=== PATIENT | female | born 1930 | race Caucasian/White ===

== ENCOUNTER 2017-04-26 07:52 | Emergency (ER) | payer MEDICARE ==
[2017-04-26] MEDS ORDERED: NS 0.9% 1000 ML* 1,000 ML IV ONE (08:06)
[2017-04-26] MEDS ORDERED: Ondansetron INJ* 2 MG/ML VIAL IV ONE (08:06)
[2017-04-26 08:27] LABS: Hematocrit 24 % (35-47); Hemoglobin 8.5 g/dl (12.0-16.0); Mean Corpuscular HGB Conc 35 g/dl (31-36); Mean Corpuscular Hemoglobin 29 pg (27-31); Mean Corpuscular Volume 83 fL (80-97); Mean Platelet Volume 8 um3 (7.4-10.4); Platelet Count 230 10^3/ul (150-450); Red Blood Count 2.93 10^6/ul (4.0-5.4); Red Cell Distribution Width 15 % (10.5-15)
[2017-04-26 08:41] LABS: EGFR Non-African American 20.8 (>60)
[2017-04-26 08:57] LABS: ABS Basophils 0 10^3/ul (0-0.2); ABS Eosinophils 0 10^3/ul (0-0.6); ABS Lymphocytes 0.1 10^3/ul (1.0-4.8); ABS Monocytes 1.7 10^3/ul (0-0.8); ABS Neutrophils 6.2 10^3/ul (1.5-7.7); ABS Nucleated RBC 0 10^3/ul; Eosinophil % 0 % (0-6); Lymphocyte % 1.2 % (25-47); Nucleated Red Blood Cells % 0
--- NOTE | 2017-04-26 09:05 | RAD ---
INDICATION: Preoperative COMPARISON: None TECHNIQUE: AP seated and lateral views were obtained. FINDINGS: Bones/Soft Tissues: There are no acute bony findings. Cardiomediastinal: The cardiomediastinal silhouette is normal. Lungs: There are no infiltrates. There is presumed mild underlying chronic change. There is hyperinflation. Pleura: There are no pleural effusions. Other: None IMPRESSION: MILD HYPERINFLATION. NO ACTIVE DISEASE.
[2017-04-26] MEDS ORDERED: Potassium Chlor TAB* 20 MEQ TAB.ER PO ONE (09:13)
[2017-04-26 10:17] VITALS: BP 114/60
[2017-04-27] MEDS ORDERED: ceFAZolin 2 GM PREMIX (*) 2 GM/50 ML BAG IVPB ONE (08:00)
--- NOTE | 2017-04-27 17:41 | ED ---
Magno Chin Angela, scribed for Abhishek Puri MD on 04/26/17 at 0806 . GI/ HPI - HPI Summary HPI Summary: This pt is a 86 y/o female, accompanied by her daughter, presenting to [facility] c/ o vomiting and diarrhea since last night. Daughter reports the pt had an infusion yesterday at Dr. Flores's office. Pt has B cell Lymphoma CA and is scheduled to have a port placed tomorrow to start chemotherapy. Oncology nurse told the daughter pt can take stool softeners and laxatives. Pt was given two stool softeners. Pt began with vomiting and then had diarrhea. Daughter states pt had 2 episodes of diarrhea at 03:00 and then at 05:00 today. Daughter reports the pt had weakness and diffuse abd pain. - History of Current Complaint Time Seen by Provider: 04/26/17 07:56 Stated Complaint: VOMITIN, DIARRHEA Hx Obtained From: Patient, Family/Frit Coater - Daughter Onset/Duration: Started Hours Ago, Still Present Timing: Lasting Hours Current Severity: Moderate Pain Intensity: 0 Location of Pain: Diffuse Associated Signs and Symptoms: Positive: Weakness - generalized, Vomiting, Diarrhea, Abdominal Pain Alleviating Factor(s): Nothing - Allergy/Home Medications Allergies/Adverse Reactions: Allergies Allergy/AdvReac Type Severity Reaction Status Date / Time No Known Allergies Allergy Verified 04/27/17 06:55 PMH/Surg Hx/FS Hx/Imm Hx Cardiovascular History: Reports: Hx Hypertension History: Reports: Other Problems/Disorders - UTI Neurological History: Reports: Hx CVA - 2013 - Cancer History Cancer Type, Location and Year: B Cell Lymphoma CA Infectious Disease History: No Infectious Disease History: Denies: Traveled Outside the [place] in Last 30 Days - Family History Family History: Mother: Colon CA. Brother: pancreatic CA - Social History Alcohol Use: None Substance Use Type: Reports: None Smoking Status (MU): Never Smoked Tobacco Review of Systems Constitutional: Other - dehydrated Negative: Fever Positive: Abdominal Pain - diffuse, Vomiting, Diarrhea, Nausea Positive: Weakness - generalized All Other Systems Reviewed And Are Negative: Yes Physical Exam - Summary Physical Exam Summary: VITAL SIGNS: Reviewed. GENERAL: Patient is an elderly and fragile female who is lying comfortable in the stretcher. Patient seems dehydrated. HEAD AND FACE: No signs of trauma. No ecchymosis, hematomas or skull depressions. No sinus tenderness. EYES: PERRLA, EOMI x 2, No injected conjunctiva, no nystagmus. EARS: Hearing grossly intact. Ear canals and tympanic membranes are within normal limits. MOUTH: Oropharynx within normal limits. NECK: Supple, trachea is midline, no adenopathy, no JVD, no carotid bruit, no c- spine tenderness, neck with full ROM. CHEST: Symmetric, no tenderness at palpation LUNGS: Clear to auscultation bilaterally. No wheezing or crackles. CVS: Regular rate and rhythm, S1 and S2 present, no murmurs or gallops appreciated. ABDOMEN: Soft, non-tender. No signs of distention. No rebound no guarding, and no masses palpated. Bowel sounds are normal. EXTREMITIES: FROM in all major joints, no edema, no cyanosis or clubbing. NEURO: Alert and oriented x 3. No acute neurological deficits. Speech is normal and follows commands. SKIN: Dry and warm Triage Information Reviewed: Yes Vital Signs On Initial Exam: Initial Vitals Temp Pulse Resp BP Pulse Ox 99.3 F 101 20 128/61 96 04/26/17 07:54 04/26/17 07:54 04/26/17 07:54 04/26/17 07:54 04/26/17 07:54 Vital Signs Reviewed: Yes Diagnostics - Vital Signs Vital Signs Temp Pulse Resp BP Pulse Ox 04/26/17 07:54 99.3 F 101 20 128/61 96 - Laboratory Lab Results: Lab Results 04/26/17 04/26/17 Range/Units 08:15 08:15 WBC 8.0 (3.5-10.8) 10^3/ul RBC 2.93 L (4.0-5.4) 10^6/ul Hgb 8.5 L (12.0-16.0) g/dl Hct 24 L (35-47) % MCV 83 (80-97) fL MCH 29 (27-31) pg MCHC 35 (31-36) g/dl RDW 15 (10.5-15) % Plt Count 230 (150-450) 10^3/ul MPV 8 (7.4-10.4) um3 Neut % (Auto) 77.9 (38-83) % Lymph % (Auto) 1.2 L (25-47) % Sierra % (Auto) 20.8 H (1-9) % Eos % (Auto) 0 (0-6) % Baso % (Auto) 0.1 (0-2) % Absolute Neuts (auto) 6.2 (1.5-7.7) 10^3/ul Absolute Lymphs (auto) 0.1 L (1.0-4.8) 10^3/ul Absolute Monos (auto) 1.7 H (0-0.8) 10^3/ul Absolute Eos (auto) 0 (0-0.6) 10^3/ul Absolute Basos (auto) 0 (0-0.2) 10^3/ul Absolute Nucleated RBC 0 10^3/ul Nucleated RBC % 0 Sodium 129 L (133-145) mmol/L Potassium 3.3 L (3.5-5.0) mmol/L Chloride 94 L (101-111) mmol/L Carbon Dioxide 27 (22-32) mmol/L Anion Gap 8 (2-11) mmol/L BUN 33 H (6-24) mg/dL Creatinine 2.23 H (0.51-0.95) mg/dL Est GFR ( Amer) 26.8 (>60) Est GFR (Non-Af Amer) 20.8 (>60) BUN/Creatinine Ratio 14.8 (8-20) Glucose 139 H (70-100) mg/dL Calcium 11.5 H (8.6-10.3) mg/dL Total Bilirubin 0.50 (0.2-1.0) mg/dL AST 99 H (13-39) U/L ALT 160 H (7-52) U/L Alkaline Phosphatase 154 H (34-104) U/L C-Reactive Protein 158.15 H (< 5.00) mg/L Total Protein 6.5 (6.4-8.9) g/dL Albumin 3.2 (3.2-5.2) g/dL Globulin 3.3 (2-4) g/dL Albumin/Globulin Ratio 1.0 (1-3) Lipase 71 (11.0-82.0) U/L Result Diagrams: 04/26/17 08:15 04/26/17 08:15 Lab Statement: Any lab studies that have been ordered have been reviewed, and results considered in the medical decision making process. - Radiology Chest XR Xray Interpretation: Positive (See Comments) - IMPRESSION: Mild hyperinflation. No active disease. Dr. Puri has reviewed this radiology report. Radiology Interpretation Completed By: Radiologist - EKG 08:09 Cardiac Rate: NL EKG Rhythm: Sinus Rhythm - at 86 bpm EKG Interpretation: No ST elevation. Normal axis. GIGU Course/Dx - Course Course Of Treatment: This pt is a 86 y/o female, accompanied by her daughter, presenting to [facility] c/o vomiting and diarrhea since last night. Daughter reports the pt had an infusion yesterday at Dr. Flores's office. Pt has B cell Lymphoma CA and is scheduled to have a port placed tomorrow to start chemotherapy. Oncology nurse told the daughter pt can take stool softeners and laxatives. Pt was given two stool softeners. Pt began with vomiting and then had diarrhea. Daughter states pt had 2 episodes of diarrhea at 03:00 and then at 05:00 today. Daughter reports the pt had weakness and diffuse abd pain. Test results show slight chronic anemia, hyponatremia, potassium of 3.3, CRP of 158. Pt was given IV fluids in the ED. After these fluids, the pt felt better. I did a chest XR which was negative for an acute pathology. The pt became febrile, for which she was given Tylenol. I offered more work up however she reports she is feeling better. She additionally reports she has had a fever this week for which she has been taking Tylenol as recommended by Dr. Flores. Therefore, the pt will be discharged home with follow up from PCP and Dr. Flores. She was not able to give a stool sample in the ED. Pt was recommended to return to the ED for any fever, increased pain, cough or urinary symptoms. Pt is hemodynamically stable, alert and oriented x3. - Diagnoses Differential Diagnoses - Female: Gastroenteritis (Viral), Gastroenteritis ( Bacterial), Gerd Provider Diagnoses: Nausea, vomiting and diarrhea Discharge - Discharge Plan Condition: Stable Disposition: HOME Patient Education Materials: Acute Nausea and Vomiting (ED), Acute Diarrhea (ED ) Referrals: Jed Flores MD [Primary Care Provider] - 3 Days Additional Instructions: Please follow up with Dr. Flores. RETURN TO THE ED FOR ANY WORSENING SYMPTOMS. The documentation as recorded by the Magno booker Angela accurately reflects the service I personally performed and the decisions made by me, Abhishek Puri MD.
== END 2017-04-26 10:15 | disposition home or self-care (01) ==
LOC: ED 07:52
DX: R11.2 Nausea with vomiting, unspecified (principal); R19.7 Diarrhea, unspecified
CPT/HCPCS: 36415; 71046; 80053; 83690; 85025; 86140; 93005; 96361; 96374; 99282; A9270-GY; J2405

== ENCOUNTER → 2017-04-27 06:33 | Day surgery (SDC) | payer MEDICARE ==
[~2017-04-27 06:33] MED LIST: Acetaminophen TAB* 325 MG PO PRN; Buffered Lidocaine 0.9% SYRIN* 5 ML/SYR SYRINGE INTRADERM ONE; Buffered Lidocaine 0.9% SYRIN* 5 ML/SYR SYRINGE ONE; Bupivacaine 0.25% SDV* 30 ML ONE; Bupivacaine 0.5% SDV PF* 10-30ML VIAL ONE; Dexamethasone IV* 4 MG/ML 1 ML (4 MG) ONE; Famotidine IV* 10 MG/ML 2 ML (20 mg) IV ONE; Famotidine IV* 10 MG/ML 2 ML (20 mg) ONE; Flumazenil* 0.1 MG/ML 5 ML MDV ONE; KETAMINE HCL* 50 MG/ML 10 ML VIAL ONE; Lidocaine 1% MPF wEPI 200,000* 30 ML SDV ONE; Lidocaine 2% PF * 5 ML VIAL ONE; Midazolam* 1 MG/ML 2 ML VIAL (2 MG) ONE; Naloxone* 0.4 MG/ML 1 ML VIAL IV PRN; Ondansetron INJ* 2 MG/ML VIAL IV PRN; Ondansetron INJ* 2 MG/ML VIAL ONE; Propofol* 10 MG/ML 20 ML BTL IV PUSH ONE; ceFAZolin 1 GM in Dextrose (*) 2 GM/100 ML BAG IVPB ONE; fentaNYL* 50 MCG/ML 2 ML VIAL (100 MCG VIAL) ONE
--- NOTE | 2017-04-27 08:56 | BRIEFOPN ---
Brief Operative Note - Surgery Procedures: Pre-OP Diagnoses: lymphoma Post-op Diagnosis: same Procedure: Insertion of powerport, needle in Surgeon: Maria Teresa Asst: none Anethesia: local, MAC EBL: minimal IVF: minimal Specimen: none Drains: none 8Fr single lumen power port via R IJV
--- NOTE | 2017-04-27 09:39 | RAD ---
INDICATION: chest port placement COMPARISONS: None relevant TECHNIQUE: Fluoroscopy was provided for a vascular access procedure. Total fluoroscopy time is: 47 seconds FINDINGS: Spot images demonstrate a right-sided chest port from an internal jugular vein approach with the tip overlying the right atrium. IMPRESSION: FLUOROSCOPY WAS PROVIDED FOR A VASCULAR ACCESS PROCEDURE CPT II Codes: 6045F
--- NOTE | 2017-04-27 09:39 | RAD ---
INDICATION: Central line. Evaluate for pneumothorax COMPARISON: Chest x-ray April 26, 2017 TECHNIQUE: An AP portable view obtained at 0915 hours is submitted. FINDINGS: Bones/Soft Tissues: There are no acute bony findings. There is a right IJ catheter terminating in the superior vena cava Cardiomediastinal: The cardiomediastinal silhouette is normal. Lungs: There are no infiltrates. There is no pneumothorax. Pleura: There are no pleural effusions. Other: None IMPRESSION: INTERVAL PLACEMENT RIGHT IJ CATHETER. NO PNEUMOTHORAX. LUNGS CLEAR.
[2017-04-27 10:43] VITALS: BP 108/50
--- NOTE | 2017-04-28 00:28 | OP ---
CC: Dr. Jed Flores * DATE OF OPERATION: 04/27/17 - SDS DATE OF : 30 SURGEON: Olvin Morel MD STATEMENT CLERK: None. ANESTHESIOLOGIST: Dr. Drake. ANESTHESIA: Local MAC anesthesia. PRE-OP DIAGNOSIS: Lymphoma. POST-OP DIAGNOSIS: Lymphoma. OPERATIVE PROCEDURE: Insertion of PowerPort. ESTIMATED BLOOD LOSS: Minimal blood loss. FLUIDS: Minimal crystalloid fluid given. DRAINS: An 8-Malay PowerPort inserted via the left internal jugular vein. DESCRIPTION OF PROCEDURE: The patient was identified in the preoperative area, case discussed with her, consent signed. She was marked and taken to the operating room, placed on the operating room table in supine position. Gentle sedation was given. The patient's right upper chest and neck were prepped and draped in a standard surgical fashion and a time-out was performed. Injection of the lidocaine along the proposed subclavian stick site was performed. I was unable to access the subclavian vein on the right after placing needle in what I felt was the appropriate place. We had 3 passes in all and then shifted our attention to the neck. The neck had been prepped. We accessed the internal jugular vein. I was able to place the wire, but it turned back on itself and was not able to be advanced. At this point, a micro access kit was opened. The IJ was again accessed. This wire was advanced to the superior vena cava under fluoroscopy. We were then able to place the dilator in and over the dilator put the PowerPort wire again. Under fluoroscopy , we ensured it was in the superior vena cava. Next, we made a pocket in the right upper chest for the PowerPort. We then tunneled the tubing to the stick site from the pocket site and placed the split - away catheter over the wire and then placed tubing through this. The tubing was cut to size checking its distance on the fluoroscopy and then attached to the PowerPort in appropriate position with a hub. This was then sutured into pocket with 0 Prolene sutures at the lateral and medial aspects. The wound was then irrigated and reapproximated with 3-0 Polysorb followed by 4-0 Monocryl and subcuticular sutures. Port was then accessed. Good return of blood was noted and then flushed with saline. We sutured the stick site with 4-0 Monocryl as well and then put a needle in place for chemotherapy later today and flushed this with heparinized saline after aspiration of blood. The patient tolerated the procedure well. [id number]/CPS #: [id number] J[facility] PET[facility] VA MEDICAL CENTERJennifer
== END | disposition home or self-care (01) ==
LOC: OR 06:33
PROVIDERS: ATTEND Surgery
DX: C83.38 Diffuse large B-cell lymphoma, lymph nodes of multiple sites (principal); I10 Essential (primary) hypertension; Z86.73 Personal history of transient ischemic attack (TIA), and cerebral infarction without residual deficits; Z79.01 Long term (current) use of anticoagulants
CPT/HCPCS: 71045; 76000; C1788; J0690; J1100; J1642; J2001; J2250; J2405; J2704; J3010

== ENCOUNTER 2018-04-11 10:53 | Inpatient (IN) | payer MEDICARE ==
--- NOTE | 2018-04-11 12:47 | ED ---
Palpitations / Dysrhythmia - HPI Summary HPI Summary: Patient presents with tachycardia -sent from PCP's office today (Dr. Underwood). She was there for routine physical when she was found to have an increased heart rate, hypoxia (92%) and symptoms of fatigue over the past month. Uses 02 at home routinely (2L) d/t lung scarring - denies h/o radiation. Pt and daughter report intermittent SOB. Her labs from yesterday are also remarkable for worsening anemia and abnormal LFT's. Patient's daughter reports she's been having difficulty swallowing (takes small bites and with water) although she is still eating and drinking and living independently at home. She also reports URI symptoms starting at the beginning of February (ie. sneezing, coughing, sputum, nasal d/c) and lasting all month however she and daughter state these are improving but still has sputum. Denies fever, chills, EMANUEL, chest pain, ab pain, N/V/D, skin changes/bruising/bleeding. H/o lymphomoa - follows w/ Dr. Flores. Last chemo in August 2017 - last imaging 2017. Has been doing well since until February w/ resp sx. - History of Current Complaint Chief Complaint: EDGeneral Time Seen by Provider: 04/11/18 12:05 Hx Obtained From: Patient, Family/[employer]ation [employer] Agent - daughter - Allergy/Home Medications Allergies/Adverse Reactions: Allergies Allergy/AdvReac Type Severity Reaction Status Date / Time No Known Allergies Allergy Verified 04/11/18 11:06 Home Medications: Home Medications Atorvastatin* [Lipitor*] 10 mg PO DAILY 04/11/18 [History Confirmed 04/11/18] Cholecalciferol (Vitamin D3) [Vitamin D3] 1,000 unit PO DAILY 04/11/18 [History Confirmed 04/11/18] Clopidogrel TAB* [Plavix TAB*] 75 mg PO DAILY 04/11/18 [History Confirmed ] PMH/Surg Hx/FS Hx/Imm Hx Previously Healthy: Yes Endocrine/Hematology History: Reports: Hx Anemia - slight Denies: Hx Anticoagulant Therapy, Hx Blood Transfusions, Hx Diabetes Cardiovascular History: Reports: Hx Hypertension, Other Cardiovascular Problems/ Disorders - cholesterol Denies: Hx Atrial Fibrillation, Hx Myocardial Infarction Respiratory History: Denies: Hx Asthma, Hx Chronic Obstructive Pulmonary Disease (COPD), Hx Pneumonia, Hx Pulmonary Embolism GI History: Reports: Other GI Disorders - on protonix r/t new dx of lymphoma History: Denies: Hx Acute Renal Failure, Hx Chronic Renal Failure, Hx Renal Disease Musculoskeletal History: Reports: Hx Arthritis Sensory History: Denies: Hx Contacts or Glasses, Hx Hearing Aid Opthamlomology History: Denies: Hx Contacts or Glasses - Cancer History Cancer Type, 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 tonsillectomy and adenoidectomy 193. gall bladder removed 1988 Hx Anesthesia Reactions: No Infectious Disease History: No Infectious Disease History: Denies: Traveled Outside the [place] in Last 30 Days - Social History Occupation: Retired Lives: Alone Alcohol Use: None Hx Substance Use: No Substance Use Type: Reports: None Hx Tobacco Use: No Smoking Status (MU): Never Smoked Tobacco Review of Systems Positive: Fatigue. Negative: Fever, Chills Eyes: Negative ENT: Other - resolving URI sx Cardiovascular: Other - tachycardia Negative: Palpitations, Chest Pain Positive: Shortness Of Breath Gastrointestinal: Negative Genitourinary: Negative Musculoskeletal: Negative Skin: Negative Neurological: Negative Psychological: Normal All Other Systems Reviewed And Are Negative: Yes Physical Exam Triage Information Reviewed: Yes Vital Signs On Initial Exam: Initial Vitals Temp Pulse Resp BP Pulse Ox 99.3 F 116 20 126/80 96 04/11/18 10:57 04/11/18 10:57 04/11/18 10:57 04/11/18 10:57 04/11/18 10:57 Vital Signs Reviewed: Yes Appearance: Positive: Well-Appearing - alert and oriented on O2 via NC, No Pain Distress, Thin Skin: Positive: Warm, Skin Color Reflects Adequate Perfusion, Dry - no ecchymosis Head/Face: Positive: Normal Head/Face Inspection Eyes: Positive: Normal, EOMI, VONNIE, Conjunctiva Clear. Negative: Conjunctiva Inflammed, Discharge ENT: Positive: Normal ENT inspection, Hearing grossly normal, Pharynx normal - mucosa moist, TMs normal, Uvula midline. Negative: Nasal congestion, Nasal drainage, Tonsillar swelling, Tonsillar exudate Neck: Positive: Supple, Nontender, No Lymphadenopathy Respiratory/Lung Sounds: Positive: Clear to Auscultation, Breath Sounds Present. Negative: Rales, Rhonchi, Wheezes Cardiovascular: Positive: Tachycardia, S1, S2. Negative: Murmur, Rub, Leg Edema Left, Leg Edema Right Abdomen Description: Positive: Nontender, No Organomegaly, Soft Bowel Sounds: Positive: Present Musculoskeletal: Positive: Normal, Strength/ROM Intact Neurological: Positive: Normal, Sensory/Motor Intact, Alert, Oriented to Person Place, Time, CN Intact II-III Psychiatric: Positive: Normal - Kriss Coma Scale Best Eye Response: 4 - Spontaneous Best Motor Response: 6 - Obeys Commands Best Verbal Response: 5 - Oriented Coma Scale Total: 15 Diagnostics - Vital Signs Vital Signs Temp Pulse Resp BP Pulse Ox 04/11/18 12:11 98.9 F 99 04/11/18 12:07 113 37 122/79 99 04/11/18 12:06 110 13 98 04/11/18 10:57 99.3 F 116 20 126/80 96 - Laboratory Result Diagrams: 04/11/18 16:14 Lab Statement: Any lab studies that have been ordered have been reviewed, and results considered in the medical decision making process. Course/Dx - Course Course Of Treatment: Pt here w/ tachycardia at PCP's office today. She was found to have junctional tachycardia with initial ECG - no p waves which is new from previous ECG. Dedicated rhythm strip shows sinus tachycardia with p waves then dropped beat followed by NSR. A repeat ECG reveals tachycardia but with p waves this time - SC is slightly prolonged at 233. Pt's sx have not changed throughout the course of her stay. Labs: H&H have dropped since yesterday - bleed vs. anemia of chronic dz. Pt has a new Rt lower lobe lesion/infiltrate - radiology notes suspicious for neoplasm. Given her h/o Lymphoma , drop in H&H and resp sx w/ changes in heart rate/rhythm, will admit. Discussed w/ Dr.'s Sanchez and Humberto - Dr. Paul to admit. Pt in stable condition at time of transition of care. NOTE: her heart rate improved w/ drinking water and she is hungry - may be component of dehydration. IV fluids were not initially ordered d/t concern for hemdilution if bleeding. - Diagnoses Provider Diagnoses: Right pulmonary lesion, Tachycardia, History of lymphoma, Anemia Discharge - Sign-Out/Discharge Documenting (check all that apply): Patient Departure - Discharge Plan Condition: Stable Disposition: ADMITTED TO [facility] - Billing Disposition and Condition Condition: STABLE Disposition: Admitted to [facility]
[2018-04-11 13:52] LABS: Magnesium 1.9 mg/dL (1.9-2.7)
[2018-04-11] MEDS ORDERED: Iodixanol* (CONTRAST) 320 MG/ML 100 ML SDV IV ONE (13:58)
[2018-04-11 14:27] LABS: TSH (Thyroid Stimulating Horm) 1.18 mcIU/mL (0.34-5.60)
[2018-04-11 16:47] LABS: Hematocrit 26 % (35-47); Hemoglobin 8.8 g/dl (12.0-16.0); Mean Corpuscular HGB Conc 34 g/dl (31-36); Mean Corpuscular Hemoglobin 29 pg (27-31); Mean Corpuscular Volume 85 fL (80-97); Mean Platelet Volume 7.7 fL (7.4-10.4); Platelet Count 334 10^3/ul (150-450); Red Blood Count 3.04 10^6/ul (4.00-5.40); Red Cell Distribution Width 16 % (10.5-15); White Blood Count 10.3 10^3/ul (3.5-10.8)
[2018-04-11 17:01] LABS: ABS Basophils 0 10^3/ul (0-0.2); ABS Eosinophils 0.1 10^3/ul (0-0.6); ABS Lymphocytes 0.7 10^3/ul (1.0-4.8); ABS Neutrophils 7.4 10^3/ul (1.5-7.7); ABS Nucleated RBC 0 10^3/ul; Eosinophil % 0.7 %; Lymphocyte % 6.7 %; Nucleated Red Blood Cells % 0
[2018-04-11 18:29] LABS: C Reactive Protein < 1.00 mg/L (<8.01)
[2018-04-11] MEDS ORDERED: Acetaminophen TAB* 325 MG PO PRN (20:29)
[2018-04-11] MEDS ORDERED: Piperacillin/Tazobac ADVAN(*) 3.375 GM in NS 0.9% 100 ML* 100 ML IVPB ONE (20:33)
[2018-04-11] MEDS ORDERED: Zosyn per Pharmacy* NOTE FOLLOW UP SCH (21:00)
[2018-04-11 21:57] LABS: LDH 192 U/L (140-271); Total Iron Binding Capacity 185 mcg/dL (250-450); Transferrin 132 mg/dL (203-362)
[2018-04-11 22:29] LABS: Iron < 15 ug/dL (50-212)
[2018-04-11] MEDS: NS 0.9% 1000 ML* 1,000 ML IV SCH (22:39)
--- NOTE | 2018-04-11 23:23 | HP ---
CC: Dr. Flores; Dr. Underwood * HISTORY AND PHYSICAL: DATE OF ADMISSION: 04/11/18. REASON FOR ADMISSION: Tachycardia and shortness of breath. HISTORY OF PRESENT ILLNESS: An 87-year-old female with a recent diagnosis of diffuse large B-cell lymphoma, activated B-cell subtype. She was treated with mini- R-CHOP x4 cycles, ending in July 2017. Course complicated by pneumonia and prolonged hospitalization from April to May. She became a [facility] resident during her chemotherapy and has stayed there since. Generally recovered from chemotherapy and this fall had been doing fairly well. Primary sources of information are her son and her daughter. She started to feel poorly 2 to 3 weeks ago. The patient reports increasing fatigue. Both the son and her daughter states she is doing less and less, sleeping more during the day. They would take her out and then she would fall asleep in the car and this is new for her. She also had had oxygen since her May admissions, but was not using it consistently. Over the past week, she has needed it more. Daughter and son has also noted that she has become short of breath in conversation, which was a new finding. She has a chronic cough that is nonproductive. She denies fevers, chills, or night sweats. She has poor appetite and nothing taste good, but weight has generally been stable. She has not noticed any skin changes, any lymphadenopathy. She had blood drawn per Dr. Flores yesterday and then was seen today by Dr. Underwood for her routine physical. On exam, she was noted to be tachycardic at 120, and she was sent to the emergency room. Blood work from yesterday shows a hemoglobin of 8.8, which is down from 11.2 on 01/11 and her hemoglobin has varied from 8.5 to 12 since her first blood work at [facility] in March 2017. She has a creatinine of 0.93, which is her baseline, mildly elevated AST and ALT in the 50s. LFTs were elevated at diagnosis, but normalized during therapy, normal total bilirubin and normal calcium and a slightly elevated glucose of 162. She had a CTA to look for pulmonary embolus. There was no thrombosis, but she is noted to have a new consolidation at superior segment of the right lower lobe. There is broadly increased airspace disease in the right lower lobe on top of her chronic interstitial pattern. While not reported in there is thickening of the mediastinum as well as new subcarinal lymphadenopathy. She has a pericardial effusion that has been present since diagnosis, maybe slightly increased. Her spleen size is normal, although the spleen does look like it may be increased from December 2017, her last CT scan. PAST MEDICAL HISTORY: 1. Diffuse large B-cell lymphoma. She was diagnosed in March 2017 when she presented with hypercalcemia at an outside institution. She was first seen by Dr. Flores on 04/08/17. She was stage III at diagnosis with lymphadenopathy involving the lobe of the diaphragm and negative bone marrow biopsy, she had these symptoms at presentation. She had 2 cycles of mini-R-CHOP, but then course was complicated by prolonged hospitalization with severe pneumonia. She also received 2 additional cycles of chemotherapy and then stopped. She had a CT scan done in July after chemotherapy that did not show any residual lymphadenopathy. 2. Stroke in 2013, which is subsequently recovered. 3. Hypertension. 4. Gallstones. 5. Pulmonary disease. Had episode of longstanding pneumonia in May and has had interstitial changes in her lung since then. Review of a February 2017 CT scan shows some evidence of chronic pulmonary disease, but did not show the scarring we saw on her subsequent scans. PAST SURGICAL HISTORY: 1. Cholecystectomy. 2. Cataract. 3. Tonsillectomy. MEDICATIONS: At [facility]: 1. Atorvastatin 10 mg a day. 2. Vitamin D 1000 units daily. 3. Plavix 75 mg daily. ALLERGIES: None. FAMILY HISTORY: Mother had colon cancer, at 79. Brother had pancreatic cancer at 85. No family history of malignancies. SOCIAL HISTORY: She is . Resident of [facility]. Two of her children are very involved, 5 children total. She is a retired teacher. She never smoked, but she did get exposed to secondhand smoke from her . Never is a heavy drinker. She moved from [place] to [facility] to be with family when she became ill. REVIEW OF SYSTEMS: In general, more fatigued. Denies fevers, chills, or night sweats. HEENT: Poor taste. Poor hearing. Pulmonary: More short of breath recently as per HPI. Cardiac: Tachycardia with Dr. Underwood's office. Denies palpitations or chest pain. GI: She has had some diarrhea several weeks ago and low appetite. : Polyuria. Musculoskeletal: She gets up and gets around at [facility], has been fairly independent. Neurologic: Stroke that she recovered from. She is a poor historian, but is oriented. PHYSICAL EXAMINATION VITAL SIGNS: Temperature 99.3 in the emergency room, BP 112/65, heart rate 110 to 120, respiratory rate 20, O2 saturation 96% on 2 L. HEENT: Mucosa moist. No lesions. Conjunctivae slightly pale. No cervical or supraclavicular lymphadenopathy. Pupils equal, round, and reactive to light. LUNGS: She has crackles bilaterally right more than left, not clearly consolidated. She has coarse breath sounds, but has reasonable air movement. No wheezing. HEART: Regular rhythm. S1, S2. Tachycardic. ABDOMEN: Nontender, nondistended. No hepatosplenomegaly. EXTREMITIES: There is no edema. Good pulses x4. NEUROLOGIC: She is alert and oriented in the ER. Moving all 4 extremities. Full exam was deferred. No gross defects. SKIN: No lesions noted. No peripheral lymphadenopathy. DIAGNOSTIC STUDIES/LAB DATA: As noted in HPI. Her platelets are 334, white count 10.3 with a slightly left shift in differential. CT scan as above. ASSESSMENT AND PLAN: An 87-year-old female with a history of diffuse large B- cell lymphoma, treated with minimal chemotherapy, completed last July. Now comes in with a new anemia, tachycardia, and an infiltrative pulmonary process as well as mediastinal lymphadenopathy. Differential diagnosis includes atypical pneumonia, community-acquired pneumonia, recurrent lymphoma. 1. Pulmonary infiltrate and mediastinal lymphadenopathy. We will start her on empiric antibiotics with Zosyn and azithromycin. Consult Pulmonary in the morning to consider bronchoscopy and/or transbronchial biopsy. We will check ESR as well as LDH and beta-2 microglobulin. 2. Anemia. Send iron, B12 and erythropoietin level. Differential diagnoses includes new iron deficiency, chronic disease, renal insufficiency. 3. I will hold her home medications. She should be off the Plavix in case she needs the biopsy, atorvastatin and vitamin D are necessary at this point. 4. DVT prophylaxis per protocol. We will use 30 mg of Lovenox as estimated creatinine clearance is diminished given her weight, age and creatinine of 0.93. 5. Physical therapy starting tomorrow as I expect this would be a several day hospitalization with discharge plan back to [facility]. 6. Tachycardia. We will follow on telemetry for time being, suspected it is secondary to systemic illness. 7. Gentle hydration, NS at 75 cc/hr [id number]/CPS #: [id number] MTDD
[2018-04-11] MEDS: Azithromycin IV(*) 500 MG in NS 0.9% 250 ML* 250 ML IVPB SCH (23:43)
[2018-04-11] MEDS: Enoxaparin(*) 30 MG/0.3 ML SYR SUBCUT SCH (23:44)
[2018-04-12] MEDS: ZOSYN 3.375 GM Q8H per EXTENDED INFUSION IVPB SCH ×6 (04:29→19:16)
[2018-04-12] MEDS ORDERED: Iodixanol* (CONTRAST) 320 MG/ML 100 ML SDV IV ONE (09:50)
--- NOTE | 2018-04-12 11:23 | PN ---
Progress Note - Progress Note Date of Service: 04/12/18 SOAP: Subjective: []Presented to the ER yesterday following OV with primary where her HR was elevated. "I guess something just wasn't working right." Son-in-law at bedside, both pt. and family involved in conversations. Tired this AM, but no huge difference from yesterday. Developed diarrhea this AM following CT with oral contrast. Denies pain. Has been coughing and bringing up clear sputum, not frothy. Feels most comfortable wrapped in blankets laying flat. Medications: Acetaminophen (Tylenol Tab*) 650 mg PO Q4H PRN PRN Reason: FEVER/PAIN Last Admin: 04/11/18 22:54 Dose: 650 mg Enoxaparin Sodium (Lovenox(*)) 30 mg SUBCUT Q24H PENDING SALE TO [facility] Last Admin: 04/11/18 23:44 Dose: 30 mg Sodium Chloride (Ns 0.9% 1000 Ml*) 1,000 mls @ 75 mls/hr IV PER RATE PENDING SALE TO [facility] Last Admin: 04/11/18 22:39 Dose: 75 mls/hr Azithromycin 500 mg/ Sodium (Chloride) 250 mls @ 250 mls/hr IVPB Q24H PENDING SALE TO [facility] Last Admin: 04/11/18 23:43 Dose: 250 mls/hr Piperacillin Sod/Tazobactam (Sod 3.375 gm/ Sodium Chloride) 100 mls @ 25 mls/ hr IVPB Q8H PENDING [facility] TO [facility] Last Admin: 04/12/18 04:29 Dose: 25 mls/hr Pharmacy Consult (Zosyn Per Pharmacy*) 1 note FOLLOW UP .ZOSYN PER PHARMACY [facility]END[facility] TO [facility] Objective: [] Vital Signs Temp Pulse Resp BP Pulse Ox 98.5 F 58 18 103/44 100 04/12/18 07:43 04/12/18 07:43 04/12/18 07:43 04/12/18 07:43 04/12/18 07:43 A&Ox3, EOMI, neuro grossly non-focal RUFFIN and moving independently in bed HRR, S1S2 LS with fine crackles at bases, R>L, resp. even and non-labored, dry cough noted +BS, abd. soft and non-tender, no masses or megaly with palpation Laboratory Results - last 24 hr 04/11/18 04/11/18 04/11/18 12:53 12:56 12:56 WBC RBC Hgb Hct MCV MCH MCHC RDW Plt Count MPV Neut % (Auto) Lymph % (Auto) Otero % (Auto) Eos % (Auto) Baso % (Auto) Absolute Neuts (auto) Absolute Lymphs (auto) Absolute Monos (auto) Absolute Eos (auto) Absolute Basos (auto) Absolute Nucleated RBC Nucleated RBC % ESR Magnesium 1.9 Iron TIBC % Saturation Unsat Iron Binding Transferrin Ferritin Lactate Dehydrogenase Troponin I 0.01 C-Reactive Protein < 1.00 Vitamin B12 TSH 1.18 Monoscreen Negative Influenza A (Rapid) Negative Influenza B (Rapid) Negative 04/11/18 04/11/18 04/11/18 16:14 21:10 21:10 WBC 10.3 RBC 3.04 L Hgb 8.8 L Hct 26 L MCV 85 MCH 29 MCHC 34 RDW 16 H Plt Count 334 MPV 7.7 Neut % (Auto) 72.5 Lymph % (Auto) 6.7 Otero % (Auto) 19.8 Eos % (Auto) 0.7 Baso % (Auto) 0.3 Absolute Neuts (auto) 7.4 Absolute Lymphs (auto) 0.7 L Absolute Monos (auto) 2.0 H Absolute Eos (auto) 0.1 Absolute Basos (auto) 0 Absolute Nucleated RBC 0 Nucleated RBC % 0 ESR 109 H Magnesium Iron < 15 L TIBC 185 L % Saturation 8 L Unsat Iron Binding < 170 Transferrin 132 L Ferritin 242.0 Lactate Dehydrogenase 192 Troponin I C-Reactive Protein Vitamin B12 > 1450 H TSH Monoscreen Influenza A (Rapid) Influenza B (Rapid) Assessment: []87 yo female with DLBCL s/p R-miniCHOP completed in spring of this year ( albeit with multiple complications) presenting to the ER last night with tachycarda and CTA chest concerning for pneumonia vs. recurrent disease (neg. for PE). Plan: []1. Tachycardia: seeming to improve with hydration and IV abx., suspect likely r/t PNA - cont. tele for now - suggest 3 days IV abx. prior to d/c 2. Anemia: normal B12 with functional iron deficiency (normal ferritin) - may be related to lymphoma, follow and consider bone marrow biopsy if persistent 3. Lymphoma: adenopathy on CT chest, none on CT abd/pelvis (personally reviewed) - will cont. f/u and may require PET as outpatient Dispo: cont. PT and likely d/c back to [facility] in next 2-3 days
[2018-04-12] MEDS: Enoxaparin(*) 30 MG/0.3 ML SYR SUBCUT SCH (21:18)
[2018-04-12] MEDS: Azithromycin IV(*) 500 MG in NS 0.9% 250 ML* 250 ML IVPB SCH (23:13)
[2018-04-12] MEDS: guaiFENesin LIQ* 100 MG/5 ML UDC PO PRN (23:58)
[2018-04-13] MEDS: NS 0.9% 1000 ML* 1,000 ML IV SCH ×4 (03:40→17:21)
[2018-04-13] MEDS: ZOSYN 3.375 GM Q8H per EXTENDED INFUSION IVPB SCH ×6 (05:22→19:40)
--- NOTE | 2018-04-13 15:08 | PN ---
Subjective Date of Service: 04/13/18 Interval History: Pt states that she feels pretty well. She admits to an occasional cough, which is productive. She denies hemoptysis, aches, chest pain. She is SOB, but there is no change from her baseline, she states. She reports having had diarrhea last night, but had a formed stool later. She denies any other bouts of diarrhea and denies abdominal pain. She is tired and has a runny nose. Objective Active Medications: Acetaminophen (Tylenol Tab*) 650 mg PO Q4H PRN Enoxaparin Sodium (Lovenox(*)) 30 mg SUBCUT Q24H ASYA Guaifenesin (Robitussin*) 10 ml PO Q4H PRN Sodium Chloride (Ns 0.9% 1000 Ml*) 1,000 mls @ 75 mls/hr IV PER RATE ASYA Azithromycin 500 mg/ Sodium (Chloride) 250 mls @ 250 mls/hr IVPB Q24H ASYA Piperacillin Sod/Tazobactam (Sod 3.375 gm/ Sodium Chloride) 100 mls @ 25 mls/ hr IVPB Q8H [facility] Pharmacy Consult (Zosyn Per Pharmacy*) 1 note FOLLOW UP .ZOSYN PER PHARMACY [facility] Vital Signs: Temp Pulse Resp BP Pulse Ox 98.1 F 94 20 119/99 99 04/13/18 11:07 04/13/18 11:07 04/13/18 11:07 04/13/18 11:07 04/13/18 11:07 Oxygen Devices in Use Now: Nasal Cannula Appearance: Pt is resting comfortably in bed; in no acute distress; pleasant and cooperative Eyes: No Scleral Icterus, PERRLA, - - EOMI Ears/Nose/Mouth/Throat: NL Teeth, Lips, Gums, Clear Oropharnyx, Mucous Membranes Moist Neck: NL Appearance and Movements; NL JVP, Trachea Midline, No Thyroid Enlargement, Masses Respiratory: Symmetrical Chest Expansion and Respiratory Effort, - - Bibasilar crackles, more prominent on R base Cardiovascular: NL Sounds; No Murmurs; No JVD, RRR, No Edema Abdominal: NL Sounds; No Tenderness; No Distention, No Hepatosplenomegaly Extremities: No Edema, No Clubbing, Cyanosis, - - Radial and dorsalis pedal pulses 2+ b/l Neurological: Alert and Oriented x 3, NL Sensation Result Diagrams: 04/11/18 16:14 Microbiology and Other Data: Microbiology 04/11/18 22:07 Nasal Screen MRSA (PCR) - Final Nasal Mrsa Not Detected 04/11/18 12:33 Influenza Types A,B Antigen - Final Nasal Specimen received for Influenza A/B Molecular testing Assess/Plan/Problems-Billing Assessment: Pt is an 87 yof with h/o diffuse large B cell lymphoma, finished R-miniCHOP in July of 2017 with a pna complications in between. She presented to ther ER with tachycardia, had CTA that revealed pna vs DLBCL. - Patient Problems (1) Pneumonia Comment: -Pt has occasional cough, no fevers -Continue azithro, zosyn -Recheck CBC, BMP tomorrow a.m. (2) Tachycardia Comment: -Pt still intermittently tachy with low-normal BP -Continue NS @ 75cc/h (3) Anemia Comment: -Functional iron deficiency with normal ferritin -May be related to lymphoma; follow and consider bone marrow bx if persistent (4) Mediastinal lymphadenopathy Comment: -LAD on CT chest CT, no LAD on CT abd/pel -F/u with heme/onc outpatient, as she may require PET (5) DVT prophylaxis Comment: -Lovenox ordered (6) DNR (do not resuscitate) Status and Disposition: Inpatient. Discharge when stable and follow up with heme/onc.
[2018-04-13] MEDS: Enoxaparin(*) 30 MG/0.3 ML SYR SUBCUT SCH (21:15)
[2018-04-13] MEDS: guaiFENesin LIQ* 100 MG/5 ML UDC PO PRN (22:48)
[2018-04-14] MEDS: Azithromycin IV(*) 500 MG in NS 0.9% 250 ML* 250 ML IVPB SCH (00:01)
[2018-04-14] MEDS: ZOSYN 3.375 GM Q8H per EXTENDED INFUSION IVPB SCH ×6 (02:59→19:49)
[2018-04-14 05:04] LABS: Hematocrit 24 % (35-47); Hemoglobin 8.1 g/dl (12.0-16.0); Mean Corpuscular HGB Conc 34 g/dl (31-36); Mean Corpuscular Hemoglobin 29 pg (27-31); Mean Corpuscular Volume 86 fL (80-97); Mean Platelet Volume 7.2 fL (7.4-10.4); Platelet Count 341 10^3/ul (150-450); Red Cell Distribution Width 16 % (10.5-15); White Blood Count 8.1 10^3/ul (3.5-10.8)
[2018-04-14 05:23] LABS: Calcium 8.5 mg/dL (8.6-10.3); EGFR Non-African American 66.9 (>60); Potassium 3.9 mmol/L (3.5-5.0)
[2018-04-14 05:25] LABS: ABS Basophils 0.1 10^3/ul (0-0.2); ABS Eosinophils 0.2 10^3/ul (0-0.6); ABS Lymphocytes 0.6 10^3/ul (1.0-4.8); ABS Monocytes 1.5 10^3/ul (0-0.8); ABS Neutrophils 5.6 10^3/ul (1.5-7.7); ABS Nucleated RBC 0 10^3/ul; Eosinophil % 2.9 %; Lymphocyte % 7.6 %; Nucleated Red Blood Cells % 0
[2018-04-14] MEDS: NS 0.9% 1000 ML* 1,000 ML IV SCH (09:23)
[2018-04-14] MEDS ORDERED: Furosemide IV* 10 MG/ML 2 ML VIAL (20 MG) IV ONE (14:39)
--- NOTE | 2018-04-14 15:06 | PN ---
Subjective Date of Service: 04/14/18 Interval History: Pt continues to have an occasional cough, and states that it is productive with clear-white sputum. She is short of breath and finds her oxygen to be a nuisance, stating that the tubing is difficult to walk with. She states she is at her baseline in terms of her SOB, and is on 2-3L O2 at home. She denies CP, increased SOB, abd pain, n/v. She states she has not had diarrhea in the last 24 hours. She denies hematemesis, hemoptysis, hematochezia, melena. Denies fever, body aches, chills. Objective Active Medications: Acetaminophen (Tylenol Tab*) 650 mg PO Q4H PRN Enoxaparin Sodium (Lovenox(*)) 30 mg SUBCUT Q24H ASYA Ferrous Sulfate (Ferrous Sulfate Tab*) 325 mg PO DAILY ASYA Guaifenesin (Robitussin*) 10 ml PO Q4H PRN Azithromycin 500 mg/ Sodium (Chloride) 250 mls @ 250 mls/hr IVPB Q24H ASYA Piperacillin Sod/Tazobactam (Sod 3.375 gm/ Sodium Chloride) 100 mls @ 25 mls/ hr IVPB Q8H ASYA Lactobacillus Rhamnosus (Lactobacillus Acidophilus*) 1 tab PO DAILY ASYA Pharmacy Consult (Zosyn Per Pharmacy*) 1 note FOLLOW UP .ZOSYN PER PHARMACY [facility] Vital Signs: Temp Pulse Resp BP Pulse Ox 97.9 F 71 32 129/67 100 04/14/18 11:37 04/14/18 11:37 04/14/18 11:37 04/14/18 11:37 04/14/18 11:37 Oxygen Devices in Use Now: Nasal Cannula - 2L Appearance: Pt is sitting in bed resting. She is a/o and is cooperative and pleasant. Her daughter is at her bedside. Eyes: No Scleral Icterus, PERRLA Ears/Nose/Mouth/Throat: NL Teeth, Lips, Gums, Mucous Membranes Moist Neck: NL Appearance and Movements; NL JVP, Trachea Midline Respiratory: Symmetrical Chest Expansion and Respiratory Effort, - - Crackles at b/l bases Cardiovascular: NL Sounds; No Murmurs; No JVD, RRR, No Edema Abdominal: NL Sounds; No Tenderness; No Distention, No Hepatosplenomegaly Extremities: No Edema, No Clubbing, Cyanosis, - - Radial, DP pulses 2+. Neurological: Alert and Oriented x 3 Result Diagrams: 04/14/18 04:50 04/14/18 04:50 Microbiology and Other Data: Microbiology 04/11/18 22:07 Nasal Screen MRSA (PCR) - Final Nasal Mrsa Not Detected 04/11/18 12:33 Influenza Types A,B Antigen - Final Nasal Specimen received for Influenza A/B Molecular testing Assess/Plan/Problems-Billing Assessment: Pt is an 87 yof with h/o diffuse large B cell lymphoma, finished R-miniCHOP in July of 2017 with a pna complications in between. She presented to ther ER with tachycardia, had CTA that revealed pna vs DLBCL. - Patient Problems (1) Pneumonia Comment: -Pt has occasional cough, no fevers -Continue azithro, zosyn -Probiotic ordered -Recheck CBC tomorrow a.m. (2) Anemia Comment: -Iron deficiency anemia; low hgb may be partially dilutional? -Fe sulfate 325 qd ordered -Stool for occult blood ordered -Recheck CBC tomorrow a.m. -Per heme/onc, may be related to lymphoma; follow and consider bone marrow bx if persistent (3) Interstitial edema Comment: -Seen on 04/11 CXR -Lasix 20 now -Repeat CXR in a.m. (4) Tachycardia Comment: -HR stabilized -Discontinue NS @ 75cc/h -Continue to monitor (5) Mediastinal lymphadenopathy Comment: -LAD on CT chest CT, no LAD on CT abd/pel -F/u with heme/onc outpatient, as she may require PET (6) DVT prophylaxis Comment: -Lovenox ordered (7) DNR (do not resuscitate) Status and Disposition: Inpatient. Discharge when stable and follow up with heme/onc.
[2018-04-14] MEDS: Lactobacillus Acidophilus* 1 TAB PO SCH (15:57)
[2018-04-14] MEDS: Ferrous Sulfate TAB* 325 MG PO SCH (15:57)
[2018-04-14] MEDS: Enoxaparin(*) 30 MG/0.3 ML SYR SUBCUT SCH (20:29)
[2018-04-15] MEDS: Azithromycin IV(*) 500 MG in NS 0.9% 250 ML* 250 ML IVPB SCH (00:34)
[2018-04-15] MEDS: ZOSYN 3.375 GM Q8H per EXTENDED INFUSION IVPB SCH ×2 (01:57)
[2018-04-15 05:17] LABS: Hematocrit 24 % (35-47); Hemoglobin 8.3 g/dl (12.0-16.0); Mean Corpuscular HGB Conc 34 g/dl (31-36); Mean Corpuscular Hemoglobin 29 pg (27-31); Mean Corpuscular Volume 85 fL (80-97); Mean Platelet Volume 7.3 fL (7.4-10.4); Platelet Count 377 10^3/ul (150-450); Red Blood Count 2.87 10^6/ul (4.00-5.40); Red Cell Distribution Width 16 % (10.5-15)
[2018-04-15 05:37] LABS: Immature Granulocytes 9 % (0-9); Lymphocytes % 10 %; Metamyelocytes % 3 % (0-2); Monocytes % 7 %; Myelocytes % 4 % (0-1); Neutrophil % 71 %
[2018-04-15 05:38] LABS: ABS Neutrophils 5.6 10^3/ul (1.5-7.7)
[2018-04-15 05:39] LABS: ABS Basophils 0.14 10^3/ul (0-0.2); ABS Eosinophils 0.07 10^3/ul (0-0.6)
[2018-04-15 07:57] VITALS: BP 111/59
[2018-04-15] MEDS: Ferrous Sulfate TAB* 325 MG PO SCH (09:39)
[2018-04-15] MEDS: Lactobacillus Acidophilus* 1 TAB PO SCH (09:39)
--- NOTE | 2018-04-15 10:50 | PN ---
Subjective Date of Service: 04/15/18 Interval History: Ms. Rodriguez reports that she feels well and is very adamant about discharge to home. She denies chest pain, SOB, nausea, or abdominal pain. She feels that her mobility is at baseline. She has been evaluated by PT and noted to be independent with ambulation. Objective Active Medications: Acetaminophen (Tylenol Tab*) 650 mg PO Q4H PRN Enoxaparin Sodium (Lovenox(*)) 30 mg SUBCUT Q24H ASYA Ferrous Sulfate (Ferrous Sulfate Tab*) 325 mg PO DAILY ASYA Guaifenesin (Robitussin*) 10 ml PO Q4H PRN Heparin Sodium (Porcine) (Heparin Flush Port (Ivad)) 5 ml FLUSH DAILY ASYA; Protocol Azithromycin 500 mg/ Sodium (Chloride) 250 mls @ 250 mls/hr IVPB Q24H ASYA Piperacillin Sod/Tazobactam (Sod 3.375 gm/ Sodium Chloride) 100 mls @ 25 mls/ hr IVPB Q8H ASYA Lactobacillus Rhamnosus (Lactobacillus Acidophilus*) 1 tab PO DAILY [facility] Pharmacy Consult (Zosyn Per Pharmacy*) 1 note FOLLOW UP .ZOSYN PER PHARMACY [facility] Vital Signs: Temp Pulse Resp BP Pulse Ox 97.6 F 97 18 111/59 98 04/15/18 07:25 04/15/18 07:25 04/15/18 08:00 04/15/18 07:25 04/15/18 07:25 Oxygen Devices in Use Now: Nasal Cannula Appearance: Female sitting up in chair in NAD Eyes: No Scleral Icterus Ears/Nose/Mouth/Throat: Mucous Membranes Moist Respiratory: Symmetrical Chest Expansion and Respiratory Effort, Clear to Auscultation Cardiovascular: NL Sounds; No Murmurs; No JVD, No Edema Abdominal: NL Sounds; No Tenderness; No Distention Extremities: No Edema Skin: No Rash or Ulcers Neurological: Alert and Oriented x 3, NL Muscle Strength and Tone Nutrition: Taking PO's Result Diagrams: 04/15/18 05:05 04/14/18 04:50 Microbiology and Other Data: . Assess/Plan/Problems-Billing Assessment: Ms. Rodriguez is an 87 yo female with h/o diffuse large B cell lymphoma, finished R-miniCHOP in July of 2017 complicated by episode of pneumonia. She presented to ther ER with tachycardia, with suspected pneumonia. - Patient Problems (1) Pneumonia Comment: - Resolving, now on home O2 - Complete course of azithromycin and cefpodoxime. (2) Anemia Comment: - Stable. - Iron deficiency anemia; low hgb may be partially dilutional? Stool for occult negative. Per heme/onc, may be related to lymphoma; consider bone marrow bx if persistent. - Fe sulfate 325 qd (3) Mediastinal lymphadenopathy Comment: -LAD on CT chest CT, no LAD on CT abd/pel -F/u with heme/onc outpatient, as she may require PET (4) DVT prophylaxis Comment: -Lovenox (5) DNR (do not resuscitate) Status and Disposition: Inpatient. Discharge to home, close follow up with oncology.
--- NOTE | 2018-04-15 13:24 | DS ---
CC: Dr. Underwood; Dr. Flores * HOSPITAL MEDICINE DISCHARGE SUMMARY: DATE OF ADMISSION: 04/11/18 DATE OF DISCHARGE: 04/15/18 PRIMARY CARE PHYSICIAN: Dr. Underwood. ONCOLOGIST: Dr. Flores. ATTENDING PHYSICIAN: Dr. Simpson * (dictation provided by Sheba Cerna NP) PRIMARY DIAGNOSES: 1. Pneumonia. 2. Anemia, improving. SECONDARY DIAGNOSES: 1. History of diffuse large B-cell lymphoma. 2. Stroke in 2013. 3. Hypertension. 4. Gallstones. 5. History of pulmonary disease with interstitial changes. PAST SURGICAL HISTORY: 1. Cholecystectomy. 2. Cataract. 3. Tonsillectomy. MEDICATIONS: At the time of discharge are: 1. Clopidogrel 75 mg p.o. daily. 2. Cholecalciferol 1000 units p.o. daily. 3. Atorvastatin 10 mg p.o. daily. 4. Lactobacillus 1 tab p.o. daily. 5. Ferrous sulfate 325 mg p.o. daily. 6. Cefpodoxime 200 mg p.o. q.12 hours x3 days. 7. Azithromycin 250 mg p.o. daily x2 days. HOSPITAL COURSE: Ms. Rodriguez is an 87-year-old female with a history of diffuse large B-cell lymphoma, stroke, and interstitial lung disease who presented to the hospital on 04/11/18 with concern for tachycardia and shortness of breath. Please see the dictated H and P from Dr. Paul for complete details. In brief, the patient had a history of diffuse large B-cell lymphoma, activated B-cell subtype. She was treated with mini-R-CHOP x4 cycles , ending in July 2017. That course of treatment had been complicated by a prolonged hospitalization for pneumonia. Thereafter, she had been living at [facility]. The patient's family reported that she had become more short of breath and lethargic and sleeping during the day, which was unusual for her. The patient was seen by Dr. Flores on 04/10/[address] Underwood on for a routine physical and it was noted that she had a heart rate of 120. She had also a recurrent anemia with a hemoglobin of 8.8, which was down from 11.2 on 01/11/19. In the emergency room, the patient initially had a chest x-ray, which showed "constellation of findings that is most concerning for alveolar and interstitial edema, superimposed on chronic as an interstitial lung disease with fibrosis." She then had a chest thorax CTA, which showed the following, "no pulmonary arterial filling defect to suggest pulmonary embolism, stable chronic interstitial lung disease, there has been interval development of more focal consolidation of the superior segment of the right lower lobe, recommend followup until resolution to exclude underlying pulmonary parenchymal neoplasm, small pericardial effusion, which is stable and bilateral bronchiectasis." The patient's labs showed no leukocytosis. Again, the hemoglobin was 8.8. The ESR was 109. Her electrolytes and creatinine were normal. Her CRP was less than 1. Flu swab was negative. Ms. Rodriguez was admitted to the hospital in treatment of pneumonia. She has been on azithromycin and Zosyn during the hospitalization. She has had good resolution of symptoms and is up ambulating in her room independently, on home oxygen. Her blood count was rechecked and on 04/14/18, it was 8.1 and then on 04/15/18, it was 8.3. The patient had a stool guaiac, which was negative. She had iron studies revealing a percent saturation of 8 with a total iron of less than 15. Her vitamin B12 was normal. I suspect that perhaps she has a component of iron deficiency anemia. She is on Plavix, but there is no evidence of occult GI bleeding. Hematology/oncology suspected this could be related to her lymphoma and will be considering bone marrow biopsy in the outpatient setting. Ms. Rodriguez is very eager and adamant about discharge to home today. She is again independent and states she is feeling better. Family agreed that she looks much better than on arrival and she will be following up closely with her primary care physician, Dr. Underwood and her oncologist, Dr. Flores. For pneumonia , she will be completing a course of cefpodoxime and azithromycin. Again, she is afebrile and she has no leukocytosis or tachycardia. Ms. Rodriguez is medically stable for discharge to home. DISPOSITION: Home. DIET: Regular. ACTIVITY: As tolerated. FOLLOWUP PLANS: 1. Please follow up with Dr. Underwood within the next 4 to 7 days. 2. Please follow up with Dr. Flores within the next 1 to 2 weeks. TIME SPENT: Approximately 60 minutes was spent in the discharge of this patient , more than half the time was spent with the patient at the bedside reviewing the events leading up to and during this hospitalization, performing the physical examination, and reviewing my plan of care. SHEBA CERNA NP [id number]/[facility] #: [id number] ALON
== END 2018-04-15 13:45 | disposition home or self-care (01) | DRG 194 ==
LOC: ED 10:53 → MEDTELE 20:29
PROVIDERS: ADMIT Internal Medicine Hematology & Oncology; ATTEND Internal Medicine Hematology & Oncology
DX: J18.9 Pneumonia, unspecified organism (principal); C83.30 Diffuse large B-cell lymphoma, unspecified site; I31.3 Pericardial effusion (noninflammatory); R09.02 Hypoxemia; R19.7 Diarrhea, unspecified; D50.9 Iron deficiency anemia, unspecified; Z66 Do not resuscitate; J84.10 Pulmonary fibrosis, unspecified; J47.9 Bronchiectasis, uncomplicated; I10 Essential (primary) hypertension; E78.00 Pure hypercholesterolemia, unspecified; M19.90 Unspecified osteoarthritis, unspecified site; R40.2362 Coma scale, best motor response, obeys commands, at arrival to emergency department; R40.2142 Coma scale, eyes open, spontaneous, at arrival to emergency department; R40.2252 Coma scale, best verbal response, oriented, at arrival to emergency department; R00.0 Tachycardia, unspecified; R74.8 Abnormal levels of other serum enzymes; Z77.22 Contact with and (suspected) exposure to environmental tobacco smoke (acute) (chronic); Z96.1 Presence of intraocular lens; R74.0 Nonspecific elevation of levels of transaminase and lactic acid dehydrogenase [LDH]; Z86.73 Personal history of transient ischemic attack (TIA), and cerebral infarction without residual deficits; Z80.0 Family history of malignant neoplasm of digestive organs; Z99.81 Dependence on supplemental oxygen; Z92.21 Personal history of antineoplastic chemotherapy; Z87.01 Personal history of pneumonia (recurrent); Z90.49 Acquired absence of other specified parts of digestive tract; Z98.42 Cataract extraction status, left eye; Z98.41 Cataract extraction status, right eye; Z79.02 Long term (current) use of antithrombotics/antiplatelets
CPT/HCPCS: 36415; 71045; 71046; 71275; 74177; 80048; 82232; 82272; 82607; 82728; 83540; 83550; 83615; 83735; 84443; 84484; 85025; 85652; 86140; 86308; 87641; 93005; 99223; 99232; 99284; A9270-GY; G8978-GP-CI; G8979-GP-CI; G8980-GP-CI; J0456; J1642; J1650; J1940; J2543; Q9967

== ENCOUNTER 2018-07-25 16:52 | Inpatient (IN) | payer MEDICARE ==
[2018-07-25] MEDS ORDERED: NS 0.9% 1000 ML** 1,000 ML IV ONE (19:02)
[2018-07-25] MEDS ORDERED: NS 0.9% 500 ML* 500 ML IV ONE (19:03)
[2018-07-25 19:15] LABS: ABS Basophils 0 10^3/ul (0-0.2); ABS Eosinophils 0.1 10^3/ul (0-0.6); ABS Lymphocytes 0.3 10^3/ul (1.0-4.8); ABS Monocytes 0.7 10^3/ul (0-0.8); ABS Neutrophils 2.8 10^3/ul (1.5-7.7); ABS Nucleated RBC 0 10^3/ul; Eosinophil % 2.6 %; Hematocrit 38 % (33-41); Hemoglobin 12.3 g/dL (12.0-16.0); Lymphocyte % 7.9 %; Mean Corpuscular HGB Conc 33 g/dL (31-36); Mean Corpuscular Hemoglobin 28 pg (27-31); Mean Corpuscular Volume 84 fL (80-97); Mean Platelet Volume 8.5 fL (7.4-10.4); Nucleated Red Blood Cells % 0.1; Platelet Count 203 10^3/uL (150-450); Red Blood Count 4.45 10^6 /uL (3.70-4.87); Red Cell Distribution Width 16 % (10.5-15); White Blood Count 3.9 10^3/uL (3.5-10.8)
[2018-07-25 19:21] LABS: INR 1.15 (0.82-1.09)
[2018-07-25 19:32] LABS: Albumin 4.4 g/dL (3.2-5.2); Albumin/Globulin Ratio 1.6 (1-3); BUN/Creatinine Ratio 19.4 (8-20); C Reactive Protein 9.38 mg/L (<8.01); Calcium 9.7 mg/dL (8.6-10.3); EGFR African American 68.8 (>60); EGFR Non-African American 56.9 (>60); Globulin 2.8 g/dL (2-4); Magnesium 2.1 mg/dL (1.9-2.7); Total Bilirubin 0.6 mg/dL (0.2-1.0); Total Protein 7.2 g/dL (6.4-8.9)
[2018-07-25 19:33] LABS: Troponin I 0.01 ng/mL (<0.04)
[2018-07-25 19:53] LABS: TSH (Thyroid Stimulating Horm) 1.76 mcIU/mL (0.34-5.60)
[2018-07-25 19:54] LABS: Urine Appearance Clear; Urine Bilirubin Negative (Negative); Urine Blood Negative (Negative); Urine Color Yellow; Urine Glucose Negative (Negative); Urine Ketones Negative (Negative); Urine Nitrite Negative (Negative); Urine Protein Negative (Negative); Urine Specific Gravity 1.016 (1.010-1.030); Urine Urobilinogen Negative (Negative)
--- NOTE | 2018-07-25 23:06 | ED ---
Altered Mental Status - HPI Summary HPI Summary: Patient complains of episodes of confusion, extreme weakness. Sent by PCP to ED for further evaluation. Family states patient not at baseline. Patient denies any symptoms other than chronic leg pain, headache which has resolved, some mild abdominal pain which is currently resolved. Family states patient is on 2 L O2 when she sleeps, and 3 L when she is active, denies patient being on O2 when she is at rest or watching television. Patient received Advil 220 mg at 12:30 PM. Family states decreased by mouth fluid and solid food intake. Family deny indications of facial droop, slurred speech, unilateral weakness, neck stiffness, fever, cough. Patient denies CP, SOB, N/V/D, active abdominal pain, change in urine, change in BM. Medical history is HTN, history of lymphoma in remission with last chemotherapy treatment in 2018, history of CVA in 2013. DNR. Currently on Plavix. History of pulmonary fibrosis due to chemotherapy treatment. Patient lives alone. - History Of Current Complaint Chief Complaint: EDWeakness Stated Complaint: POSS RENAL FAILURE PER PT DAUGHTER Time Seen by Provider: 07/25/18 18:38 Hx Obtained From: Patient, Family/Speech Coach Onset/Duration: Still Present Timing: Intermittent Severity Initially: Moderate Severity Currently: Mild Character: Confusion Aggravating Factor(s): Unknown Alleviating Factor(s): Nothing Associated Signs And Symptoms: Positive: Headache, Weakness - Allergies/Home Medications Allergies/Adverse Reactions: Allergies Allergy/AdvReac Type Severity Reaction Status Date / Time No Known Allergies Allergy Verified 07/25/18 16:59 Home Medications: Home Medications Albuterol HFA INHALER* [Ventolin HFA Inhaler*] 2 puff INH QID PRN 07/25/18 [ History Confirmed 07/25/18] PMH/Surg Hx/FS Hx/Imm Hx Endocrine/Hematology History: Reports: Hx Anemia - slight Denies: Hx Anticoagulant Therapy, Hx Blood Transfusions, Hx Diabetes Cardiovascular History: Reports: Hx Hypertension, Other Cardiovascular Problems/ Disorders - cholesterol Denies: Hx Atrial Fibrillation, Hx Myocardial Infarction Respiratory History: Denies: Hx Asthma, Hx Chronic Obstructive Pulmonary Disease (COPD), Hx Pneumonia, Hx Pulmonary Embolism GI History: Reports: Other GI Disorders - on protonix r/t new dx of lymphoma History: Denies: Hx Acute Renal Failure, Hx Chronic Renal Failure, Hx Renal Disease Musculoskeletal History: Reports: Hx Arthritis Sensory History: Reports: Hx Hearing Problem Denies: Hx Contacts or Glasses, Hx Hearing Aid Opthamlomology History: Denies: Hx Contacts or Glasses - Cancer History Cancer Type, 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 tonsillectomy and adenoidectomy 1936. gall bladder removed 1988 Hx Anesthesia Reactions: No Infectious Disease History: No Infectious Disease History: Denies: Traveled Outside the [place] in Last 30 Days - Social History Alcohol Use: None Hx Substance Use: No Substance Use Type: Reports: None Hx Tobacco Use: No Smoking Status (MU): Never Smoked Tobacco Review of Systems Constitutional: Negative Eyes: Negative ENT: Negative Cardiovascular: Negative Respiratory: Negative Gastrointestinal: Negative Genitourinary: Negative Musculoskeletal: Negative Skin: Negative Positive: Headache Psychological: Normal All Other Systems Reviewed And Are Negative: Yes Physical Exam - Summary Physical Exam Summary: Abdomen soft nontender. No ecchymosis, erythema, deformity, swelling noted to bilateral hips, bilateral lower extremities. No peripheral edema noted. Lung sounds clear to auscultation bilaterally. RRR. Patient moves head freely without indication of stiffness or pain. ENT exam unremarkable. Neuro exam normal. Triage Information Reviewed: Yes Vital Signs On Initial Exam: Initial Vitals Temp Pulse Resp BP Pulse Ox 99.2 F 101 18 134/86 97 07/25/18 16:54 07/25/18 16:54 07/25/18 16:54 07/25/18 16:54 07/25/18 16:54 Vital Signs Reviewed: Yes Appearance: Positive: Well-Appearing Skin: Positive: Warm Head/Face: Positive: Normal Head/Face Inspection Eyes: Positive: Normal ENT: Positive: Normal ENT inspection Neck: Positive: Supple Respiratory/Lung Sounds: Positive: Clear to Auscultation Cardiovascular: Positive: Normal Abdomen Description: Positive: Nontender Musculoskeletal: Positive: Normal Neurological: Positive: Normal Psychiatric: Positive: Normal AVPU Assessment: Alert - Wilson Coma Scale Best Eye Response: 4 - Spontaneous Best Motor Response: 6 - Obeys Commands Best Verbal Response: 5 - Oriented Coma Scale Total: 15 Diagnostics - Vital Signs Vital Signs Temp Pulse Resp BP Pulse Ox 07/25/18 22:01 107 38 94 07/25/18 21:15 95 47 145/87 95 07/25/18 21:00 98 36 95 07/25/18 20:15 102 39 136/83 100 07/25/18 20:00 103 40 97 07/25/18 19:45 104 45 137/88 96 07/25/18 19:15 105 48 130/82 94 07/25/18 19:00 103 43 95 07/25/18 18:45 35 144/92 07/25/18 18:16 102 18 95 07/25/18 18:14 101 52 143/92 95 07/25/18 16:54 99.2 F 101 18 134/86 97 - Laboratory Lab Results: Lab Results 07/25/18 07/25/18 07/25/18 Range/Units 19:06 19:06 19:06 WBC 3.9 (3.5-10.8) 10^3/uL RBC 4.45 (3.70-4.87) 10^6 /uL Hgb 12.3 (12.0-16.0) g/dL Hct 38 (33-41) % MCV 84 (80-97) fL MCH 28 (27-31) pg MCHC 33 (31-36) g/dL RDW 16 H (10.5-15) % Plt Count 203 (150-450) 10^3/uL MPV 8.5 (7.4-10.4) fL Neut % (Auto) 72.1 % Lymph % (Auto) 7.9 % [place] % (Auto) 16.9 % Eos % (Auto) 2.6 % Baso % (Auto) 0.5 % Absolute Neuts (auto) 2.8 (1.5-7.7) 10^3/ul Absolute Lymphs (auto) 0.3 L (1.0-4.8) 10^3/ul Absolute Monos (auto) 0.7 (0-0.8) 10^3/ul Absolute Eos (auto) 0.1 (0-0.6) 10^3/ul Absolute Basos (auto) 0 (0-0.2) 10^3/ul Absolute Nucleated RBC 0 10^3/ul Nucleated RBC % 0.1 INR (Anticoag Therapy) 1.15 H (0.82-1.09) Sodium 137 (135-145) mmol/L Potassium 4.0 (3.5-5.0) mmol/L Chloride 100 L (101-111) mmol/L Carbon Dioxide 27 (22-32) mmol/L Anion Gap 10 (2-11) mmol/L BUN 18 (6-24) mg/dL Creatinine 0.93 (0.51-0.95) mg/dL Est GFR ( Amer) 68.8 (>60) Est GFR (Non-Af Amer) 56.9 (>60) BUN/Creatinine Ratio 19.4 (8-20) Glucose 95 (70-100) mg/dL Lactic Acid (0.5-2.0) mmol/L Calcium 9.7 (8.6-10.3) mg/dL Magnesium 2.1 (1.9-2.7) mg/dL Total Bilirubin 0.60 (0.2-1.0) mg/dL AST 17 (13-39) U/L ALT 11 (7-52) U/L Alkaline Phosphatase 62 (34-104) U/L Troponin I 0.01 (<0.04) ng/mL C-Reactive Protein 9.38 H (<8.01) mg/L B-Natriuretic Peptide (<=100) pg/mL Total Protein 7.2 (6.4-8.9) g/dL Albumin 4.4 (3.2-5.2) g/dL Globulin 2.8 (2-4) g/dL Albumin/Globulin Ratio 1.6 (1-3) TSH 1.76 (0.34-5.60) mcIU/mL Urine Color Urine Appearance Urine pH (5-9) Ur Specific [place] (1.010-1.030) Urine Protein (Negative) Urine Ketones (Negative) Urine Blood (Negative) Urine Nitrate (Negative) Urine Bilirubin (Negative) Urine Urobilinogen (Negative) Ur Leukocyte Esterase (Negative) Urine Glucose (Negative) Urine Ascorbic Acid (Negative) 07/25/18 07/25/18 07/25/18 Range/Units 19:06 19:06 19:32 WBC (3.5-10.8) 10^3/uL RBC (3.70-4.87) 10^6 /uL Hgb (12.0-16.0) g/dL Hct (33-41) % MCV (80-97) fL MCH (27-31) pg MCHC (31-36) g/dL RDW (10.5-15) % Plt Count (150-450) 10^3/uL MPV (7.4-10.4) fL Neut % (Auto) % Lymph % (Auto) % [place] % (Auto) % Eos % (Auto) % Baso % (Auto) % Absolute Neuts (auto) (1.5-7.7) 10^3/ul Absolute Lymphs (auto) (1.0-4.8) 10^3/ul Absolute Monos (auto) (0-0.8) 10^3/ul Absolute Eos (auto) (0-0.6) 10^3/ul Absolute Basos (auto) (0-0.2) 10^3/ul Absolute Nucleated RBC 10^3/ul Nucleated RBC % INR (Anticoag Therapy) (0.82-1.09) Sodium (135-145) mmol/L Potassium (3.5-5.0) mmol/L Chloride (101-111) mmol/L Carbon Dioxide (22-32) mmol/L Anion Gap (2-11) mmol/L BUN (6-24) mg/dL Creatinine (0.51-0.95) mg/dL Est GFR ( Amer) (>60) Est GFR (Non-Af Amer) (>60) BUN/Creatinine Ratio (8-20) Glucose (70-100) mg/dL Lactic Acid 0.8 (0.5-2.0) mmol/L Calcium (8.6-10.3) mg/dL Magnesium (1.9-2.7) mg/dL Total Bilirubin (0.2-1.0) mg/dL AST (13-39) U/L ALT (7-52) U/L Alkaline Phosphatase (34-104) U/L Troponin I (<0.04) ng/mL C-Reactive Protein (<8.01) mg/L B-Natriuretic Peptide 135 H (<=100) pg/mL Total Protein (6.4-8.9) g/dL Albumin (3.2-5.2) g/dL Globulin (2-4) g/dL Albumin/Globulin Ratio (1-3) TSH (0.34-5.60) mcIU/mL Urine Color Yellow Urine Appearance Clear Urine pH 6.0 (5-9) Ur Specific [place] 1.016 (1.010-1.030) Urine Protein Negative (Negative) Urine Ketones Negative (Negative) Urine Blood Negative (Negative) Urine Nitrate Negative (Negative) Urine Bilirubin Negative (Negative) Urine Urobilinogen Negative (Negative) Ur Leukocyte Esterase Negative (Negative) Urine Glucose Negative (Negative) Urine Ascorbic Acid * A (Negative) 07/25/18 Range/Units 22:08 WBC (3.5-10.8) 10^3/uL RBC (3.70-4.87) 10^6 /uL Hgb (12.0-16.0) g/dL Hct (33-41) % MCV (80-97) fL MCH (27-31) pg MCHC (31-36) g/dL RDW (10.5-15) % Plt Count (150-450) 10^3/uL MPV (7.4-10.4) fL Neut % (Auto) % Lymph % (Auto) % Haskell % (Auto) % Eos % (Auto) % Baso % (Auto) % Absolute Neuts (auto) (1.5-7.7) 10^3/ul Absolute Lymphs (auto) (1.0-4.8) 10^3/ul Absolute Monos (auto) (0-0.8) 10^3/ul Absolute Eos (auto) (0-0.6) 10^3/ul Absolute Basos (auto) (0-0.2) 10^3/ul Absolute Nucleated RBC 10^3/ul Nucleated RBC % INR (Anticoag Therapy) (0.82-1.09) Sodium (135-145) mmol/L Potassium (3.5-5.0) mmol/L Chloride (101-111) mmol/L Carbon Dioxide (22-32) mmol/L Anion Gap (2-11) mmol/L BUN (6-24) mg/dL Creatinine (0.51-0.95) mg/dL Est GFR ( Amer) (>60) Est GFR (Non-Af Amer) (>60) BUN/Creatinine Ratio (8-20) Glucose (70-100) mg/dL Lactic Acid (0.5-2.0) mmol/L Calcium (8.6-10.3) mg/dL Magnesium (1.9-2.7) mg/dL Total Bilirubin (0.2-1.0) mg/dL AST (13-39) U/L ALT (7-52) U/L Alkaline Phosphatase (34-104) U/L Troponin I 0.01 (<0.04) ng/mL C-Reactive Protein (<8.01) mg/L B-Natriuretic Peptide (<=100) pg/mL Total Protein (6.4-8.9) g/dL Albumin (3.2-5.2) g/dL Globulin (2-4) g/dL Albumin/Globulin Ratio (1-3) TSH (0.34-5.60) mcIU/mL Urine Color Urine Appearance Urine pH (5-9) Ur Specific [place] (1.010-1.030) Urine Protein (Negative) Urine Ketones (Negative) Urine Blood (Negative) Urine Nitrate (Negative) Urine Bilirubin (Negative) Urine Urobilinogen (Negative) Ur Leukocyte Esterase (Negative) Urine Glucose (Negative) Urine Ascorbic Acid (Negative) Result Diagrams: 07/25/18 19:06 07/25/18 19:06 Lab Statement: Any lab studies that have been ordered have been reviewed, and results considered in the medical decision making process. Altered Mental Statu Course/Dx - Course Course Of Treatment: Patient complains of episodes of confusion, extreme weakness. Sent by PCP to ED for further evaluation. Family states patient not at baseline. Patient denies any symptoms other than chronic leg pain, headache which has resolved, some mild abdominal pain which is currently resolved. Family states patient is on 2 L O2 when she sleeps, and 3 L when she is active, denies patient being on O2 when she is at rest or watching television. Patient received Advil 220 mg at 12:30 PM. Family states decreased by mouth fluid and solid food intake. Family deny indications of facial droop, slurred speech, unilateral weakness, neck stiffness, fever, cough. Patient denies CP, SOB, N/V/ D, active abdominal pain, change in urine, change in BM. Medical history is HTN , history of lymphoma in remission with last chemotherapy treatment in 2018, history of CVA in 2013. DNR. Currently on Plavix. History of pulmonary fibrosis due to chemotherapy treatment. Physical exam:Abdomen soft nontender. No ecchymosis, erythema, deformity, swelling noted to bilateral hips, bilateral lower extremities. No peripheral edema noted. Lung sounds clear to auscultation bilaterally. RRR. Patient moves head freely without indication of stiffness or pain. ENT exam unremarkable. Neuro exam normal. Patient tachycardic and respiratory rate elevated on room air. O2 sats within normal limits on room air. Labs unremarkable. CT brain unremarkable. Chest x-ray negative for acute process. EKG sinus tachycardia. UA negative. Patient ambulated with no decrease in O2 sats. Discussed patient with hospitalist who agrees to consult. Hospitalist agrees to admit for further evaluation. - Diagnoses Provider Diagnoses: Confusion, Weakness Discharge - Sign-Out/Discharge Documenting (check all that apply): Patient Departure Patient Received Moderate/Deep Sedation with Procedure: No - Discharge Plan Condition: Stable Disposition: ADMITTED TO [facility] Referrals: Shakira Underwood MD [Primary Care Provider] - - Billing Disposition and Condition Condition: STABLE Disposition: Admitted to [facility]
[2018-07-26] MEDS ORDERED: Ondansetron INJ* 2 MG/ML VIAL IV PRN (02:38)
[2018-07-26] MEDS ORDERED: NS 0.9% 1000 ML** 1,000 ML IV SCH ×2 (02:45→14:45)
[2018-07-26 03:37] LABS: Erythrocyte Sed Rate 24 mm/Hr (0-29)
[2018-07-26 03:37] LABS: Influenza A Molecular NEGATIVE (Negative); Influenza B Molecular NEGATIVE (Negative)
[2018-07-26] MEDS ORDERED: Enoxaparin(*) 30 MG/0.3 ML SYR SUBCUT SCH (04:00)
[2018-07-26] MEDS: Enoxaparin(*) 30 MG/0.3 ML SYR SUBCUT SCH ×2 (04:41→21:04)
[2018-07-26 05:37] LABS: Hematocrit 31 % (33-41); Hemoglobin 10.5 g/dL (12.0-16.0); Mean Corpuscular HGB Conc 33 g/dL (31-36); Mean Corpuscular Hemoglobin 28 pg (27-31); Mean Corpuscular Volume 84 fL (80-97); Mean Platelet Volume 9.1 fL (7.4-10.4); Platelet Count 163 10^3/uL (150-450); Red Blood Count 3.72 10^6 /uL (3.70-4.87); Red Cell Distribution Width 16 % (10.5-15); White Blood Count 3.5 10^3/uL (3.5-10.8)
[2018-07-26 05:52] LABS: BUN/Creatinine Ratio 15.4 (8-20); Calcium 8.2 mg/dL (8.6-10.3); EGFR African American 84.3 (>60); EGFR Non-African American 69.7 (>60); Potassium 3.4 mmol/L (3.5-5.0)
--- NOTE | 2018-07-26 07:31 | HP ---
HISTORY AND PHYSICAL: DATE OF ADMISSION: 07/26/18 CODE STATUS: DNR/DNI. CHIEF COMPLAINT: Altered mental status. PRIMARY CARE PROVIDER: Dr. Underwood. BEAMSTER: Kymberly Rodriguez, the patient's daughter. SOURCE OF INFORMATION: HPI is obtained from daughter and review of charts. The patient is a poor historian. 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 History of stroke in 2011 without residual deficits, and hyperlipidemia. Current resident at [facility] and independent in ADLs, who presents to the ER [facility] with 1-day of altered mental status and weakness. The patient's daughter reports that she came to see her at [facility] after staff said that she was not feeling well early this morning. She complained of bilateral thigh pain at that time, and when she stood up from bed, she said that she had an altered gait, seemed weak and sat back down and was confused. No slurred speech, no facial drooping.. No focal weakness, but then the patient complained of headache and eye pain. Daughter reports that she is usually alert and oriented at bedside, but that she has been saying odd things over the course of the day and actually tried to put her oxygen tubing into her mouth. They took her to the primary care provider's office who said that she should be evaluated in the emergency room. The patient cannot participate in HPI. She is somnolent with waxing and waning mental status during my exam and thus daughter provided most of her review of systems and HPI. Daughter reports that on subacute review of systems, she has largely been in her usual state of health, up ambulatory, active, alert and oriented x4, but that she has had some difficulty swallowing over the last 4 months and usually reports chronic right hip pain. She is on chronic oxygen, but has not increased her needs. She was here in March 2018 for pneumonia and daughter said that since then she did make a full recovery. She also does report that she had 1 other episode of pneumonia in May and was on doxycycline for a week but seemed to improve considerably. Daughter denies that she has increasing cough, sputum production , fevers or chills, nausea, vomiting, diarrhea, constipation, dysuria, hematuria , or any rashes or lesions. In the emergency room, vital signs are stable. The patient is afebrile at 99.2 , pulse rate is 102, blood pressure is 134/86, oxygen saturations are 97% on 3 L , which is her home requirement, respiratory rate of 18. A chest x-ray, head CT were done, which were normal without any acute disease. Labs were done, which were wholly unremarkable including TSH and a UA was normal. Because she had a waxing and waning mental status throughout her stay and this was considerably off of her baseline, the hospitalist team was asked to evaluate this patient for admission. PAST MEDICAL HISTORY: 1. Status post cholecystectomy. 2. Cataracts. 3. Status post tonsillectomy. MEDICATIONS: Include: 1. Clopidogrel 75 mg p.o. daily. 2. Atorvastatin 10 mg p.o. daily. ALLERGIES: No known drug allergies. FAMILY HISTORY: Positive for mother with colon cancer and father was healthy. SOCIAL HISTORY: The patient lives at [facility]. She is a retired schoolteacher. She is independent of ADLs and ambulates with a walker for long distances and unassisted for short distances. Does not drive or manage money. Daughter involved in care. She is a lifetime nontobacco user. Very infrequent once a year alcohol use and never illicits. REVIEW OF SYSTEMS: Constitutional: Positive for malaise for 1 day. Negative for fevers or chills. HEENT: Positive for headaches and complaint of eye pain. No complaint of sore throat, though difficulty swallowing of a subacute nature over the last 3 months. Cardiovascular: Negative for chest pain, palpitations, orthopnea. Respiratory: Negative for shortness of breath, cough , pleuritic chest pain. GI: Negative for nausea, vomiting, diarrhea, abdominal pain. : Negative for dysuria, hematuria. Musculoskeletal: Positive for right hip pain, chronic, otherwise no arthralgias. Positive for weakness. Skin: Negative for rashes or lesions. Neurologic: Negative for focal weakness, slurred speech, numbness. Psychiatric: Negative for depression or anxiety. Endocrine: Negative for polyuria, polydipsia. Heme: Negative for bruising, bleeding, or lymphadenopathy. PHYSICAL EXAMINATION GENERAL: This is an elderly woman who is curled up in ED stretcher, who follows commands, but interacts very little. She is hard of hearing and she is oriented to herself, although not to place, roughly date, the year 2019, but nothing else and not situation. She is fatigued and waxes and wanes throughout my exam with her. VITAL SIGNS: At the time of physical exam, blood pressure is 145/87, heart rate is 92, respiratory rate is 22, oxygen saturation is 95% at 3 L. HEENT: She is normocephalic/atraumatic. Her pupils are equal and reactive. Her extraocular muscles are intact. Her sclerae are anicteric. She has no tenderness to palpation. She has dry mucous membranes, but no other aphthous or oral lesions. NECK: Supple. She has no meningeal signs. She has no supraclavicular or cervical lymphadenopathy. She has a mildly enlarged thyroid, although no other acute findings. RESPIRATORY: She has dry Velcro-like crackles at bases, but otherwise no acute areas of consolidation, they are distant throughout. No wheeze. No rhonchi. CARDIAC: She has regular rate and rhythm. No murmurs, rubs, or gallops. GI: Belly is soft, nontender, nondistended. Normoactive bowel sounds. No organomegaly. BACK AND SPINE: Spine was palpated, she has no tenderness to palpation. She has mild tenderness to palpation on right hip, although she has full range of motion passively without pain. EXTREMITIES: She has no pedal edema and 2+ pulses. NEURO/PSYCH: Her cranial nerves II through XII are intact. She does follow commands. She has poor effort in her strength exam. Reports sensory is roughly equal bilateral. She is A and O x2. She has a port in right subclavian that appears clean, dry, and intact and has been accessed twice. SKIN: A thorough skin check was done. She has no areas of redness, ulceration , lesions, or rashes of any kind. DIAGNOSTIC STUDIES/LAB DATA: White blood cell count of 3.9, hemoglobin 12.3, hematocrit 38, platelets 203. Differential is unremarkable on the CBC. Chemistry: Sodium of 137, potassium 4, chloride 100, BUN 18, creatinine 0.93, glucose 95. Lactic acid 0.8. AST 17, ALT 11, alk phos 62. CRP is 9. BNP is 135. TSH is 1.76. Albumin is 4.4. Troponin 0.01. UA was done, which is wholly normal. Electrocardiogram was done. It shows sinus tachycardia with no acute ischemic changes. Chest x-ray was done, which shows enlarged lung volumes, clear costophrenic angle, port in place, mildly widened mediastinum, but no cardiomegaly, no clear disease in the parenchyma, retrocardiac space is clear. Brain CT shows no acute intracranial abnormality with chronic microvascular ischemia. Imaging: An EKG reviewed by myself. ASSESSMENT AND PLAN: 88-year-old female with a past medical history of diffuse B-cell lymphoma, status post chemotherapy, in remission, in September 2017, interstitial lung disease , on chronic oxygen; distant history of stroke with no residual deficits; resident at [facility] who is typically alert and oriented x4 and independent in her activities of daily living, who presents to the ER [facility] with acute onset of altered mental status. The differential includes a toxic or metabolic or infectious encephalopathy; early infection, not currently seen by labs, including blood stream infection given port; early pneumonia given history of frequent, recurrent pneumonia, or aspiration from difficulty swallowing. Currently, she has no localizing signs or symptoms or labs that show any acute specific etiology for her presentation. Because her presentation is quite dramatic and she is so far off of her baseline per her kids, who are excellent historians, we will admit the patient for observation while continued culture data and monitoring occur. 1. Encephalopathy. She has no clear metabolic causes, obviously concerned for infection in her appearance, but currently no leukocytosis, no fevers. We will continue to monitor closely. She has no evidence of pneumonia or urinary tract infection. I will check a B12, TSH, and folate. We will await blood culture and results and add on a flu swab and watch for fevers. If the patient remains significantly altered, consider neurology. One could consider aseptic meningitis if no forthcoming source, although she does not have particularly convincing meningeal signs this evening. 2. Interstitial lung disease, which is a result of chemo, on chronic oxygen therapy, which will continue to be offered 3 L as her baseline. 3. History of stroke. Remain on aspirin and Plavix. 4. DVT prophylaxis: The patient will be placed on Lovenox with a history of cancer. 5. N.p.o. for dedicated swallow evaluation given the patient's subacute review of systems positive for difficulty swallowing. 6. Code status is DNR/DNI. MOLST is completed. 7. Disposition: This patient is stable for admission on observation status to medical floor. TIME SPENT: 40 minutes were spent on planning this admission with over half of that spent directly at the bedside providing direct patient care. Plan of care was discussed with family who is in agreeance for observation status, admission, and continued workup of the patient's new altered mental status. [id number]/[facility] #: [id number] ALON
[2018-07-26] MEDS ORDERED: Clopidogrel TAB* 75 MG PO SCH (09:00)
[2018-07-26] MEDS: Atorvastatin* 10 MG TAB PO SCH (09:06)
[2018-07-26] MEDS ORDERED: Lorazepam PYXIS KEY ONE (09:23)
[2018-07-26] MEDS ORDERED: LORazepam INJ* 2 MG/ML 1 ML VIAL ONE (09:24)
[2018-07-26] MEDS ORDERED: Lorazepam PYXIS KEY PRN ×2 (09:31→14:00)
[2018-07-26] MEDS ORDERED: LORazepam INJ* 2 MG/ML 1 ML VIAL IV PUSH ONE ×2 (09:32→14:00)
--- NOTE | 2018-07-26 09:42 | PN ---
Hospitalist Progress Note Date of Service: 07/26/18 Ms. Rodriguez was found to be shaking in her recliner after a walk with her nurse. I went in to see her and she had two minutes of generalized shaking, was not able to make eye contact or communicate, and then a generalized tonic clonic seizure with left-sided gaze that resolved on its own after about 2 minutes. Ativan 1mg was given. Glucose 129. Vitals stable. Dr. West consulted, plan to load with anti-epileptic but defer to him. Dr. Driscoll updated.
[2018-07-26] MEDS ORDERED: levETIRAcetam 1000MG IVPREMIX* 1,000 MG/100 ML BAG IVPB ONE (10:11)
--- NOTE | 2018-07-26 12:32 | CONS ---
NEUROLOGY CONSULTATION NOTE: DATE OF CONSULT: 07/26/18 CONSULTING PROVIDER: Dr. Elke Okeefe. REASON FOR CONSULT: Seizure. CHIEF COMPLAINT: The patient recently received Ativan and is sleeping at this time. The history was mostly obtained by the patient's son and daughter Michelle who are at bedside. HISTORY OF PRESENT ILLNESS: Ms. Marlys Rodriguez is an 88-year-old right- handed female who has a history of small ischemic infarction in 2011 with subtle residual deficits of inability to write using the right hand and mild slurred speech, diffuse large B-cell lymphoma, status post mini R-CHOP which she received 4 treatments, last treatment was in August 2017. She is reported to be in full remission. The patient is on oxygen therapy for chemotherapy- related interstitial lung disease. The patient resides in [place]. She is independent in all activities of daily living. She cares for herself. The patient was last seen normal on Tuesday evening. Apparently on Tuesday, the patient was talking to her son on the phone who she was unable to recognize. Her son contacted his sister Michelle to go assess the patient as he noticed something was wrong. Michelle went to see the patient and noticed that she was complaining of lower extremity pain, pain in the left sacral region, and she was confused. Michelle noticed that she cannot talk well; this was noticed at 11:30 a.m. on 07/25/18. The patient was unable to hold a conversation. She was walking around without assistance. She did not have her oxygen when Michelle went to check up on her. They called the primary care doctor and scheduled an appointment. At the PCP office, the patient was moving the right hand irregularly, minor the right fingers, and maneuvering the thumbs bizarrely. She was not making sense when talking. Her PCP recommended she should go to the ER for further evaluation. According to Michelle, the patient was complaining of headaches yesterday. The patient typically does not have any headache. The patient has not had any recent illnesses. The patient has no history of meningitis, encephalitis, or head trauma/injury. There is no family history of epilepsy. In the ED, there were no witnessed seizures, but the patient was noticed to be disoriented. She was transferred to the floor overnight and she was doing fairly well this morning until approximately 9:15 a.m.. The patient had increasing lethargy and was having garbling speech. She was then noted to have shaking of the left arm and then suddenly deviation of the head, extension of the left arm, flexion of the right arm, and witnessed to have generalized convulsion. This lasted approximately 2 minutes. Her heart rate dropped to the 40s and oxygen saturation to the low 80s. The patient was immediately assessed by the bedside staff. Her [id number] glucose was 129. She was given 1 mg of Ativan. I quickly assessed the patient and caught the last minute of her seizure. The patient was hyperventilating, foaming at the mouth, had her eyes deviated towards the left side and neck tilting towards the left. After the Ativan, the patient is sleeping and resting in bed. She has occasional moaning. PAST MEDICAL HISTORY: Tonsillectomy, cataract, cholecystectomy, large B-cell lymphoma, status post mini R-CHOP therapy x4, pneumonia, interstitial lung disease. MEDICATIONS: 1. Clopidogrel 75 mg daily. 2. Vitamin D supplements. 3. Atorvastatin 10 mg p.o. daily. 4. Lactobacillus 1 cap p.o. daily. 5. Albuterol. ALLERGIES: No known drug allergies. FAMILY HISTORY: No family history of stroke or seizures. SOCIAL HISTORY: The patient lives at [place]. She is a retired schoolteacher. She lives independently. She is a nonsmoker and frequently consumes alcohol. REVIEW OF SYSTEMS: A 14-point review of systems was unable to be obtained as the patient is sleeping and encephalopathic at this time. PHYSICAL EXAM: Vitals: Temperature of 99.1, pulse of 96, respiration of 36, oxygen saturation 100 on O2 flow rate of 2 L, blood pressure 136/67. General: Ill- appearing, frail female in no acute distress. She looks younger than stated age. Head: Normocephalic, atraumatic without obvious abnormality. Eyes : Conjunctivae/cornea are clear. Neck is supple and symmetrical, no carotid bruit. Lungs are clear to auscultation bilaterally. Cardiovascular: Regular rate and rhythm with no murmurs x2. Extremities: Normal range of motion with no cyanosis or hammertoes. Skin: No skin lesions or laceration. Psych: Not applicable. She has no meningeal signs. Neurological Examination: Mental status: The patient is sleeping. She is unable to arouse despite mild noxious stimuli and sternal rub and the patient had recently just received a dose of Ativan. Cranial Nerves: Pupil equal, round, reactive to light and pupils are measuring 4 mm bilaterally, constricting to 3 mm bilaterally. She did not follow command. There is no clear facial droop. Motor Examination: She did withdrawal on 4 extremities by flexing the elbows and knees bilaterally to distal noxious stimuli. Reflexes: Right/left brachioradialis, biceps, triceps , patella and ankle are 1+ throughout. Plantar extensor on the right and mute on the left. Sensation: She is able to withdraw and lateralize to pain. Coordination and gait were not assessed. LABS, IMAGING, AND OTHER DIAGNOSTIC TESTING: WBC 3.5, hemoglobin of 10, hematocrit of 31, platelet count of 163. INR is 1.15. Sodium of 136, potassium of 3.4, chloride of 103, carbon dioxide of 26, anion gap of 7, creatinine of 0.78. A point- of-care glucose of 129, calcium of 8.2, C- reactive protein of 9, vitamin B12 of 1019, TSH of 1.76. CT head without contrast completed on 07/25/18 showed evidence of diffuse white matter changes consistent with most likely moderate small vessel ischemic changes. There were no intracranial hemorrhages. ASSESSMENT AND RECOMMENDATION: Ms. Marlys Rodriguez is an 88-year-old female with history of stroke with minimal residual deficits and was treated for large B-cell lymphoma with R-CHOP mini chemotherapy, a total of 4 treatments, last treatment was August 2017, who presented with new onset of confusion and seizure. 1. Acute encephalopathy of unclear etiology. There is concern that the patient may have had multiple seizures contributing to her encephalopathy manifesting as postictal state. She had 1 generalized convulsion witnessed at bedside today that was treated with Ativan. The cause of seizure is unknown. However, given her history of cancer, metastatic disease to the brain such as leptomeningeal disease or parenchymal metastasis needs to be excluded. She has no evidence of meningismal signs, fever, or leukocytosis to suspect meningitis. She has no lateralizing neurological deficits on examination to suspect acute stroke. We agreed to start the patient on levetiracetam 1000 mg IV load x1 and continue 500 mg IV every 12 hours. Please obtain a stat EEG. Please order an MRI of the brain with or without contrast to evaluate for any leptomeningeal disease or parenchymal metastasis. She will eventually need a lumbar puncture to assess for cytology and flow cytometry; however, this cannot be done at this time as the patient is on Plavix. Defer further recommendations to the anesthesiologist who will be doing the LP (if needed). Please practice seizure precautions. Further recommendations will be shared following the EEG study. 2. History of stroke. We would have to hold the Plavix at this time to prepare for a lumbar puncture within the next few days. 3. Hypocalcemia, deferred to the primary team. 4. The patient has no evidence of urinary tract infection, on urinalysis. TIME SPENT: Total of 45 minutes of critical care time was spent evaluating the patient, obtaining history, and discussing the care with the patient's son and daughter Michelle at bedside, education and counseling, and discussing the treatment plan as mentioned above. If the patient continues to have seizures, please transfer her to the ICU for close monitoring. At that time, we will probably connect the patient on continuous EEG monitoring. [id number]/[facility] #: [id number] ALON
--- NOTE | 2018-07-26 13:56 | PN ---
Subjective Date of Service: 07/26/18 Interval History: HOSPITALIST PROGRESS NOTE Patient seen and examined at bedside. Care reviewed and d/w Venita Montez RN. She's lethargic after receiving Lorazepam after a seizure. Having EEG done. Family History: Unchanged from Admission Social History: Unchanged from Admission Past Medical History: Unchanged from Admission Objective Active Medications: Acetaminophen (Tylenol Tab*) 650 mg PO Q4H PRN PRN Reason: FEVER/PAIN Atorvastatin Calcium (Lipitor*) 10 mg PO DAILY ASYA Last Admin: 07/26/18 09:06 Dose: Not Given Enoxaparin Sodium (Lovenox(*)) 30 mg SUBCUT BEDTIME ASYA Last Admin: 07/26/18 04:41 Dose: 30 mg Levetiracetam (Keppra Iv Premix*) 500 mg in 100 mls @ 400 mls/hr IV Q12H ASYA Ondansetron HCl (Zofran Inj*) 4 mg IV Q6H PRN PRN Reason: NAUSEA Vital Signs - 8 hr 07/26/18 07/26/18 07/26/18 07:52 08:25 09:33 Temperature 98.1 F 99.1 F Pulse Rate 99 96 Respiratory 14 36 36 Rate Blood Pressure 125/68 136/67 (mmHg) O2 Sat by Pulse 100 100 Oximetry 07/26/18 07/26/18 10:49 11:54 Temperature 97.7 F Pulse Rate 101 Respiratory 12 28 Rate Blood Pressure 141/86 (mmHg) O2 Sat by Pulse 95 Oximetry Oxygen Devices in Use Now: Nasal Cannula Appearance: Elderly lady lying in bed in NAD Eyes: No Scleral Icterus Ears/Nose/Mouth/Throat: Mucous Membranes Moist Neck: Trachea Midline Respiratory: Symmetrical Chest Expansion and Respiratory Effort, Clear to Auscultation Cardiovascular: RRR - Normal S1 and S2 Neurological: - - Lethargic Result Diagrams: 07/27/18 06:30 07/27/18 06:30 Assess/Plan/Problems-Billing Assessment: Mrs Rodriguez is an 88yo F with PMH of large B cell lymphoma s/p chemotherapy, interstitial lung disease, CVA, brought in to ED with confusion of unclear etiology. Had a tonic clonic seizure earlier today. - Patient Problems (1) Encephalopathy acute Comment: - MRI brain was negative. - Neuro input appreciated - multiple seizures may be contributing to her presentation. Etiology unclear at this time, but concerned with leptomeningeal or parenchymal metastasis. - As she spiked fever overnight, also concerned for encephalitis/meningitis. - D/w Anesthesiology (Dr Morocho) - patient needs to be off of Clopidogrel for 7 days to have LP done - soonest would be 07/31. Will treat empirically with Vancomycin, Ceftriaxone, Ampicillin, and Acyclovir. - If her condition declines will d/w Neurology if LP should be done before than 07/31. - Neurology recommended switching from Keppra to Valproic acid. - Seizure precautions. (2) Hypokalemia Comment: - Replete. (3) DVT prophylaxis Comment: - Lovenox. (4) DNR (do not resuscitate) Status and Disposition: Change to inpatient.
--- NOTE | 2018-07-26 15:12 | EEG ---
ELECTROENCEPHALOGRAPHY REPORT: DATE OF STUDY: 07/26/18 ORDERED BY: Dr. Elke Okeefe. CLINICAL PROBLEM: Ms. Rodriguez is an 88-year-old female, who had witnessed seizure- like activity. This EEG was requested to evaluate for epileptiform abnormalities or electrographic seizures. MEDICATIONS: 1. Lovenox. 2. Lipitor. 3. Tylenol. 4. Zofran. 5. Ativan. RECORDING: From 10:31 a.m. to 11:12 a.m. CLINICAL STATE: Drowsy and asleep. REPORT: The background lacked organization of clearly defined anterior and posterior voltage and frequency gradients. There was no discernible posterior dominant rhythm. Instead, the background consisted of diffuse, medium-amplitude , polymorphic 3-7 Hz theta and delta slowing. At times, the delta slowing became sharply contoured in the bifrontal region, but was not consistent with epileptiform discharges or electrographic seizures. There was some emergence of faster frequency with verbal and tactile stimulation. There were some irregular unorganized sleep spindles seen in the central region with occasional sharply contoured vertex waves. Hyperventilation and photic stimulation were not performed. Single-electrode EKG showed sinus tachycardia with rate of 130 beats per minute. Throughout the recording, there were no electrographic seizures. CLINICAL IMPRESSION: This is an abnormal waking and asleep EEG due to the presence of diffuse but reactive slowing. These findings are suggestive of a nonspecific moderate diffuse encephalopathy, which can be seen in toxic metabolic disturbance, hypoxic encephalopathy, postictal state, or as a result of medication effect. There were no electrographic seizures. [id number]/[facility] #: [id number] [facility]
[2018-07-26] MEDS: KCL 10 MEQ/50 ML IVPREMIX* 10 MEQ/50 ML BAG IV SCH ×5 (15:34→20:59)
[2018-07-26] MEDS ORDERED: Gadoteridol* (CONTRAST) 279.3 MG/ML 10 ML IV ONE (16:54)
[2018-07-26] MEDS ORDERED: Morphine INJ* 2 MG/ML 1 ML SYRINGE (TWO MG - NEW SYRINGE VERSION) IV ONE (20:29)
[2018-07-26] MEDS ORDERED: LORazepam INJ* 2 MG/ML 1 ML VIAL IV PUSH PRN (20:30)
[2018-07-26] MEDS ORDERED: Morphine 4 MG/ML VIAL (1 ml) 4 MG/ML VIAL IV ONE (20:33)
--- NOTE | 2018-07-26 20:37 | PN ---
Progress Note - Progress Note Date of Service: 07/26/18 Note: Event Note: Called to patient's bedside, due to new non-verbal state, agitation, tachypnea at 30, Temp 99.8. Selected Entries 07/26/18 19:46 Temperature 37.7 C Pulse Rate 122 Respiratory 34 Rate Blood Pressure 181/100 (mmHg) O2 Sat by Pulse 97 Oximetry Vitals otherwise reassuring. She is 88 yo woman, DNR, w/ ecephalopathy and new seizure(s.) Seen by Dr. Arellano, Dr Machado, and Dr. West earlier today. There was discussion of LP after MRI, for possible viral or bacterial meningo/ encephalitis. Patient pulling at lines, tele wires, not responding to voice. Her eyes are half -open. She looks distressed, tachypneic. Lungs: few rales at bases bilat Heart; tachy, regular Abdo; soft, NT, +BS EKG: sinus tachy, no significant change from yesterday. A/P; Discussed differential of encephalopathy with son and son-in-law. Will discuss LP, vs empiric treatment for viral and bacterial infections w/ Dr. West. Will relieve distress w/ one dose morphine, and prn ativan.
[2018-07-26] MEDS ORDERED: ACYCLOVIR IVPB SCH (22:00)
[2018-07-26] MEDS ORDERED: NS 0.9% IVPB SCH (22:00)
[2018-07-26] MEDS ORDERED: Vancomycin per Pharmacy* NOTE FOLLOW UP SCH (22:00)
[2018-07-26] MEDS: cefTRIAXone(*) 2 GM in NS 0.9% 100 ML* 100 ML IVPB SCH (22:41)
[2018-07-26] MEDS ORDERED: Vancomycin(*) 1,000 MG in NS 0.9% 250 ML* 250 ML IVPB ONE (23:00)
[2018-07-26] MEDS ORDERED: levETIRAcetam 500 MG IVPREMIX* 500 MG/100 ML BAG IV SCH (23:00)
[2018-07-26] MEDS: Acetaminophen SUPP* 650 MG SUPP PR PRN (23:44)
[2018-07-26] MEDS: ACYCLOVIR IVPB SCH (23:47)
[2018-07-26] MEDS: NS 0.9% IVPB SCH (23:47)
[2018-07-27 07:23] LABS: BUN/Creatinine Ratio 14.3 (8-20); Calcium 7.9 mg/dL (8.6-10.3); EGFR African American 51.8 (>60); EGFR Non-African American 42.8 (>60); Potassium 3.6 mmol/L (3.5-5.0)
[2018-07-27 08:03] LABS: ABS Basophils 0 10^3/ul (0-0.2); ABS Eosinophils 0 10^3/ul (0-0.6); ABS Lymphocytes 0.4 10^3/ul (1.0-4.8); ABS Monocytes 0.9 10^3/ul (0-0.8); ABS Nucleated RBC 0 10^3/ul; Eosinophil % 1.1 %; Hematocrit 33 % (35-47); Hemoglobin 11.2 g/dL (12.0-16.0); Lymphocyte % 11.8 %; Mean Corpuscular HGB Conc 33 g/dL (31-36); Mean Corpuscular Hemoglobin 28 pg (27-31); Mean Corpuscular Volume 85 fL (80-97); Mean Platelet Volume 8.8 fL (7.4-10.4); Nucleated Red Blood Cells % 0; Platelet Count 165 10^3/uL (150-450); Red Blood Count 3.94 10^6 /uL (3.70-4.87); Red Cell Distribution Width 16 % (10.5-15); White Blood Count 3.3 10^3/uL (3.5-10.8)
[2018-07-27] MEDS ORDERED: D5NS 0.9% 1000 ML BAG* 1,000 ML IV SCH ×2 (09:00→23:00)
[2018-07-27] MEDS: Atorvastatin* 10 MG TAB PO SCH (09:37)
[2018-07-27] MEDS: cefTRIAXone(*) 2 GM in NS 0.9% 100 ML* 100 ML IVPB SCH (09:44)
--- NOTE | 2018-07-27 10:10 | PN ---
Subjective Date of Service: 07/27/18 Length of Stay: 1 Days Neurology is following for confusion and seizures. Interval History: She developed increase agitation yesterday and new fevers. The fever was as high as 101.7. She was started on antibiotics to cover ASSOCIATE infections. Blood cultures are negative. According to her son, she has been sleeping all morning. She is not verbalizing. She opened her eyes to the examiner and was trying to get out of bed. She was stating, "I have to go to the hospital." She denied any headaches although she is confused and does not answer to questions consistently. She was given morphine and lorazepam for the MRI study and agitation overnight. sleep lab technician at bedside to do the EEG. Review of Systems: The patient cannot participate with a review of systems. Family History: Unchanged from Admission Social History: Unchanged from Admission Past Medical History: Unchanged from Admission Objective Active Medications: Acetaminophen (Tylenol Tab*) 650 mg PO Q4H PRN PRN Reason: FEVER/PAIN Acetaminophen (Tylenol Supp*) 650 mg SD Q4H PRN PRN Reason: FEVER/HEADACHE Last Admin: 07/26/18 23:44 Dose: 650 mg Atorvastatin Calcium (Lipitor*) 10 mg PO DAILY [facility] Last Admin: 07/27/18 09:37 Dose: Not Given Ceftriaxone Sodium 2 gm/ (Sodium Chloride) 100 mls @ 200 mls/hr IVPB Q12H [facility] Last Admin: 07/27/18 09:44 Dose: 200 mls/hr Vancomycin HCl 750 mg/ Sodium (Chloride) 250 mls @ 166.667 mls/hr IVPB Q24H [facility] Acyclovir Sodium 450 mg/ (Sodium Chloride) 109 mls @ 110 mls/hr IVPB Q12H [facility] Last Admin: 07/26/18 23:47 Dose: 110 mls/hr Dextrose/Sodium Chloride (D5ns 0.9% 1000 Ml Bag*) 1,000 mls @ 100 mls/hr IV PER RATE [facility] Last Admin: 07/27/18 09:38 Dose: 100 mls/hr Valproic Acid 250 mg/ Sodium (Chloride) 102.5 mls @ 210 mls/hr IVPB Q12H [facility] Lorazepam (Ativan Inj*) 1 mg IV PUSH Q4H PRN PRN Reason: ANXIETY Miscellaneous (Ativan Pyxis Luis) 1 ea N/A .ATIVAN IV LUIS PRN PRN Reason: PYXIS LUIS Ondansetron HCl (Zofran Inj*) 4 mg IV Q6H PRN PRN Reason: NAUSEA Pharmacy Consult (Vancomycin Per Pharmacy*) 1 note FOLLOW UP .VANC PER PHARMACY [facility] Pharmacy Profile Note (Vancomycin Trough Check) 1 note FOLLOW UP 2129 ONE Stop: 07/29/18 21:31 Vital Signs 07/26/18 07/26/18 07/26/18 10:49 11:54 15:59 Temperature 97.7 F 98.7 F Pulse Rate 101 100 Respiratory 12 28 32 Rate Blood Pressure 141/86 155/71 (mmHg) O2 Sat by Pulse 95 99 Oximetry 07/26/18 07/26/18 07/26/18 16:02 18:03 19:46 Temperature 99.8 F Pulse Rate 122 Respiratory 23 23 34 Rate Blood Pressure 181/100 (mmHg) O2 Sat by Pulse 97 Oximetry 07/26/18 07/26/18 07/26/18 20:00 20:09 20:52 Temperature 99.8 F Pulse Rate 119 Respiratory 30 30 30 Rate Blood Pressure 164/108 (mmHg) O2 Sat by Pulse 99 Oximetry 07/26/18 07/26/18 07/26/18 21:55 23:15 23:32 Temperature 101.7 F 101.7 F Pulse Rate 108 108 Respiratory 24 24 24 Rate Blood Pressure 129/70 129/70 (mmHg) O2 Sat by Pulse 100 100 Oximetry 07/27/18 07/27/18 07/27/18 00:37 00:45 03:15 Temperature 100.1 F 98.1 F Pulse Rate 110 111 Respiratory 24 16 Rate Blood Pressure 100/55 (mmHg) O2 Sat by Pulse 96 95 98 Oximetry 07/27/18 07/27/18 07/27/18 03:53 07:49 07:52 Temperature 98.1 F 97.3 F Pulse Rate 111 102 Respiratory 16 16 16 Rate Blood Pressure 100/55 120/74 (mmHg) O2 Sat by Pulse 100 Oximetry Intake and Output Last 24 Hours 07/25/18 07/26/18 07/27/18 07/28/18 06:59 06:59 06:59 06:59 Intake Total 1300 1900 Balance 1300 1900 Weight 99 lb 6.4 oz 99 lb 6.4 oz Intake: IV Fluids 1300 1290 NS (0.9%) 300 IVPB 610 ABX - CEFTRIAXONE 100 ABX - VANCOMYCIN 250 Acyclovir 110 Potassium Chloride with 50 10mEq keppra 100 Oral 0 0 Other: Estimated Void Small # Bowel Movements 0 # Voids 1 Oxygen Devices in Use Now: Nasal Cannula Neurology Exam: General: Ill appearing elderly female in no acute distress. HEENT: Normocephelic/atraumatic, sclera anicteric, mucous membranes moist Neck: Supple Chest: Clear to auscultation bilaterally Cardiovascular: Regular rate and rhythm without murmurs, rubs, gallops Extremities: No clubbing, cyanosis, or edema Neurological Findings: The patient has severe psychmotor slowing due to her encephalopathy Speech: n/a Cranial Nerve: Mild anisocoria with the right pupil measuring 3 mm and left 4 mm constricting to 2 mm bilaterally. No facial asymmetry. Motor: she withdrew to noxious stimuli in all 4 extremities. She was able to squeeze using the right hand but not the left. She flexed the knees to distal noxious stimuli. Sensation: hyperesthesia, the patient withdrawals and frowns when touched in extremities (especially the lower extremities). Finger n/a Gait: n/a Result Diagrams: 07/27/18 06:30 07/27/18 06:30 Additional Lab and Data: 07/27/2018: Ammonia: 33 Lactic acid: 1.0 Creatinine: 1.19 07/26/2018: EEG: mild-moderate encephalopathy MRI Brain with and without contrast: no acute intracranial abnormalities. 07/25/2018: Vitamin B12: 1019 TSH: 1.76 Urinalysis: negative Microbiology and Other Data: Microbiology 07/25/18 21:45 Aerobic Blood Culture - Preliminary Blood Venous No Growth Day 1 Anaerobic Blood Culture - Preliminary No Growth Day 1 07/25/18 19:06 Aerobic Blood Culture - Preliminary Blood Venous No Growth Day 1 Anaerobic Blood Culture - Preliminary No Growth Day 1 Assessment/Plan Mrs. 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 1. Acute encephalopathy manifesting as hyper and hypoactive delirium I suspect this is multifactorial and is due to the combination of prolonged post -ictal state and medication effect. Levetiracetam, morphine, and lorazepam can be contributing to her persistent encephalopathy. Other differential diagnosis include non-convulsive status epilepticus but this is less likely since she was more awake but with significant cognitive deficits on examination. Recommendation: - Discontinued levetiracetam as this may increase the patient's delirium - Start low dose valproic acid 250 mg IV twice daily to help prevent seizures and improve her delirium - Obtain an EEG to rule out non-convulsive status epilepticus - Practice delirium measures (e.g., frequent reorientation) - Neuro checks every 4 hours - Seizure precautions 2. New onset seizures in a patient with lymphoma- need to rule out leptomeningeal disease. 3. Fevers- was started on meningitis coverage since she cannot have an LP for the next 5-7 days due to Plavix therapy. Prognosis: guarded. Time spent: 35 minutes of which >50% was spent on obtaining further history, reviewing the medical records, examining the patient, and discussing the treatment plan with Dr. Driscoll and family at bedside.
[2018-07-27] MEDS: ACYCLOVIR IVPB SCH (11:03)
[2018-07-27] MEDS: NS 0.9% IVPB SCH (11:03)
[2018-07-27] MEDS ORDERED: Bisacodyl SUPP* 10 MG SUPP PR PRN (12:57)
--- NOTE | 2018-07-27 16:38 | PN ---
Subjective Date of Service: 07/27/18 Interval History: HOSPITALIST PROGRESS NOTE Patient seen and examined at bedside. Care reviewed and d/w Mary Grace Tatum RN. Last night events noted and Dr Shea note appreciated. She is still lethargic this AM, but as per son-in-law (who was here last night) , she looks a little better. As day went by, she became more awake and is now alert and oriented to self only. Family History: Unchanged from Admission Social History: Unchanged from Admission Past Medical History: Unchanged from Admission Objective Active Medications: Acetaminophen (Tylenol Tab*) 650 mg PO Q4H PRN PRN Reason: FEVER/PAIN Acetaminophen (Tylenol Supp*) 650 mg MI Q4H PRN PRN Reason: FEVER/HEADACHE Last Admin: 07/26/18 23:44 Dose: 650 mg Atorvastatin Calcium (Lipitor*) 10 mg PO DAILY [facility] Last Admin: 07/27/18 09:37 Dose: Not Given Bisacodyl (Dulcolax Supp*) 10 mg MI DAILY PRN PRN Reason: CONSTIPATION Ceftriaxone Sodium 2 gm/ (Sodium Chloride) 100 mls @ 200 mls/hr IVPB Q12H [facility] Last Admin: 07/27/18 09:44 Dose: 200 mls/hr Vancomycin HCl 750 mg/ Sodium (Chloride) 250 mls @ 166.667 mls/hr IVPB Q24H [facility] Acyclovir Sodium 450 mg/ (Sodium Chloride) 109 mls @ 110 mls/hr IVPB Q12H [facility] Last Admin: 07/27/18 11:03 Dose: 110 mls/hr Dextrose/Sodium Chloride (D5ns 0.9% 1000 Ml Bag*) 1,000 mls @ 100 mls/hr IV PER RATE [facility] Last Admin: 07/27/18 09:38 Dose: 100 mls/hr Valproic Acid 250 mg/ Sodium (Chloride) 102.5 mls @ 210 mls/hr IVPB Q12H [facility] Lorazepam (Ativan Inj*) 1 mg IV PUSH Q4H PRN PRN Reason: ANXIETY Miscellaneous (Ativan Pyxis Weber) 1 ea N/A .ATIVAN IV WEBER PRN PRN Reason: PYXIS WEBER Ondansetron HCl (Zofran Inj*) 4 mg IV Q6H PRN PRN Reason: NAUSEA Pharmacy Consult (Vancomycin Per Pharmacy*) 1 note FOLLOW UP .VANC PER PHARMACY [facility] Pharmacy Profile Note (Vancomycin Trough Check) 1 note FOLLOW UP 2129 ONE Stop: 07/29/18 21:31 Vital Signs - 8 hr 07/27/18 07/27/18 11:17 15:26 Temperature 97.9 F 98.8 F Pulse Rate 98 112 Respiratory 18 20 Rate Blood Pressure 103/65 103/77 (mmHg) O2 Sat by Pulse 95 96 Oximetry Oxygen Devices in Use Now: Nasal Cannula Appearance: Elderly lady lying in bed in NAD. Eyes: No Scleral Icterus, - - Gaze deviation to the right earlier, but now improved Ears/Nose/Mouth/Throat: Mucous Membranes Moist Neck: Trachea Midline Respiratory: Symmetrical Chest Expansion and Respiratory Effort, Clear to Auscultation Cardiovascular: - - Normal S1 and S2, irregularly irregular Abdominal: NL Sounds; No Tenderness; No Distention Neurological: - - Lethargic, arousable to voice - Nutrition: Malnutrition Diagnosis/Plan Malnutrition Assessment by Registered Dietitian: Malnutrition Assessment Clinical Characteristics Chronic,Moderate Malnutrition Assessment: - 16# (14%) to 21# (18%) wt loss x past 7-8 Criteria months - < 75% estimated energy expenditure > 1 month Malnutrition Assessment: Per pt's family, she does drink Ensure at home. Interventions Currently, they are afraid that Ensure will thicken secretions/mucus and make swallowing difficult. They are amenable for her to try Ensure Clear. Will send w/ meals. Ensure Clear: 240 kcals, 8 grams protein per serving. Malnutrition Assessment: Goals 1. Intake will improve to support lean body mass , hydration, and wt repletion - Goal: > 50% of meals as confusion improves Result Diagrams: 07/27/18 06:30 07/27/18 06:30 Additional Lab and Data: 07/27/2018: Ammonia: 33 Lactic acid: 1.0 Creatinine: 1.19 07/26/2018: EEG: mild-moderate encephalopathy MRI Brain with and without contrast: no acute intracranial abnormalities. 07/25/2018: Vitamin B12: 1019 TSH: 1.76 Urinalysis: negative Microbiology and Other Data: Microbiology 07/25/18 21:45 Aerobic Blood Culture - Preliminary Blood Venous No Growth Day 1 Anaerobic Blood Culture - Preliminary No Growth Day 1 07/25/18 19:06 Aerobic Blood Culture - Preliminary Blood Venous No Growth Day 1 Anaerobic Blood Culture - Preliminary No Growth Day 1 Assess/Plan/Problems-Billing Assessment: Mrs Rodriguez is an 88yo F with PMH of large B cell lymphoma s/p chemotherapy, interstitial lung disease, CVA, brought in to ED with confusion, followed by seizure and fever. - Patient Problems (1) Encephalopathy acute Comment: - MRI brain was negative. - Neuro input appreciated - multiple seizures may be contributing to her presentation. Etiology unclear at this time, but concerned with leptomeningeal or parenchymal metastasis. - As she spiked fever overnight, also concerned for encephalitis/meningitis. - D/w Anesthesiology (Dr Morocho) - patient needs to be off of Clopidogrel for 7 days to have LP done - soonest would be 07/31. Will treat empirically with Vancomycin, Ceftriaxone, Ampicillin, and Acyclovir. - If her condition declines will d/w Neurology if LP should be done before than 07/31. - Neurology recommended switching from Keppra to Valproic acid. - Seizure precautions. (2) Moderate protein-calorie malnutrition Comment: - Chronic, moderate malnutrition as evidenced by 16 (14%) to 21 pounds (18%) weight loss over the past 7-8 months and < 75% estimated energy expenditure > 1 month. - Dietitian input appreciated. - Not really eating at this time. - Glucose borderline low - will change fluid to D10 and monitor FS. (3) DVT prophylaxis Comment: - Lovenox on hold for now as if she worsens, may pursue LP tomorrow. - SCDs. (4) DNR (do not resuscitate) Status and Disposition: Inpatient. Son and son in law updated at bedside.
[2018-07-27] MEDS ORDERED: Ampicillin ADVAN(*) 2 GM in NS 0.9% 100 ML* 100 ML IVPB SCH (17:00)
[2018-07-27] MEDS ORDERED: D10W 1000 ML BAG* 1,000 ML IV SCH (18:00)
[2018-07-27] MEDS: Ampicillin ADVAN(*) 2 GM in NS 0.9% 100 ML* 100 ML IVPB SCH (18:50)
[2018-07-27] MEDS ORDERED: NS 0.9% 1000 ML** 1,000 ML IV SCH (19:45)
[2018-07-27] MEDS: Vancomycin(*) 750 MG in NS 0.9% 250 ML* 250 ML IVPB SCH (20:13)
[2018-07-27] MEDS: Acetaminophen SUPP* 650 MG SUPP PR PRN (20:14)
[2018-07-27] MEDS ORDERED: Valproic Acid IV(*) 250 MG in NS 0.9% 100 ML* 100 ML IVPB SCH (21:00)
--- NOTE | 2018-07-27 22:00 | EEG ---
ELECTROENCEPHALOGRAPHY REPORT: DATE OF STUDY: 07/27/18 - ROOM #449 DATE OF READ: 07/27/18 ORDERED BY: Dr. Elke Okeefe. CLINICAL PROBLEM: Ms. Rodriguez is an 88-year-old female with history of seizures. This EEG was requested to evaluate for epileptiform discharges or electrographic seizures. DURATION: 10:16 to 10:42. MEDICATIONS: 1. Rocephin. 2. Keppra. 3. Zovirax. 4. Vancomycin. 5. Lipitor. 6. Tylenol. 7. Ativan. CLINICAL STATE: Predominantly in sleep state. REPORT: This EEG was obtained predominantly in sleep state. There is attenuation of the occipital rhythm which initially accompanied drowsiness and the sleep background was disorganized with persistent theta frequency in brief and frequent runs of sleep spindles and vertex waves. This sleep transients showed appropriate morphology and are seen synchronously and symmetrically. Otherwise, there was a brief period of waking state. The waking background consisted of a mixed frequency slowing in the delta and theta range with inappropriate organization or discernable anterior and posterior voltage gradients. There was a brief waking background posterior dominant rhythm of approximately 7.5 Hz seen bilaterally. There were no electrographic seizures or epileptiform discharges. Hyperventilation and photic stimulation were not performed. CLINICAL IMPRESSION: This is an abnormal brief waking and predominantly sleep EEG due to the presence of excessive drowsiness and diffuse slowing. These findings are suggestive of mild-moderate nonspecific encephalopathy. The fact that sleep spindles are present during this recording suggests a favorable prognosis. There were no epileptiform discharge or electrographic seizures. There was no evidence of nonconvulsive status epilepticus. [id number]/[facility] #: [id number] [facility]
--- NOTE | 2018-07-27 23:12 | PN ---
Progress Note - Progress Note Date of Service: 07/27/18 Note: Event Note; Called to see patient after unwitnessed fall. Well known to me from last 48 hours. She was observed lying in position on floor, RT side. When I saw her she was propped up on pillow, on back. No head laceration or tenderness. Neck no deformity, no crepitus. Patient answering questions w/ one-word answer. Says "No" to pain. Hips: FROM, no crepitus, no external rotation. Hawley has been pulled out by patient. Patient lifted back into bed w/ RN. Will have bed alarm and hawley replaced.
[2018-07-28] MEDS: Ampicillin ADVAN(*) 2 GM in NS 0.9% 100 ML* 100 ML IVPB SCH ×4 (00:52→17:51)
[2018-07-28] MEDS: cefTRIAXone(*) 2 GM in NS 0.9% 100 ML* 100 ML IVPB SCH ×3 (01:20→14:32)
[2018-07-28] MEDS: NS 0.9% IVPB SCH ×3 (01:22→15:17)
[2018-07-28] MEDS: ACYCLOVIR IVPB SCH ×3 (01:22→15:17)
[2018-07-28] MEDS ORDERED: Ampicillin ADVAN(*) 2 GM in NS 0.9% 100 ML* 100 ML IVPB SCH (03:30)
[2018-07-28 06:53] LABS: ABS Eosinophils 0.1 10^3/ul (0-0.6); ABS Lymphocytes 0.4 10^3/ul (1.0-4.8); ABS Neutrophils 1.9 10^3/ul (1.5-7.7); Eosinophil % 1.7 %; Hematocrit 35 % (35-47); Hemoglobin 11.7 g/dL (12.0-16.0); Lymphocyte % 11.7 %; Mean Corpuscular HGB Conc 34 g/dL (31-36); Mean Corpuscular Hemoglobin 28 pg (27-31); Mean Corpuscular Volume 83 fL (80-97); Mean Platelet Volume 8.6 fL (7.4-10.4); Platelet Count 159 10^3/uL (150-450); Red Blood Count 4.17 10^6 /uL (3.70-4.87); Red Cell Distribution Width 16 % (10.5-15); White Blood Count 3.4 10^3/uL (3.5-10.8)
[2018-07-28 07:09] LABS: BUN/Creatinine Ratio 14.3 (8-20); EGFR African American 64.8 (>60); EGFR Non-African American 53.6 (>60); Potassium 3.3 mmol/L (3.5-5.0)
[2018-07-28] MEDS: Atorvastatin* 10 MG TAB PO SCH (08:46)
[2018-07-28] MEDS: Acetaminophen TAB* 325 MG PO PRN (08:46)
[2018-07-28] MEDS ORDERED: Lidocaine 1%* 5 ML VIAL INJ ONE (11:14)
--- NOTE | 2018-07-28 11:34 | PN ---
Subjective Date of Service: 07/28/18 Length of Stay: 2 Days Neurology is following for encephalopathy. Interval History: She fell early this morning. She continues to not communicate with the examiner. She did give examiner a smile today witnessed by Elliot (son-in-law). She nodded yes to wanting to get up and ambulate. She was unable to get up alone. This is a remarkable difference to how she was before the hospitalization. She cannot provide a ROS. She is febrile this morning. Review of Systems: Unable to participate with a review of systems. Family History: Unchanged from Admission Social History: Unchanged from Admission Past Medical History: Unchanged from Admission Objective Active Medications: Acetaminophen (Tylenol Tab*) 650 mg PO Q4H PRN PRN Reason: FEVER/PAIN Last Admin: 07/28/18 08:46 Dose: 650 mg Acetaminophen (Tylenol Supp*) 650 mg RI Q4H PRN PRN Reason: FEVER/HEADACHE Last Admin: 07/27/18 20:14 Dose: 650 mg Atorvastatin Calcium (Lipitor*) 10 mg PO DAILY [facility] Last Admin: 07/28/18 08:46 Dose: 10 mg Bisacodyl (Dulcolax Supp*) 10 mg RI DAILY PRN PRN Reason: CONSTIPATION Vancomycin HCl 750 mg/ Sodium (Chloride) 250 mls @ 166.667 mls/hr IVPB Q24H [facility] Last Admin: 07/27/18 20:13 Dose: 166.667 mls/hr Dextrose/Sodium Chloride (D5ns 0.9% 1000 Ml Bag*) 1,000 mls @ 100 mls/hr IV PER RATE [facility] Last Admin: 07/28/18 03:15 Dose: 100 mls/hr Valproic Acid 250 mg/ Sodium (Chloride) 102.5 mls @ 210 mls/hr IVPB Q12HR@0000, 1200 [facility] Ceftriaxone Sodium 2 gm/ (Sodium Chloride) 100 mls @ 200 mls/hr IVPB Q12HR@0100 ,1300 [facility] Last Admin: 07/28/18 01:27 Dose: 200 mls/hr Acyclovir Sodium 450 mg/ (Sodium Chloride) 109 mls @ 110 mls/hr IVPB Q12HR@0200 ,1400 [facility] Last Admin: 07/28/18 02:05 Dose: 110 mls/hr Ampicillin Sodium 2 gm/ Sodium (Chloride) 100 mls @ 200 mls/hr IVPB Q6H [facility] Last Admin: 07/28/18 06:29 Dose: 200 mls/hr Lorazepam (Ativan Inj*) 1 mg IV PUSH Q4H PRN PRN Reason: ANXIETY Last Admin: 07/28/18 01:09 Dose: 1 mg Miscellaneous (Ativan Pyxis Weber) 1 ea N/A .ATIVAN IV WEBER PRN PRN Reason: PYXIS WEBER Ondansetron HCl (Zofran Inj*) 4 mg IV Q6H PRN PRN Reason: NAUSEA Pharmacy Consult (Vancomycin Per Pharmacy*) 1 note FOLLOW UP .VANC PER PHARMACY [facility] Pharmacy Profile Note (Vancomycin Trough Check) 1 note FOLLOW UP 2129 ONE Stop: 07/29/18 21:31 Vital Signs 07/27/18 07/27/18 07/27/18 15:26 19:33 20:00 Temperature 98.8 F 100.6 F Pulse Rate 112 124 Respiratory 20 28 22 Rate Blood Pressure 103/77 150/84 (mmHg) O2 Sat by Pulse 96 96 Oximetry 07/28/18 07/28/18 07/28/18 00:02 01:09 01:30 Temperature 98.9 F 98.8 F Pulse Rate 111 112 Respiratory 18 22 18 Rate Blood Pressure 142/80 143/79 (mmHg) O2 Sat by Pulse 94 100 Oximetry 07/28/18 07/28/18 07/28/18 02:38 02:47 04:26 Temperature 98.5 F 98.7 F Pulse Rate 114 115 Respiratory 18 20 20 Rate Blood Pressure 140/85 138/79 (mmHg) O2 Sat by Pulse 100 91 Oximetry 07/28/18 07/28/18 07/28/18 06:50 06:52 08:00 Temperature 99.5 F Pulse Rate 117 117 Respiratory 26 24 20 Rate Blood Pressure 151/83 151/83 (mmHg) O2 Sat by Pulse 100 100 Oximetry 07/28/18 07/28/18 08:09 09:59 Temperature 101.6 F 98.9 F Pulse Rate Respiratory Rate Blood Pressure (mmHg) O2 Sat by Pulse Oximetry Intake and Output Last 24 Hours 07/26/18 07/27/18 07/28/18 07/29/18 06:59 06:59 06:59 06:59 Intake Total 1300 1900 1563 0 Output Total 1600 1450 Balance 1300 1900 -37 -1450 Weight 99 lb 6.4 oz 99 lb 6.4 oz Intake: IV Fluids 1300 1290 1000 NS (0.9%) 300 1000 IVPB 610 563 ABX - CEFTRIAXONE 100 100 ABX - VANCOMYCIN 250 250 Acyclovir 110 110 Potassium Chloride with 50 10mEq Valproic acid 103 keppra 100 Oral 0 0 0 0 Output: Urine 0 [place] 1450 Straight Cath 600 Residual 1000 16 Fr 1000 Other: Estimated Void Small # Bowel Movements 0 Estimated Stool Amount Small # Voids 1 0 Oxygen Devices in Use Now: None Neurology Exam: General: Ill appearing elderly female in no acute distress. HEENT: Normocephelic/atraumatic, sclera anicteric, mucous membranes moist Neck: Supple Chest: Clear to auscultation bilaterally Cardiovascular: Regular rate and rhythm without murmurs, rubs, gallops Extremities: No clubbing, cyanosis, or edema Neurological Findings: The patient has severe psychomotor slowing due to her encephalopathy. She does not respond to the examiner. She is able to track but not able to verbalize. Speech: n/a Cranial Nerve: Mild anisocoria with the right pupil measuring 3 mm and left 4 mm constricting to 2 mm bilaterally. No facial asymmetry. Motor: she withdrew to noxious stimuli in all 4 extremities. She was able to squeeze using the right hand but not the left. She flexed the knees to distal noxious stimuli. Sensation: hyperesthesia, the patient withdrawals and frowns when touched ( especially the lower extremities). Finger n/a Gait: n/a Result Diagrams: 07/28/18 06:07 07/28/18 06:07 Additional Lab and Data: 07/27/2018: Ammonia: 33 Lactic acid: 1.0 Creatinine: 1.19 07/26/2018: EEG: mild-moderate encephalopathy MRI Brain with and without contrast: no acute intracranial abnormalities. 07/25/2018: Vitamin B12: 1019 TSH: 1.76 Urinalysis: negative Microbiology and Other Data: Microbiology 07/25/18 21:45 Aerobic Blood Culture - Preliminary Blood Venous No Growth Day 1 Anaerobic Blood Culture - Preliminary No Growth Day 1 07/25/18 19:06 Aerobic Blood Culture - Preliminary Blood Venous No Growth Day 1 Anaerobic Blood Culture - Preliminary No Growth Day 1 Assessment/Plan Mrs. 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 She was febrile on 07/26-07/27 and was started on empiric treatment for meningitis. 1. Acute encephalopathy manifesting as hyper and hypoactive delirium I suspect this is multifactorial and is due to the combination of prolonged post -ictal state and medication effect. Other differential diagnosis include leptomeningeal disease, paraneoplastic syndrome, or opportunistic infection given her immunosuppressed state. Recommendation: - Continue valproic acid 250 mg IV twice daily to help prevent further seizures and improve her delirium - Practice delirium measures (e.g., frequent reorientation) - Neuro checks every 4 hours - Seizure precautions - The patient cannot provide any medical decision due to encephalopathy. I spoke with Michelle (daughter) and Elliot (son-in-law) today at 11:10 a.m. They both agree to proceed with with lumbar puncture knowing the risk of epidural hematoma and paraplegia. The patient is not showing any signs of clinical improvement and this will be done as emergent. The patient is on antibiotic and antiviral therapies that may cause increase side effects, and can be discontinued if the CSF results are normal. Furthermore, evaluating for cytometry and cytology for malignant cells, and if positive, will drastically alter the current treatment regiment. Last dose of Plavix was 4 days ago (2018). Therefore, we have agreed to proceed with an LP to check for cell count and diff, cultures, gram stain, protein, glucose, cryptococcus, MARY virus, VDRL, Lyme, and will send out a paraneoplastic panel. 2. New onset seizures in a patient with lymphoma (remission)- need to rule out leptomeningeal or paraneoplastic disease. 3. Fevers- She is still having fevers in spite of the antibiotic and anti-viral coverage. UA is unremarkable. Blood culture is negative. Prognosis: guarded. Time spent: 35 minutes of which >50% was spent on obtaining further history, reviewing the medical records, examining the patient, and discussing the treatment plan with Dr. Driscoll and family at bedside.
[2018-07-28] MEDS: Valproic Acid IV(*) 250 MG in NS 0.9% 100 ML* 100 ML IVPB SCH (12:44)
[2018-07-28] MEDS ORDERED: Lorazepam PYXIS KEY ONE (13:00)
[2018-07-28] MEDS ORDERED: LORazepam INJ* 2 MG/ML 1 ML VIAL IV PUSH ONE (13:00)
[2018-07-28 14:12] LABS: Body Fluid Source Cerebral Spinal
[2018-07-28 14:31] LABS: CSF Glucose 65 mg/dL (40-70)
[2018-07-28 15:10] LABS: Body Fluid Mono 13 %
--- NOTE | 2018-07-28 15:20 | OP ---
Operative Report - Blank - Operative Report Date of Operation: 07/28/18 Note: Lumbar Puncture Procedure Note Pre-operative Diagnosis: Acute encephalopathy, suspect viral encephalitis. Post-operative Diagnosis: same Indications: Diagnostic Procedure Details Consent: Informed consent was obtained. Time out was performed with JONY Rebolledo at 10:55. A female senior licensing manager was present. Risks of the procedure were discussed including: infection, bleeding, pain and headache were discussed with the patient, and verbally with the patient's daughter Michelle and son-in-law Elliot. The family agreed to proceed with the procedure despite the risk of epidural hematoma with the recent Plavix use (4 days ago). Under sterile conditions the patient was positioned in the LEFT lateral decubitus position in a semi- position. Betadine solution and sterile drapes were utilize . A 22-gauge 3.5-inch spinal needle was inserted at the L3- L4 interspace. Findings 6 cc of clear spinal fluid was obtained Opening Pressure: 7 cm H2O pressure Complications: {None Condition: Stable Plan Obtain CSF laboratory data: cell count and differential, gram stain and culture , glucose, protein, Lyme disease PCR, VDRL, cryptococcus, HSV PCR, MARY Virus, cytology, and flow cytometry. Estuardo West MD 07/28/2018 15:20
--- NOTE | 2018-07-28 16:27 | PN ---
Subjective Date of Service: 07/28/18 Interval History: HOSPITALIST PROGRESS NOTE Patient seen and examined at bedside. Care reviewed and d/w Enrique Nj RN. She's more awake today, was able to spend sometime sitting up on a chair. Very fidgety, but not as agitated as before. Family History: Unchanged from Admission Social History: Unchanged from Admission Past Medical History: Unchanged from Admission Objective Active Medications: Acetaminophen (Tylenol Tab*) 650 mg PO Q4H PRN PRN Reason: FEVER/PAIN Last Admin: 07/28/18 08:46 Dose: 650 mg Acetaminophen (Tylenol Supp*) 650 mg NJ Q4H PRN PRN Reason: FEVER/HEADACHE Last Admin: 07/27/18 20:14 Dose: 650 mg Atorvastatin Calcium (Lipitor*) 10 mg PO DAILY [facility] Last Admin: 07/28/18 08:46 Dose: 10 mg Bisacodyl (Dulcolax Supp*) 10 mg NJ DAILY PRN PRN Reason: CONSTIPATION Vancomycin HCl 750 mg/ Sodium (Chloride) 250 mls @ 166.667 mls/hr IVPB Q24H [facility] Last Admin: 07/27/18 20:13 Dose: 166.667 mls/hr Dextrose/Sodium Chloride (D5ns 0.9% 1000 Ml Bag*) 1,000 mls @ 100 mls/hr IV PER RATE [facility] Last Admin: 07/28/18 03:15 Dose: 100 mls/hr Valproic Acid 250 mg/ Sodium (Chloride) 102.5 mls @ 210 mls/hr IVPB Q12HR@0000, 1200 [facility] Last Admin: 07/28/18 12:44 Dose: 210 mls/hr Ceftriaxone Sodium 2 gm/ (Sodium Chloride) 100 mls @ 200 mls/hr IVPB Q12HR@0100 ,1300 [facility] Last Admin: 07/28/18 14:32 Dose: 200 mls/hr Acyclovir Sodium 450 mg/ (Sodium Chloride) 109 mls @ 110 mls/hr IVPB Q12HR@0200 ,1400 [facility] Last Admin: 07/28/18 15:17 Dose: 110 mls/hr Ampicillin Sodium 2 gm/ Sodium (Chloride) 100 mls @ 200 mls/hr IVPB Q6H [facility] Last Admin: 07/28/18 13:19 Dose: 200 mls/hr Lorazepam (Ativan Inj*) 1 mg IV PUSH Q4H PRN PRN Reason: ANXIETY Last Admin: 07/28/18 01:09 Dose: 1 mg Miscellaneous (Ativan Pyxis Luis) 1 ea N/A .ATIVAN IV LUIS PRN PRN Reason: PYXIS LUIS Ondansetron HCl (Zofran Inj*) 4 mg IV Q6H PRN PRN Reason: NAUSEA Pharmacy Consult (Vancomycin Per Pharmacy*) 1 note FOLLOW UP .VANC PER PHARMACY [facility] Pharmacy Profile Note (Vancomycin Trough Check) 1 note FOLLOW UP 2129 ONE Stop: 07/29/18 21:31 Vital Signs - 8 hr 07/28/18 07/28/18 09:59 10:54 Temperature 98.9 F 98.5 F Pulse Rate 115 Respiratory 40 Rate Blood Pressure 115/95 (mmHg) O2 Sat by Pulse 98 Oximetry Oxygen Devices in Use Now: None Appearance: Elderly lady sitting up in a recliner in NAD. Eyes: No Scleral Icterus Ears/Nose/Mouth/Throat: Mucous Membranes Moist Neck: Trachea Midline Respiratory: Symmetrical Chest Expansion and Respiratory Effort, Clear to Auscultation Cardiovascular: RRR - Normal S1 and S2 Abdominal: NL Sounds; No Tenderness; No Distention Neurological: - - Arousable to voice, follows simple commands - Nutrition: Malnutrition Diagnosis/Plan Malnutrition Assessment by Registered Dietitian: Malnutrition Assessment Clinical Characteristics Chronic,Moderate Malnutrition Assessment: - 16# (14%) to 21# (18%) wt loss x past 7-8 Criteria months - < 75% estimated energy expenditure > 1 month Malnutrition Assessment: Per pt's family, she does drink Ensure at home. Interventions Currently, they are afraid that Ensure will thicken secretions/mucus and make swallowing difficult. They are amenable for her to try Ensure Clear. Will send w/ meals. Ensure Clear: 240 kcals, 8 grams protein per serving. Malnutrition Assessment: Goals 1. Intake will improve to support lean body mass , hydration, and wt repletion - Goal: > 50% of meals as confusion improves Result Diagrams: 07/28/18 06:07 07/28/18 06:07 Additional Lab and Data: 07/27/2018: Ammonia: 33 Lactic acid: 1.0 Creatinine: 1.19 07/26/2018: EEG: mild-moderate encephalopathy MRI Brain with and without contrast: no acute intracranial abnormalities. 07/25/2018: Vitamin B12: 1019 TSH: 1.76 Urinalysis: negative Laboratory Tests 07/28/18 07/28/18 13:15 13:15 Fluid Source Cerebral spinal Fluid Volume 3.0 Fluid Color Colorless Fluid Appearance Clear Fluid WBC 29 H* Fluid RBC 1 Fluid Tot Cell Count 100 Fluid Lymphocytes 87 Fluid Monocytes 13 CSF Glucose 65 CSF Total Protein 183 H Microbiology and Other Data: Microbiology 07/25/18 21:45 Aerobic Blood Culture - Preliminary Blood Venous No Growth Day 1 Anaerobic Blood Culture - Preliminary No Growth Day 1 07/25/18 19:06 Aerobic Blood Culture - Preliminary Blood Venous No Growth Day 1 Anaerobic Blood Culture - Preliminary No Growth Day 1 Assess/Plan/Problems-Billing Assessment: Mrs Rodriguez is an 88yo F with PMH of large B cell lymphoma s/p chemotherapy, interstitial lung disease, CVA, brought in to ED with confusion, followed by seizure and fever. - Patient Problems (1) Encephalopathy acute Comment: - MRI brain was negative. - LP shows high protein and lymphocytic predominance - viral encephalitis vs lymphoma. - Continue empiric treatment with Vancomycin, Ceftriaxone, Ampicillin, and Acyclovir, but if Gram is negative, would probably d/c antibiotics and continue Acyclovir only. - Follow CSF flow cytometry. - Oncology consult requested - recommended CT C/A/P. - Family thinks she had a tick bite and rash prior to presentation - still early for Lyme season, but will check Lyme serology. - Continue Valproic acid. - Seizure precautions. (2) Moderate protein-calorie malnutrition Comment: - Chronic, moderate malnutrition as evidenced by 16 (14%) to 21 pounds (18%) weight loss over the past 7-8 months and < 75% estimated energy expenditure > 1 month. - Dietitian input appreciated. - Not really eating at this time - if PO intake doesn't improve, will have to discuss NGT feeding. - Glucose borderline low - continue IVF and monitor FS. (3) DVT prophylaxis Comment: - Resume Lovenox. - SCDs. (4) DNR (do not resuscitate) Status and Disposition: Inpatient. Son in law updated at bedside.
[2018-07-28] MEDS ORDERED: Iodixanol* (CONTRAST) 320 MG/ML 100 ML SDV IV ONE (17:43)
[2018-07-28] MEDS: KCL 10 MEQ/50 ML IVPREMIX* 10 MEQ/50 ML BAG IV SCH ×3 (18:54→23:50)
--- NOTE | 2018-07-28 19:10 | PN ---
Hospitalist Progress Note Date of Service: 07/28/18 CT CHEST/ABD/PEL W IMPRESSION: 1. Moderate emphysema. Pleural-parenchymal scarring and chronic fibrotic changes without current consolidation, effusion or pulmonary edema. 2. Enlarged heart. Moderate pericardial effusion similar to previous. IMPRESSION: 1. Possible ileus. No abscess or obstruction. 2. No other acute disease seen. As above. Oncology consult requested.
[2018-07-28] MEDS: Acetaminophen SUPP* 650 MG SUPP PR PRN (20:21)
[2018-07-28] MEDS: Vancomycin(*) 750 MG in NS 0.9% 250 ML* 250 ML IVPB SCH (20:24)
[2018-07-28] MEDS: Morphine 4 MG/ML VIAL (1 ml) 4 MG/ML VIAL IV PRN (20:47)
[2018-07-28] MEDS ORDERED: KCL 10 MEQ/50 ML IVPREMIX* 10 MEQ/50 ML BAG ONE (23:43)
[2018-07-29] MEDS: Valproic Acid IV(*) 250 MG in NS 0.9% 100 ML* 100 ML IVPB SCH ×2 (00:42→13:26)
[2018-07-29] MEDS: Acetaminophen SUPP* 650 MG SUPP PR PRN (01:02)
[2018-07-29] MEDS: Ampicillin ADVAN(*) 2 GM in NS 0.9% 100 ML* 100 ML IVPB SCH ×4 (01:27→17:55)
[2018-07-29] MEDS: cefTRIAXone(*) 2 GM in NS 0.9% 100 ML* 100 ML IVPB SCH ×2 (02:22→12:25)
[2018-07-29] MEDS: ACYCLOVIR IVPB SCH ×2 (03:11→14:04)
[2018-07-29] MEDS: NS 0.9% IVPB SCH ×2 (03:11→14:04)
[2018-07-29 05:28] LABS: ABS Eosinophils 0.1 10^3/ul (0-0.6); ABS Lymphocytes 0.6 10^3/ul (1.0-4.8); ABS Monocytes 1.1 10^3/ul (0-0.8); ABS Neutrophils 2.1 10^3/ul (1.5-7.7); Eosinophil % 1.7 %; Hematocrit 29 % (35-47); Hemoglobin 9.7 g/dL (12.0-16.0); Lymphocyte % 14.2 %; Mean Corpuscular HGB Conc 34 g/dL (31-36); Mean Corpuscular Hemoglobin 28 pg (27-31); Mean Corpuscular Volume 84 fL (80-97); Mean Platelet Volume 7.9 fL (7.4-10.4); Nucleated Red Blood Cells % 0.1; Platelet Count 153 10^3/uL (150-450); Red Blood Count 3.46 10^6 /uL (3.70-4.87); Red Cell Distribution Width 16 % (10.5-15); White Blood Count 3.9 10^3/uL (3.5-10.8)
[2018-07-29 05:47] LABS: BUN/Creatinine Ratio 12.3 (8-20); Calcium 7.2 mg/dL (8.6-10.3); EGFR African American 59.2 (>60); EGFR Non-African American 48.9 (>60); Potassium 3.8 mmol/L (3.5-5.0)
[2018-07-29] MEDS: Atorvastatin* 10 MG TAB PO SCH (08:30)
--- NOTE | 2018-07-29 09:28 | PN ---
Subjective Date of Service: 07/29/18 Interval History: HD #5 on 07/29 88 yo F with PMH hx B Cell lymphoma s/p RCHOP in 2018, presented with acute encephalopathy, concerning for new [employer] lymphoma vs asceptic mengitis. Hospital stay c/b seizures Overnight VSS, T max 100.3-Ativan x 1 overnight for agitation Labs: anemia, hypoCa, albumin OK This morning pt resting sitting up in chair, arousable to voice, non verbal follows some commands, unable to provide ROS, family not currently at bedside, will touch base with them when they return Family History: Unchanged from Admission Social History: Unchanged from Admission Past Medical History: Unchanged from Admission Objective Active Medications: Acetaminophen (Tylenol Tab*) 650 mg PO Q4H PRN PRN Reason: FEVER/PAIN Last Admin: 07/28/18 08:46 Dose: 650 mg Acetaminophen (Tylenol Supp*) 650 mg [place] Q4H PRN PRN Reason: FEVER/HEADACHE Last Admin: 07/29/18 01:02 Dose: 650 mg Atorvastatin Calcium (Lipitor*) 10 mg PO DAILY [facility] Last Admin: 07/29/18 08:30 Dose: 10 mg Bisacodyl (Dulcolax Supp*) 10 mg DE DAILY PRN PRN Reason: CONSTIPATION Vancomycin HCl 750 mg/ Sodium (Chloride) 250 mls @ 166.667 mls/hr IVPB Q24H [facility] Last Admin: 07/28/18 20:24 Dose: 166.667 mls/hr Dextrose/Sodium Chloride (D5ns 0.9% 1000 Ml Bag*) 1,000 mls @ 100 mls/hr IV PER RATE [facility] Last Admin: 07/28/18 03:15 Dose: 100 mls/hr Valproic Acid 250 mg/ Sodium (Chloride) 102.5 mls @ 210 mls/hr IVPB Q12HR@0000, 1200 [facility] Last Admin: 07/29/18 00:42 Dose: 210 mls/hr Ceftriaxone Sodium 2 gm/ (Sodium Chloride) 100 mls @ 200 mls/hr IVPB Q12HR@0100 ,1300 [facility] Last Admin: 07/29/18 02:22 Dose: 200 mls/hr Acyclovir Sodium 450 mg/ (Sodium Chloride) 109 mls @ 110 mls/hr IVPB Q12HR@0200 ,1400 [facility] Last Admin: 07/29/18 03:11 Dose: 110 mls/hr Ampicillin Sodium 2 gm/ Sodium (Chloride) 100 mls @ 200 mls/hr IVPB Q6H [facility] Last Admin: 07/29/18 06:51 Dose: 200 mls/hr Lorazepam (Ativan Inj*) 1 mg IV PUSH Q4H PRN PRN Reason: ANXIETY Last Admin: 07/28/18 01:09 Dose: 1 mg Miscellaneous (Ativan Pyxis Luis) 1 ea N/A .ATIVAN IV LUIS PRN PRN Reason: PYXIS LUIS Morphine Sulfate (Morphine 4 Mg/Ml Vial (1 Ml)) 3 mg IV Q4H PRN PRN Reason: DISCOMFORT Last Admin: 07/28/18 20:47 Dose: 3 mg Ondansetron HCl (Zofran Inj*) 4 mg IV Q6H PRN PRN Reason: NAUSEA Pharmacy Consult (Vancomycin Per Pharmacy*) 1 note FOLLOW UP .VANC PER PHARMACY [facility] Pharmacy Profile Note (Vancomycin Trough Check) 1 note FOLLOW UP 2129 ONE Stop: 07/29/18 21:31 Vital Signs - 8 hr 07/29/18 07/29/18 07/29/18 03:22 07:24 08:17 Temperature 97.6 F 97.5 F Pulse Rate 94 59 Respiratory 28 20 18 Rate Blood Pressure 109/61 108/60 (mmHg) O2 Sat by Pulse 99 100 Oximetry Oxygen Devices in Use Now: Nasal Cannula Appearance: Frail woman sitting up in chair resting, arousable to voice, non verbal Ears/Nose/Mouth/Throat: NL Teeth, Lips, Gums, - - Thrush Neck: NL Appearance and Movements; NL JVP Respiratory: Symmetrical Chest Expansion and Respiratory Effort, Clear to Auscultation Cardiovascular: NL Sounds; No Murmurs; No JVD, RRR Abdominal: NL Sounds; No Tenderness; No Distention, No Hepatosplenomegaly Lymphatic: No Cervical Adenopathy Skin: No Rash or Ulcers Neurological: - - Arousable to voice, non verbal with me - Nutrition: Malnutrition Diagnosis/Plan Malnutrition Assessment by Registered Dietitian: Malnutrition Assessment Clinical Characteristics Chronic,Moderate Malnutrition Assessment: - 16# (14%) to 21# (18%) wt loss x past 7-8 Criteria months - < 75% estimated energy expenditure > 1 month Malnutrition Assessment: Per pt's family, she does drink Ensure at home. Interventions Currently, they are afraid that Ensure will thicken secretions/mucus and make swallowing difficult. They are amenable for her to try Ensure Clear. Will send w/ meals. Ensure Clear: 240 kcals, 8 grams protein per serving. Malnutrition Assessment: Goals 1. Intake will improve to support lean body mass , hydration, and wt repletion - Goal: > 50% of meals as confusion improves Result Diagrams: 07/29/18 05:13 07/29/18 05:13 Additional Lab and Data: 07/27/2018: Ammonia: 33 Lactic acid: 1.0 Creatinine: 1.19 07/26/2018: EEG: mild-moderate encephalopathy MRI Brain with and without contrast: no acute intracranial abnormalities. 07/25/2018: Vitamin B12: 1019 TSH: 1.76 Urinalysis: negative Laboratory Tests 07/28/18 07/28/18 13:15 13:15 Fluid Source Cerebral spinal Fluid Volume 3.0 Fluid Color Colorless Fluid Appearance Clear Fluid WBC 29 H* Fluid RBC 1 Fluid Tot Cell Count 100 Fluid Lymphocytes 87 Fluid Monocytes 13 CSF Glucose 65 CSF Total Protein 183 H Microbiology and Other Data: Microbiology 07/25/18 21:45 Aerobic Blood Culture - Preliminary Blood Venous No Growth Day 1 Anaerobic Blood Culture - Preliminary No Growth Day 1 07/25/18 19:06 Aerobic Blood Culture - Preliminary Blood Venous No Growth Day 1 Anaerobic Blood Culture - Preliminary No Growth Day 1 Assess/Plan/Problems-Billing Assessment: 88yo F with PMH of large B cell lymphoma s/p chemotherapy, interstitial lung disease, CVA, brought in to ED with confusion, followed by seizure and fever, concerning for aseptic meningitis vs new [employer] lymphoma. - Patient Problems (1) Encephalopathy acute Current Visit: Yes Status: Acute Code(s): G93.40 - ENCEPHALOPATHY, UNSPECIFIED SNOMED Code(s): 82759297 Comment: - MRI brain was negative. - LP shows high protein and lymphocytic predominance - viral encephalitis vs lymphoma. - Continue empiric treatment with Vancomycin, Ceftriaxone, Ampicillin, and Acyclovir, but if Gram is negative, would probably d/c antibiotics and continue Acyclovir only. - Follow CSF flow cytometry. - Oncology consult requested - recommended CT C/A/P. - Family thinks she had a tick bite and rash prior to presentation - still early for Lyme season, but will check Lyme serology. - Continue Valproic acid. - Seizure precautions. (2) Anemia Current Visit: No Status: Acute Code(s): D64.9 - ANEMIA, UNSPECIFIED SNOMED Code(s): 726319599 Comment: - Stable. - Iron deficiency anemia; low hgb may be partially dilutional? Stool for occult negative. Per heme/onc, may be related to lymphoma; consider bone marrow bx if persistent. - Fe sulfate 325 qd (3) DVT prophylaxis Current Visit: Yes Status: Acute Code(s): IID6358 - SNOMED Code(s): 868565706 Comment: - Resume Lovenox. - SCDs. (4) DNR (do not resuscitate) Current Visit: Yes Status: Acute Comment: -Will attempt GOC discussion with family, did discuss case with Dr. Underwood this morning, pt is "a minimalist" prior to this admission Status and Disposition: Inpatient
[2018-07-29] MEDS ORDERED: D5NS 0.9% 1000 ML BAG* 1,000 ML IV SCH (12:06)
[2018-07-29] MEDS: Nystatin SUSPENSION* 100000 UNITS/ML 5 ML UDC PO SCH ×3 (12:19→20:28)
[2018-07-29 15:09] LABS: CSF VDRL Negative (Negative)
--- NOTE | 2018-07-29 15:48 | CONS ---
CC: Dr. Underwood; Dr. Flores HEMATOLOGY/ONCOLOGY CONSULTATION: DATE OF CONSULT: 07/29/18 ATTENDING PHYSICIAN: Dr. Pooja Prince. CONSULTING NEUROLOGIST: Dr. West. PRIMARY CARE PROVIDER: Dr. Underwood. PRIMARY ONCOLOGIST: Dr. Flores. CONSULTING PROVIDER: TROY Mead CHIEF COMPLAINT: Encephalopathy. HISTORY OF PRESENT ILLNESS: This is an 88-year-old female well known to the oncology service as she has been treated for diffuse large B-cell lymphoma by Dr. Flores from April through October 2017. The patient was last seen by Dr. Flores in May of this year following a hospitalization for pneumonia and demonstrated no evidence of recurrent malignancy at that time. The patient lives independently at [facility] and was in her usual state of health up until 1 day prior to her hospitalization. The patient's daughter noted her to be quite confused, which is far from her baseline and more irritable than usual, who then brought her to her primary care provider's office for further evaluation, who subsequently directed her to the emergency department. In the emergency department, the patient's initial labs are really unrevealing. She has a normal CBC, a normal comprehensive metabolic panel, just a slightly elevated CRP to 9.38, normal TSH, normal urinalysis, and negative flu swab. She was afebrile at that time and just mildly tachycardic with heart rates in the low 100s and stable on her usual 3 L of supplemental O2. The patient was subsequently admitted to the hospital for further evaluation. The patient subsequently developed a generalized seizure the morning following her admission. She was initially loaded with Keppra and an MRI of the brain was completed as the CT from the day prior had been unremarkable. MRI again did not show any acute abnormalities and specifically, no evidence of metastatic disease or CVA. The patient subsequently developed a fever the evening of 07/26/18 and the patient was empirically treated for meningitis with broad-spectrum antibiotics and antiviral medications. The patient's mental status has been waxing and waning during her hospitalization, but has not returned anywhere close to her baseline. She underwent lumbar puncture with Dr. West yesterday, which demonstrated elevated white blood cells which are primarily lymphocytes in addition to elevated total protein and a normal glucose. Case was reviewed with Dr. Vivek Paul by phone, who recommended a CT chest, abdomen and pelvis, which was done late yesterday and shows no evidence of metastatic disease. The patient is sleeping at the time of evaluation, but per nursing staff and her daughter, she was up to the chair for most of the morning and much more alert and conversant than she has been over the prior few days. She did eat a few bites of lunch and seems to have tolerated that quite well. PAST MEDICAL HISTORY: 1. Diffuse large B-cell lymphoma - incomplete staging at initiation of treatment due to her age and acuity of symptoms. She had a prolonged hospitalization after cycle 2 of R-mini-CHOP, developed interstitial lung disease and eventually completed her third and fourth cycles without Adriamycin and tolerated well. 2. Interstitial lung disease as a complication of chemotherapy. 3. History of CVA without significant residual deficits. PAST SURGICAL HISTORY: 1. Cholecystectomy. 2. Cataracts. 3. Tonsillectomy. CURRENT MEDICATIONS: 1. Acetaminophen 650 mg p.o. q.4 hours as needed for pain or fever. 2. Acyclovir 450 mg q.12 hours IV. 3. Ampicillin 2 g every 6 hours IV. 4. Atorvastatin 10 mg p.o. daily. 5. Dulcolax 10 mg per rectum as needed for constipation. 6. Ceftriaxone 2 g q.12 hours. 7. D5 normal saline at 50 mL per hour. 8. Ativan 1 mg IV push every 4 hours as needed for seizure. 9. Morphine 3 mg IV q.4 hours as needed for pain. 10. Nystatin 200,000 units p.o. 4 times daily. 11. Zofran 4 mg IV q.6 hours p.r.n. 12. Vancomycin per pharmacy. 13. Valproic acid 250 mg every 12 hours IV. FAMILY HISTORY: The patient's mother had a history of colon cancer. SOCIAL HISTORY: The patient is an independent resident at [facility] and a retired [employer]. No history of tobacco use and rare alcohol consumption. REVIEW OF SYSTEMS: Unable to obtain full review of systems as the patient was sleeping at the time of evaluation, partial review obtained from interview with her daughter as listed above in HPI. PHYSICAL EXAM: Most recent vitals: Temperature 97.9 degrees Fahrenheit, pulse 90 beats per minute, respiratory rate 18, oxygen saturation 100% on 2 L, blood pressure 116/77 mmHg. General: This is an 88-year-old female, who is sleeping comfortably and in no acute distress, accompanied by multiple family members who provide history. Respiratory: Breaths are even and unlabored. DIAGNOSTIC STUDIES/LAB DATA: CBC, 07/29/18, shows a white blood cell count of 3900, hemoglobin of 9.7 g/dL and a platelet count of 153,000. Basic metabolic panel, 07/29/18, shows sodium of 139, potassium of 3.8, BUN 13, creatinine 1.06. Urinalysis from admission is unremarkable. CSF shows colorless fluid with 29 white blood cells, 1 red blood cell, no neutrophils, 87 lymphocytes and 13 monocytes, glucose of 65 and total protein of 183. LDH is normal at 231. Imagin. Chest x-ray, 07/25/18, shows cardiomegaly which is unchanged and stigmata of chronic interstitial lung disease, but nothing acute. 2. CT brain, 07/25/18, shows no acute disease. 3. MRI of the brain shows no meningeal enhancement or intracranial lesions. There are 2 stable lytic enhancing lesions of the skull, which are unchanged from prior CT from February 2017, which favors benign etiology. 4. CT abdomen and pelvis, 07/28/18, was initially read as possible ileus, but upon further review from Radiology appears to be benign, but with distended bladder with Webster in place. ASSESSMENT AND PLAN: This is an 88-year-old female with a history of diffuse large B-cell lymphoma, who presented with acute encephalopathy and subsequent seizures and fever, who seems to be recovering neurologically. Lumbar puncture completed yesterday shows elevated white blood cells with lymphocytic predominance and Oncology was asked to consult regarding the possibility of this being recurrent lymphoma, specifically carcinomatosis causing her acute presentation and subsequent seizures. 1. Encephalopathy - based on current information including negative MRI of the brain, negative CT of the chest, abdomen and pelvis, and lumbar puncture demonstrating elevated white blood cells in the setting of acute encephalopathy and associated fevers, this favors a viral encephalitis as opposed to carcinomatosis. Agree with plan to pursue cytology and specifically flow cytometry on CSF fluids and these studies are currently pending. Current management including broad- spectrum antibiotics and antiviral medications in conjunction with antiepileptics per Neurology seems most appropriate until these studies return. Based on imaging, there is no additional tissue sampling that would be appropriate. 2. Interstitial lung disease - without acute exacerbation. 3. History of cerebrovascular accident. 4. History of diffuse large B-cell lymphoma. 5. Anemia - noted fall of Hgb this hospitalization from ~12 g/dl at admission to 9.7 with normal MCV. This is most likely dilutional. No evidence of bleeding. If hemoglobin continues to fall then recommend checking stool for occult blood and iron studies. Bone marrow biopsy would be indicated if CSF is positive for lymphoma. DISPOSITION: Per hospitalist group, Oncology will continue to follow along and meet with the patient following return of pathology studies on CSF fluid. TROY MEAD [id number]/CPS #: [id number] [facility]
[2018-07-29] MEDS: Vancomycin(*) 750 MG in NS 0.9% 250 ML* 250 ML IVPB SCH (20:29)
[2018-07-29] MEDS: Morphine 4 MG/ML VIAL (1 ml) 4 MG/ML VIAL IV PRN (20:29)
[2018-07-29] MEDS ORDERED: Vancomycin Trough Check NOTE FOLLOW UP ONE (21:30)
[2018-07-29] MEDS: Acetaminophen TAB* 325 MG PO PRN (21:41)
[2018-07-30] MEDS: Valproic Acid IV(*) 250 MG in NS 0.9% 100 ML* 100 ML IVPB SCH ×3 (00:56→23:24)
[2018-07-30] MEDS: Ampicillin ADVAN(*) 2 GM in NS 0.9% 100 ML* 100 ML IVPB SCH ×4 (01:31→17:23)
[2018-07-30] MEDS: cefTRIAXone(*) 2 GM in NS 0.9% 100 ML* 100 ML IVPB SCH ×2 (02:08→13:54)
[2018-07-30] MEDS: NS 0.9% IVPB SCH ×2 (02:56→14:54)
[2018-07-30] MEDS: ACYCLOVIR IVPB SCH ×2 (02:56→14:54)
[2018-07-30 05:36] LABS: ABS Eosinophils 0.2 10^3/ul (0-0.6); ABS Lymphocytes 0.4 10^3/ul (1.0-4.8); ABS Monocytes 0.7 10^3/ul (0-0.8); ABS Neutrophils 2.3 10^3/ul (1.5-7.7); Eosinophil % 4.5 %; Hematocrit 27 % (35-47); Hemoglobin 9.1 g/dL (12.0-16.0); Mean Corpuscular HGB Conc 34 g/dL (31-36); Mean Corpuscular Hemoglobin 29 pg (27-31); Mean Corpuscular Volume 84 fL (80-97); Mean Platelet Volume 7.7 fL (7.4-10.4); Platelet Count 123 10^3/uL (150-450); Red Cell Distribution Width 16 % (10.5-15); White Blood Count 3.5 10^3/uL (3.5-10.8)
[2018-07-30 05:54] LABS: Albumin/Globulin Ratio 1.7 (1-3); BUN/Creatinine Ratio 14.6 (8-20); Calcium 6.9 mg/dL (8.6-10.3); EGFR African American 79.6 (>60); EGFR Non-African American 65.8 (>60); Globulin 1.8 g/dL (2-4); Indirect Bilirubin 0.1 mg/dL (0.3-1.0); Potassium 3.1 mmol/L (3.5-5.0); Total Bilirubin 0.2 mg/dL (0.2-1.0); Total Protein 4.8 g/dL (6.4-8.9)
--- NOTE | 2018-07-30 09:12 | PN ---
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 Hospital stay c/b seizures Overnight VSS Labs: anemia, hypoCa, albumin low today This morning, seen with daughter at bedside, she has not been able to pass swallow this morning. We have had thoughtful conversation about interventions such as an NGT, they have been on the fence hopeful that her PO intake would improve spontaneously, she waxes and wanes and was able to eat yesterday. though this morning some choking. With discussion with family they would be Ok with NGT as a temporizing measure, and not as a bridge to G tube, if this was oncologic process they would want it removed. We decided to give her the afternoon and if no improvement in her swallowing, NGT for nutrition to be placed around 16:30-if pt doesn't tolerate, they would not want her to be sedated, they would be Ok with Mitts and soft restraints. Marlys herself reports she does not want one, but she is oriented to herself and while she is verbal today and can follow commands she does not have capacity to make medical decisions as she can not explain to me the pros and cons of alternative. Otherwise patient is somewhat more wakeful though periods of somonolence, no complaints, tracks the examiner and answers verbally to simple questions, denies pain. Endorses hunger and thirst. Family History: Unchanged from Admission Social History: Unchanged from Admission Past Medical History: Unchanged from Admission Objective Active Medications: Acetaminophen (Tylenol Tab*) 650 mg PO Q4H PRN PRN Reason: FEVER/PAIN Last Admin: 07/29/18 21:41 Dose: 650 mg Acetaminophen (Tylenol Supp*) 650 mg OR Q4H PRN PRN Reason: FEVER/HEADACHE Last Admin: 07/29/18 01:02 Dose: 650 mg Atorvastatin Calcium (Lipitor*) 10 mg PO DAILY [facility] Last Admin: 07/29/18 08:30 Dose: 10 mg Bisacodyl (Dulcolax Supp*) 10 mg OR DAILY PRN PRN Reason: CONSTIPATION Vancomycin HCl 750 mg/ Sodium (Chloride) 250 mls @ 166.667 mls/hr IVPB Q24H [facility] Last Admin: 07/29/18 20:29 Dose: 166.667 mls/hr Valproic Acid 250 mg/ Sodium (Chloride) 102.5 mls @ 210 mls/hr IVPB Q12HR@0000, 1200 [facility] Last Admin: 07/30/18 00:56 Dose: 210 mls/hr Ceftriaxone Sodium 2 gm/ (Sodium Chloride) 100 mls @ 200 mls/hr IVPB Q12HR@0100 ,1300 [facility] Last Admin: 07/30/18 02:08 Dose: 200 mls/hr Acyclovir Sodium 450 mg/ (Sodium Chloride) 109 mls @ 110 mls/hr IVPB Q12HR@0200 ,1400 [facility] Last Admin: 07/30/18 02:56 Dose: 110 mls/hr Ampicillin Sodium 2 gm/ Sodium (Chloride) 100 mls @ 200 mls/hr IVPB Q6H [facility] Last Admin: 07/30/18 05:54 Dose: 200 mls/hr Dextrose/Sodium Chloride (D5ns 0.9% 1000 Ml Bag*) 1,000 mls @ 50 mls/hr IV PER RATE [facility] Last Admin: 07/29/18 18:01 Dose: 50 mls/hr Lorazepam (Ativan Inj*) 1 mg IV PUSH Q4H PRN PRN Reason: ANXIETY Last Admin: 07/28/18 01:09 Dose: 1 mg Miscellaneous (Ativan Pyxis Luis) 1 ea N/A .ATIVAN IV LUIS PRN PRN Reason: PYXIS LUIS Morphine Sulfate (Morphine 4 Mg/Ml Vial (1 Ml)) 3 mg IV Q4H PRN PRN Reason: DISCOMFORT Last Admin: 07/29/18 20:29 Dose: 3 mg Nystatin (Nystatin Suspension*) 200,000 units PO QID [facility] Last Admin: 07/29/18 20:28 Dose: 200,000 units Ondansetron HCl (Zofran Inj*) 4 mg IV Q6H PRN PRN Reason: NAUSEA Pharmacy Consult (Vancomycin Per Pharmacy*) 1 note FOLLOW UP .VANC PER PHARMACY [facility] Pharmacy Profile Note (Vancomycin Trough Check) 1 note FOLLOW UP 1929 ONE Stop: 07/31/18 19:31 Vital Signs - 8 hr 07/30/18 07/30/18 04:00 08:08 Temperature 97.5 F 97.7 F Pulse Rate 58 65 Respiratory 24 24 Rate Blood Pressure 102/58 134/70 (mmHg) O2 Sat by Pulse 99 100 Oximetry Oxygen Devices in Use Now: Nasal Cannula Appearance: Frail woman in bed AOX1, waxing waning Eyes: No Scleral Icterus, PERRLA Ears/Nose/Mouth/Throat: NL Teeth, Lips, Gums, Mucous Membranes Moist, - - Thrush Neck: NL Appearance and Movements; NL JVP, Trachea Midline Respiratory: Symmetrical Chest Expansion and Respiratory Effort, Clear to Auscultation Cardiovascular: NL Sounds; No Murmurs; No JVD, RRR Abdominal: NL Sounds; No Tenderness; No Distention, No Hepatosplenomegaly Lymphatic: No Cervical Adenopathy Extremities: No Edema Skin: No Rash or Ulcers Neurological: - - Follows commands good scorer single strength, PEERLA, AOx1 - Nutrition: Malnutrition Diagnosis/Plan Malnutrition Assessment by Registered Dietitian: Malnutrition Assessment Clinical Characteristics Chronic,Moderate Malnutrition Assessment: - 16# (14%) to 21# (18%) wt loss x past 7-8 Criteria months - < 75% estimated energy expenditure > 1 month Malnutrition Assessment: Per pt's family, she does drink Ensure at home. Interventions Currently, they are afraid that Ensure will thicken secretions/mucus and make swallowing difficult. They are amenable for her to try Ensure Clear. Will send w/ meals. Ensure Clear: 240 kcals, 8 grams protein per serving. Malnutrition Assessment: Goals 1. Intake will improve to support lean body mass , hydration, and wt repletion - Goal: > 50% of meals as confusion improves Result Diagrams: 07/30/18 05:19 07/30/18 05:19 Additional Lab and Data: 07/27/2018: Ammonia: 33 Lactic acid: 1.0 Creatinine: 1.19 07/26/2018: EEG: mild-moderate encephalopathy MRI Brain with and without contrast: no acute intracranial abnormalities. 07/25/2018: Vitamin B12: 1019 TSH: 1.76 Urinalysis: negative Laboratory Tests 07/28/18 07/28/18 13:15 13:15 Fluid Source Cerebral spinal Fluid Volume 3.0 Fluid Color Colorless Fluid Appearance Clear Fluid WBC 29 H* Fluid RBC 1 Fluid Tot Cell Count 100 Fluid Lymphocytes 87 Fluid Monocytes 13 CSF Glucose 65 CSF Total Protein 183 H Microbiology and Other Data: Microbiology 07/25/18 21:45 Aerobic Blood Culture - Preliminary Blood Venous No Growth Day 1 Anaerobic Blood Culture - Preliminary No Growth Day 1 07/25/18 19:06 Aerobic Blood Culture - Preliminary Blood Venous No Growth Day 1 Anaerobic Blood Culture - Preliminary No Growth Day 1 Assess/Plan/Problems-Billing Assessment: 88yo F with PMH of large B cell lymphoma s/p chemotherapy, interstitial lung disease, CVA, brought in to ED with confusion, followed by seizure and fever, concerning for aseptic meningitis vs new PROCESS CAMER[employer] OPERATOR lymphoma. - Patient Problems (1) Encephalopathy acute Current Visit: Yes Status: Acute Code(s): G93.40 - ENCEPHALOPATHY, UNSPECIFIED SNOMED Code(s): 45600038 Comment: - MRI brain was negative. - LP shows high protein and lymphocytic predominance - viral encephalitis vs lymphoma. - Continue empiric treatment with Vancomycin, Ceftriaxone, Ampicillin, and Acyclovir, but if Gram is negative, would probably d/c antibiotics and continue Acyclovir only. - Follow CSF flow cytometry - Oncology consult requested - recommended CT C/A/P. - Family thinks she had a tick bite and rash prior to presentation - still early for Lyme season, but will check Lyme serology. - Continue Valproic acid. - Seizure precautions. (2) Anemia Current Visit: No Status: Acute Code(s): D64.9 - ANEMIA, UNSPECIFIED SNOMED Code(s): 407195744 Comment: - Stable. - Iron deficiency anemia; low hgb may be partially dilutional? Stool for occult negative. Per heme/onc, may be related to lymphoma; consider bone marrow bx if persistent. - Fe sulfate 325 qd (3) Moderate protein-calorie malnutrition Current Visit: Yes Status: Acute Code(s): E44.0 - MODERATE PROTEIN-CALORIE MALNUTRITION SNOMED Code(s): 086562135 Comment: - Not really eating at this time - if PO intake doesn't improve, we will try temporizing NGT if patient tolerates - Glucose borderline low - continue IVF and monitor FS. (4) DVT prophylaxis Current Visit: Yes Status: Acute Code(s): JGU4978 - SNOMED Code(s): 222616334 Comment: - Resume Lovenox. - SCDs. (5) DNR (do not resuscitate) Current Visit: Yes Status: Acute Comment: -Will attempt GOC discussion with family, did discuss case with Dr. Underwood this morning, pt is "a minimalist" prior to this admission Status and Disposition: Inpatient
[2018-07-30] MEDS: Nystatin SUSPENSION* 100000 UNITS/ML 5 ML UDC PO SCH ×4 (10:12→19:27)
[2018-07-30] MEDS: Atorvastatin* 10 MG TAB PO SCH (10:12)
[2018-07-30] MEDS: Vancomycin(*) 750 MG in NS 0.9% 250 ML* 250 ML IVPB SCH (19:32)
[2018-07-31] MEDS: Ampicillin ADVAN(*) 2 GM in NS 0.9% 100 ML* 100 ML IVPB SCH ×4 (00:25→18:43)
[2018-07-31] MEDS: Morphine 4 MG/ML VIAL (1 ml) 4 MG/ML VIAL IV PRN (00:30)
[2018-07-31] MEDS: cefTRIAXone(*) 2 GM in NS 0.9% 100 ML* 100 ML IVPB SCH ×2 (01:15→14:00)
[2018-07-31] MEDS: NS 0.9% IVPB SCH ×2 (02:09→14:50)
[2018-07-31] MEDS: ACYCLOVIR IVPB SCH ×2 (02:09→14:50)
--- NOTE | 2018-07-31 03:23 | PN ---
Hospitalist Progress Note Date of Service: 07/31/18 HOSPITALIST ADDENDUM Called by RN because patient showed bradycardia on Telemetry. EKG shows sinus luis at 59bpm, with new T inversion in III, T flattening in aVL , V3-V6. Patient asymptomatic. Will check serial troponins and electrolytes. Continue to monitor on Telemetry.
[2018-07-31 04:10] LABS: Troponin I 0.01 ng/mL (<0.04)
[2018-07-31 05:06] LABS: BUN/Creatinine Ratio 18.5 (8-20); EGFR African American 104.1 (>60)
[2018-07-31 06:52] LABS: BUN/Creatinine Ratio 19.4 (8-20); EGFR African American 100.5 (>60); EGFR Non-African American 83.1 (>60); Magnesium 1.6 mg/dL (1.9-2.7); Potassium 3.1 mmol/L (3.5-5.0)
[2018-07-31 06:55] LABS: Troponin I 0.01 ng/mL (<0.04)
[2018-07-31] MEDS ORDERED: Magnesium Sulfate 2 GM IV* 2 GM/50 ML BAG IVPB ONE (07:02)
[2018-07-31] MEDS: Nystatin SUSPENSION* 100000 UNITS/ML 5 ML UDC PO SCH ×4 (09:23→22:34)
[2018-07-31] MEDS: Atorvastatin* 10 MG TAB PO SCH (09:26)
[2018-07-31] MEDS: Potassium Chloride* LIQUID 20 MEQ/15 ML UDC PO SCH ×2 (09:26→22:37)
--- NOTE | 2018-07-31 09:40 | PN ---
Subjective Date of Service: 07/31/18 Interval History: HD #7 on 07/31 88 yo F with PMH hx B Cell lymphoma s/p RCHOP in 2018, presented with acute encephalopathy, concerning for new SLOT MANAGER lymphoma vs asceptic mengitis. Hospital stay c/b seizures Overnight VSS, some bradycardia, EKG done with new Twave inversions, trops neg, does not endorse CP Labs: HypOca (corrects to closer to normal with low albumin), hypoK, Trop flat, stable anemia This morning, seen at bedside with daughter. Started continuous tube feeds, tolerating OK but having some gagging spells with the coretrack. She is more responsive this morning, following commands, and answering one word answers yes or no, occasionally delayed appropriate response. Denies pain, endorses nausea. Otherwise continuous updates on plan, no further questions. Family History: Unchanged from Admission Social History: Unchanged from Admission Past Medical History: Unchanged from Admission Objective Active Medications: Acetaminophen (Tylenol Tab*) 650 mg PO Q4H PRN PRN Reason: FEVER/PAIN Last Admin: 07/29/18 21:41 Dose: 650 mg Acetaminophen (Tylenol Supp*) 650 mg [place] Q4H PRN PRN Reason: FEVER/HEADACHE Last Admin: 07/29/18 01:02 Dose: 650 mg Atorvastatin Calcium (Lipitor*) 10 mg PO DAILY [facility] Last Admin: 07/31/18 09:26 Dose: 10 mg Bisacodyl (Dulcolax Supp*) 10 mg [place] DAILY PRN PRN Reason: CONSTIPATION Vancomycin HCl 750 mg/ Sodium (Chloride) 250 mls @ 166.667 mls/hr IVPB Q24H [facility] Last Admin: 07/30/18 19:32 Dose: 166.667 mls/hr Valproic Acid 250 mg/ Sodium (Chloride) 102.5 mls @ 210 mls/hr IVPB Q12HR@0000, 1200 [facility] Last Admin: 07/30/18 23:24 Dose: 210 mls/hr Ceftriaxone Sodium 2 gm/ (Sodium Chloride) 100 mls @ 200 mls/hr IVPB Q12HR@0100 ,1300 [facility] Last Admin: 07/31/18 01:15 Dose: 200 mls/hr Acyclovir Sodium 450 mg/ (Sodium Chloride) 109 mls @ 110 mls/hr IVPB Q12HR@0200 ,1400 [facility] Last Admin: 07/31/18 02:09 Dose: 110 mls/hr Ampicillin Sodium 2 gm/ Sodium (Chloride) 100 mls @ 200 mls/hr IVPB Q6H [facility] Last Admin: 07/31/18 06:16 Dose: 200 mls/hr Potassium Chloride (Potassium Chloride 10 Meq/50 Ml Ivpremix*) 10 meq in 50 mls @ 50 mls/hr IV Q1H [facility] Stop: 07/31/18 10:59 Sodium Chloride (Ns 0.9% 1000 Ml) 1,000 mls @ 0 mls/hr IV KVO [facility] Lorazepam (Ativan Inj*) 1 mg IV PUSH Q4H PRN PRN Reason: ANXIETY Last Admin: 07/28/18 01:09 Dose: 1 mg Miscellaneous (Ativan Pyxis Luis) 1 ea N/A .ATIVAN IV LUIS PRN PRN Reason: PYXIS LUIS Morphine Sulfate (Morphine 4 Mg/Ml Vial (1 Ml)) 3 mg IV Q4H PRN PRN Reason: DISCOMFORT Last Admin: 07/31/18 00:30 Dose: 3 mg Nystatin (Nystatin Suspension*) 200,000 units PO QID [facility] Last Admin: 07/31/18 09:23 Dose: Not Given Ondansetron HCl (Zofran Inj*) 4 mg IV Q6H PRN PRN Reason: NAUSEA Pharmacy Consult (Vancomycin Per Pharmacy*) 1 note FOLLOW UP .VANC PER PHARMACY [facility] Pharmacy Profile Note (Vancomycin Trough Check) 1 note FOLLOW UP 1930 ONE Stop: 07/31/18 19:31 Potassium Chloride (Potassium Chloride Liquid) 20 meq PO BID [facility] Last Admin: 07/31/18 09:26 Dose: 20 meq Vital Signs - 8 hr 07/31/18 07/31/18 07/31/18 02:09 03:31 08:00 Temperature Pulse Rate 62 Respiratory 18 22 18 Rate Blood Pressure 135/63 (mmHg) O2 Sat by Pulse 100 Oximetry 07/31/18 08:07 Temperature 96.8 F Pulse Rate 62 Respiratory 18 Rate Blood Pressure 135/77 (mmHg) O2 Sat by Pulse 100 Oximetry Oxygen Devices in Use Now: Nasal Cannula Appearance: Frail ill appearing woman with NGT in place, frequent choking Ears/Nose/Mouth/Throat: NL Teeth, Lips, Gums, - - dry Neck: NL Appearance and Movements; NL JVP Respiratory: Symmetrical Chest Expansion and Respiratory Effort, Clear to Auscultation Cardiovascular: NL Sounds; No Murmurs; No JVD, RRR Abdominal: NL Sounds; No Tenderness; No Distention, No Hepatosplenomegaly Lymphatic: No Cervical Adenopathy Extremities: No Edema Skin: No Rash or Ulcers Neurological: - - Waxing waining, follows commands, verbal with one word answers to me Lines/Tubes/Other Access: Clean, Dry and Intact [place], Clean, Dry and Intact Naso-enteral Tube - NGT, Clean, Dry and Intact Central Line - PORT - Nutrition: Malnutrition Diagnosis/Plan Malnutrition Assessment by Registered Dietitian: Malnutrition Assessment Clinical Characteristics Chronic,Moderate Malnutrition Assessment: - 16# (14%) to 21# (18%) wt loss x past 7-8 Criteria months - < 75% estimated energy expenditure > 1 month Malnutrition Assessment: Per pt's family, she does drink Ensure at home. Interventions Currently, they are afraid that Ensure will thicken secretions/mucus and make swallowing difficult. They are amenable for her to try Ensure Clear. Will send w/ meals. Ensure Clear: 240 kcals, 8 grams protein per serving. Malnutrition Assessment: Goals 1. Intake will improve to support lean body mass , hydration, and wt repletion - Goal: > 50% of meals as confusion improves Result Diagrams: 07/30/18 05:19 07/31/18 06:06 Additional Lab and Data: 07/27/2018: Ammonia: 33 Lactic acid: 1.0 Creatinine: 1.19 07/26/2018: EEG: mild-moderate encephalopathy MRI Brain with and without contrast: no acute intracranial abnormalities. 07/25/2018: Vitamin B12: 1019 TSH: 1.76 Urinalysis: negative Laboratory Tests 07/28/18 07/28/18 13:15 13:15 Fluid Source Cerebral spinal Fluid Volume 3.0 Fluid Color Colorless Fluid Appearance Clear Fluid WBC 29 H* Fluid RBC 1 Fluid Tot Cell Count 100 Fluid Lymphocytes 87 Fluid Monocytes 13 CSF Glucose 65 CSF Total Protein 183 H Microbiology and Other Data: Microbiology 07/25/18 21:45 Aerobic Blood Culture - Preliminary Blood Venous No Growth Day 1 Anaerobic Blood Culture - Preliminary No Growth Day 1 07/25/18 19:06 Aerobic Blood Culture - Preliminary Blood Venous No Growth Day 1 Anaerobic Blood Culture - Preliminary No Growth Day 1 Assess/Plan/Problems-Billing Assessment: 88yo F with PMH of large B cell lymphoma s/p chemotherapy, interstitial lung disease, CVA, brought in to ED with confusion, followed by seizure and fever, concerning for aseptic meningitis vs new SLOT MANAGER lymphoma. - Patient Problems (1) Encephalopathy acute Current Visit: Yes Status: Acute Code(s): G93.40 - ENCEPHALOPATHY, UNSPECIFIED SNOMED Code(s): 44449379 Comment: - MRI brain was negative. - LP shows high protein and lymphocytic predominance - viral encephalitis vs lymphoma. - Continue empiric treatment with Vancomycin, Ceftriaxone, Ampicillin, and Acyclovir, but if Gram is negative, would probably d/c antibiotics and continue Acyclovir only. - Follow CSF flow cytometry, will discuss with path today - Oncology consult requested - CT C/A/P neg for any solid lesions - Family thinks she had a tick bite and rash prior to presentation - still early for Lyme season, but will check Lyme serology. - Continue Valproic acid. - Seizure precautions. (2) Anemia Current Visit: No Status: Acute Code(s): D64.9 - ANEMIA, UNSPECIFIED SNOMED Code(s): 071212506 Comment: - Stable. - Iron deficiency anemia; low hgb may be partially dilutional? Stool for occult negative. Per heme/onc, may be related to lymphoma; consider bone marrow bx if persistent. - Fe sulfate 325 qd (3) Moderate protein-calorie malnutrition Current Visit: Yes Status: Acute Code(s): E44.0 - MODERATE PROTEIN-CALORIE MALNUTRITION SNOMED Code(s): 535816109 Comment: - Started Jevity 10ml/hr with water flush 20cc q 4 hours, conseled family aspiration risk remains the same with enteral feeding - POC glu (4) DVT prophylaxis Current Visit: Yes Status: Acute Code(s): NWC8229 - SNOMED Code(s): 519978212 Comment: - Resume Lovenox. - SCDs. (5) DNR (do not resuscitate) Current Visit: Yes Status: Acute Comment: -Continue GOC daily, pt is "a minimalist" prior to this admission Status and Disposition: Inpatient
[2018-07-31] MEDS ORDERED: NS 0.9% 1000 ML** 1,000 ML IV SCH (09:45)
[2018-07-31] MEDS: KCL 10 MEQ/50 ML IVPREMIX* 10 MEQ/50 ML BAG IV SCH ×3 (11:01→13:55)
[2018-07-31 12:16] LABS: JC Virus PCR Result Negative (Negative)
[2018-07-31] MEDS: Valproic Acid IV(*) 250 MG in NS 0.9% 100 ML* 100 ML IVPB SCH (12:17)
[2018-07-31] MEDS ORDERED: KCL 10 MEQ/50 ML IVPREMIX* 10 MEQ/50 ML BAG ONE (12:25)
--- NOTE | 2018-07-31 15:25 | PN ---
Hospitalist Progress Note Date of Service: 07/31/18 Went to pathology to review slides and flow Flow cyto shows all reactive T cells, no B cell markers, more c/w a viral meningitis MARY Virus, VDRL, cryptococcus all negative Culture, gram stain, negative Pending HSV, Lyme pending Will d/c with ID but likely safe to d/c abx
[2018-07-31 19:25] LABS: HSV 1 PCR, CSF Negative (Negative); HSV 2 PCR, CSF Negative (Negative)
[2018-07-31] MEDS ORDERED: Vancomycin Trough Check NOTE FOLLOW UP ONE (19:30)
[2018-07-31] MEDS: Vancomycin(*) 750 MG in NS 0.9% 250 ML* 250 ML IVPB SCH (20:55)
[2018-08-01] MEDS: Valproic Acid IV(*) 250 MG in NS 0.9% 100 ML* 100 ML IVPB SCH ×3 (00:16→23:57)
[2018-08-01] MEDS: cefTRIAXone(*) 2 GM in NS 0.9% 100 ML* 100 ML IVPB SCH ×2 (01:34→13:18)
[2018-08-01] MEDS: NS 0.9% IVPB SCH ×2 (02:34→14:40)
[2018-08-01] MEDS: ACYCLOVIR IVPB SCH ×2 (02:34→14:40)
[2018-08-01 06:35] LABS: BUN/Creatinine Ratio 28.3 (8-20); Calcium 7.2 mg/dL (8.6-10.3); EGFR African American 114.2 (>60); EGFR Non-African American 94.3 (>60); Potassium 3.8 mmol/L (3.5-5.0)
[2018-08-01] MEDS: Potassium Chloride* LIQUID 20 MEQ/15 ML UDC PO SCH (07:48)
[2018-08-01] MEDS: Atorvastatin* 10 MG TAB PO SCH (07:48)
[2018-08-01] MEDS: Nystatin SUSPENSION* 100000 UNITS/ML 5 ML UDC PO SCH ×2 (08:08→14:29)
--- NOTE | 2018-08-01 16:28 | PN ---
Subjective Date of Service: 08/01/18 Interval History: HD #8 on 08/01 88 yo F with PMH hx B Cell lymphoma s/p RCHOP in 2018, presented with acute encephalopathy, seziure, found ot have aseptic meninigitis Overnight VSS Labs: HypOca (corrects to closer to normal with low albumin), stable anemia This afternoon, seen at bedside, remarkably more alert, pleasant, still confused but answers all questions, tracks examiners, speaking in full sentences , still confused, and some slowed responses. Started continuous tube feeds, tolerating OK, she denies any pain EMANUEL CP SOB or complaints. Family History: Unchanged from Admission Social History: Unchanged from Admission Past Medical History: Unchanged from Admission Objective Active Medications: Acetaminophen (Tylenol Tab*) 650 mg PO Q4H PRN PRN Reason: FEVER/PAIN Last Admin: 07/29/18 21:41 Dose: 650 mg Acetaminophen (Tylenol Supp*) 650 mg [place] Q4H PRN PRN Reason: FEVER/HEADACHE Last Admin: 07/29/18 01:02 Dose: 650 mg Atorvastatin Calcium (Lipitor*) 10 mg PO DAILY [facility] Last Admin: 08/01/18 07:48 Dose: 10 mg Bisacodyl (Dulcolax Supp*) 10 mg [place] DAILY PRN PRN Reason: CONSTIPATION Valproic Acid 250 mg/ Sodium (Chloride) 102.5 mls @ 210 mls/hr IVPB Q12HR@0000, 1200 [facility] Last Admin: 08/01/18 12:08 Dose: 210 mls/hr Ceftriaxone Sodium 2 gm/ (Sodium Chloride) 100 mls @ 200 mls/hr IVPB Q12HR@0100 ,1300 [facility] Last Admin: 08/01/18 13:18 Dose: 200 mls/hr Acyclovir Sodium 450 mg/ (Sodium Chloride) 109 mls @ 110 mls/hr IVPB Q12HR@0200 ,1400 [facility] Last Admin: 08/01/18 14:40 Dose: 110 mls/hr Sodium Chloride (Ns 0.9% 1000 Ml) 1,000 mls @ 0 mls/hr IV KVO [facility] Last Admin: 07/31/18 16:51 Dose: 10 mls/hr Lorazepam (Ativan Inj*) 1 mg IV PUSH Q4H PRN PRN Reason: ANXIETY Last Admin: 07/28/18 01:09 Dose: 1 mg Miscellaneous (Ativan Pyxis Luis) 1 ea N/A .ATIVAN IV LUIS PRN PRN Reason: PYXIS LUIS Morphine Sulfate (Morphine 4 Mg/Ml Vial (1 Ml)) 3 mg IV Q4H PRN PRN Reason: DISCOMFORT Last Admin: 07/31/18 00:30 Dose: 3 mg Ondansetron HCl (Zofran Inj*) 4 mg IV Q6H PRN PRN Reason: NAUSEA Potassium Chloride (Potassium Chloride Liquid) 20 meq PO BID [facility] Last Admin: 08/01/18 07:48 Dose: 20 meq Vital Signs - 8 hr 08/01/18 15:24 Temperature 97.4 F Pulse Rate 65 Respiratory 28 Rate Blood Pressure 156/68 (mmHg) O2 Sat by Pulse 99 Oximetry Oxygen Devices in Use Now: Nasal Cannula Appearance: Pleasant woman in NAD NGT Eyes: No Scleral Icterus, PERRLA Ears/Nose/Mouth/Throat: NL Teeth, Lips, Gums, - - Dry Neck: NL Appearance and Movements; NL JVP, Trachea Midline Respiratory: Symmetrical Chest Expansion and Respiratory Effort, Clear to Auscultation, - - Anterior Cardiovascular: NL Sounds; No Murmurs; No JVD, RRR Abdominal: NL Sounds; No Tenderness; No Distention, No Hepatosplenomegaly Lymphatic: No Cervical Adenopathy Extremities: No Edema Skin: No Rash or Ulcers Neurological: - - Oriented to self and place Lines/Tubes/Other Access: Clean, Dry and Intact [place] - Nutrition: Malnutrition Diagnosis/Plan Malnutrition Assessment by Registered Dietitian: Malnutrition Assessment Clinical Characteristics Chronic,Moderate Malnutrition Assessment: - 16# (14%) to 21# (18%) wt loss x past 7-8 Criteria months - < 75% estimated energy expenditure > 1 month Malnutrition Assessment: Per pt's family, she does drink Ensure at home. Interventions Currently, they are afraid that Ensure will thicken secretions/mucus and make swallowing difficult. They are amenable for her to try Ensure Clear. Will send w/ meals. Ensure Clear: 240 kcals, 8 grams protein per serving. Malnutrition Assessment: Goals 1. Intake will improve to support lean body mass , hydration, and wt repletion - Goal: > 50% of meals as confusion improves Result Diagrams: 07/30/18 05:19 08/01/18 06:05 Additional Lab and Data: 07/27/2018: Ammonia: 33 Lactic acid: 1.0 Creatinine: 1.19 07/26/2018: EEG: mild-moderate encephalopathy MRI Brain with and without contrast: no acute intracranial abnormalities. 07/25/2018: Vitamin B12: 1019 TSH: 1.76 Urinalysis: negative Laboratory Tests 07/28/18 07/28/18 13:15 13:15 Fluid Source Cerebral spinal Fluid Volume 3.0 Fluid Color Colorless Fluid Appearance Clear Fluid WBC 29 H* Fluid RBC 1 Fluid Tot Cell Count 100 Fluid Lymphocytes 87 Fluid Monocytes 13 CSF Glucose 65 CSF Total Protein 183 H Microbiology and Other Data: Microbiology CSF NGTD Blood Cx NGTD UCx NGTD HSV Neg, Lyme still pending Flow Neg for oncologic process Assess/Plan/Problems-Billing Assessment: 88yo F with PMH of large B cell lymphoma s/p chemotherapy, interstitial lung disease, CVA, brought in to ED with confusion, followed by seizure and fever, most c/w aseptic meningitis - Patient Problems (1) Encephalopathy acute Current Visit: Yes Status: Acute Code(s): G93.40 - ENCEPHALOPATHY, UNSPECIFIED SNOMED Code(s): 24407400 Comment: - MRI brain was negative. - LP shows high protein and lymphocytic predominance - viral encephalitis, flow cytommertry is neg. - d/c antibiotics other than CTX for possibillity of lyme and continue Acyclovir only. ID consulted - Continue Valproic acid. - Seizure precautions. (2) Anemia Current Visit: No Status: Acute Code(s): D64.9 - ANEMIA, UNSPECIFIED SNOMED Code(s): 373366844 Comment: - Stable. - Iron deficiency anemia; low hgb may be partially dilutional? Stool for occult negative. Per heme/onc, may be related to lymphoma; consider bone marrow bx if persistent. - Fe sulfate 325 qd (3) Moderate protein-calorie malnutrition Current Visit: Yes Status: Acute Code(s): E44.0 - MODERATE PROTEIN-CALORIE MALNUTRITION SNOMED Code(s): 502345507 Comment: - Started Jevity 10ml/hr with water flush 20cc q 4 hours, now at 40cc conseled family aspiration risk remains the same with enteral feeding - POC glu - Formal swallow tomorrow, PT OT in (4) DVT prophylaxis Current Visit: Yes Status: Acute Code(s): UDX6440 - SNOMED Code(s): 250988550 Comment: - Resume Lovenox. - SCDs. (5) DNR (do not resuscitate) Current Visit: Yes Status: Acute Comment: -Continue GOC daily, pt is "a minimalist" prior to this admission Status and Disposition: Inpatient
[2018-08-01] MEDS ORDERED: NS 0.9% 1000 ML** 1,000 ML IV SCH (18:00)
[2018-08-02] MEDS: cefTRIAXone(*) 2 GM in NS 0.9% 100 ML* 100 ML IVPB SCH ×2 (00:53→13:09)
[2018-08-02] MEDS: ACYCLOVIR IVPB SCH ×2 (01:42→15:24)
[2018-08-02] MEDS: NS 0.9% IVPB SCH ×2 (01:42→15:24)
[2018-08-02 06:42] LABS: ABS Eosinophils 0.1 10^3/ul (0-0.6); ABS Lymphocytes 0.7 10^3/ul (1.0-4.8); ABS Monocytes 0.5 10^3/ul (0-0.8); Eosinophil % 3.1 %; Hematocrit 30 % (35-47); Hemoglobin 10.1 g/dL (12.0-16.0); Lymphocyte % 16.6 %; Mean Corpuscular HGB Conc 34 g/dL (31-36); Mean Corpuscular Hemoglobin 28 pg (27-31); Mean Corpuscular Volume 83 fL (80-97); Mean Platelet Volume 8.5 fL (7.4-10.4); Platelet Count 118 10^3/uL (150-450); Red Blood Count 3.59 10^6 /uL (3.70-4.87); Red Cell Distribution Width 16 % (10.5-15); White Blood Count 4.4 10^3/uL (3.5-10.8)
[2018-08-02 07:02] LABS: Albumin 3.3 g/dL (3.2-5.2); Albumin/Globulin Ratio 1.8 (1-3); BUN/Creatinine Ratio 23.6 (8-20); Calcium 7.6 mg/dL (8.6-10.3); EGFR African American 126.2 (>60); EGFR Non-African American 104.3 (>60); Globulin 1.8 g/dL (2-4); Indirect Bilirubin 0.2 mg/dL (0.3-1.0); Magnesium 1.8 mg/dL (1.9-2.7); Phosphorus 1.7 mg/dL (2.5-5.0); Potassium 3.2 mmol/L (3.5-5.0); Total Bilirubin 0.3 mg/dL (0.2-1.0); Total Protein 5.1 g/dL (6.4-8.9)
[2018-08-02] MEDS ORDERED: Potassium Chlor TAB* 20 MEQ TAB.ER PO ONE (08:29)
[2018-08-02] MEDS: Atorvastatin* 10 MG TAB PO SCH (10:51)
[2018-08-02] MEDS: Potassium & Sodium Phos 250MG* = 1 PACKET PO SCH ×3 (10:51→22:34)
[2018-08-02] MEDS: Magnesium Oxide TAB* 400 MG PO SCH ×2 (10:52→22:34)
[2018-08-02] MEDS: Valproic Acid IV(*) 250 MG in NS 0.9% 100 ML* 100 ML IVPB SCH ×2 (12:04→23:51)
--- NOTE | 2018-08-02 18:32 | PN ---
Subjective Date of Service: 08/02/18 Interval History: Patient seen in her chair, awake, arousable, no acute distress. pleasantly confused. Seen by speech pathology and cleared her for puree diet thin liquid. Past Medical History: Unchanged from Admission Objective Active Medications: Acetaminophen (Tylenol Supp*) 650 mg RI Q4H PRN PRN Reason: FEVER/HEADACHE Last Admin: 07/29/18 01:02 Dose: 650 mg Atorvastatin Calcium (Lipitor*) 10 mg PO DAILY [facility] Last Admin: 08/02/18 10:51 Dose: 10 mg Bisacodyl (Dulcolax Supp*) 10 mg RI DAILY PRN PRN Reason: CONSTIPATION Valproic Acid 250 mg/ Sodium (Chloride) 102.5 mls @ 210 mls/hr IVPB Q12HR@0000, 1200 [facility] Last Admin: 08/02/18 12:04 Dose: 210 mls/hr Lorazepam (Ativan Inj*) 1 mg IV PUSH Q4H PRN PRN Reason: ANXIETY Last Admin: 07/28/18 01:09 Dose: 1 mg Magnesium Oxide (Magox 400 Tab*) 400 mg PO BID [facility] Last Admin: 08/02/18 10:52 Dose: 400 mg Morphine Sulfate (Morphine 4 Mg/Ml Vial (1 Ml)) 3 mg IV Q4H PRN PRN Reason: DISCOMFORT Last Admin: 07/31/18 00:30 Dose: 3 mg Ondansetron HCl (Zofran Inj*) 4 mg IV Q6H PRN PRN Reason: NAUSEA Potassium Phos/Sodium Phos (Neutra Phos 250 Mg Popeye*) 250 mg PO TID [facility] Last Admin: 08/02/18 15:24 Dose: 250 mg Vital Signs - 8 hr 08/02/18 11:55 Temperature 97.8 F Pulse Rate 70 Respiratory 18 Rate Blood Pressure 158/81 (mmHg) O2 Sat by Pulse 100 Oximetry Oxygen Devices in Use Now: Nasal Cannula Appearance: awake, pleasant. confused oriented to self only Eyes: No Scleral Icterus Ears/Nose/Mouth/Throat: Mucous Membranes Moist Neck: NL Appearance and Movements; NL JVP, Trachea Midline Respiratory: Symmetrical Chest Expansion and Respiratory Effort, Clear to Auscultation Cardiovascular: NL Sounds; No Murmurs; No JVD, RRR Abdominal: NL Sounds; No Tenderness; No Distention Extremities: No Edema Neurological: - - oriented to self only - Nutrition: Malnutrition Diagnosis/Plan Malnutrition Assessment by Registered Dietitian: Malnutrition Assessment Clinical Characteristics Chronic,Moderate Malnutrition Assessment: - 16# (14%) to 21# (18%) wt loss x past 7-8 Criteria months - < 75% estimated energy expenditure > 1 month Malnutrition Assessment: Per pt's family, she does drink Ensure at home. Interventions Currently, they are afraid that Ensure will thicken secretions/mucus and make swallowing difficult. They are amenable for her to try Ensure Clear. Will send w/ meals. Ensure Clear: 240 kcals, 8 grams protein per serving. Malnutrition Assessment: Goals 1. Intake will improve to support lean body mass , hydration, and wt repletion - Goal: > 50% of meals as confusion improves Result Diagrams: 08/02/18 06:15 08/02/18 06:15 Additional Lab and Data: 07/27/2018: Ammonia: 33 Lactic acid: 1.0 Creatinine: 1.19 07/26/2018: EEG: mild-moderate encephalopathy MRI Brain with and without contrast: no acute intracranial abnormalities. 07/25/2018: Vitamin B12: 1019 TSH: 1.76 Urinalysis: negative Laboratory Tests 07/28/18 07/28/18 13:15 13:15 Fluid Source Cerebral spinal Fluid Volume 3.0 Fluid Color Colorless Fluid Appearance Clear Fluid WBC 29 H* Fluid RBC 1 Fluid Tot Cell Count 100 Fluid Lymphocytes 87 Fluid Monocytes 13 CSF Glucose 65 CSF Total Protein 183 H Microbiology and Other Data: Microbiology CSF NGTD Blood Cx NGTD UCx NGTD HSV Neg, Lyme still pending Flow Neg for oncologic process Assess/Plan/Problems-Billing Assessment: 88yo F with PMH of large B cell lymphoma s/p chemotherapy, interstitial lung disease, CVA, brought in to ED with confusion, followed by seizure and fever, most c/w aseptic meningitis - Patient Problems (1) CVA (cerebral vascular accident) Current Visit: Yes Status: Acute Code(s): I63.9 - CEREBRAL INFARCTION, UNSPECIFIED SNOMED Code(s): 854996289 Comment: - 2011 without residual deficit - Continue lipitor 10 mg HS and will resume plavix 75 mg daily (2) Seizure Current Visit: Yes Status: Acute Code(s): R56.9 - UNSPECIFIED CONVULSIONS SNOMED Code(s): 38537023 Comment: - On Depakote 250 mg IV Q 12. If continu to tolerate po well will change to PO in am (3) Aseptic meningitis Current Visit: Yes Status: Acute Code(s): G03.0 - NONPYOGENIC MENINGITIS SNOMED Code(s): 344148264 (4) Encephalopathy acute Current Visit: Yes Status: Acute Code(s): G93.40 - ENCEPHALOPATHY, UNSPECIFIED SNOMED Code(s): 16237204 Comment: - MRI brain was negative. - LP shows high protein and lymphocytic predominance - viral encephalitis was entertanied. flow cytommertry is neg. - d/c antibiotics includine Ceftriaxone as per ID recommendationsTX for possibillity of lyme and continue Acyclovir only. ID consulted - Continue Valproic acid. - Seizure precautions. (5) DVT prophylaxis Current Visit: Yes Status: Acute Code(s): KQB3348 - SNOMED Code(s): 053382815 Comment: - Resume Lovenox. 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
--- NOTE | 2018-08-02 20:17 | CONS ---
CONSULTATION REPORT: DATE OF CONSULT: 08/01/18 PRIMARY CARE PROVIDER: Dr. Shakira Underwood. PROVIDER REQUESTING CONSULTATION: Dr. Pooja Prince. CONSULTING SERVICE: Infectious Disease. PROVIDER: Loyda Moss NP (My attending physician Dr. Nader Toure*). REASON FOR CONSULTATION: Encephalopathy. IMPRESSION: 1. Encephalopathy. Differential includes metabolic encephalopathy, meningitis , meningoencephalitis. Lumbar puncture revealed 29 wbc's, 1 rbc, glucose of 65 , total protein of 183. CSF has been negative for VDRL, cryptococcus, HSV-1, herpes 2, and MARY virus. Additionally, she was negative for influenza A and B. Her Lyme antibody is negative. Her Lyme CSF studies are pending at this time. Her CRP on admission was 9.38. 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 The patient denies any risk factors for Lyme disease exposure such as being outdoors or hiking. 2. Moderate protein-calorie malnutrition. 3. Iron deficiency anemia. 4. Seizures. PLAN/RECOMMENDATIONS: Recommend discontinuing acyclovir and ceftriaxone. Again , her symptoms are likely self-limited and will resolve. HISTORY OF PRESENT ILLNESS: Ms. Rodriguez is an 88-year-old female with past medical history significant for diffuse B-cell lymphoma, status post R-CHOP, in full remission, on chronic oxygen, CVA, and hyperlipidemia. Please note that Ms. Rodriguez has confusion and is unable to provide an accurate history and the majority of the information was obtained from the medical record. According to the patient's HPI from admission, she is a resident at [facility] and is independent with ADLs. She presented to the emergency room with 1- day complaint of altered mental status and weakness. The patient was also complaining of bilateral thigh pain, was noted to have an altered gait and was confused. She was seen by her primary care provider, who recommended that she be evaluated in the emergency room. While in the emergency room, she was afebrile, mild tachycardia, requiring her home supplemental oxygen requirements. She had a chest x-ray and CT showing no acute findings. She had unremarkable labs, unremarkable urinalysis, and due to the waxing and waning of her symptoms while in the emergency room, she was admitted for workup of her encephalopathy. During her stay at [facility], she has been worked up for toxic, metabolic and infectious encephalopathy. During her stay, she was seen in consultation with Dr. West with Neurology. She was noted to be having seizures , was started on valproic acid. Due to concern for possible meningitis, she was placed on acyclovir, ceftriaxone and cefepime and vancomycin. Vancomycin and cefepime have been discontinued. She had a lumbar puncture showing 29 wbc's , 1 rbc, glucose of 65, total protein of 183. CSF has been negative for VDRL, cryptococcus, HSV-1, herpes 2, and MARY virus. Additionally, she was negative for influenza A and B. Her Lyme antibody is negative. Her Lyme CSF studies are pending at this time. Her CRP on admission was 9.38. The patient continued to be confused, but answers questions. She has had difficulty with eating, and tube feedings started. Formal speech consult pending. Denies fevers, chills, chest pain, shortness of breath, nausea, vomiting, or diarrhea. Denies any recent travel. PAST MEDICAL HISTORY: 1. Diffuse B-cell lymphoma, status post R-CHOP. 2. Cerebrovascular accident. 3. Hyperlipidemia. 4. Interstitial lung disease, status post treatment for B-cell lymphoma, on supplemental oxygen at 3 L via nasal cannula. PAST SURGICAL HISTORY: 1. Status post tonsillectomy. 2. Status post cataract extraction. 3. Status post cholecystectomy. HOME MEDICATIONS: 1. Lactobacillus 1 capsule by mouth daily. 2. Albuterol HFA inhaler 2 puffs inhalation 4 times daily as needed for shortness of breath or wheeze. 3. Plavix 75 mg by mouth daily. 4. Vitamin D3 1000 units by mouth daily. 5. Atorvastatin 10 mg by mouth daily. HOSPITAL MEDICATIONS: 1. Acetaminophen 650 mg per rectum every 4 hours as needed for fever or pain. 2. Atorvastatin 10 mg by mouth daily. 3. Dulcolax suppository 10 mg per rectum daily as needed for constipation. 4. Lorazepam 1 mg IV every 4 hours as needed for anxiety. 5. Acyclovir 450 mg IV every 12 hours. 6. Magnesium oxide 400 mg by mouth twice daily. 7. Morphine sulfate 3 mg IV every 4 hours as needed for pain. 8. Zofran 4 mg IV every 6 hours as needed for nausea. 9. Potassium and sodium phos 250 mg 3 times daily. 10. Potassium chloride 40 mEq by mouth once. 11. Valproic acid 250 mg IV every 12 hours. 12. Ceftriaxone 2 g IV every 12 hours. ALLERGIES: No known drug allergies. FAMILY HISTORY: The patient denies any family history of coronary artery disease, diabetes. Reports mother with a history of colon cancer. She states her brother has a history of cancer, but she is unable to further elaborate on this. SOCIAL HISTORY: Denies tobacco, alcohol, or recreational drug use. REVIEW OF SYSTEMS: I performed a 10-point review of systems. All the pertinent positives and negatives are mentioned in the history of present illness. The remaining review of systems is negative. PHYSICAL EXAM: Vital Signs: Temperature 98.0, heart rate 62, respiratory rate 18, O2 sat 98% on 2 L via nasal cannula, blood pressure 153/62. General Appearance: The patient is drowsy, appears to be in no acute distress. Head: Normocephalic, atraumatic. ENT: Pupils are equal and reactive to light. Extraocular movements are intact. Mucous membranes are moist. No thrush. Neck : Supple. No lymphadenopathy noted. No nuchal rigidity. Neurological: She is again drowsy, oriented to person and year. Cranial nerves II through XII are grossly intact. Cardiovascular: Regular rate and rhythm, S2 and S2 present. No murmurs, rubs, or gallops heard. Respiratory: No accessory muscle use. The lungs are clear to auscultation, bilateral. Abdomen: Bowel sounds present. Abdomen: Soft, nontender, and nondistended. Extremities: No lower extremity edema. Musculoskeletal: No clubbing or cyanosis noted, exhibits good strength in all extremities. There is no tenderness with palpation of the spine. Psychological: Calm and cooperative. Skin: No rashes or abnormalities seen on the exposed skin. DIAGNOSTIC STUDIES/LAB DATA: Sodium is 142, potassium 3.2, chloride 103, CO2 is 34, BUN 13, creatinine 0.55, glucose 94. White blood cell count 4.4, hemoglobin 10.1, hematocrit 30, platelet count 118. Urinalysis on admission negative. CSF from 07/28/18 shows colorless, clear, white blood cell count 29, rbc's 1, total cell count 100, neutrophils not reported, lymphocytes 87, monocytes 13, glucose 65, total protein 183. Please see impressions and recommendations as outlined above. Thank you for asking us to see Ms. Rodriguez in consultation. TIME SPENT: Time for this consultation was approximately 40 minutes; greater than half of that was spent with the patient discussing medications, past medical history, the events leading to her arrival and performing a physical examination. The case has been reviewed with the attending, Dr. Toure, who agrees with the plan of care. Reviewed by SUMANTH ARAGON 08/06/18 1804 [id number]/[facility] #: [id number] ALON
[2018-08-02] MEDS: Enoxaparin(*) 40 MG/0.4 ML SYR SUBCUT SCH (22:34)
[2018-08-03 06:49] LABS: Hematocrit 32 % (35-47); Hemoglobin 10.6 g/dL (12.0-16.0); Mean Corpuscular HGB Conc 33 g/dL (31-36); Mean Corpuscular Hemoglobin 28 pg (27-31); Mean Corpuscular Volume 84 fL (80-97); Mean Platelet Volume 8.2 fL (7.4-10.4); Platelet Count 133 10^3/uL (150-450); Red Blood Count 3.83 10^6 /uL (3.70-4.87); Red Cell Distribution Width 16 % (10.5-15); White Blood Count 4.4 10^3/uL (3.5-10.8)
[2018-08-03 07:19] LABS: Calcium 7.7 mg/dL (8.6-10.3); EGFR African American 107.9 (>60); EGFR Non-African American 89.2 (>60); Magnesium 2.1 mg/dL (1.9-2.7); Phosphorus 2.6 mg/dL (2.5-5.0); Potassium 3.4 mmol/L (3.5-5.0)
[2018-08-03] MEDS: Magnesium Oxide TAB* 400 MG PO SCH ×2 (08:47→21:28)
[2018-08-03] MEDS: Atorvastatin* 10 MG TAB PO SCH (08:47)
[2018-08-03] MEDS: Potassium & Sodium Phos 250MG* = 1 PACKET PO SCH ×3 (08:48→21:28)
[2018-08-03] MEDS: Clopidogrel TAB* 75 MG PO SCH (08:48)
[2018-08-03 09:31] LABS: ABS Eosinophils 0.2 10^3/ul (0-0.6); ABS Monocytes 0.6 10^3/ul (0-0.8); ABS Neutrophils 2.7 10^3/ul (1.5-7.7); Eosinophil % 3.8 %; Lymphocyte % 22.6 %
[2018-08-03] MEDS: Potassium Chlor TAB* 20 MEQ TAB.ER PO SCH (11:14)
[2018-08-03] MEDS: Valproic Acid CAP(*) 250 MG PO SCH ×2 (11:14→21:29)
--- NOTE | 2018-08-03 16:47 | PN ---
Subjective Date of Service: 08/03/18 Interval History: Spoke with the daughter at bedside. She was updated on her mother conditions. the patient continue to have intermittent weakness and confusion. Poor appetite. No fever or chills. Off antibiotics as per ID. She does benefit from rehab and we are awaiting for approval for bed Social History: Unchanged from Admission Past Medical History: Unchanged from Admission Objective Active Medications: Acetaminophen (Tylenol Supp*) 650 mg WI Q4H PRN PRN Reason: FEVER/HEADACHE Last Admin: 07/29/18 01:02 Dose: 650 mg Atorvastatin Calcium (Lipitor*) 10 mg PO DAILY [facility] Last Admin: 08/03/18 08:47 Dose: 10 mg Bisacodyl (Dulcolax Supp*) 10 mg WI DAILY PRN PRN Reason: CONSTIPATION Clopidogrel Bisulfate (Plavix Tab*) 75 mg PO DAILY [facility] Last Admin: 08/03/18 08:48 Dose: 75 mg Enoxaparin Sodium (Lovenox(*)) 40 mg SUBCUT Q24H [facility] Last Admin: 08/02/18 22:34 Dose: 40 mg Magnesium Oxide (Magox 400 Tab*) 400 mg PO BID [facility] Last Admin: 08/03/18 08:47 Dose: 400 mg Morphine Sulfate (Morphine 4 Mg/Ml Vial (1 Ml)) 3 mg IV Q4H PRN PRN Reason: DISCOMFORT Last Admin: 07/31/18 00:30 Dose: 3 mg Ondansetron HCl (Zofran Inj*) 4 mg IV Q6H PRN PRN Reason: NAUSEA Potassium Chloride (Klor Con Er Tab*) 20 meq PO DAILY [facility] Last Admin: 08/03/18 11:14 Dose: 20 meq Potassium Phos/Sodium Phos (Neutra Phos 250 Mg Popeye*) 250 mg PO TID [facility] Last Admin: 08/03/18 14:22 Dose: 250 mg Valproic Acid (Depakene Cap(*)) 250 mg PO BID [facility] Last Admin: 08/03/18 11:14 Dose: 250 mg Vital Signs - 8 hr 08/03/18 08/03/18 12:14 15:16 Temperature 97.4 F 99.3 F Pulse Rate 70 69 Respiratory 18 20 Rate Blood Pressure 141/70 139/67 (mmHg) O2 Sat by Pulse 100 100 Oximetry Oxygen Devices in Use Now: Nasal Cannula Appearance: Awake, alert. no distress Eyes: No Scleral Icterus, - - EOMI, verbal. follows simple command Ears/Nose/Mouth/Throat: NL Teeth, Lips, Gums, Mucous Membranes Moist Neck: NL Appearance and Movements; NL JVP, Trachea Midline Respiratory: Symmetrical Chest Expansion and Respiratory Effort, Clear to Auscultation Cardiovascular: NL Sounds; No Murmurs; No JVD, RRR Abdominal: NL Sounds; No Tenderness; No Distention Extremities: No Edema Neurological: - - confused oriented to self. follows simple command but remains sluggish with responding - Nutrition: Malnutrition Diagnosis/Plan Malnutrition Assessment by Registered Dietitian: Malnutrition Assessment Clinical Characteristics Chronic,Moderate Malnutrition Assessment: - 16# (14%) to 21# (18%) wt loss x past 7-8 Criteria months - < 75% estimated energy expenditure > 1 month Malnutrition Assessment: Per pt's family, she does drink Ensure at home. Interventions Currently, they are afraid that Ensure will thicken secretions/mucus and make swallowing difficult. They are amenable for her to try Ensure Clear. Will send w/ meals. Ensure Clear: 240 kcals, 8 grams protein per serving. Malnutrition Assessment: Goals 1. Intake will improve to support lean body mass , hydration, and wt repletion - Goal: > 50% of meals as confusion improves Result Diagrams: 08/03/18 06:31 08/03/18 06:31 Additional Lab and Data: 07/27/2018: Ammonia: 33 Lactic acid: 1.0 Creatinine: 1.19 07/26/2018: EEG: mild-moderate encephalopathy MRI Brain with and without contrast: no acute intracranial abnormalities. 07/25/2018: Vitamin B12: 1019 TSH: 1.76 Urinalysis: negative Laboratory Tests 07/28/18 07/28/18 13:15 13:15 Fluid Source Cerebral spinal Fluid Volume 3.0 Fluid Color Colorless Fluid Appearance Clear Fluid WBC 29 H* Fluid RBC 1 Fluid Tot Cell Count 100 Fluid Lymphocytes 87 Fluid Monocytes 13 CSF Glucose 65 CSF Total Protein 183 H Microbiology and Other Data: Microbiology CSF NGTD Blood Cx NGTD UCx NGTD HSV Neg, Lyme still pending Flow Neg for oncologic process Assess/Plan/Problems-Billing Assessment: 88yo F with PMH of large B cell lymphoma s/p chemotherapy, interstitial lung disease, CVA, brought in to ED with confusion, followed by seizure and fever, most c/w aseptic meningitis - Patient Problems (1) CVA (cerebral vascular accident) Current Visit: Yes Status: Acute Code(s): I63.9 - CEREBRAL INFARCTION, UNSPECIFIED SNOMED Code(s): 983756068 Comment: - 2011 without residual deficit - Continue lipitor 10 mg HS and will resume plavix 75 mg daily - Will resume aspirin 81 mg daily (2) Seizure Current Visit: Yes Status: Acute Code(s): R56.9 - UNSPECIFIED CONVULSIONS SNOMED Code(s): 65053769 Comment: - On Depakote 250 mg IV Q 12. - I will switch to po bid. Will check the level in am as she is quite sluggish. (3) Aseptic meningitis Current Visit: Yes Status: Acute Code(s): G03.0 - NONPYOGENIC MENINGITIS SNOMED Code(s): 965752764 Comment: - Off all antibiotics as per ID (4) Encephalopathy acute Current Visit: Yes Status: Acute Code(s): G93.40 - ENCEPHALOPATHY, UNSPECIFIED SNOMED Code(s): 46667908 Comment: - MRI brain was negative. - LP shows high protein and lymphocytic predominance - viral encephalitis was entertanied. flow cytommertry is neg. - d/c antibiotics includine Ceftriaxone as per ID recommendations. Off Acyclovir - Continue Valproic acid (although a low dose i will check level due to decrease congitive function) - Seizure precautions. 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 Status and Disposition: Inpatient
[2018-08-03] MEDS: Enoxaparin(*) 40 MG/0.4 ML SYR SUBCUT SCH (20:16)
[2018-08-04 07:00] LABS: Calcium 8.3 mg/dL (8.6-10.3); Potassium 3.7 mmol/L (3.5-5.0)
[2018-08-04 07:06] LABS: BUN/Creatinine Ratio 21.1 (8-20); EGFR Non-African American 77.7 (>60)
[2018-08-04] MEDS: Valproic Acid CAP(*) 250 MG PO SCH ×2 (09:47→21:47)
[2018-08-04] MEDS: Aspirin EC TAB* 81 MG TAB.EC PO SCH (09:48)
[2018-08-04] MEDS: Clopidogrel TAB* 75 MG PO SCH (09:49)
[2018-08-04] MEDS: Atorvastatin* 10 MG TAB PO SCH (09:49)
[2018-08-04] MEDS: Potassium Chlor TAB* 20 MEQ TAB.ER PO SCH (09:50)
[2018-08-04] MEDS: Magnesium Oxide TAB* 400 MG PO SCH ×2 (09:50→21:47)
[2018-08-04] MEDS: Potassium & Sodium Phos 250MG* = 1 PACKET PO SCH ×3 (09:52→21:50)
[2018-08-04 13:44] LABS: Urine Appearance Clear; Urine Bilirubin Negative (Negative); Urine Blood Negative (Negative); Urine Color Yellow; Urine Glucose Negative (Negative); Urine Ketones Negative (Negative); Urine Nitrite Negative (Negative); Urine Protein Negative (Negative); Urine Specific Gravity 1.009 (1.010-1.030); Urine Urobilinogen Negative (Negative)
--- NOTE | 2018-08-04 18:20 | PN ---
Subjective Date of Service: 08/04/18 Interval History: Patient seen periodically and several time throughout the day today. I spoke to both daughter throughout the day and kept them updated. The patient developed increase lethargy today, on and off. At times she does have poor response to family and by the time I get to the room she respond to my question but sluggish. She was able to follow my command (Open eyes. lift arm. shake hands). I attended to their concerns several times throughout the day. I ordered CT of brain and UA negative CXR negative. I called spoke to Dr. Murillo neurology and recommended to push for valproic acid level toward 80. Recommended to do 750 daily (250 am and 500 pm). Social History: Unchanged from Admission Past Medical History: Unchanged from Admission Objective Active Medications: Acetaminophen (Tylenol Supp*) 650 mg DC Q4H PRN PRN Reason: FEVER/HEADACHE Last Admin: 07/29/18 01:02 Dose: 650 mg Aspirin (Aspirin Ec Tab*) 81 mg PO DAILY [facility] Last Admin: 08/04/18 09:48 Dose: 81 mg Atorvastatin Calcium (Lipitor*) 10 mg PO DAILY [facility] Last Admin: 08/04/18 09:49 Dose: 10 mg Bisacodyl (Dulcolax Supp*) 10 mg DC DAILY PRN PRN Reason: CONSTIPATION Clopidogrel Bisulfate (Plavix Tab*) 75 mg PO DAILY [facility] Last Admin: 08/04/18 09:49 Dose: 75 mg Enoxaparin Sodium (Lovenox(*)) 40 mg SUBCUT Q24H [facility] Last Admin: 08/03/18 20:16 Dose: 40 mg Magnesium Oxide (Magox 400 Tab*) 400 mg PO BID [facility] Last Admin: 08/04/18 09:50 Dose: 400 mg Morphine Sulfate (Morphine 4 Mg/Ml Vial (1 Ml)) 3 mg IV Q4H PRN PRN Reason: DISCOMFORT Last Admin: 07/31/18 00:30 Dose: 3 mg Ondansetron HCl (Zofran Inj*) 4 mg IV Q6H PRN PRN Reason: NAUSEA Potassium Chloride (Klor Con Er Tab*) 20 meq PO DAILY [facility] Last Admin: 08/04/18 09:50 Dose: 20 meq Potassium Phos/Sodium Phos (Neutra Phos 250 Mg Popeye*) 250 mg PO TID [facility] Last Admin: 08/04/18 14:56 Dose: Not Given Valproic Acid (Depakene Cap(*)) 250 mg PO BID [facility] Last Admin: 08/04/18 09:47 Dose: 250 mg Vital Signs - 8 hr 08/04/18 08/04/18 11:24 16:11 Temperature 97.6 F 98.3 F Pulse Rate 68 73 Respiratory 18 16 Rate Blood Pressure 141/73 163/87 (mmHg) O2 Sat by Pulse 98 100 Oximetry Oxygen Devices in Use Now: Nasal Cannula Appearance: drowsy, confused. disoriented. Eyes: No Scleral Icterus Neck: NL Appearance and Movements; NL JVP Respiratory: Symmetrical Chest Expansion and Respiratory Effort Cardiovascular: NL Sounds; No Murmurs; No JVD - Nutrition: Malnutrition Diagnosis/Plan Malnutrition Assessment by Registered Dietitian: Malnutrition Assessment Clinical Characteristics Chronic,Moderate Malnutrition Assessment: - 16# (14%) to 21# (18%) wt loss x past 7-8 Criteria months - < 75% estimated energy expenditure > 1 month Malnutrition Assessment: Per pt's family, she does drink Ensure at home. Interventions Currently, they are afraid that Ensure will thicken secretions/mucus and make swallowing difficult. They are amenable for her to try Ensure Clear. Will send w/ meals. Ensure Clear: 240 kcals, 8 grams protein per serving. Malnutrition Assessment: Goals 1. Intake will improve to support lean body mass , hydration, and wt repletion - Goal: > 50% of meals as confusion improves Result Diagrams: 08/03/18 06:31 08/04/18 06:12 Additional Lab and Data: 07/27/2018: Ammonia: 33 Lactic acid: 1.0 Creatinine: 1.19 07/26/2018: EEG: mild-moderate encephalopathy MRI Brain with and without contrast: no acute intracranial abnormalities. 07/25/2018: Vitamin B12: 1019 TSH: 1.76 Urinalysis: negative Laboratory Tests 07/28/18 07/28/18 13:15 13:15 Fluid Source Cerebral spinal Fluid Volume 3.0 Fluid Color Colorless Fluid Appearance Clear Fluid WBC 29 H* Fluid RBC 1 Fluid Tot Cell Count 100 Fluid Lymphocytes 87 Fluid Monocytes 13 CSF Glucose 65 CSF Total Protein 183 H Microbiology and Other Data: Microbiology CSF NGTD Blood Cx NGTD UCx NGTD HSV Neg, Lyme still pending Flow Neg for oncologic process Assess/Plan/Problems-Billing Assessment: 88yo F with PMH of large B cell lymphoma s/p chemotherapy, interstitial lung disease, CVA, brought in to ED with confusion, followed by seizure and fever, most c/w aseptic meningitis - Patient Problems (1) CVA (cerebral vascular accident) Current Visit: Yes Status: Acute Code(s): I63.9 - CEREBRAL INFARCTION, UNSPECIFIED SNOMED Code(s): 616148735 Comment: - 2011 without residual deficit - Continue lipitor 10 mg HS and will resume plavix 75 mg daily - Will resume aspirin 81 mg daily (2) Seizure Current Visit: Yes Status: Acute Code(s): R56.9 - UNSPECIFIED CONVULSIONS SNOMED Code(s): 36057116 Comment: - On Depakote 250 mg IV Q 12. switched to PO. Level trough 64. - Spoke to [place] and recommended to increase to 500 mg pm and 250 mg in am (3) Aseptic meningitis Current Visit: Yes Status: Acute Code(s): G03.0 - NONPYOGENIC MENINGITIS SNOMED Code(s): 250004006 Comment: - Off all antibiotics as per ID (4) Encephalopathy acute Current Visit: Yes Status: Acute Code(s): G93.40 - ENCEPHALOPATHY, UNSPECIFIED SNOMED Code(s): 57759178 Comment: - MRI brain was negative. - LP shows high protein and lymphocytic predominance - viral encephalitis was entertanied. flow cytommertry is neg. - d/c antibiotics includine Ceftriaxone as per ID recommendations. Off Acyclovir - Continue Valproic acid (although a low dose i will check level due to decrease congitive function) - Seizure precautions. 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 Status and Disposition: Inpatient
[2018-08-04] MEDS ORDERED: Valproic Acid CAP(*) 250 MG PO ONE (18:22)
--- NOTE | 2018-08-04 21:27 | CONSULT ---
Palliative / Hospice Consult Ordering Provider: Morales Begum - PCP-Yasmine Referal Reason: Goals of care discussion - Subjective Code Status: DNR Advance Directives Location: In Chart [facility] Part A Completed: Yes - on chart [facility] Part E Completed:: Yes - on chart - History or Present Illness History or Present Illness: 88 yo female who presented to ER with lethargy and altered mental status. 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 She lives independently at [place] and is a retired nurse school with 3 chiildren, no tob, rare etoh & no drug use. Significant labs CXR neg, Ct Brain-chronic small vessel ischemic changes, CT chest-moderate emphysema & enlarged heart, MRI brain-no acute changes, [id number] nonspecific encephalopathy, H/H 10.6/32, BUN/Cr 15/ .71 egfr 77.7 alb 3.3, tprot 5.1, LP elevated WBC & protein viral cultures neg and UA neg. Pt had witnessed seizure and was put on levetiracetam & later changed to valproic acid. Pt was also placed on antibiotics initially and stopped once cultures were negative. Pt was diagnosed with aseptic meningitis. She also has had periods of altered mental status and various degrees of po intake. All history is from family and medical records pt is unable to contribute to her history. Lab Values: Abnormal Lab Results 07/28/18 08/04/18 08/04/18 13:15 00:42 04:55 Sodium Potassium Chloride Carbon Dioxide Anion Gap BUN Creatinine Est GFR ( Amer) Est GFR (Non-Af Amer) BUN/Creatinine Ratio Glucose POC Glucose (mg/dL) 104 H 100 Calcium Urine Color Urine Appearance Urine pH Ur Specific Crum[place] Urine Protein Urine Ketones Urine Blood Urine Nitrate Urine Bilirubin Urine Urobilinogen Ur Leukocyte Esterase Urine Glucose Valproic Acid Lyme [employer]TER IgG Ab TNP CSF Lyme [employer]TER IgG Ab TNP CSF Lyme [employer] IgG Interp TNP 08/04/18 08/04/18 08/04/18 06:12 13:30 14:41 Sodium 142 Potassium 3.7 Chloride 101 Carbon Dioxide 37 H Anion Gap 4 BUN 15 Creatinine 0.71 Est GFR ( Amer) 94.0 Est GFR (Non-Af Amer) 77.7 BUN/Creatinine Ratio 21.1 H Glucose 95 POC Glucose (mg/dL) 88 Calcium 8.3 L Urine Color Yellow Urine Appearance Clear Urine pH 7.0 Ur Specific [place] 1.009 L Urine Protein Negative Urine Ketones Negative Urine Blood Negative Urine Nitrate Negative Urine Bilirubin Negative Urine Urobilinogen Negative Ur Leukocyte Esterase Negative Urine Glucose Negative Valproic Acid 64.0 Lyme [employer]TER IgG Ab CSF Lyme [employer] SETTER IgG Ab CSF Lyme [employer]TER IgG Interp Laboratory Last Values WBC 4.4 10^3/uL (3.5-10.8) 08/03/18 06:31 RBC 3.83 10^6 /uL (3.70-4.87) 08/03/18 06:31 Hgb 10.6 g/dL (12.0-16.0) L 08/03/18 06:31 Hct 32 % (35-47) L 08/03/18 06:31 MCV 84 fL (80-97) 08/03/18 06:31 MCH 28 pg (27-31) 08/03/18 06:31 MCHC 33 g/dL (31-36) 08/03/18 06:31 RDW 16 % (10.5-15) H 08/03/18 06:31 Plt Count 133 10^3/uL (150-450) L 08/03/18 06:31 MPV 8.2 fL (7.4-10.4) 08/03/18 06:31 Neut % (Auto) 60.3 % 08/03/18 06:31 Lymph % (Auto) 22.6 % 08/03/18 06:31 [place] % (Auto) 12.7 % 08/03/18 06:31 Eos % (Auto) 3.8 % 08/03/18 06:31 Baso % (Auto) 0.6 % 08/03/18 06:31 Absolute Neuts (auto) 2.7 10^3/ul (1.5-7.7) 08/03/18 06:31 Absolute Lymphs (auto) 1.0 10^3/ul (1.0-4.8) 08/03/18 06:31 Absolute Monos (auto) 0.6 10^3/ul (0-0.8) 08/03/18 06:31 Absolute Eos (auto) 0.2 10^3/ul (0-0.6) 08/03/18 06:31 Absolute Basos (auto) 0.0 10^3/ul (0-0.2) 08/03/18 06:31 Absolute Nucleated RBC 0.0 10^3/ul 08/03/18 06:31 Nucleated RBC % 0.0 08/03/18 06:31 ESR 24 mm/Hr (0-29) 07/25/18 19:06 INR (Anticoag Therapy) 1.15 (0.82-1.09) H 07/25/18 19:06 Sodium 142 mmol/L (135-145) 08/04/18 06:12 Potassium 3.7 mmol/L (3.5-5.0) 08/04/18 06:12 Chloride 101 mmol/L (101-111) 08/04/18 06:12 Carbon Dioxide 37 mmol/L (22-32) H 08/04/18 06:12 Anion Gap 4 mmol/L (2-11) 08/04/18 06:12 BUN 15 mg/dL (6-24) 08/04/18 06:12 Creatinine 0.71 mg/dL (0.51-0.95) 08/04/18 06:12 Est GFR ( Amer) 94.0 (>60) 08/04/18 06:12 Est GFR (Non-Af Amer) 77.7 (>60) 08/04/18 06:12 BUN/Creatinine Ratio 21.1 (8-20) H 08/04/18 06:12 Glucose 95 mg/dL (70-100) 08/04/18 06:12 POC Glucose (mg/dL) 88 mg/dL (70-100) 08/04/18 14:41 Lactic Acid 1.0 mmol/L (0.5-2.0) 07/27/18 06:30 Calcium 8.3 mg/dL (8.6-10.3) L 08/04/18 06:12 Phosphorus 2.6 mg/dL (2.5-5.0) 08/03/18 06:31 Magnesium 2.1 mg/dL (1.9-2.7) 08/03/18 06:31 Total Bilirubin 0.30 mg/dL (0.2-1.0) 08/02/18 06:15 Direct Bilirubin 0.10 mg/dL (0.03-0.18) 08/02/18 06:15 Indirect Bilirubin 0.2 mg/dL (0.3-1.0) L 08/02/18 06:15 AST 19 U/L (13-39) 08/02/18 06:15 ALT 14 U/L (7-52) 08/02/18 06:15 Alkaline Phosphatase 38 U/L (34-104) 08/02/18 06:15 Ammonia 33 mcmol/L (16-53) 07/27/18 06:30 Lactate Dehydrogenase 231 U/L (140-271) 07/28/18 20:03 Total Creatine Kinase 19 U/L (10-223) 07/25/18 19:06 Troponin I 0.01 ng/mL (<0.04) 07/31/18 09:38 C-Reactive Protein 9.38 mg/L (<8.01) H 07/25/18 19:06 B-Natriuretic Peptide 135 pg/mL (<=100) H 07/25/18 19:06 Total Protein 5.1 g/dL (6.4-8.9) L 08/02/18 06:15 Albumin 3.3 g/dL (3.2-5.2) 08/02/18 06:15 Globulin 1.8 g/dL (2-4) L 08/02/18 06:15 Albumin/Globulin Ratio 1.8 (1-3) 08/02/18 06:15 Vitamin B12 1019 pg/mL (180-914) H 07/25/18 19:06 TSH 1.76 mcIU/mL (0.34-5.60) 07/25/18 19:06 Urine Color Yellow 08/04/18 13:30 Urine Appearance Clear 08/04/18 13:30 Urine pH 7.0 (5-9) 08/04/18 13:30 Ur Specific [place] 1.009 (1.010-1.030) L 08/04/18 13:30 Urine Protein Negative (Negative) 08/04/18 13:30 Urine Ketones Negative (Negative) 08/04/18 13:30 Urine Blood Negative (Negative) 08/04/18 13:30 Urine Nitrate Negative (Negative) 08/04/18 13:30 Urine Bilirubin Negative (Negative) 08/04/18 13:30 Urine Urobilinogen Negative (Negative) 08/04/18 13:30 Ur Leukocyte Esterase Negative (Negative) 08/04/18 13:30 Urine Glucose Negative (Negative) 08/04/18 13:30 Urine Ascorbic Acid * (Negative) A 07/25/18 19:32 Fluid Source Cerebral spinal 07/28/18 13:15 Fluid Volume 3.0 mL 07/28/18 13:15 Fluid Color Colorless 07/28/18 13:15 Fluid Appearance Clear 07/28/18 13:15 Fluid WBC 29 /mcL H* 07/28/18 13:15 Fluid RBC 1 /mcL 07/28/18 13:15 Fluid Tot Cell Count 100 07/28/18 13:15 Fluid Neutrophils Not Reportable 07/28/18 13:15 Fluid Lymphocytes 87 % 07/28/18 13:15 Fluid Monocytes 13 % 07/28/18 13:15 Fluid Cell Count Rvw By 07/28/18 13:15 Fluid Comment 07/28/18 13:15 CSF Cell Count Tube # 4 07/28/18 13:15 CSF Glucose 65 mg/dL (40-70) 07/28/18 13:15 CSF Total Protein 183 mg/dL (15-45) H 07/28/18 13:15 CSF VDRL Negative (Negative) 07/28/18 13:15 CSF Cryptococcus Ag Negative (Negative) 07/28/18 13:15 CSF HSV I (PCR) Negative (Negative) 07/28/18 13:15 CSF Herpes II DNA (PCR) Negative (Negative) 07/28/18 13:15 CSF MARY Virus DNA (PCR) Negative (Negative) 07/28/18 13:15 Vancomycin Trough 6.8 mcg/mL 07/31/18 19:30 Valproic Acid 64.0 mcg/mL (50-100) 08/04/18 06:12 Lyme [employer] IgG Ab TNP 07/28/18 13:15 CSF Lyme [employer]TER IgG Ab TNP 07/28/18 13:15 CSF Lyme [employer] IgG Interp TNP 07/28/18 13:15 Lyme Total Antibody Negative (Negative) 07/29/18 05:13 Influenza A (Rapid) Negative (Negative) 07/26/18 03:15 Influenza B (Rapid) Negative (Negative) 07/26/18 03:15 Flow Intrp 2-8 Markers 07/28/18 13:15 Flow Intrp 9-15 Marker Not Reportable 07/28/18 13:15 Flow Intrp 16+ Markers Not Reportable 07/28/18 13:15 - Objective Active Medications: Acetaminophen (Tylenol Supp*) 650 mg MO Q4H PRN PRN Reason: FEVER/HEADACHE Last Admin: 07/29/18 01:02 Dose: 650 mg Aspirin (Aspirin Ec Tab*) 81 mg PO DAILY [facility] Last Admin: 08/04/18 09:48 Dose: 81 mg Atorvastatin Calcium (Lipitor*) 10 mg PO DAILY [facility] Last Admin: 08/04/18 09:49 Dose: 10 mg Bisacodyl (Dulcolax Supp*) 10 mg MO DAILY PRN PRN Reason: CONSTIPATION Clopidogrel Bisulfate (Plavix Tab*) 75 mg PO DAILY [facility] Last Admin: 08/04/18 09:49 Dose: 75 mg Enoxaparin Sodium (Lovenox(*)) 40 mg SUBCUT Q24H [facility] Last Admin: 08/03/18 20:16 Dose: 40 mg Magnesium Oxide (Magox 400 Tab*) 400 mg PO BID [facility] Last Admin: 08/04/18 09:50 Dose: 400 mg Ondansetron HCl (Zofran Inj*) 4 mg IV Q6H PRN PRN Reason: NAUSEA Potassium Chloride (Klor Con Er Tab*) 20 meq PO DAILY [facility] Last Admin: 08/04/18 09:50 Dose: 20 meq Potassium Phos/Sodium Phos (Neutra Phos 250 Mg Popeye*) 250 mg PO TID [facility] Last Admin: 08/04/18 14:56 Dose: Not Given Valproic Acid (Depakene Cap(*)) 500 mg PO 2100 [facility] Vital Signs: Vital Signs: Temp Pulse Resp BP Pulse Ox 98.3 F 73 16 163/87 100 08/04/18 16:11 08/04/18 16:11 08/04/18 16:11 08/04/18 16:11 08/04/18 16:11 Patient Weight: Weight 44.906 kg Intake and Output: Intake & Output 08/02/18 08/03/18 08/04/18 08/05/18 06:59 06:59 06:59 06:59 Intake Total 2773 1140 720 175 Output Total 1999 3100 850 0 Balance 773 -1960 -130 175 Intake: IV Fluids 320 900 ABX - CEFTRIAXONE 105 Acyclovir 110 Magnesium 900 Valproic acid 105 IVPB 1588 ABX - CEFTRIAXONE 100 Acyclovir 110 NS (0.9%) 1275 Valproic acid 103 Oral 0 240 720 175 NG Tube Irrigate Amount 865 Output: Urine 0 0 0 0 [place] 2000 3100 850 ADLs: Meal Record Start: 07/26/18 03: 08 Freq: DAILY@0900,1400,1800 Status: Active Protocol: Created 07/26/18 03:08 System (Rec: 07/26/18 03:08 System TELE-C02) Document 07/26/18 09:00 [id number] (Rec: 07/26/18 11:54 [id number] TELE-C07) Document 07/26/18 14:00 OAO2549 (Rec: 07/26/18 14:07 HMO0135 TELE-C07) Document 07/26/18 17:42 TYP9106 (Rec: 07/26/18 17:52 [id number] TELE-C01) Document 07/27/18 09:00 IJN2468 (Rec: 07/27/18 12:32 RFY7549 TELE-C01) Document 07/27/18 14:00 OGC9407 (Rec: 07/27/18 14:32 FRL5469 TELE-C13) Document 07/27/18 18:00 VFL2461 (Rec: 07/27/18 18:22 PXI8010 TELE-C01) Document 07/28/18 09:00 DVM1164 (Rec: 07/28/18 09:12 JAJ0819 MED-M09) Document 07/28/18 13:59 ZVD3012 (Rec: 07/28/18 14:01 YPK9542 TELE-C01) Document 07/28/18 18:00 LJQ2953 (Rec: 07/29/18 00:25 IMX2253 TELE-C13) Document 07/29/18 10:29 ETX1588 (Rec: 07/29/18 10:30 OYY3906 TELE-C10) Document 07/29/18 14:09 GQY1710 (Rec: 07/29/18 14:09 NBV6040 TELE-C10) Document 07/29/18 17:22 MZB4879 (Rec: 07/29/18 17:22 XTH9105 TELE-C11) Document 07/30/18 09:00 NDA2319 (Rec: 07/30/18 14:08 FYH6879 TELE-C10) Document 07/30/18 14:00 JRO1024 (Rec: 07/30/18 14:09 PMO4617 TELE-C10) Document 07/30/18 17:51 DFA3515 (Rec: 07/30/18 17:51 MXS5660 TELE-C06) Document 07/31/18 09:00 EKT6296 (Rec: 07/31/18 15:00 GTV0790 TELE-C05) Document 07/31/18 14:00 TRR0582 (Rec: 07/31/18 15:03 ZGB7454 TELE-C05) Document 07/31/18 17:57 VOZ7007 (Rec: 07/31/18 17:57 NSF1136 TELE-C11) Document 08/01/18 09:00 RLU7134 (Rec: 08/01/18 10:34 QVN9435 TELE-C09) Document 08/01/18 14:00 DQH9618 (Rec: 08/01/18 14:46 TIR8768 TELE-C09) Document 08/01/18 17:52 KAW1674 (Rec: 08/01/18 17:52 HTH5667 TELE-C09) Document 08/02/18 09:00 VHX7283 (Rec: 08/02/18 13:52 TCX4624 TELE-C05) Document 08/02/18 14:00 KNP7049 (Rec: 08/02/18 15:06 KNF0184 TELE-C05) Document 08/02/18 17:55 SQA2644 (Rec: 08/02/18 17:56 BLU8498 TELE-C07) Document 08/03/18 09:00 PNJ6060 (Rec: 08/03/18 14:54 FKM1936 TELE-C01) Document 08/03/18 14:00 RKG6703 (Rec: 08/03/18 14:55 HHP9470 TELE-C01) Document 08/03/18 18:00 FYD4036 (Rec: 08/03/18 20:19 HIE2487 TELE-C01) Document 08/04/18 09:00 KBR6525 (Rec: 08/04/18 12:57 ULO1657 TELE-C07) Document 08/04/18 14:00 CFB9498 (Rec: 08/04/18 15:13 GPN5592 TELE-C07) Document 08/04/18 18:00 KOQ7250 (Rec: 08/04/18 18:29 JDX8426 TELE-C01) Intake and Output Start: 07/25/18 16: 58 Freq: Status: Active Protocol: Created 07/25/18 16:58 System (Rec: 07/25/18 16:58 System ED-C24) Document 07/31/18 11:17 CCJ4247 (Rec: 07/31/18 11:18 VKV8887 TELE-C10) Intake and Output Start: 07/26/18 03: 08 Freq: DAILY@0600,1400,2200 Status: Active Protocol: Created 07/26/18 03:08 System (Rec: 07/26/18 03:08 System TELE-C02) Document 07/26/18 06:00 LSQ0818 (Rec: 07/26/18 07:26 SGX5848 TELE-C07) Document 07/26/18 14:00 OYO4266 (Rec: 07/26/18 14:07 YBG6632 TELE-C07) Document 07/26/18 21:13 TGS0830 (Rec: 07/26/18 21:14 UBY1591 TELE-C11) Document 07/27/18 06:00 QFC1482 (Rec: 07/27/18 06:35 YYB4015 TELE-C32) Document 07/27/18 14:00 KBI9441 (Rec: 07/27/18 14:32 PCT5171 TELE-C13) Document 07/27/18 14:43 ADU4755 (Rec: 07/27/18 14:44 EAW5778 TELE-C09) Document 07/27/18 21:24 WDP4048 (Rec: 07/27/18 21:24 EVS4847 TELE-C05) Document 07/28/18 05:22 DIF9640 (Rec: 07/28/18 05:24 ISD3854 TELE-C01) Document 07/28/18 13:54 HPR4442 (Rec: 07/28/18 13:54 ZVU9333 TELE-C05) Document 07/28/18 22:00 JVI3291 (Rec: 07/28/18 22:07 DPV7841 TELE-C09) Document 07/29/18 06:00 LVU4934 (Rec: 07/29/18 06:35 SVL5888 TELE-C10) Document 07/29/18 13:17 MLC6111 (Rec: 07/29/18 13:17 VXW5656 TELE-C10) Document 07/29/18 13:44 SWU4853 (Rec: 07/29/18 13:44 KXS0838 TELE-C10) Document 07/29/18 13:49 LZH2078 (Rec: 07/29/18 13:49 JNA2612 TELE-C05) Document 07/29/18 21:46 OXE5615 (Rec: 07/29/18 21:49 MLX0250 TELE-C11) Document 07/30/18 05:58 NUS6414 (Rec: 07/30/18 06:00 FNP0519 TELE-C06) Document 07/30/18 14:00 JOJ1781 (Rec: 07/30/18 14:35 KQH8745 TELE-C10) Document 07/30/18 22:00 AVC6794 (Rec: 07/31/18 00:51 XKK5542 TELE-C01) Document 07/31/18 06:00 DCV0164 (Rec: 07/31/18 06:34 BST0508 TELE-C09) Document 07/31/18 14:00 KWC1604 (Rec: 07/31/18 15:03 LFG8155 TELE-C05) Document 07/31/18 22:00 DRM0118 (Rec: 07/31/18 23:07 XTT6411 TELE-C08) Document 08/01/18 06:00 USF1303 (Rec: 08/01/18 07:48 PIT1290 TELE-C09) Document 08/01/18 14:00 WMY2038 (Rec: 08/01/18 14:46 JBD9419 TELE-C09) Document 08/01/18 18:03 JGD9834 (Rec: 08/01/18 18:04 FMV5060 TELE-C08) Document 08/01/18 21:53 HOV3634 (Rec: 08/01/18 21:53 DJF6179 TELE-C09) Document 08/02/18 06:00 ZVL2372 (Rec: 08/02/18 07:14 TTS3083 TELE-C01) Document 08/02/18 14:00 MOC8276 (Rec: 08/02/18 15:06 WTT1318 TELE-C05) Document 08/02/18 21:06 KTA3060 (Rec: 08/02/18 21:07 HMD9499 TELE-C09) Document 08/03/18 06:00 DOT4022 (Rec: 08/03/18 07:22 YTH0827 TELE-C01) Document 08/03/18 14:00 YHP7290 (Rec: 08/03/18 14:55 XBN7258 TELE-C01) Document 08/03/18 21:38 NRV3829 (Rec: 08/03/18 21:39 GZY2827 TELE-C01) Document 08/04/18 06:00 QMH9597 (Rec: 08/04/18 06:12 NGQ0169 TELE-C35) Document 08/04/18 13:30 NXM5692 (Rec: 08/04/18 13:30 SYT8345 TELE-C05) Head: Normal Eyes: No Scleral Icterus Ears/Nose/Mouth/Throat: NL Teeth, Lips, Gums, Mucous Membranes Moist Neck: NL Appearance and Movements; NL JVP - Assessment Assessment: 88 yo female with new onset seizures and encephalopathy due to viral meningitis - Plan Consult Plan (MU): Palliative Plan: Spoke with pt's children(2 daughters and 1 son) who have been very concerned about their mother's change in mental status. I reassured them about test results and clinical testing. Also discussed options for rehab at SNF. Family is eager for pt to get back to her baseline and is very interested in pursuing rehab but not excited about rehab options. Also discussed hospice. At this time I don't think pt is hospice eligible but if she should stop eating/drinking then she would be eligible. Family did not seem ready for hospice but if pt's clinical status declines I will reintroduce that option. I confirmed the [facility] form with them. KPS 50%, PPS 50% - Time On Unit Date of Evaluation: 08/04/18 Hospice Consult Time in: 02:30 Hospice Consult Time Out: 04:00 Hospice Consult Time Total: 90 > 50% of Time Spend In Counseling or Coordinating Care: Yes
[2018-08-04] MEDS: Enoxaparin(*) 40 MG/0.4 ML SYR SUBCUT SCH (21:50)
[2018-08-05 08:38] LABS: Hematocrit 32 % (35-47); Hemoglobin 10.7 g/dL (12.0-16.0); Mean Corpuscular HGB Conc 34 g/dL (31-36); Mean Corpuscular Hemoglobin 29 pg (27-31); Mean Corpuscular Volume 85 fL (80-97); Mean Platelet Volume 8.9 fL (7.4-10.4); Platelet Count 144 10^3/uL (150-450); Red Blood Count 3.76 10^6 /uL (3.70-4.87); Red Cell Distribution Width 16 % (10.5-15)
[2018-08-05] MEDS: Aspirin EC TAB* 81 MG TAB.EC PO SCH (08:48)
[2018-08-05] MEDS: Magnesium Oxide TAB* 400 MG PO SCH ×2 (08:48→21:53)
[2018-08-05] MEDS: Potassium Chlor TAB* 20 MEQ TAB.ER PO SCH (08:48)
[2018-08-05] MEDS: Clopidogrel TAB* 75 MG PO SCH (08:48)
[2018-08-05] MEDS: Atorvastatin* 10 MG TAB PO SCH (08:49)
[2018-08-05] MEDS: Potassium & Sodium Phos 250MG* = 1 PACKET PO SCH ×3 (08:49→21:53)
[2018-08-05] MEDS ORDERED: Valproic Acid CAP(*) 250 MG PO SCH ×2 (09:00→21:00)
[2018-08-05 09:02] LABS: BUN/Creatinine Ratio 21.3 (8-20); Calcium 8.5 mg/dL (8.6-10.3); EGFR African American 88.2 (>60); EGFR Non-African American 72.9 (>60); Magnesium 2.2 mg/dL (1.9-2.7); Phosphorus 3.4 mg/dL (2.5-5.0); Potassium 3.6 mmol/L (3.5-5.0)
[2018-08-05 09:25] LABS: ABS Eosinophils 0.2 10^3/ul (0-0.6); ABS Monocytes 0.9 10^3/ul (0-0.8); Lymphocyte % 20.1 %
[2018-08-05] MEDS ORDERED: Fluconazole 150 MG TAB PO ONE (09:48)
[2018-08-05] MEDS: D5W NS 0.9% 20Meq KCL 1000 ML* 1,000 ML IV SCH ×2 (10:11→23:39)
--- NOTE | 2018-08-05 11:34 | PN ---
Subjective Date of Service: 08/05/18 Length of Stay: 10 Days Interval History: Hospital records and notes reviewed. The patient has done relatively well but yesterday developed acute onset of AMS, lethargy, workup for Delirium was negative, I was called and reviewed her labwork, VA 64. We increased the dose of Depakote from 250/250 to 250/500. This morning, she is remarkably better. She is awake, alert, following commands, smiling. Daughter is at the bedside. Overnight,she remained very somnolent and confused. No focal issues reported. She has remained afebrile. Labs ok. CT Head 08.04.18: No acute changes CXR: Cardiomegaly, stable UA: Negative for acute infection Family History: Unchanged from Admission Social History: Unchanged from Admission Past Medical History: Unchanged from Admission Objective Active Medications: Acetaminophen (Tylenol Supp*) 650 mg VT Q4H PRN PRN Reason: FEVER/HEADACHE Last Admin: 07/29/18 01:02 Dose: 650 mg Aspirin (Aspirin Ec Tab*) 81 mg PO DAILY [facility] Last Admin: 08/05/18 08:48 Dose: 81 mg Atorvastatin Calcium (Lipitor*) 10 mg PO DAILY [facility] Last Admin: 08/05/18 08:49 Dose: 10 mg Bisacodyl (Dulcolax Supp*) 10 mg VT DAILY PRN PRN Reason: CONSTIPATION Clopidogrel Bisulfate (Plavix Tab*) 75 mg PO DAILY [facility] Last Admin: 08/05/18 08:48 Dose: 75 mg Enoxaparin Sodium (Lovenox(*)) 40 mg SUBCUT Q24H [facility] Last Admin: 08/04/18 21:50 Dose: 40 mg Potassium Chloride/Dextrose (D5w Ns 0.9% 20meq Kcl 1000 Ml*) 1,000 mls @ 75 mls /hr IV PER RATE [facility] Last Admin: 08/05/18 10:11 Dose: 75 mls/hr Magnesium Oxide (Magox 400 Tab*) 400 mg PO BID [facility] Last Admin: 08/05/18 08:48 Dose: 400 mg Nystatin (Nystatin Top Powder*) 1 applic TOPICAL TID [facility] Ondansetron HCl (Zofran Inj*) 4 mg IV Q6H PRN PRN Reason: NAUSEA Potassium Chloride (Klor Con Er Tab*) 20 meq PO DAILY [facility] Last Admin: 08/05/18 08:48 Dose: 20 meq Potassium Phos/Sodium Phos (Neutra Phos 250 Mg Popeye*) 250 mg PO TID [facility] Last Admin: 08/05/18 08:49 Dose: 250 mg Valproic Acid (Depakene Cap(*)) 500 mg PO 2100 [facility] Last Admin: 08/04/18 21:47 Dose: 500 mg Vital Signs 08/04/18 08/04/18 08/04/18 16:11 19:48 20:00 Temperature 98.3 F 97.5 F Pulse Rate 73 72 Respiratory 16 16 18 Rate Blood Pressure 163/87 149/77 (mmHg) O2 Sat by Pulse 100 100 Oximetry 08/04/18 08/05/18 08/05/18 23:43 00:12 03:23 Temperature 98.0 F 97.1 F Pulse Rate 68 92 Respiratory 24 22 Rate Blood Pressure 138/71 125/72 (mmHg) O2 Sat by Pulse 100 98 100 Oximetry 08/05/18 08/05/18 07:25 07:41 Temperature 97.4 F Pulse Rate 81 Respiratory 18 16 Rate Blood Pressure 140/82 (mmHg) O2 Sat by Pulse 100 Oximetry Intake and Output Last 24 Hours 08/03/18 08/04/18 08/05/18 08/06/18 06:59 06:59 06:59 06:59 Intake Total 1140 720 175 Output Total 3100 850 825 Balance -1960 -130 -650 Intake: IV Fluids 900 Magnesium 900 Oral 240 720 175 Output: Urine 0 0 0 [place] 3100 850 825 Other: Estimated Void Small # Bowel Movements 0 Oxygen Devices in Use Now: Nasal Cannula Neurology Exam: General: Sleeping but awakens easily, smiling, speaking to me, responding appropriately. HEENT: Normocephalic/atraumatic, sclera anicteric, mucous membranes dry Neck: Supple Chest: Clear to auscultation bilaterally Cardiovascular: Regular rate and rhythm without murmurs, rubs, gallops Abdomen: Soft, non-tender/non-distended Extremities: No clubbing, cyanosis, or edema Neurological Findings: Awake, alert, and oriented to person, place, and time this am (much improved) Speech: fluent without dysarthria Cranial Nerve: PERRL, EOM intact, VFF to confrontation, no nystagmus, face symmetric bilaterally, hearing diminished bilaterally, palate elevates symmetrically, tongue midline Motor: Moving all extremities antigravity, no significant drift Sensation: grossly intact to LT throughout No resting tremors. Mild finger to nose bilaterally Result Diagrams: 08/05/18 07:30 08/05/18 07:30 Additional Lab and Data: 07/27/2018: Ammonia: 33 Lactic acid: 1.0 Creatinine: 1.19 07/26/2018: EEG: mild-moderate encephalopathy MRI Brain with and without contrast: no acute intracranial abnormalities. 07/25/2018: Vitamin B12: 1019 TSH: 1.76 Urinalysis: negative Laboratory Tests 07/28/18 07/28/18 13:15 13:15 Fluid Source Cerebral spinal Fluid Volume 3.0 Fluid Color Colorless Fluid Appearance Clear Fluid WBC 29 H* Fluid RBC 1 Fluid Tot Cell Count 100 Fluid Lymphocytes 87 Fluid Monocytes 13 CSF Glucose 65 CSF Total Protein 183 H Microbiology and Other Data: Microbiology CSF NGTD Blood Cx NGTD UCx NGTD HSV Neg, Lyme negative Flow Neg for oncologic process Assessment/Plan Assessment: 88yo F with a history of large B cell lymphoma s/p chemotherapy complicated by interstitial lung disease in remission since September 2017, CVA, brought in to ED with confusion, was evaluated by neurology, had a lp which was consistent with aseptic meningitis, cultures negative, no HSV, now off of Acyclovir, with subsequent seizure activity, on low dose Depakote with improvement but over the last 24 hours has had several episodes of unresponsiveness, confusion, lethargy. Workup yesterday for acute delirium was negative. Depakote was increased yesterday and this morning she is much improved, suspect she had some breakthrough seizure activity and was post-ictal. --AMS: Suspect continued seizure activity, now improved with a higher dose of Depakote. Level on 250/250 was low 60s. Plan to continue 500/250mg and recheck a level in several days. If she continues to wax and wane, we can consider repeat EEG --Meningitis: Aseptic. Off antibiotics. --Prior CVA: Repeat CT shows no evidence of new CVA, suspicion is low given the waxing and waning nature of her symptoms. Continue risk factor reduction. --H/O B-cell Lymphoma, s/p chemo with subsequent insterstitial lung disease. Stable in remission since September 2017 --Would advance PT/OT as tolerated over the next few days. OOB to chair
[2018-08-05] MEDS: Nystatin TOP POWDER* 15 GM BTL TOPICAL SCH ×2 (12:50→21:54)
--- NOTE | 2018-08-05 17:28 | PN ---
Subjective Date of Service: 08/05/18 Interval History: Patient seen by me today. Her mentation still waxing and waning! she was obtunded earlier this morning and when she was seen by neurology apparently she gained full alertness, oriented and than when I went to assess her she refused to answer question although she was responding to tactile. Bicarb is elevated I will check her ABG to rule out CO2 retention Social History: Unchanged from Admission Past Medical History: Unchanged from Admission Objective Active Medications: Acetaminophen (Tylenol Supp*) 650 mg AL Q4H PRN PRN Reason: FEVER/HEADACHE Last Admin: 07/29/18 01:02 Dose: 650 mg Aspirin (Aspirin Ec Tab*) 81 mg PO DAILY [facility] Last Admin: 08/05/18 08:48 Dose: 81 mg Atorvastatin Calcium (Lipitor*) 10 mg PO DAILY [facility] Last Admin: 08/05/18 08:49 Dose: 10 mg Bisacodyl (Dulcolax Supp*) 10 mg AL DAILY PRN PRN Reason: CONSTIPATION Clopidogrel Bisulfate (Plavix Tab*) 75 mg PO DAILY [facility] Last Admin: 08/05/18 08:48 Dose: 75 mg Enoxaparin Sodium (Lovenox(*)) 40 mg SUBCUT Q24H [facility] Last Admin: 08/04/18 21:50 Dose: 40 mg Potassium Chloride/Dextrose (D5w Ns 0.9% 20meq Kcl 1000 Ml*) 1,000 mls @ 75 mls /hr IV PER RATE [facility] Last Admin: 08/05/18 10:11 Dose: 75 mls/hr Magnesium Oxide (Magox 400 Tab*) 400 mg PO BID [facility] Last Admin: 08/05/18 08:48 Dose: 400 mg Nystatin (Nystatin Top Powder*) 1 applic TOPICAL TID [facility] Last Admin: 08/05/18 12:50 Dose: 1 admin Ondansetron HCl (Zofran Inj*) 4 mg IV Q6H PRN PRN Reason: NAUSEA Potassium Chloride (Klor Con Er Tab*) 20 meq PO DAILY [facility] Last Admin: 08/05/18 08:48 Dose: 20 meq Potassium Phos/Sodium Phos (Neutra Phos 250 Mg Popeye*) 250 mg PO TID [facility] Last Admin: 08/05/18 12:51 Dose: 250 mg Valproic Acid (Depakene Cap(*)) 500 mg PO 2100 [facility] Last Admin: 08/04/18 21:47 Dose: 500 mg Vital Signs - 8 hr 08/05/18 08/05/18 11:31 15:37 Temperature 97.5 F 97.6 F Pulse Rate 59 66 Respiratory 20 24 Rate Blood Pressure 122/55 147/69 (mmHg) O2 Sat by Pulse 100 100 Oximetry Oxygen Devices in Use Now: Nasal Cannula Appearance: Awake, alert to staff, than not responding to myself Eyes: No Scleral Icterus, - - EOMI Ears/Nose/Mouth/Throat: NL Teeth, Lips, Gums, Mucous Membranes Moist Neck: NL Appearance and Movements; NL JVP Respiratory: Symmetrical Chest Expansion and Respiratory Effort, Clear to Auscultation Cardiovascular: NL Sounds; No Murmurs; No JVD, RRR, No Edema Abdominal: NL Sounds; No Tenderness; No Distention Neurological: Alert and Oriented x 3 - Nutrition: Malnutrition Diagnosis/Plan Malnutrition Assessment by Registered Dietitian: Malnutrition Assessment Clinical Characteristics Chronic,Moderate Malnutrition Assessment: - 16# (14%) to 21# (18%) wt loss x past 7-8 Criteria months - < 75% estimated energy expenditure > 1 month Malnutrition Assessment: Per pt's family, she does drink Ensure at home. Interventions Currently, they are afraid that Ensure will thicken secretions/mucus and make swallowing difficult. They are amenable for her to try Ensure Clear. Will send w/ meals. Ensure Clear: 240 kcals, 8 grams protein per serving. Malnutrition Assessment: Goals 1. Intake will improve to support lean body mass , hydration, and wt repletion - Goal: > 50% of meals as confusion improves Result Diagrams: 08/05/18 07:30 08/05/18 07:30 Additional Lab and Data: 07/27/2018: Ammonia: 33 Lactic acid: 1.0 Creatinine: 1.19 07/26/2018: EEG: mild-moderate encephalopathy MRI Brain with and without contrast: no acute intracranial abnormalities. 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 Workup yesterday for acute delirium was negative. Depakote was increased yesterday and this morning she is much improved, suspect she had some breakthrough seizure activity and was post-ictal. --AMS: Suspect continued seizure activity, now improved with a higher dose of Depakote. Level on 250/250 was low 60s. Plan to continue 500/250mg and recheck a level in several days. If she continues to wax and wane, we can consider repeat EEG --Meningitis: Aseptic. Off antibiotics. --Prior CVA: Repeat CT shows no evidence of new CVA, suspicion is low given the waxing and waning nature of her symptoms. Continue risk factor reduction. --H/O B-cell Lymphoma, s/p chemo with subsequent insterstitial lung disease. Stable in remission since September 2017 --Would advance PT/OT as tolerated over the next few days. OOB to chair - Patient Problems (1) Aseptic meningitis Current Visit: Yes Status: Acute Code(s): G03.0 - NONPYOGENIC MENINGITIS SNOMED Code(s): 180739038 Comment: - Off all antibiotics as per ID - She continue to be waxing and wanning in regard to her mentations - Her Bicarb is elevated I will check ABG to rule out CO@ retentions (2) Encephalopathy acute Current Visit: Yes Status: Acute Code(s): G93.40 - ENCEPHALOPATHY, UNSPECIFIED SNOMED Code(s): 53900213 Comment: - MRI brain was negative. - LP shows high protein and lymphocytic predominance - viral encephalitis was entertanied. flow cytommertry is neg. - d/c antibiotics includine Ceftriaxone as per ID recommendations. Off Acyclovir - Seizure precautions. - She continue to be waxing and wanning in regard to her mentations - Her Bicarb is elevated I will check ABG to rule out CO2 retentions (3) CVA (cerebral vascular accident) Current Visit: Yes Status: Acute Code(s): I63.9 - CEREBRAL INFARCTION, UNSPECIFIED SNOMED Code(s): 998671147 Comment: - 2011 without residual deficit - Continue lipitor 10 mg HS and will resume plavix 75 mg daily - Will resume aspirin 81 mg daily (4) Seizure Current Visit: Yes Status: Acute Code(s): R56.9 - UNSPECIFIED CONVULSIONS SNOMED Code(s): 60584330 Comment: - On Depakote 250 mg IV Q 12. switched to PO. Level trough 64. 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 Status and Disposition: Inpatient
--- NOTE | 2018-08-05 20:16 | PN ---
Hospitalist Progress Note Date of Service: 08/05/18 Given her altered mental status, I did order ABG to rule out CO2 narcosis, her ABG showed metabolic alkalosis and compensatory respiratory acidosis. She is not retaining CO2 as her primary disorder. I am not sure why she has metabolic alkalosis. She is not volume contracted? I did stopped her O2 supplement as she does not require it. I recommend if her HCO3- on her chemistry remain elevated consider prn Diamox.
[2018-08-05] MEDS: Enoxaparin(*) 40 MG/0.4 ML SYR SUBCUT SCH (21:52)
[2018-08-05] MEDS: Valproic Acid CAP(*) 250 MG PO SCH (21:53)
[2018-08-06 05:40] LABS: Hematocrit 29 % (35-47); Hemoglobin 9.5 g/dL (12.0-16.0); Mean Corpuscular HGB Conc 33 g/dL (31-36); Mean Corpuscular Hemoglobin 28 pg (27-31); Mean Corpuscular Volume 84 fL (80-97); Mean Platelet Volume 8.5 fL (7.4-10.4); Platelet Count 140 10^3/uL (150-450); Red Blood Count 3.39 10^6 /uL (3.70-4.87); Red Cell Distribution Width 16 % (10.5-15); White Blood Count 3.9 10^3/uL (3.5-10.8)
[2018-08-06 05:52] LABS: EGFR African American 109.9 (>60); EGFR Non-African American 90.8 (>60); Magnesium 2.1 mg/dL (1.9-2.7); Phosphorus 2.8 mg/dL (2.5-5.0)
[2018-08-06 06:08] LABS: ABS Eosinophils 0.1 10^3/ul (0-0.6); ABS Lymphocytes 0.7 10^3/ul (1.0-4.8); ABS Monocytes 0.7 10^3/ul (0-0.8); ABS Neutrophils 2.3 10^3/ul (1.5-7.7); Eosinophil % 3.5 %; Nucleated Red Blood Cells % 0.1
[2018-08-06] MEDS: Potassium & Sodium Phos 250MG* = 1 PACKET PO SCH ×3 (09:22→20:08)
[2018-08-06] MEDS: Clopidogrel TAB* 75 MG PO SCH (09:23)
[2018-08-06] MEDS: Magnesium Oxide TAB* 400 MG PO SCH ×2 (09:23→19:54)
[2018-08-06] MEDS: Potassium Chlor TAB* 20 MEQ TAB.ER PO SCH (09:23)
[2018-08-06] MEDS: Atorvastatin* 10 MG TAB PO SCH (09:23)
[2018-08-06] MEDS: Aspirin EC TAB* 81 MG TAB.EC PO SCH (09:23)
[2018-08-06] MEDS: Nystatin TOP POWDER* 15 GM BTL TOPICAL SCH ×3 (09:23→19:55)
--- NOTE | 2018-08-06 13:09 | PN ---
Subjective Date of Service: 08/06/18 Interval History: Pt is seen with daughter and son by the bedside. Very lethargic, able to wake up for a couple of seconds and follow commands before drifting off to sleep again. C/o no pain Family History: Unchanged from Admission Social History: Unchanged from Admission Past Medical History: Unchanged from Admission Objective Active Medications: Acetaminophen (Tylenol Supp*) 650 mg [place] Q4H PRN PRN Reason: FEVER/HEADACHE Last Admin: 07/29/18 01:02 Dose: 650 mg Aspirin (Aspirin Ec Tab*) 81 mg PO DAILY [facility] Last Admin: 08/06/18 09:23 Dose: 81 mg Atorvastatin Calcium (Lipitor*) 10 mg PO DAILY [facility] Last Admin: 08/06/18 09:23 Dose: 10 mg Bisacodyl (Dulcolax Supp*) 10 mg NC DAILY PRN PRN Reason: CONSTIPATION Clopidogrel Bisulfate (Plavix Tab*) 75 mg PO DAILY [facility] Last Admin: 08/06/18 09:23 Dose: 75 mg Enoxaparin Sodium (Lovenox(*)) 40 mg SUBCUT Q24H [facility] Last Admin: 08/05/18 21:52 Dose: 40 mg Potassium Chloride/Dextrose (D5w Ns 0.9% 20meq Kcl 1000 Ml*) 1,000 mls @ 75 mls /hr IV PER RATE [facility] Last Admin: 08/05/18 23:39 Dose: 75 mls/hr Magnesium Oxide (Magox 400 Tab*) 400 mg PO BID [facility] Last Admin: 08/06/18 09:23 Dose: 400 mg Nystatin (Nystatin Top Powder*) 1 applic TOPICAL TID [facility] Last Admin: 08/06/18 09:23 Dose: 1 admin Ondansetron HCl (Zofran Inj*) 4 mg IV Q6H PRN PRN Reason: NAUSEA Potassium Chloride (Klor Con Er Tab*) 20 meq PO DAILY [facility] Last Admin: 08/06/18 09:23 Dose: 20 meq Potassium Phos/Sodium Phos (Neutra Phos 250 Mg Popeye*) 250 mg PO TID [facility] Last Admin: 08/06/18 09:22 Dose: 250 mg Valproic Acid (Depakene Cap(*)) 500 mg PO 2100 [facility] Last Admin: 08/05/18 21:53 Dose: 500 mg Valproic Acid (Depakene Cap(*)) 250 mg PO DAILY [facility] Vital Signs - 8 hr 08/06/18 08/06/18 07:30 08:00 Temperature 97.8 F Pulse Rate 59 Respiratory 19 16 Rate Blood Pressure 119/52 (mmHg) O2 Sat by Pulse 100 Oximetry Oxygen Devices in Use Now: None Appearance: 88 yo f in NAD, lethargic, oriented to self and place Eyes: No Scleral Icterus, PERRLA Ears/Nose/Mouth/Throat: NL Teeth, Lips, Gums, Mucous Membranes Moist Neck: NL Appearance and Movements; NL JVP, Trachea Midline Respiratory: Symmetrical Chest Expansion and Respiratory Effort, Clear to Auscultation Cardiovascular: NL Sounds; No Murmurs; No JVD, RRR Abdominal: NL Sounds; No Tenderness; No Distention Lymphatic: No Cervical Adenopathy Extremities: No Edema, No Clubbing, Cyanosis Skin: No Rash or Ulcers, No Nodules or Sclerosis Neurological: NL Muscle Strength and Tone, - - very lethargic - Nutrition: Malnutrition Diagnosis/Plan Malnutrition Assessment by Registered Dietitian: Malnutrition Assessment Clinical Characteristics Chronic,Moderate Malnutrition Assessment: - 16# (14%) to 21# (18%) wt loss x past 7-8 Criteria months - < 75% estimated energy expenditure > 1 month Malnutrition Assessment: Per pt's family, she does drink Ensure at home. Interventions Currently, they are afraid that Ensure will thicken secretions/mucus and make swallowing difficult. They are amenable for her to try Ensure Clear. Will send w/ meals. Ensure Clear: 240 kcals, 8 grams protein per serving. Malnutrition Assessment: Goals 1. Intake will improve to support lean body mass , hydration, and wt repletion - Goal: > 50% of meals as confusion improves Result Diagrams: 08/06/18 05:25 08/06/18 05:25 Additional Lab and Data: 07/27/2018: Ammonia: 33 Lactic acid: 1.0 Creatinine: 1.19 07/26/2018: EEG: mild-moderate encephalopathy MRI Brain with and without contrast: no acute intracranial abnormalities. 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 - LP shows high protein and lymphocytic predominance - viral encephalitis was entertanied. flow cytommertry is neg. - d/c antibiotics includine Ceftriaxone as per ID recommendations. Off Acyclovir - Seizure precautions. 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 Status and Disposition: Inpatient
[2018-08-06] MEDS ORDERED: Divalproex Sprinkle CAP* 125 MG PO ONE ×2 (13:38→14:00)
[2018-08-06] MEDS ORDERED: Divalproex Sprinkle CAP* 125 MG PO SCH ×3 (14:00→21:00)
[2018-08-06] MEDS: D5W NS 0.9% 20Meq KCL 1000 ML* 1,000 ML IV SCH (14:02)
--- NOTE | 2018-08-06 16:59 | CONS ---
CC: Dr. Flores * NEUROLOGY FOLLOWUP CONSULTATION: DATE OF FOLLOWUP: 08/06/18 LOCATION: She is in room 433. HOSPITALIST: Dr. Sanchez. CHIEF COMPLAINT: Encephalopathy. INTERVAL HISTORY: Since yesterday, Marlys continues to have fluctuating mental status. Apparently, this morning, she was unresponsive and when I came in, she is responsive to voice. Her 2 daughters, 1 son, and 1 son-in-law are present. I reviewed the chart. I discussed the case with Dr. Sanchez. CURRENT MEDICATIONS: Consist of: 1. Depakote 500 mg once per day. 2. Plavix 75 mg p.o. daily. 3. Lipitor 10 mg p.o. daily. 4. Aspirin 81 mg p.o. daily. 5. Lovenox 40 mg subcutaneous q.24 hours. 6. Magnesium oxide 400 mg b.i.d. 7. Nystatin topical. 8. Zofran 4 mg IV q.6 hours as needed for nausea. PHYSICAL EXAM: On examination, her eyes are closed, but she responds readily to voice. Temperature 97.8, heart rate is in the 60s, blood pressure 119/52. Oxygen saturation is 100% on room air. Neurologically, she opens eyes to voice. She tracks visually. She is able to count fingers in both visual hemifields. Facial musculature is symmetric. She forcefully closes her eyes well. She protrudes her tongue in the midline. Her palate rises symmetrically to phonation. She has bilateral grasp reflexes. She is able to hold both arms up in the air without asymmetry and both legs up briefly in the air. There is no myoclonus. She answers simple questions. She denies headache. She shakes her head yes or no appropriately to questions. Near the end of the visit, she eats part of a cup cake at the urging of her daughters. DIAGNOSTIC STUDIES/LAB DATA: Laboratory data is reviewed. CBC from today is notable for hemoglobin of 9.5, which is down from 10.7 yesterday. Platelet count is 140,000, down a little bit from yesterday at 144,000. The lowest point was 08/02/18 when it was 118,000. Spinal fluid results from 07/28/18 are reviewed. Protein was 183, glucose 65 which was about 50% of the simultaneous glucose of that day. White blood cell count was 29 with 87% lymphocytes and 13 % monocytes. PCR for herpes viruses, MARY virus, and cryptococcal antigen were all negative. Imaging of the brain including a CT scan of the brain from 08/04/18 and an MRI of the brain from 07/26/18 are reviewed. 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 Cytology on 4 cc of spinal fluid from 07/28/18 is interpreted as reactive lymphocytes. 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 She apparently has episodes where she is unresponsive and currently she is quite responsive and cognizant and following commands. I do not think a metabolic or infectious disorder would fluctuate to this extent. 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 Her cytology on spinal fluid was negative, but it was only 4 cc. I think the first order of business is to try to get her fluctuating encephalopathy under control. I recommend increasing Depakote to 500 mg twice per day and I have discussed with Dr. Sanchez, who has gone ahead and made the change. I will put in for an EEG in the morning. If she does stabilize, then ultimately the nature of the right occipital mass may need further clarification. This will depend on the desire to be aggressive or not and whether or not the patient and family will be willing to pursue further treatment if in fact it is neoplastic. Dr. West will be back on service tomorrow morning and I will sign Marlys's case over to him. I reviewed my impression with the family and answered questions. [id number]/[facility] #: [id number] ALON
[2018-08-06] MEDS: Enoxaparin(*) 40 MG/0.4 ML SYR SUBCUT SCH (19:53)
[2018-08-07] MEDS: D5W NS 0.9% 20Meq KCL 1000 ML* 1,000 ML IV SCH ×3 (03:47→20:27)
[2018-08-07 05:46] LABS: Hematocrit 32 % (35-47); Hemoglobin 10.7 g/dL (12.0-16.0); Mean Corpuscular HGB Conc 33 g/dL (31-36); Mean Corpuscular Hemoglobin 28 pg (27-31); Mean Corpuscular Volume 85 fL (80-97); Mean Platelet Volume 8.4 fL (7.4-10.4); Platelet Count 157 10^3/uL (150-450); Red Blood Count 3.79 10^6 /uL (3.70-4.87); Red Cell Distribution Width 16 % (10.5-15); White Blood Count 3.8 10^3/uL (3.5-10.8)
[2018-08-07 06:05] LABS: Albumin 3.6 g/dL (3.2-5.2); BUN/Creatinine Ratio 11.9 (8-20); C Reactive Protein 1.3 mg/L (<8.01); Calcium 8.5 mg/dL (8.6-10.3); EGFR African American 100.5 (>60); EGFR Non-African American 83.1 (>60); Globulin 1.8 g/dL (2-4); Magnesium 2.1 mg/dL (1.9-2.7); Phosphorus 2.2 mg/dL (2.5-5.0); Potassium 3.9 mmol/L (3.5-5.0); Total Bilirubin 0.4 mg/dL (0.2-1.0); Total Protein 5.4 g/dL (6.4-8.9)
[2018-08-07 06:16] LABS: ABS Eosinophils 0.1 10^3/ul (0-0.6); ABS Lymphocytes 0.6 10^3/ul (1.0-4.8); ABS Monocytes 0.9 10^3/ul (0-0.8); ABS Neutrophils 2.1 10^3/ul (1.5-7.7); Eosinophil % 3.4 %; Nucleated Red Blood Cells % 0.1
[2018-08-07] MEDS: Clopidogrel TAB* 75 MG PO SCH (08:57)
[2018-08-07] MEDS: Divalproex Sprinkle CAP* 125 MG PO SCH ×2 (08:57→19:56)
[2018-08-07] MEDS: Atorvastatin* 10 MG TAB PO SCH (08:57)
[2018-08-07] MEDS: Aspirin EC TAB* 81 MG TAB.EC PO SCH (08:58)
[2018-08-07] MEDS: Potassium & Sodium Phos 250MG* = 1 PACKET PO SCH ×3 (08:58→19:57)
[2018-08-07] MEDS: Potassium Chlor TAB* 20 MEQ TAB.ER PO SCH (08:58)
[2018-08-07] MEDS: Magnesium Oxide TAB* 400 MG PO SCH ×2 (08:58→19:56)
[2018-08-07] MEDS: Nystatin TOP POWDER* 15 GM BTL TOPICAL SCH ×3 (08:58→19:57)
--- NOTE | 2018-08-07 14:49 | PN ---
Subjective Date of Service: 08/07/18 Interval History: pt continues to refuse to eat. Webster was leaking and removed earlier on today. Pt is seen with daughter Michelle at bedside, denies pain Family History: Unchanged from Admission Social History: Unchanged from Admission Past Medical History: Unchanged from Admission Objective Active Medications: Acetaminophen (Tylenol Supp*) 650 mg UT Q4H PRN PRN Reason: FEVER/HEADACHE Last Admin: 07/29/18 01:02 Dose: 650 mg Aspirin (Aspirin Ec Tab*) 81 mg PO DAILY [facility] Last Admin: 08/07/18 08:58 Dose: 81 mg Atorvastatin Calcium (Lipitor*) 10 mg PO DAILY [facility] Last Admin: 08/07/18 08:57 Dose: 10 mg Bisacodyl (Dulcolax Supp*) 10 mg UT DAILY PRN PRN Reason: CONSTIPATION Clopidogrel Bisulfate (Plavix Tab*) 75 mg PO DAILY [facility] Last Admin: 08/07/18 08:57 Dose: 75 mg Divalproex Sodium (Depakote Sprinkle Cap*) 250 mg PO BID [facility] Last Admin: 08/07/18 08:57 Dose: 250 mg Enoxaparin Sodium (Lovenox(*)) 40 mg SUBCUT Q24H [facility] Last Admin: 08/06/18 19:53 Dose: 40 mg Potassium Chloride/Dextrose (D5w Ns 0.9% 20meq Kcl 1000 Ml*) 1,000 mls @ 75 mls /hr IV PER RATE [facility] Last Admin: 08/07/18 03:47 Dose: 75 mls/hr Magnesium Oxide (Magox 400 Tab*) 400 mg PO BID [facility] Last Admin: 08/07/18 08:58 Dose: 400 mg Nystatin (Nystatin Top Powder*) 1 applic TOPICAL TID [facility] Last Admin: 08/07/18 14:23 Dose: 1 admin Ondansetron HCl (Zofran Inj*) 4 mg IV Q6H PRN PRN Reason: NAUSEA Potassium Chloride (Klor Con Er Tab*) 20 meq PO DAILY [facility] Last Admin: 08/07/18 08:58 Dose: 20 meq Potassium Phos/Sodium Phos (Neutra Phos 250 Mg Popeye*) 250 mg PO TID [facility] Last Admin: 08/07/18 14:22 Dose: 250 mg Vital Signs - 8 hr 08/07/18 08/07/18 08/07/18 07:32 08:00 11:24 Temperature 97.8 F 97.8 F Pulse Rate 56 64 Respiratory 32 26 28 Rate Blood Pressure 149/55 147/97 (mmHg) O2 Sat by Pulse 96 99 Oximetry Oxygen Devices in Use Now: None Appearance: 88 yo F in nAD, AAOx2, eyes closed, opens them to command only briefly Eyes: No Scleral Icterus, PERRLA Ears/Nose/Mouth/Throat: NL Teeth, Lips, Gums, Mucous Membranes Moist Neck: NL Appearance and Movements; NL JVP, Trachea Midline Respiratory: Symmetrical Chest Expansion and Respiratory Effort Cardiovascular: NL Sounds; No Murmurs; No JVD, RRR Abdominal: NL Sounds; No Tenderness; No Distention Lymphatic: No Cervical Adenopathy Extremities: No Edema, No Clubbing, Cyanosis Skin: No Rash or Ulcers, No Nodules or Sclerosis Neurological: NL Muscle Strength and Tone, - - lethargic - Nutrition: Malnutrition Diagnosis/Plan Malnutrition Assessment by Registered Dietitian: Malnutrition Assessment Clinical Characteristics Chronic,Moderate Malnutrition Assessment: - 16# (14%) to 21# (18%) wt loss x past 7-8 Criteria months - < 75% estimated energy expenditure > 1 month Malnutrition Assessment: Per pt's family, she does drink Ensure at home. Interventions Currently, they are afraid that Ensure will thicken secretions/mucus and make swallowing difficult. They are amenable for her to try Ensure Clear. Will send w/ meals. Ensure Clear: 240 kcals, 8 grams protein per serving. Malnutrition Assessment: Goals 1. Intake will improve to support lean body mass , hydration, and wt repletion - Goal: > 50% of meals as confusion improves Result Diagrams: 08/07/18 05:29 08/07/18 05:29 Additional Lab and Data: 07/27/2018: Ammonia: 33 Lactic acid: 1.0 Creatinine: 1.19 07/26/2018: EEG: mild-moderate encephalopathy MRI Brain with and without contrast: no acute intracranial abnormalities. 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 - LP shows high protein and lymphocytic predominance - viral encephalitis was entertanied. flow cytommertry is neg. - d/c antibiotics: Ceftriaxone as per ID recommendations. Off Acyclovir - Seizure precautions. - She continue to be waxing and wanning in regard to her mentation -as per d/c Dr. West today pt's refusal to eat may be due to depression. Psychiatry consult ordered. 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 Status and Disposition: Inpatient
--- NOTE | 2018-08-07 16:17 | PN ---
Subjective Length of Stay: 12 Days Neurology is following for seizures and confusion state. Interval History: She is resting comfortable. She responded to the examiner to simple questions. She is afraid of dying. She feels sad that she out lived her partner who passed in February and both her previous husbands. She has no appetite. She does not want an NG tube or even to try to take anything by mouth. She denied any pain. She does not want to be a family burden. She feels some aches behind the left leg. Review of Systems: Denied headache or visual disturbance. Denied CP, SOB, or palpitations. Family History: Unchanged from Admission Social History: Unchanged from Admission Past Medical History: Unchanged from Admission Objective Active Medications: Acetaminophen (Tylenol Supp*) 650 mg GA Q4H PRN PRN Reason: FEVER/HEADACHE Last Admin: 07/29/18 01:02 Dose: 650 mg Aspirin (Aspirin Ec Tab*) 81 mg PO DAILY [facility] Last Admin: 08/07/18 08:58 Dose: 81 mg Atorvastatin Calcium (Lipitor*) 10 mg PO DAILY [facility] Last Admin: 08/07/18 08:57 Dose: 10 mg Bisacodyl (Dulcolax Supp*) 10 mg GA DAILY PRN PRN Reason: CONSTIPATION Clopidogrel Bisulfate (Plavix Tab*) 75 mg PO DAILY [facility] Last Admin: 08/07/18 08:57 Dose: 75 mg Divalproex Sodium (Depakote Sprinkle Cap*) 250 mg PO BID [facility] Last Admin: 08/07/18 08:57 Dose: 250 mg Enoxaparin Sodium (Lovenox(*)) 40 mg SUBCUT Q24H [facility] Last Admin: 08/06/18 19:53 Dose: 40 mg Potassium Chloride/Dextrose (D5w Ns 0.9% 20meq Kcl 1000 Ml*) 1,000 mls @ 50 mls /hr IV PER RATE [facility] Last Admin: 08/07/18 15:12 Dose: 50 mls/hr Magnesium Oxide (Magox 400 Tab*) 400 mg PO BID [facility] Last Admin: 08/07/18 08:58 Dose: 400 mg Nystatin (Nystatin Top Powder*) 1 applic TOPICAL TID [facility] Last Admin: 08/07/18 14:23 Dose: 1 admin Ondansetron HCl (Zofran Inj*) 4 mg IV Q6H PRN PRN Reason: NAUSEA Potassium Chloride (Klor Con Er Tab*) 20 meq PO DAILY [facility] Last Admin: 08/07/18 08:58 Dose: 20 meq Potassium Phos/Sodium Phos (Neutra Phos 250 Mg Popeye*) 250 mg PO TID [facility] Last Admin: 08/07/18 14:22 Dose: 250 mg Vital Signs 08/06/18 08/06/18 08/07/18 19:16 20:00 00:07 Temperature 97.8 F 97.8 F Pulse Rate 64 59 Respiratory 28 28 20 Rate Blood Pressure 140/83 140/70 (mmHg) O2 Sat by Pulse 98 Oximetry 08/07/18 08/07/18 08/07/18 04:50 07:32 08:00 Temperature 97.5 F 97.8 F Pulse Rate 57 56 Respiratory 16 32 26 Rate Blood Pressure 156/74 149/55 (mmHg) O2 Sat by Pulse 99 96 Oximetry 08/07/18 11:24 Temperature 97.8 F Pulse Rate 64 Respiratory 28 Rate Blood Pressure 147/97 (mmHg) O2 Sat by Pulse 99 Oximetry Intake and Output Last 24 Hours 08/05/18 08/06/18 08/07/18 08/08/18 06:59 06:59 06:59 06:59 Intake Total 175 1965 3509 0 Output Total 825 1100 1750 625 Balance -446 431 2251 -625 Intake: IV Fluids 1290 3279 D5W 20 meq KCL 1290 2289 Potassium Chloride with 990 10mEq Oral 175 675 230 0 Output: Urine 0 Webster 825 1100 1750 625 Other: Estimated Void Small Large # Bowel Movements 0 # Voids 1 0 Oxygen Devices in Use Now: None Neurology Exam: General: Ill appearing frail female in no acute distress. She would have episodes where she hyperventilates for 10-20 seconds. HEENT: Normocephelic/atraumatic, sclera anicteric, mucous membranes moist Neck: Supple Chest: Clear to auscultation bilaterally Cardiovascular: Regular rate and rhythm without murmurs, rubs, gallops Abdomen: Soft, non-tender/non-distended Extremities: No clubbing, cyanosis, or edema Neurological Findings: Awake, alert, and oriented to person, place, but not time. She has moderate psychmotor slowing. Affect is flat. Mood is down. She repeatedly stated " I don't know" to moderately complex questions or commands. Cranial Nerve: PERRL, EOM intact, VFF, no nystagmus Motor: s/s throughout, reduced tone throughout. Atrophy of the lower extremities bilaterally. moves extremities to command against gravity in the upper extremities but not against gravity in the lower. Sensation: intact to LT/PP bilaterally upper and lower extremities Deep Tendon Reflex: 2+ symmetric in the upper/lower extremities, Babinski - down going Cerebellar: does not participate with examiner Gait: n/a Result Diagrams: 08/07/18 05:29 08/07/18 05:29 Additional Lab and Data: 07/27/2018: Ammonia: 33 Lactic acid: 1.0 Creatinine: 1.19 07/26/2018: EEG: mild-moderate encephalopathy MRI Brain with and without contrast: no acute intracranial abnormalities. 07/25/2018: Vitamin B12: 1019 TSH: 1.76 Urinalysis: negative Laboratory Tests 07/28/18 07/28/18 13:15 13:15 Fluid Source Cerebral spinal Fluid Volume 3.0 Fluid Color Colorless Fluid Appearance Clear Fluid WBC 29 H* Fluid RBC 1 Fluid Tot Cell Count 100 Fluid Lymphocytes 87 Fluid Monocytes 13 CSF Glucose 65 CSF Total Protein 183 H Microbiology and Other Data: Microbiology CSF NGTD Blood Cx NGTD UCx NGTD HSV Neg, Lyme negative Flow Neg for oncologic process Assessment/Plan 1. Viral meningoencephalitis 2. Seizures 3. Malnourished - I had a long discussion with the Layo (son) and Michelle (daughter) today. Mrs. Rodriguez is electively refusing to eat. She is alert to self, place, and has some insight of her situation. She endorsed feeling down and scared about dying. She also mentioned sad due to the the recent loss of her partner in February, and both of her husbands passed prior to that. She definitely has a reason to have encephalopathy earlier on the admission that is related to a viral meningoencephalitis (based on the CSF analysis). She is not having headaches now and is more cognitively interactive (compared to when I saw her in the begining of the month). I shared with the family about my concern that she could be giving up and heading towards the path of dying. 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 The family would like to have palliative care involved to see if she qualifies for hospice. I did bring us the possiblity of starting her on an anti-depressant, preferable having our colleagues from psychiatry's input, about starting mirtazapine (anti-depressant and stimulant). - Leptomeningeal carcinomatosis cannot be entirely excluded as we would need more CSF sample to retest. The patient would not be a good candidate for interthecal chemotherapy. - I agree with increasing Depakote dose to 500 mg twice daily. She does not have any electrographic seizures on today's EEG. - The finding of 2 lytic enhancing lesions of the skull are stable and are not contributing to her cognitive decline. The family was reassured and we reviewed both the imaging and reports dictated by the radiologist. The family is aware that these could be metastatic lesions (less likely) or hemangiomas. The latter is favored since the lesions have not changes since 02/2017. - Continue neuro checks every 4 hours - Leptomeningeal carcinomatosis cannot be entirely excluded as we would need more CSF sample to retest. The patient would not be a good candidate for interthecal chemotherapy. - I will continue to follow Time spent: 60 minutes of which > 50 % was spent counseling the family as mentioned above.
--- NOTE | 2018-08-07 18:20 | CONS ---
PSYCHIATRIC CONSULTATION REPORT: DATE OF CONSULT: 08/07/18 ATTENDING PHYSICIAN: Dr. Caroline Sanchez. CONSULTING PHYSICIAN: Dr. Justin Berger. REASON FOR CONSULT: Possible delirium and possible depression. SUBJECTIVE HISTORY: The patient is an 88-year-old white female with a past medical history of diffuse B-cell lymphoma, in full remission; plus stroke and hyperlipidemia, who is a current resident at [facility], who was brought to the emergency room initially on 07/25/18 due to altered mental status. My understanding is that since admission, she had a witnessed seizure at least one time and is now being actively managed with the assistance of the neurology team and perhaps doing better on Depakote therapy. One area that has not improved unfortunately is her alertness as well as her willingness to take p.o. nutrition. At one point, the team placed a nasogastric tube, but this was pulled by the patient and she is documented as having a waxing and waning sensorium since admission. At this time, she is now going on close to 12 days without eating anything truly nourishing. The primary team is wondering if perhaps latent depression is one of the contributing factors to her presentation. When I entered the room, the patient is accompanied by her son, Hakan and her daughter, Michelle. They indicate that the patient has gone through multiple psychosocial stressors within the last year because of her lymphoma diagnosis and treatment. 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 Thereafter, she left her next door neighbor, which was also her romantic partner of several decades. He ended up dying in February 2018 and she had a significant loss from this. They indicate that she does not like hospital settings and tends to be very independent and stubborn at her baseline. I asked them about depression and they endorsed that it was highly likely that she was depressed given her ongoing irritability prior to this set of circumstances and from what they could understand of her situation. I did try to interview the patient; however , she is minimally responsive. The only question that seems to arouse her is when I ask about suicidal ideations to which she opens her eyes, looks straight at me and says "of course not." She is unable to answer questions related to neurovegetative symptoms of depression. PAST PSYCHIATRIC HISTORY: The patient is treated by Dr. Jander in the outpatient setting, who treated her in the past with mirtazapine. The patient did well on this during the transition from independent living to going to [place] and this medication was subsequently discontinued in the fall after it was deemed that the patient no longer needed it. She has never been on any other antidepressant treatments, has never received psychotherapy and has never been hospitalized as far as the family is aware. The patient has no history of suicidal or homicidal behavior, violence towards herself or others. SUBSTANCE ABUSE HISTORY: Negative for alcohol, tobacco, or illicit drugs. She is described as a "teetotaler." PAST MEDICAL HISTORY: Significant for beta-cell lymphoma, status post R-CHOP, finished in September of 2017 with full remission. There is a history of stroke in 2011 with some residual deficits and hyperlipidemia. PAST SURGICAL HISTORY: She has had cataract, status post tonsillectomy, status post cholecystectomy. OUTPATIENT MEDICATIONS: Include: 1. Plavix 75 mg. 2. Lipitor 10 mg. ALLERGIES: She has no known drug allergies. FAMILY HISTORY: Negative for mental health or suicidal concerns. SOCIAL HISTORY: The patient was born in [place], [place] and then grew up in [place]. Both her first and second husbands prematurely. 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 She has 5 total children. She is not worship or spiritual. She has no history of service. Currently, she is not in any significant relationships. Most recently, she has been residing in assisted living at [place]. Her daughter is her healthcare proxy. MENTAL STATUS EXAM: The patient is an aging, frail-appearing, undernourished white female with barbosa hair, who is lying in bed. She is minimally interactive. Speech is limited to single fallible responses with one exception when asked about suicidality, which she denies. Mood is difficult to assess, although her affect certainly seems somewhat constricted. Thought process is uncertain at this time as is thought content. Insight and judgment would appear to be markedly impaired given her refusal of food. Cognitively, she is somnolent, arousable, but not very alert. DIAGNOSES: As follows: Acra I: Delirium, likely secondary to seizure, rule out major depression. Acra II: Deferred. IMPRESSION: The patient is an 88-year-old white female with a history of lymphoma and remote stroke, who arrived in the hospital 2 weeks ago with altered mental status, who has not been eating and continues to show signs and symptoms of a waxing and waning sensorium. Psychiatry agrees with Dr. Guardado' s neurological assessment that the patient is encephalopathic and treatment is ongoing with the neurology team. I can say clearly at this point that the patient does not have capacity to make informed medical decisions and if the primary team deems it medically necessary, the patient cannot refuse NG tube placement. Her family is very much in favor of this. RECOMMENDATIONS TO PRIMARY TEAM: Given the patient's successful treatment with mirtazapine in the past, Psychiatry recommends resuming this at a 7.5 mg nightly dose. If nothing else, this will likely stimulate her appetite. Treatment for encephalopathy is deferred to the neurology team. The patient does not have capacity to refuse NG tube placement if this is deemed to be indicated by the primary team. Psychiatry is signing off, but can be reconsulted in the event of any significant changes in the patient's presentation. Thank you for the consult. [id number]/[facility]AYDA #: [id number] ALON
[2018-08-07] MEDS: Enoxaparin(*) 40 MG/0.4 ML SYR SUBCUT SCH (19:54)
[2018-08-07] MEDS: Mirtazapine TAB* 15 MG PO SCH (19:57)
--- NOTE | 2018-08-07 23:51 | EEG ---
ELECTROENCEPHALOGRAPHY: DATE OF STUDY: 08/07/18 - ROOM #433 DATE READ: 08/07/18 RECORDING TIME: 1141 to 1207. ORDERED BY: Dr. Brian Guardado. INDICATION: Mrs. Marlys Rodriguez is an 88-year-old female with a diagnosis of viral meningoencephalitis, who presented with confusions, seizures, and has persistent encephalopathy. This EEG was requested to evaluate for epileptiform abnormalities or electrographic seizures. During the first 60 seconds of the recording, there were diffuse, sharply contoured, semi-continuous pattern of 2-3 Hz delta slowing, sharp broad wave slowing seen in the bifrontal region. This type of pattern waxed and waned and was seen throughout the beginning part of the recording. Otherwise, the background lacked organization or clearly defined anterior-posterior voltage or frequency gradients. There was no discernible posterior dominant rhythm, instead the background consisted of diffuse, medium amplitude, polymorphic, 3-7 Hz delta and theta slowing. At times, the delta slowing became sharply contoured and took on a biphasic and triphasic morphology. There was emergence of some faster frequencies with verbal and tactile stimulation. Hyperventilation and photic stimulation were not performed. Single electrode EKG showed normal sinus rhythm with a rate of 70 beats per minute. IMPRESSION: This is an abnormal EEG due to the presence of diffuse but reactive slowing with intervals of semi-rhythmic broad-shaped delta slowing in the frontal regions. These findings are suggestive of a nonspecific moderate diffuse encephalopathy, which can be seen in the setting of toxic-metabolic disturbance, hypoxic-ischemic injury, post-ictal state, neurodegenerative disorder, or due to the result of medication. Clinical correlation is recommended. [id number]/[facility] #: [id number] [facility]
[2018-08-08] MEDS: Aspirin EC TAB* 81 MG TAB.EC PO SCH (09:52)
[2018-08-08] MEDS: Divalproex Sprinkle CAP* 125 MG PO SCH (09:52)
[2018-08-08] MEDS: Atorvastatin* 10 MG TAB PO SCH (09:53)
[2018-08-08] MEDS: Potassium Chlor TAB* 20 MEQ TAB.ER PO SCH (09:53)
[2018-08-08] MEDS: Potassium & Sodium Phos 250MG* = 1 PACKET PO SCH ×3 (09:53→20:41)
[2018-08-08] MEDS: Magnesium Oxide TAB* 400 MG PO SCH ×2 (09:53→20:40)
[2018-08-08] MEDS: Clopidogrel TAB* 75 MG PO SCH (09:53)
[2018-08-08] MEDS: Nystatin TOP POWDER* 15 GM BTL TOPICAL SCH ×3 (09:53→20:40)
[2018-08-08] MEDS: D5W NS 0.9% 20Meq KCL 1000 ML* 1,000 ML IV SCH (16:50)
--- NOTE | 2018-08-08 17:01 | PN ---
Subjective Date of Service: 08/08/18 Length of Stay: 13 Days Neurology is following for persistent encephalopathy. Interval History: She is still excessively drowsy. She has not received the dose of Depakote this morning as she is refusing any PO intake. An NG was attempted yesterday but she yelled out to the nurse to "never try to put that again." She is clearly refusing care apart of it has to do with her encephalopathy. Family want to have the NG in place, but are disturbed by their mother's reaction of pain and discomfort. The family refused to consider a PEG tube placement because clearly the patient had stated when she is coherent that she would never want it placed. There has been no reported seizures. Reviewed psychiatry consultation. Mirtazipine was started last night. Review of Systems: She nodded no to headaches or visual disturbance. Family History: Unchanged from Admission Social History: Unchanged from Admission Past Medical History: Unchanged from Admission Objective Active Medications: Acetaminophen (Tylenol Supp*) 650 mg [place] Q4H PRN PRN Reason: FEVER/HEADACHE Last Admin: 07/29/18 01:02 Dose: 650 mg Aspirin (Aspirin Ec Tab*) 81 mg PO DAILY [facility] Last Admin: 08/08/18 09:52 Dose: Not Given Atorvastatin Calcium (Lipitor*) 10 mg PO DAILY [facility] Last Admin: 08/08/18 09:53 Dose: Not Given Bisacodyl (Dulcolax Supp*) 10 mg [place] DAILY PRN PRN Reason: CONSTIPATION Clopidogrel Bisulfate (Plavix Tab*) 75 mg PO DAILY [facility] Last Admin: 08/08/18 09:53 Dose: Not Given Divalproex Sodium (Depakote Sprinkle Cap*) 250 mg PO BID [facility] Last Admin: 08/08/18 09:52 Dose: Not Given Enoxaparin Sodium (Lovenox(*)) 40 mg SUBCUT Q24H [facility] Last Admin: 08/07/18 19:54 Dose: 40 mg Potassium Chloride/Dextrose (D5w Ns 0.9% 20meq Kcl 1000 Ml*) 1,000 mls @ 50 mls /hr IV PER RATE [facility] Last Admin: 08/08/18 16:50 Dose: 50 mls/hr Magnesium Oxide (Magox 400 Tab*) 400 mg PO BID [facility] Last Admin: 08/08/18 09:53 Dose: Not Given Mirtazapine (Remeron Tab*) 7.5 mg PO BEDTIME [facility] Last Admin: 08/07/18 19:57 Dose: 7.5 mg Nystatin (Nystatin Top Powder*) 1 applic TOPICAL TID [facility] Last Admin: 08/08/18 14:50 Dose: 1 admin Ondansetron HCl (Zofran Inj*) 4 mg IV Q6H PRN PRN Reason: NAUSEA Potassium Chloride (Klor Con Er Tab*) 20 meq PO DAILY [facility] Last Admin: 08/08/18 09:53 Dose: Not Given Potassium Phos/Sodium Phos (Neutra Phos 250 Mg Popeye*) 250 mg PO TID [facility] Last Admin: 08/08/18 14:38 Dose: Not Given Vital Signs 08/07/18 08/07/18 08/07/18 19:41 20:00 23:25 Temperature 98.0 F 97.3 F Pulse Rate 101 66 Respiratory 24 20 24 Rate Blood Pressure 155/90 120/87 (mmHg) O2 Sat by Pulse 96 100 Oximetry 08/08/18 08/08/18 08/08/18 03:37 07:38 08:00 Temperature 97.6 F 98.7 F Pulse Rate 57 55 Respiratory 20 24 26 Rate Blood Pressure 142/71 157/63 (mmHg) O2 Sat by Pulse 98 97 Oximetry 08/08/18 08/08/18 11:11 15:06 Temperature 97.0 F 98.2 F Pulse Rate 59 68 Respiratory 28 20 Rate Blood Pressure 116/56 123/54 (mmHg) O2 Sat by Pulse 96 97 Oximetry Intake and Output Last 24 Hours 08/06/18 08/07/18 08/08/18 08/09/18 06:59 06:59 06:59 06:59 Intake Total 1965 3509 1406 364 Output Total 1100 1750 625 0 Balance 865 1759 781 364 Intake: IV Fluids 1290 3279 1306 349 D5W 20 meq KCL 1290 2289 1306 349 Potassium Chloride with 990 10mEq Oral 675 230 100 15 Output: Urine 0 Webster 1100 1750 625 Other: Estimated Void Large Large # Voids 1 1 Oxygen Devices in Use Now: None Neurology Exam: General: Ill appearing frail female in no acute distress. She would have episodes where she hyperventilates for 10-20 seconds. HEENT: Normocephelic/atraumatic, sclera anicteric, mucous membranes moist Neck: Supple Chest: Clear to auscultation bilaterally Cardiovascular: Regular rate and rhythm without murmurs, rubs, gallops Abdomen: Soft, non-tender/non-distended Extremities: No clubbing, cyanosis, or edema Neurological Findings: Awake, alert, and oriented to person, place, but not time. She has moderate psychmotor slowing. Affect is flat. Mood is down. She repeatedly stated " I don't know" to moderately complex questions or commands. She did count fingers today. She knew who her daughter was at bedside. Cranial Nerve: PERRL, EOM intact, VFF, no nystagmus Motor: s/s throughout, reduced tone throughout. Atrophy of the lower extremities bilaterally. moves extremities to command against gravity in the upper extremities but not against gravity in the lower. Sensation: intact to LT/PP bilaterally upper and lower extremities Deep Tendon Reflex: 2+ symmetric in the upper/lower extremities, Babinski - down going Cerebellar: does not participate with examiner Gait: n/a Result Diagrams: 08/07/18 05:29 08/07/18 05:29 Additional Lab and Data: 07/27/2018: Ammonia: 33 Lactic acid: 1.0 Creatinine: 1.19 07/26/2018: EEG: mild-moderate encephalopathy MRI Brain with and without contrast: no acute intracranial abnormalities. 07/25/2018: Vitamin B12: 1019 TSH: 1.76 Urinalysis: negative Laboratory Tests 07/28/18 07/28/18 13:15 13:15 Fluid Source Cerebral spinal Fluid Volume 3.0 Fluid Color Colorless Fluid Appearance Clear Fluid WBC 29 H* Fluid RBC 1 Fluid Tot Cell Count 100 Fluid Lymphocytes 87 Fluid Monocytes 13 CSF Glucose 65 CSF Total Protein 183 H Microbiology and Other Data: Microbiology CSF NGTD Blood Cx NGTD UCx NGTD HSV Neg, Lyme negative Flow Neg for oncologic process Assessment/Plan 1. Persistent encephalopathy manifesting as hypoactive delirium- due to the combination of viral meningoencephalitis, post-ictal state secondary to seizures , and malnourished state. She will have an overall poor prognosis if she persists in this state. She has no evidence of an ongoing infection or electrolyte disturbance. Continue neuro checks every 4 hours. Continue IV fluids. 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 3. Malnourished state, anorexia- started mirtazapine. She refused an NG. The family would like the nurse to re-attempt the NG. The patient's wishes are clear to no PEG placement. I will continue to follow. Consider palliative care consultation.
--- NOTE | 2018-08-08 17:45 | PN ---
Subjective Date of Service: 08/08/18 Interval History: Pt denies pain, states she feels "ok". Will respond quickly and appropriately to questions if directly asked, but otherwise does not open eyes or engage in conversation. Apparently has taken in sips of Ensure. Daughter Pooja at bedside requesting another NG tube. Given tremendous distress caused by prior 2 NG tubes, and likelihood that patient will again remove it, will currently not pursue placement again at this time, and sedation and/or restraints should be avoided in this patient who is already having fluctuations in her mental status. Started on mirtazepine last night but refused morning medications. Neuro switched to IV depakote. Palliative care following. Likely that patient would do better out of the hospital setting - unclear if hospice candidate vs home with [employer]. Pt either not participating in or too delirious to follow commands and leave her bed to sit in chair. Family History: Unchanged from Admission Social History: Unchanged from Admission Past Medical History: Unchanged from Admission Objective Active Medications: Acetaminophen (Tylenol Supp*) 650 mg [place] Q4H PRN PRN Reason: FEVER/HEADACHE Last Admin: 07/29/18 01:02 Dose: 650 mg Aspirin (Aspirin Ec Tab*) 81 mg PO DAILY [facility] Last Admin: 08/08/18 09:52 Dose: Not Given Bisacodyl (Dulcolax Supp*) 10 mg [place] DAILY PRN PRN Reason: CONSTIPATION Clopidogrel Bisulfate (Plavix Tab*) 75 mg PO DAILY [facility] Last Admin: 08/08/18 09:53 Dose: Not Given Enoxaparin Sodium (Lovenox(*)) 40 mg SUBCUT Q24H [facility] Last Admin: 08/08/18 20:40 Dose: 40 mg Potassium Chloride/Dextrose (D5w Ns 0.9% 20meq Kcl 1000 Ml*) 1,000 mls @ 50 mls /hr IV PER RATE [facility] Last Admin: 08/08/18 16:50 Dose: 50 mls/hr Valproic Acid 250 mg/ Sodium (Chloride) 102.5 mls @ 205 mls/hr IVPB Q12H [facility] Last Admin: 08/08/18 20:41 Dose: 205 mls/hr Mirtazapine (Remeron Tab*) 7.5 mg PO BEDTIME [facility] Last Admin: 08/08/18 20:41 Dose: 7.5 mg Nystatin (Nystatin Top Powder*) 1 applic TOPICAL TID [facility] Last Admin: 08/08/18 20:40 Dose: 1 admin Vital Signs - 8 hr 08/08/18 08/08/18 11:11 15:06 Temperature 97.0 F 98.2 F Pulse Rate 59 68 Respiratory 28 20 Rate Blood Pressure 116/56 123/54 (mmHg) O2 Sat by Pulse 96 97 Oximetry Oxygen Devices in Use Now: None Appearance: NAD, AOx2, eyes tightly closed but will open to command Ears/Nose/Mouth/Throat: Clear Oropharnyx, Mucous Membranes Moist Neck: NL Appearance and Movements; NL JVP Respiratory: Clear to Auscultation Cardiovascular: RRR Abdominal: No Hepatosplenomegaly, - - no grimace to palpation, no guarding/ rebound Lymphatic: No Cervical Adenopathy Extremities: No Edema Skin: No Rash or Ulcers Result Diagrams: 08/07/18 05:29 08/07/18 05:29 Microbiology and Other Data: Microbiology CSF NGTD Blood Cx NGTD UCx NGTD HSV Neg, Lyme negative Flow Neg for oncologic process Assess/Plan/Problems-Billing 1. Persistent encephalopathy manifesting as hypoactive delirium- due to the combination of viral meningoencephalitis, post-ictal state secondary to seizures , and malnourished state. She will have an overall poor prognosis if she persists in this state. She has no evidence of an ongoing infection or electrolyte disturbance. Continue neuro checks every 4 hours. Continue IV fluids. 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 3. Malnourished state, anorexia- started mirtazapine. She refused an NG. The family would like the nurse to re-attempt the NG. The patient's wishes are clear to no PEG placement. I will continue to follow. Consider palliative care consultation. - Patient Problems (1) Encephalopathy acute Current Visit: Yes Comment: MRI brain was negative. LP shows high protein and lymphocytic predominance - viral encephalitis vs aseptic meningitis. Flow cytommertry is neg. Now with waxing and waning course, with refusal to eat possibly from depression vs delirium (from infection, seizure, medication adverse effects). Off abx. - Seizure precautions; now on IV depakote - Neuro and Pall Care following; psych recommending mirtazepine (2) CVA (cerebral vascular accident) Comment: 2011 without residual deficit - Continue lipitor 10 mg HS , plavix,aspirin 81 mg daily; although my consider DC if not consistent with patients goals of care- will continue to readdress conversation; currently refusing most medications (3) Moderate protein-calorie malnutrition Comment: not eating enough, family stated that a trial of NG failed in the past- pt pulled it twice. Pt was clear prior to illness that she would never want PEG. 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 Status and Disposition: Inpatient
[2018-08-08] MEDS: Enoxaparin(*) 40 MG/0.4 ML SYR SUBCUT SCH (20:40)
[2018-08-08] MEDS: Mirtazapine TAB* 15 MG PO SCH (20:41)
[2018-08-08] MEDS: Valproic Acid IV(*) 250 MG in NS 0.9% 100 ML* 100 ML IVPB SCH (20:41)
[2018-08-08] MEDS ORDERED: Valproic Acid IV(*) 100 MG/ML 5 ML VIAL (500 MG) IVPB SCH (21:00)
[2018-08-09 07:15] LABS: BUN/Creatinine Ratio 13.9 (8-20); Calcium 8.3 mg/dL (8.6-10.3); EGFR African American 83.1 (>60); EGFR Non-African American 68.7 (>60); Potassium 3.9 mmol/L (3.5-5.0)
[2018-08-09] MEDS: Clopidogrel TAB* 75 MG PO SCH (08:00)
[2018-08-09] MEDS: Aspirin EC TAB* 81 MG TAB.EC PO SCH (08:00)
[2018-08-09] MEDS: Nystatin TOP POWDER* 15 GM BTL TOPICAL SCH ×3 (08:35→20:09)
[2018-08-09] MEDS: Valproic Acid IV(*) 250 MG in NS 0.9% 100 ML* 100 ML IVPB SCH (08:35)
--- NOTE | 2018-08-09 08:50 | PN ---
Subjective Date of Service: 08/09/18 Interval History: No overnight events. Pt took her PM medications last night and got up (assisted ) to use the commode. Much more interactive on interview, much brighter. States she would like to return to [place] with a FIN[employer]CIAL PLANNING ADVISER. Not seen by PT yet. Reports improved appetite and took in a few sips of milk shake on interview. Denies pain or discomfort. Family History: Unchanged from Admission Social History: Unchanged from Admission Past Medical History: Unchanged from Admission Objective Active Medications: Acetaminophen (Tylenol Supp*) 650 mg [place] Q4H PRN PRN Reason: FEVER/HEADACHE Last Admin: 07/29/18 01:02 Dose: 650 mg Aspirin (Aspirin Ec Tab*) 81 mg PO DAILY [facility] Last Admin: 08/09/18 08:00 Dose: 81 mg Bisacodyl (Dulcolax Supp*) 10 mg [place] DAILY PRN PRN Reason: CONSTIPATION Clopidogrel Bisulfate (Plavix Tab*) 75 mg PO DAILY [facility] Last Admin: 08/09/18 08:00 Dose: 75 mg Enoxaparin Sodium (Lovenox(*)) 40 mg SUBCUT Q24H [facility] Last Admin: 08/08/18 20:40 Dose: 40 mg Potassium Chloride/Dextrose (D5w Ns 0.9% 20meq Kcl 1000 Ml*) 1,000 mls @ 50 mls /hr IV PER RATE [facility] Last Admin: 08/08/18 16:50 Dose: 50 mls/hr Valproic Acid 250 mg/ Sodium (Chloride) 102.5 mls @ 205 mls/hr IVPB Q12H [facility] Last Admin: 08/09/18 08:35 Dose: 205 mls/hr Mirtazapine (Remeron Tab*) 7.5 mg PO BEDTIME [facility] Last Admin: 08/08/18 20:41 Dose: 7.5 mg Nystatin (Nystatin Top Powder*) 1 applic TOPICAL TID [facility] Last Admin: 08/09/18 08:35 Dose: 1 admin Vital Signs - 8 hr 08/09/18 08/09/18 03:18 07:36 Temperature 97.6 F 97.7 F Pulse Rate 59 59 Respiratory 18 28 Rate Blood Pressure 139/71 139/78 (mmHg) O2 Sat by Pulse 97 99 Oximetry Oxygen Devices in Use Now: None Appearance: alert, interactive, nontoxic Ears/Nose/Mouth/Throat: Clear Oropharnyx, Mucous Membranes Moist Neck: NL Appearance and Movements; NL JVP Respiratory: Clear to Auscultation Cardiovascular: RRR Abdominal: NL Sounds; No Tenderness; No Distention Lymphatic: No Cervical Adenopathy Extremities: No Edema Neurological: NL Sensation, NL Muscle Strength and Tone, - - only know location , not date - Nutrition: Malnutrition Diagnosis/Plan Malnutrition Assessment by Registered Dietitian: Malnutrition Assessment Clinical Characteristics Chronic,Moderate Malnutrition Assessment: - 16# (14%) to 21# (18%) wt loss x past 7-8 Criteria months - < 75% estimated energy expenditure > 1 month Malnutrition Assessment: Per pt's family, she does drink Ensure at home. Interventions Currently, they are afraid that Ensure will thicken secretions/mucus and make swallowing difficult. They are amenable for her to try Ensure Clear. Will send w/ meals. Ensure Clear: 240 kcals, 8 grams protein per serving. Malnutrition Assessment: Goals 1. Intake will improve to support lean body mass , hydration, and wt repletion - Goal: > 50% of meals as confusion improves Result Diagrams: 08/07/18 05:29 08/09/18 06:22 Additional Lab and Data: 07/27/2018: Ammonia: 33 Lactic acid: 1.0 Creatinine: 1.19 07/26/2018: EEG: mild-moderate encephalopathy MRI Brain with and without contrast: no acute intracranial abnormalities. 07/25/2018: Vitamin B12: 1019 TSH: 1.76 Urinalysis: negative Laboratory Tests 07/28/18 07/28/18 13:15 13:15 Fluid Source Cerebral spinal Fluid Volume 3.0 Fluid Color Colorless Fluid Appearance Clear Fluid WBC 29 H* Fluid RBC 1 Fluid Tot Cell Count 100 Fluid Lymphocytes 87 Fluid Monocytes 13 CSF Glucose 65 CSF Total Protein 183 H Microbiology and Other Data: Microbiology CSF NGTD Blood Cx NGTD UCx NGTD HSV Neg, Lyme negative Flow Neg for oncologic process Assess/Plan/Problems-Billing 1. Persistent encephalopathy manifesting as hypoactive delirium- due to the combination of viral meningoencephalitis, post-ictal state secondary to seizures , and malnourished state. She will have an overall poor prognosis if she persists in this state. She has no evidence of an ongoing infection or electrolyte disturbance. Continue neuro checks every 4 hours. Continue IV fluids. 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 3. Malnourished state, anorexia- started mirtazapine. She refused an NG. The family would like the nurse to re-attempt the NG. The patient's wishes are clear to no PEG placement. I will continue to follow. Consider palliative care consultation. - Patient Problems (1) Encephalopathy acute Current Visit: Yes Comment: MRI brain was negative. LP shows high protein and lymphocytic predominance. Flow cytommertry is neg. Now with waxing and waning course, with refusal to eat possibly from depression vs delirium (from infection , seizure, medication adverse effects). Off abx. - Seizure precautions; now on IV depakote - Neuro and Pall Care following; psych recommending mirtazepine (2) CVA (cerebral vascular accident) Comment: 2011 without residual deficit - Continue lipitor 10 mg HS , plavix,aspirin 81 mg daily; although my consider DC if not consistent with patients goals of care- will continue to readdress conversation; currently refusing most medications (3) Moderate protein-calorie malnutrition Comment: not eating enough, family stated that a trial of NG failed in the past- pt pulled it twice. Pt was clear prior to illness that she would never want PEG. (4) Seizure Comment: - On Depakote per neuro (5) B-cell lymphoma Comment: - s/p R-CHOP therapy in full remission completed in September 2017 (6) DVT prophylaxis Comment: Lovenox. Status and Disposition: Needs to be evaluated by PT. Possibly back to [place] with FINANCIAL PLANNING ADVISER/PT, or may need rehab.
--- NOTE | 2018-08-09 14:54 | PN ---
Subjective Date of Service: 08/09/18 Length of Stay: 14 Days Neurology is following for encephalopathy. Interval History: She is more awake and cooperative. She was able to eat at least 25% of her breakfast today. She was able to take a few steps and use the commode. She is tolerating the current regiment of Depakote and mirtazipine. She denied any headaches or visual disturbance. Review of Systems: Denied CP, SOB, or palpitations. Family History: Unchanged from Admission Social History: Unchanged from Admission Past Medical History: Unchanged from Admission Objective Active Medications: Acetaminophen (Tylenol Supp*) 650 mg [place] Q4H PRN PRN Reason: FEVER/HEADACHE Last Admin: 07/29/18 01:02 Dose: 650 mg Aspirin (Aspirin Ec Tab*) 81 mg PO DAILY [facility] Last Admin: 08/09/18 08:00 Dose: 81 mg Bisacodyl (Dulcolax Supp*) 10 mg [place] DAILY PRN PRN Reason: CONSTIPATION Clopidogrel Bisulfate (Plavix Tab*) 75 mg PO DAILY [facility] Last Admin: 08/09/18 08:00 Dose: 75 mg Enoxaparin Sodium (Lovenox(*)) 40 mg SUBCUT Q24H [facility] Last Admin: 08/08/18 20:40 Dose: 40 mg Potassium Chloride/Dextrose (D5w Ns 0.9% 20meq Kcl 1000 Ml*) 1,000 mls @ 50 mls /hr IV PER RATE [facility] Last Admin: 08/08/18 16:50 Dose: 50 mls/hr Valproic Acid 250 mg/ Sodium (Chloride) 102.5 mls @ 205 mls/hr IVPB Q12H [facility] Last Admin: 08/09/18 08:35 Dose: 205 mls/hr Mirtazapine (Remeron Tab*) 7.5 mg PO BEDTIME [facility] Last Admin: 08/08/18 20:41 Dose: 7.5 mg Nystatin (Nystatin Top Powder*) 1 applic TOPICAL TID [facility] Last Admin: 08/09/18 14:11 Dose: Not Given Vital Signs 08/08/18 08/08/18 08/08/18 15:06 20:00 23:23 Temperature 98.2 F 97.5 F Pulse Rate 68 65 Respiratory 20 20 24 Rate Blood Pressure 123/54 138/84 (mmHg) O2 Sat by Pulse 97 98 Oximetry 08/09/18 08/09/18 08/09/18 03:18 07:36 08:00 Temperature 97.6 F 97.7 F Pulse Rate 59 59 Respiratory 18 28 28 Rate Blood Pressure 139/71 139/78 (mmHg) O2 Sat by Pulse 97 99 Oximetry 08/09/18 11:49 Temperature 98.5 F Pulse Rate 60 Respiratory 22 Rate Blood Pressure 134/58 (mmHg) O2 Sat by Pulse 100 Oximetry Intake and Output Last 24 Hours 08/07/18 08/08/18 08/09/18 08/10/18 06:59 06:59 06:59 06:59 Intake Total 3509 1406 1245 Output Total 1750 625 400 350 Balance 1759 781 845 -350 Intake: IV Fluids 3279 1306 1110 D5W 20 meq KCL 2289 1306 1080 Potassium Chloride with 990 10mEq Valproic acid 30 IVPB 100 Valproic acid 100 Oral 230 100 35 Output: Urine 400 350 Webster 1750 625 Other: Estimated Void Large Large # Voids 1 1 Oxygen Devices in Use Now: None Neurology Exam: General: Ill appearing frail female in no acute distress. HEENT: Normocephelic/atraumatic, sclera anicteric, mucous membranes moist Neck: Supple Chest: Clear to auscultation bilaterally Cardiovascular: Regular rate and rhythm without murmurs, rubs, gallops Abdomen: Soft, non-tender/non-distended Extremities: No clubbing, cyanosis, or edema Neurological Findings: Awake, alert, and oriented to person, place, but not time. She has mild psychmotor slowing. Cranial Nerve: PERRL, EOM intact, VFF, no nystagmus. Her eyes are open and she is able to track. Motor: s/s throughout, reduced tone throughout. Atrophy of the lower extremities bilaterally. moves extremities to command against gravity in the upper extremities but not against gravity in the lower. Sensation: intact to LT/PP bilaterally upper and lower extremities Deep Tendon Reflex: 2+ symmetric in the upper/lower extremities, Babinski - down going Cerebellar: normal but slow finger to nose bilaterally. Gait: n/a Result Diagrams: 08/07/18 05:29 08/09/18 06:22 Additional Lab and Data: 07/27/2018: Ammonia: 33 Lactic acid: 1.0 Creatinine: 1.19 07/26/2018: EEG: mild-moderate encephalopathy MRI Brain with and without contrast: no acute intracranial abnormalities. 07/25/2018: Vitamin B12: 1019 TSH: 1.76 Urinalysis: negative Laboratory Tests 07/28/18 07/28/18 13:15 13:15 Fluid Source Cerebral spinal Fluid Volume 3.0 Fluid Color Colorless Fluid Appearance Clear Fluid WBC 29 H* Fluid RBC 1 Fluid Tot Cell Count 100 Fluid Lymphocytes 87 Fluid Monocytes 13 CSF Glucose 65 CSF Total Protein 183 H Microbiology and Other Data: Microbiology CSF NGTD Blood Cx NGTD UCx NGTD HSV Neg, Lyme negative Flow Neg for oncologic process Assessment/Plan 1. Persistent encephalopathy manifesting as hypoactive delirium- slowly improving but she continues to have cognitive and psychmotor slowing. This is most likely due to the combination of viral meningoencephalitis, post-ictal state secondary to seizures, and malnourished state. Continue IV fluids. Encouraged PO intake. Continue lower dose of Depakote. Switched Depakote to sprinkles 250 mg PO twice daily. I will continue to follow.
[2018-08-09] MEDS: D5W NS 0.9% 20Meq KCL 1000 ML* 1,000 ML IV SCH (14:58)
[2018-08-09] MEDS: Divalproex Sprinkle CAP* 125 MG PO SCH (20:08)
[2018-08-09] MEDS: Enoxaparin(*) 40 MG/0.4 ML SYR SUBCUT SCH (20:08)
[2018-08-09] MEDS: Mirtazapine TAB* 15 MG PO SCH (20:09)
[2018-08-09] MEDS ORDERED: Divalproex Sprinkle CAP* 125 MG PO SCH (21:00)
[2018-08-10] MEDS ORDERED: Polyethylene Glycol 3350* 17 GM PACKET PO PRN (08:38)
[2018-08-10] MEDS ORDERED: Glycerin ADULT SUPP PR ONE (08:38)
--- NOTE | 2018-08-10 08:40 | PN ---
Subjective Date of Service: 08/10/18 Interval History: Needs to see PT today. Alert and interactive overnight, still no BM. Will advance bowel regimen. Back on oral Depakote. Sleepier on exam today - less interactive but alert to voice and with brief answers to questions. Denies distress or pain. Family History: Unchanged from Admission Social History: Unchanged from Admission Past Medical History: Unchanged from Admission Objective Active Medications: Acetaminophen (Tylenol Supp*) 650 mg [place] Q4H PRN PRN Reason: FEVER/HEADACHE Last Admin: 07/29/18 01:02 Dose: 650 mg Aspirin (Aspirin Ec Tab*) 81 mg PO DAILY [facility] Last Admin: 08/09/18 08:00 Dose: 81 mg Bisacodyl (Dulcolax Supp*) 10 mg [place] DAILY PRN PRN Reason: CONSTIPATION Clopidogrel Bisulfate (Plavix Tab*) 75 mg PO DAILY [facility] Last Admin: 08/09/18 08:00 Dose: 75 mg Divalproex Sodium (Depakote Sprinkle Cap*) 250 mg PO BID [facility] Last Admin: 08/09/18 20:08 Dose: 250 mg Enoxaparin Sodium (Lovenox(*)) 40 mg SUBCUT Q24H [facility] Last Admin: 08/09/18 20:08 Dose: 40 mg Potassium Chloride/Dextrose (D5w Ns 0.9% 20meq Kcl 1000 Ml*) 1,000 mls @ 50 mls /hr IV PER RATE [facility] Last Admin: 08/09/18 14:58 Dose: 50 mls/hr Mirtazapine (Remeron Tab*) 7.5 mg PO BEDTIME [facility] Last Admin: 08/09/18 20:09 Dose: 7.5 mg Vital Signs - 8 hr 08/10/18 08/10/18 03:28 07:48 Temperature 97.7 F 97.4 F Pulse Rate 88 51 Respiratory 20 20 Rate Blood Pressure 140/88 154/55 (mmHg) O2 Sat by Pulse 98 98 Oximetry Oxygen Devices in Use Now: None - Nutrition: Malnutrition Diagnosis/Plan Malnutrition Assessment by Registered Dietitian: Malnutrition Assessment Clinical Characteristics Chronic,Moderate Malnutrition Assessment: - 16# (14%) to 21# (18%) wt loss x past 7-8 Criteria months - < 75% estimated energy expenditure > 1 month Malnutrition Assessment: Per pt's family, she does drink Ensure at home. Interventions Currently, they are afraid that Ensure will thicken secretions/mucus and make swallowing difficult. They are amenable for her to try Ensure Clear. Will send w/ meals. Ensure Clear: 240 kcals, 8 grams protein per serving. Malnutrition Assessment: Goals 1. Intake will improve to support lean body mass , hydration, and wt repletion - Goal: > 50% of meals as confusion improves Result Diagrams: 08/07/18 05:29 08/09/18 06:22 Additional Lab and Data: 07/27/2018: Ammonia: 33 Lactic acid: 1.0 Creatinine: 1.19 07/26/2018: EEG: mild-moderate encephalopathy MRI Brain with and without contrast: no acute intracranial abnormalities. 07/25/2018: Vitamin B12: 1019 TSH: 1.76 Urinalysis: negative Laboratory Tests 07/28/18 07/28/18 13:15 13:15 Fluid Source Cerebral spinal Fluid Volume 3.0 Fluid Color Colorless Fluid Appearance Clear Fluid WBC 29 H* Fluid RBC 1 Fluid Tot Cell Count 100 Fluid Lymphocytes 87 Fluid Monocytes 13 CSF Glucose 65 CSF Total Protein 183 H Microbiology and Other Data: Microbiology CSF NGTD Blood Cx NGTD UCx NGTD HSV Neg, Lyme negative Flow Neg for oncologic process Assess/Plan/Problems-Billing 1. Persistent encephalopathy manifesting as hypoactive delirium- due to the combination of viral meningoencephalitis, post-ictal state secondary to seizures , and malnourished state. She will have an overall poor prognosis if she persists in this state. She has no evidence of an ongoing infection or electrolyte disturbance. Continue neuro checks every 4 hours. Continue IV fluids. 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 3. Malnourished state, anorexia- started mirtazapine. She refused an NG. The family would like the nurse to re-attempt the NG. The patient's wishes are clear to no PEG placement. I will continue to follow. Consider palliative care consultation. - Patient Problems (1) Encephalopathy acute Current Visit: Yes Comment: MRI brain was negative. LP shows high protein and lymphocytic predominance. Flow cytommertry is neg. Waxing and waning course, with refusal to eat possibly from depression vs delirium (from infection, seizure, medication adverse effects). Off abx. - Seizure precautions; Depakote titration as per Neuro - Neuro and Pall Care following; psych recommending mirtazepine - needs to cont to work with PT for placement (2) Moderate protein-calorie malnutrition Comment: not eating enough; pt clearly refusing NG tube - causes significant pain and distress and pt pulled it out twice this admission. Pt was clear prior to illness that she would never want PEG. - cont mirtazepine nightly (3) CVA (cerebral vascular accident) Comment: 2011 without residual deficit - cont plavix, aspirin 81 mg daily (4) Seizure Comment: - On Depakote per neuro (5) DVT prophylaxis Comment: Lovenox. Status and Disposition: Needs to be evaluated by PT. Possibly back to [place] with [facility]/PT, or may need rehab.
[2018-08-10] MEDS: Clopidogrel TAB* 75 MG PO SCH (08:54)
[2018-08-10] MEDS: Aspirin EC TAB* 81 MG TAB.EC PO SCH (08:55)
[2018-08-10] MEDS: Divalproex Sprinkle CAP* 125 MG PO SCH (08:56)
[2018-08-10] MEDS: D5W NS 0.9% 20Meq KCL 1000 ML* 1,000 ML IV SCH (13:08)
--- NOTE | 2018-08-10 13:42 | PN ---
Subjective Date of Service: 08/10/18 Length of Stay: 15 Days Neurology is following for delirium and seizures. Interval History: She is up in a chair today. She is more drowsy than yesterday. Mrs. Rodriguez is upset that no one responded to her when she called for a nurse from 2:30 a.m. - 4 a.m. She was up that entire time waiting for someone to take her to the restroom. I apologized for the inconvenience this may have caused her. Otherwise, the patient is trying to eat slowly. She was able to stand with PT to go to the bathroom. She did walk about 10-15 steps with a walker today. She denied any headaches, visual disturbance, or impairment in speech. She wants to go home. She got upset when I encouraged her to participate with rehabilitation and yelled out "I am trying my best." Review of Systems: Denied CP, SOB, or palpitations. Family History: Unchanged from Admission Social History: Unchanged from Admission Past Medical History: Unchanged from Admission Objective Active Medications: Acetaminophen (Tylenol Supp*) 650 mg [place] Q4H PRN PRN Reason: FEVER/HEADACHE Last Admin: 07/29/18 01:02 Dose: 650 mg Aspirin (Aspirin Ec Tab*) 81 mg PO DAILY [facility] Last Admin: 08/10/18 08:55 Dose: 81 mg Bisacodyl (Dulcolax Supp*) 10 mg [place] DAILY PRN PRN Reason: CONSTIPATION Clopidogrel Bisulfate (Plavix Tab*) 75 mg PO DAILY [facility] Last Admin: 08/10/18 08:54 Dose: 75 mg Divalproex Sodium (Depakote Sprinkle Cap*) 250 mg PO BID [facility] Last Admin: 08/10/18 08:56 Dose: 250 mg Enoxaparin Sodium (Lovenox(*)) 40 mg SUBCUT Q24H [facility] Last Admin: 08/09/18 20:08 Dose: 40 mg Potassium Chloride/Dextrose (D5w Ns 0.9% 20meq Kcl 1000 Ml*) 1,000 mls @ 50 mls /hr IV PER RATE [facility] Last Admin: 08/10/18 13:08 Dose: 50 mls/hr Mirtazapine (Remeron Tab*) 7.5 mg PO BEDTIME [facility] Last Admin: 08/09/18 20:09 Dose: 7.5 mg Polyethylene Glycol/Electrolytes (Miralax*) 17 gm PO DAILY PRN PRN Reason: CONSTIPATION Last Admin: 08/10/18 08:57 Dose: 17 gm Vital Signs 08/09/18 08/10/18 08/10/18 23:27 03:28 07:48 Temperature 97.2 F 97.7 F 97.4 F Pulse Rate 62 88 51 Respiratory 16 20 20 Rate Blood Pressure 133/84 140/88 154/55 (mmHg) O2 Sat by Pulse 98 98 98 Oximetry 08/10/18 08:00 Temperature Pulse Rate Respiratory 20 Rate Blood Pressure (mmHg) O2 Sat by Pulse Oximetry Intake and Output Last 24 Hours 08/08/18 08/09/18 08/10/18 08/11/18 06:59 06:59 06:59 06:59 Intake Total 1406 1245 1185 268 Output Total 625 400 950 Balance 781 845 235 268 Intake: IV Fluids 1306 1110 1065 268 D5W 20 meq KCL 1306 1080 1025 D5W NS 20 meq KCL 268 Valproic acid 30 40 IVPB 100 105 Valproic acid 100 105 Oral 100 35 15 Output: Urine 400 950 [place] 625 Other: Estimated Void Large Date of Last Bowel [id number] Movement # Bowel Movements 1 Estimated Stool Amount Small # Voids 1 Oxygen Devices in Use Now: None Neurology Exam: Ill appearing frail female in no acute distress. HEENT: Normocephelic/atraumatic, sclera anicteric, mucous membranes moist Neck: Supple Chest: Clear to auscultation bilaterally Cardiovascular: Regular rate and rhythm without murmurs, rubs, gallops Abdomen: Soft, non-tender/non-distended Extremities: No clubbing, cyanosis, or edema Neurological Findings: Awake, alert, and oriented to person, place ([place] but not hospital), but not time. She has mild psychmotor slowing. Cranial Nerve: PERRL, EOM intact, VFF, no nystagmus. Her eyes are open and she is able to track. Motor: s/s throughout, reduced tone throughout. Atrophy of the lower extremities bilaterally. Moves extremities to command against gravity in the upper extremities. She has 4/5 strength throughout due to reduced effort. Sensation: intact to LT/PP bilaterally upper and lower extremities Deep Tendon Reflex: 2+ symmetric in the upper/lower extremities, Babinski - down going Cerebellar: normal but slow finger to nose bilaterally. Gait: cautious, walker dependent, required some assist ambulating. Result Diagrams: 08/07/18 05:29 08/09/18 06:22 Additional Lab and Data: 07/27/2018: Ammonia: 33 Lactic acid: 1.0 Creatinine: 1.19 07/26/2018: EEG: mild-moderate encephalopathy MRI Brain with and without contrast: no acute intracranial abnormalities. 07/25/2018: Vitamin B12: 1019 TSH: 1.76 Urinalysis: negative Laboratory Tests 07/28/18 07/28/18 13:15 13:15 Fluid Source Cerebral spinal Fluid Volume 3.0 Fluid Color Colorless Fluid Appearance Clear Fluid WBC 29 H* Fluid RBC 1 Fluid Tot Cell Count 100 Fluid Lymphocytes 87 Fluid Monocytes 13 CSF Glucose 65 CSF Total Protein 183 H Microbiology and Other Data: Microbiology CSF NGTD Blood Cx NGTD UCx NGTD HSV Neg, Lyme negative Flow Neg for oncologic process Assessment/Plan 1. Encephalopathy manifesting as hypoactive delirium- slowly improving. Still experiencing excessive drowsiness and hypersomnia. This has limited her ability to participate with therapy. - To improve the hypersomnia during the day, reduced Depakote to 125 mg in the AM and continue the 250 mg at night. Please monitor for seizure activity. - The patient is more awake and requesting to go home. She is also willing to participate with rehabilitation. - She may benefit from acute rehabilitation. - Defer further recommendation and management to the primary team. 2. Malnourished state- slowly improving her PO intake but it's unlikely to be enough. She is tolerating mirtazapine which will hopefully stimulate her appetite. 3. Oxygen dependence- keep in mind that the patient uses oxygen when ambulating longer distances. She had dyspnea after walking outside her room requiring us to walk back to the chair. Using oxygen may improve her oxygenation and wakeful state. We will intermittently follow. Please contact us for any questions or concerns.
[2018-08-10] MEDS: Mirtazapine TAB* 15 MG PO SCH (20:18)
[2018-08-10] MEDS: Enoxaparin(*) 40 MG/0.4 ML SYR SUBCUT SCH (20:18)
[2018-08-10] MEDS ORDERED: Divalproex Sprinkle CAP* 125 MG PO ONE (21:00)
[2018-08-11] MEDS ORDERED: Divalproex Sprinkle CAP* 125 MG PO ONE (09:00)
[2018-08-11] MEDS: D5W NS 0.9% 20Meq KCL 1000 ML* 1,000 ML IV SCH (09:30)
[2018-08-11] MEDS: Aspirin EC TAB* 81 MG TAB.EC PO SCH (09:33)
[2018-08-11] MEDS: Clopidogrel TAB* 75 MG PO SCH (09:34)
--- NOTE | 2018-08-11 11:56 | PN ---
Subjective Date of Service: 08/11/18 Length of Stay: 16 Days Neurology is following for delirium and seizures. Interval History: She is more awake and interactive this morning. She seems slightly mad and frustrated though when asked more than a few questions. She wants to go home. She fed herself today. She denied any headaches, visual disturbance, focal weakness or paresthesia. There has been no seizure like activity since last Tuesday. She took a lower dose valproic acid this morning and she does seem to wake easily or to stay awake when having a conversation with family. She has her hearing aides on. Sheba (daughter) stated that she usually has her on continuous oxygen when she is sleeping but has not received that here. The patient stated that she would feel comfortable and breath better with oxygen. I asked the nurse to place her on oxygen but Sheba had already initiated it. She will place Ms. Rodriguez on 2 L NC to see if she can stay awake for a longer period of time. The patient apparently used the bed remote early this morning at 2 a.m. and called the nurse. She verbalized the need to use the restroom and was assisted to the bedside commode. Review of Systems: Denied CP or palpitations. Family History: Unchanged from Admission Social History: Unchanged from Admission Past Medical History: Unchanged from Admission Objective Active Medications: Acetaminophen (Tylenol Supp*) 650 mg [place] Q4H PRN PRN Reason: FEVER/HEADACHE Last Admin: 07/29/18 01:02 Dose: 650 mg Aspirin (Aspirin Ec Tab*) 81 mg PO DAILY [facility] Last Admin: 08/11/18 09:33 Dose: 81 mg Bisacodyl (Dulcolax Supp*) 10 mg [place] DAILY PRN PRN Reason: CONSTIPATION Clopidogrel Bisulfate (Plavix Tab*) 75 mg PO DAILY [facility] Last Admin: 08/11/18 09:34 Dose: 75 mg Divalproex Sodium (Depakote Sprinkle Cap*) 250 mg PO BEDTIME [facility] Divalproex Sodium (Depakote Sprinkle Cap*) 125 mg PO ONCE [facility] Enoxaparin Sodium (Lovenox(*)) 40 mg SUBCUT Q24H [facility] Last Admin: 08/10/18 20:18 Dose: 40 mg Potassium Chloride/Dextrose (D5w Ns 0.9% 20meq Kcl 1000 Ml*) 1,000 mls @ 50 mls /hr IV PER RATE [facility] Last Admin: 08/11/18 09:30 Dose: 50 mls/hr Mirtazapine (Remeron Tab*) 7.5 mg PO BEDTIME [facility] Last Admin: 08/10/18 20:18 Dose: 7.5 mg Polyethylene Glycol/Electrolytes (Miralax*) 17 gm PO DAILY PRN PRN Reason: CONSTIPATION Last Admin: 08/10/18 08:57 Dose: 17 gm Vital Signs 08/10/18 08/10/18 08/10/18 15:14 19:20 19:24 Temperature 97.6 F 98.3 F Pulse Rate 90 66 Respiratory 24 24 16 Rate Blood Pressure 133/83 140/70 (mmHg) O2 Sat by Pulse 99 97 Oximetry 08/10/18 08/11/18 08/11/18 23:17 04:15 04:45 Temperature 97.6 F 97.5 F Pulse Rate 62 60 Respiratory 24 24 Rate Blood Pressure 139/63 171/90 138/78 (mmHg) O2 Sat by Pulse 98 100 Oximetry 08/11/18 08/11/18 08:00 08:17 Temperature 97.6 F Pulse Rate 86 Respiratory 22 28 Rate Blood Pressure 160/91 (mmHg) O2 Sat by Pulse 97 Oximetry Intake and Output Last 24 Hours 08/09/18 08/10/18 08/11/18 08/12/18 06:59 06:59 06:59 06:59 Intake Total 1245 1185 1692 Output Total 400 950 500 Balance 456 882 5563 Intake: IV Fluids 1110 1065 1112 D5W 20 meq KCL 1080 1025 D5W NS 20 meq KCL 1112 Valproic acid 30 40 IVPB 100 105 Valproic acid 100 105 Oral 35 15 580 Output: Urine 400 950 500 Other: Date of Last Bowel [id number] Movement # Bowel Movements 1 Estimated Stool Amount Small Oxygen Devices in Use Now: None Neurology Exam: Neurology Exam: Ill appearing frail female in no acute distress. HEENT: Normocephelic/atraumatic, sclera anicteric, mucous membranes moist Neck: Supple Chest: Clear to auscultation bilaterally Cardiovascular: Regular rate and rhythm without murmurs, rubs, gallops Abdomen: Soft, non-tender/non-distended Extremities: No clubbing, cyanosis, or edema Neurological Findings: Awake, alert, and oriented to person, place ([place] but not hospital), but did know it's July. She has mild-moderate psychmotor slowing. Cranial Nerve: PERRL, EOM intact, VFF, no nystagmus. Her eyes are open and she is able to track. Motor: s/s throughout, reduced tone throughout. Atrophy of the lower extremities bilaterally. Moves extremities to command against gravity in the upper extremities. She has 4/5 strength throughout due to reduced effort. Sensation: intact to LT/PP bilaterally upper and lower extremities Deep Tendon Reflex: 2+ symmetric in the upper/lower extremities, Babinski - down going Cerebellar: normal but slow finger to nose bilaterally. Gait:did not ambulate with me today but she walked to the commode earlier with the nurse. Result Diagrams: 08/07/18 05:29 08/09/18 06:22 Additional Lab and Data: 07/27/2018: Ammonia: 33 Lactic acid: 1.0 Creatinine: 1.19 07/26/2018: EEG: mild-moderate encephalopathy MRI Brain with and without contrast: no acute intracranial abnormalities. 07/25/2018: Vitamin B12: 1019 TSH: 1.76 Urinalysis: negative Laboratory Tests 07/28/18 07/28/18 13:15 13:15 Fluid Source Cerebral spinal Fluid Volume 3.0 Fluid Color Colorless Fluid Appearance Clear Fluid WBC 29 H* Fluid RBC 1 Fluid Tot Cell Count 100 Fluid Lymphocytes 87 Fluid Monocytes 13 CSF Glucose 65 CSF Total Protein 183 H Microbiology and Other Data: Microbiology CSF NGTD Blood Cx NGTD UCx NGTD HSV Neg, Lyme negative Flow Neg for oncologic process Assessment/Plan 1. Encephalopathy manifesting as hypoactive delirium- slowly improving. The drowsiness is better today. She is tolerating the new dose of Depakote. I will check a valproic acid level but it will most likely not be within a therapeutic range. The increase in dose seem to cause excessive drowsiness and lethargy. Her episodes of seizure like activity were most likely provoked from the presumably viral meningoencephalitis. - Continue Depakote 125 mg in the morning and 250 mg at night. - Continue PT - She may benefit from acute rehabilitation. - Defer further recommendation and management to the primary team. 2. Malnourished state- slowly improving her PO intake but it's unlikely to be enough. She is tolerating mirtazapine which will hopefully stimulate her appetite. 3. Oxygen dependence-placed her back on oxygen. We will intermittently follow. Please contact us for any questions or concerns. I will sign off to Dr. Roberta Dixon but not request her to see the patient unless she develops new neurological symptoms or complaints.
[2018-08-11] MEDS: Divalproex Sprinkle CAP* 125 MG PO SCH ×2 (12:56→20:44)
[2018-08-11] MEDS: Enoxaparin(*) 40 MG/0.4 ML SYR SUBCUT SCH (20:43)
[2018-08-11] MEDS: Mirtazapine TAB* 15 MG PO SCH (20:43)
--- NOTE | 2018-08-11 22:52 | PN ---
Subjective Date of Service: 08/11/18 Interval History: Pt feeding herself from breakfast tray this morning - caught on video by daughter. By my interview, patient less interactive, wanted to be left alone. Did deny complaints. Pending AR vs STEVE. Family History: Unchanged from Admission Social History: Unchanged from Admission Past Medical History: Unchanged from Admission Objective Active Medications: Acetaminophen (Tylenol Supp*) 650 mg [place] Q4H PRN PRN Reason: FEVER/HEADACHE Last Admin: 07/29/18 01:02 Dose: 650 mg Aspirin (Aspirin Ec Tab*) 81 mg PO DAILY [facility] Last Admin: 08/11/18 09:33 Dose: 81 mg Bisacodyl (Dulcolax Supp*) 10 mg [place] DAILY PRN PRN Reason: CONSTIPATION Clopidogrel Bisulfate (Plavix Tab*) 75 mg PO DAILY [facility] Last Admin: 08/11/18 09:34 Dose: 75 mg Divalproex Sodium (Depakote Sprinkle Cap*) 250 mg PO BEDTIME [facility] Last Admin: 08/11/18 20:44 Dose: 250 mg Divalproex Sodium (Depakote Sprinkle Cap*) 125 mg PO DAILY [facility] Last Admin: 08/11/18 12:56 Dose: Not Given Enoxaparin Sodium (Lovenox(*)) 40 mg SUBCUT Q24H [facility] Last Admin: 08/11/18 20:43 Dose: 40 mg Potassium Chloride/Dextrose (D5w Ns 0.9% 20meq Kcl 1000 Ml*) 1,000 mls @ 50 mls /hr IV PER RATE [facility] Last Admin: 08/11/18 09:30 Dose: 50 mls/hr Mirtazapine (Remeron Tab*) 7.5 mg PO BEDTIME [facility] Last Admin: 08/11/18 20:43 Dose: 7.5 mg Polyethylene Glycol/Electrolytes (Miralax*) 17 gm PO DAILY PRN PRN Reason: CONSTIPATION Last Admin: 08/10/18 08:57 Dose: 17 gm Vital Signs - 8 hr 08/11/18 08/11/18 08/11/18 15:10 19:15 19:40 Temperature 98.2 F 98.5 F Pulse Rate 84 61 Respiratory 22 22 22 Rate Blood Pressure 142/83 142/75 (mmHg) O2 Sat by Pulse 100 100 Oximetry Oxygen Devices in Use Now: Nasal Cannula Appearance: chronically ill appearing, NAD, frail Eyes: No Scleral Icterus Ears/Nose/Mouth/Throat: Clear Oropharnyx, Mucous Membranes Moist Respiratory: Clear to Auscultation Cardiovascular: RRR Abdominal: NL Sounds; No Tenderness; No Distention Extremities: No Edema Skin: No Rash or Ulcers Neurological: - - deferred - pt declined to participate today - Nutrition: Malnutrition Diagnosis/Plan Malnutrition Assessment by Registered Dietitian: Malnutrition Assessment Clinical Characteristics Chronic,Moderate Malnutrition Assessment: - 16# (14%) to 21# (18%) wt loss x past 7-8 Criteria months - < 75% estimated energy expenditure > 1 month Malnutrition Assessment: Per pt's family, she does drink Ensure at home. Interventions Currently, they are afraid that Ensure will thicken secretions/mucus and make swallowing difficult. They are amenable for her to try Ensure Clear. Will send w/ meals. Ensure Clear: 240 kcals, 8 grams protein per serving. Malnutrition Assessment: Goals 1. Intake will improve to support lean body mass , hydration, and wt repletion - Goal: > 50% of meals as confusion improves Result Diagrams: 08/07/18 05:29 08/09/18 06:22 Additional Lab and Data: 07/27/2018: Ammonia: 33 Lactic acid: 1.0 Creatinine: 1.19 07/26/2018: EEG: mild-moderate encephalopathy MRI Brain with and without contrast: no acute intracranial abnormalities. 07/25/2018: Vitamin B12: 1019 TSH: 1.76 Urinalysis: negative Laboratory Tests 07/28/18 07/28/18 13:15 13:15 Fluid Source Cerebral spinal Fluid Volume 3.0 Fluid Color Colorless Fluid Appearance Clear Fluid WBC 29 H* Fluid RBC 1 Fluid Tot Cell Count 100 Fluid Lymphocytes 87 Fluid Monocytes 13 CSF Glucose 65 CSF Total Protein 183 H Microbiology and Other Data: Microbiology CSF NGTD Blood Cx NGTD UCx NGTD HSV Neg, Lyme negative Flow Neg for oncologic process Assess/Plan/Problems-Billing 1. Encephalopathy manifesting as hypoactive delirium- slowly improving. The drowsiness is better today. She is tolerating the new dose of Depakote. I will check a valproic acid level but it will most likely not be within a therapeutic range. The increase in dose seem to cause excessive drowsiness and lethargy. Her episodes of seizure like activity were most likely provoked from the presumably viral meningoencephalitis. - Continue Depakote 125 mg in the morning and 250 mg at night. - Continue PT - She may benefit from acute rehabilitation. - Defer further recommendation and management to the primary team. 2. Malnourished state- slowly improving her PO intake but it's unlikely to be enough. She is tolerating mirtazapine which will hopefully stimulate her appetite. 3. Oxygen dependence-placed her back on oxygen. We will intermittently follow. Please contact us for any questions or concerns. I will sign off to Dr. Roberta Dixon but not request her to see the patient unless she develops new neurological symptoms or complaints. - Patient Problems (1) Encephalopathy acute Current Visit: Yes Comment: MRI brain was negative. LP shows high protein and lymphocytic predominance. Flow cytommertry is neg. Waxing and waning course, with refusal to eat possibly from depression vs delirium (from infection, seizure, medication adverse effects). Off abx. - Seizure precautions; Depakote titration as per Neuro - Neuro and Pall Care following; psych recommending mirtazepine - needs to cont to work with PT for placement (2) Moderate protein-calorie malnutrition Comment: not eating enough; pt clearly refusing NG tube - causes significant pain and distress and pt pulled it out twice this admission. Pt was clear prior to illness that she would never want PEG. - cont mirtazepine nightly - cont to encourage PO (3) CVA (cerebral vascular accident) Comment: 2011 without residual deficit - cont plavix, aspirin 81 mg daily (4) Seizure Comment: - On Depakote per neuro (5) DVT prophylaxis Comment: Lovenox. Status and Disposition: Inpatient. Pending placement.
[2018-08-12] MEDS: D5W NS 0.9% 20Meq KCL 1000 ML* 1,000 ML IV SCH (05:53)
--- NOTE | 2018-08-12 07:16 | PN ---
Subjective Date of Service: 08/12/18 Interval History: HD #19 on 08/12 88 yo F with PMH hx B Cell lymphoma s/p RCHOP in 2018, presented with acute encephalopathy, seziure, found to have aseptic meninigitis, hospital course c/b persistent encephalopathy and malnourished state Overnight no acute events VSS Labs:stable last on 08/09 This morning seen eating breakfast, daughter at bedside, pt is pleasant, oriented to self, year and month but not to recent events. Polite, hard of hearing, but has some slowing in responses, needs repeating. Denies CP, SOB, GI complaints. Possible d/c to [place] on tuesday Family History: Unchanged from Admission Social History: Unchanged from Admission Past Medical History: Unchanged from Admission Objective Active Medications: Acetaminophen (Tylenol Supp*) 650 mg [place] Q4H PRN PRN Reason: FEVER/HEADACHE Last Admin: 07/29/18 01:02 Dose: 650 mg Aspirin (Aspirin Ec Tab*) 81 mg PO DAILY [facility] Last Admin: 08/11/18 09:33 Dose: 81 mg Bisacodyl (Dulcolax Supp*) 10 mg [place] DAILY PRN PRN Reason: CONSTIPATION Clopidogrel Bisulfate (Plavix Tab*) 75 mg PO DAILY [facility] Last Admin: 08/11/18 09:34 Dose: 75 mg Divalproex Sodium (Depakote Sprinkle Cap*) 250 mg PO BEDTIME [facility] Last Admin: 08/11/18 20:44 Dose: 250 mg Divalproex Sodium (Depakote Sprinkle Cap*) 125 mg PO DAILY [facility] Last Admin: 08/11/18 12:56 Dose: Not Given Enoxaparin Sodium (Lovenox(*)) 40 mg SUBCUT Q24H [facility] Last Admin: 08/11/18 20:43 Dose: 40 mg Potassium Chloride/Dextrose (D5w Ns 0.9% 20meq Kcl 1000 Ml*) 1,000 mls @ 50 mls /hr IV PER RATE [facility] Last Admin: 08/12/18 05:53 Dose: 50 mls/hr Mirtazapine (Remeron Tab*) 7.5 mg PO BEDTIME [facility] Last Admin: 08/11/18 20:43 Dose: 7.5 mg Polyethylene Glycol/Electrolytes (Miralax*) 17 gm PO DAILY PRN PRN Reason: CONSTIPATION Last Admin: 08/10/18 08:57 Dose: 17 gm Vital Signs - 8 hr 08/11/18 08/12/18 23:57 03:19 Temperature 97.5 F 97.1 F Pulse Rate 85 51 Respiratory 18 18 Rate Blood Pressure 137/76 115/58 (mmHg) O2 Sat by Pulse 100 100 Oximetry Oxygen Devices in Use Now: Nasal Cannula Appearance: Frail woman in NAD Eyes: No Scleral Icterus, PERRLA Ears/Nose/Mouth/Throat: NL Teeth, Lips, Gums, - - Dry MM Neck: NL Appearance and Movements; NL JVP Respiratory: Symmetrical Chest Expansion and Respiratory Effort, Clear to Auscultation Cardiovascular: NL Sounds; No Murmurs; No JVD, RRR Abdominal: NL Sounds; No Tenderness; No Distention, No Hepatosplenomegaly Lymphatic: No Cervical Adenopathy Extremities: No Edema Skin: No Rash or Ulcers Neurological: - - Oriented to self and year - Nutrition: Malnutrition Diagnosis/Plan Malnutrition Assessment by Registered Dietitian: Malnutrition Assessment Clinical Characteristics Chronic,Moderate Malnutrition Assessment: - 16# (14%) to 21# (18%) wt loss x past 7-8 Criteria months - < 75% estimated energy expenditure > 1 month Malnutrition Assessment: Per pt's family, she does drink Ensure at home. Interventions Currently, they are afraid that Ensure will thicken secretions/mucus and make swallowing difficult. They are amenable for her to try Ensure Clear. Will send w/ meals. Ensure Clear: 240 kcals, 8 grams protein per serving. Malnutrition Assessment: Goals 1. Intake will improve to support lean body mass , hydration, and wt repletion - Goal: > 50% of meals as confusion improves Result Diagrams: 08/07/18 05:29 08/09/18 06:22 Additional Lab and Data: 07/27/2018: Ammonia: 33 Lactic acid: 1.0 Creatinine: 1.19 07/26/2018: EEG: mild-moderate encephalopathy MRI Brain with and without contrast: no acute intracranial abnormalities. 07/25/2018: Vitamin B12: 1019 TSH: 1.76 Urinalysis: negative Laboratory Tests 07/28/18 07/28/18 13:15 13:15 Fluid Source Cerebral spinal Fluid Volume 3.0 Fluid Color Colorless Fluid Appearance Clear Fluid WBC 29 H* Fluid RBC 1 Fluid Tot Cell Count 100 Fluid Lymphocytes 87 Fluid Monocytes 13 CSF Glucose 65 CSF Total Protein 183 H Microbiology and Other Data: Microbiology CSF NGTD Blood Cx NGTD UCx NGTD HSV Neg, Lyme negative Flow Neg for oncologic process Assess/Plan/Problems-Billing 88 yo F with PMH hx B Cell lymphoma s/p RCHOP in 2018, presented with acute encephalopathy, seizure, found to have aseptic meningitis, hospital course c/b persistent encephalopathy and malnourished state - Patient Problems (1) Encephalopathy acute Current Visit: Yes Status: Acute Code(s): G93.40 - ENCEPHALOPATHY, UNSPECIFIED SNOMED Code(s): 64358004 Comment: MRI brain was negative. LP shows high protein and lymphocytic predominance. Flow cytommertry is neg. Waxing and waning course, with refusal to eat possibly from depression vs delirium (from infection, seizure, medication adverse effects). - Off abx. Completed Acyclovir - Seizure precautions; Depakote titration as per Neuro - Neuro and Pall Care following; psych recommending mirtazepine - needs to cont to work with PT for placement (2) Anemia Current Visit: No Status: Acute Code(s): D64.9 - ANEMIA, UNSPECIFIED SNOMED Code(s): 966234879 Comment: - Stable. - Iron deficiency anemia; low hgb may be partially dilutional? Stool for occult negative. Per heme/onc, may be related to lymphoma; consider bone marrow bx if persistent. - Fe sulfate 325 qd (3) Moderate protein-calorie malnutrition Current Visit: Yes Status: Acute Code(s): E44.0 - MODERATE PROTEIN-CALORIE MALNUTRITION SNOMED Code(s): 555543194 Comment: not eating enough; pt clearly refusing NG tube - causes significant pain and distress and pt pulled it out twice this admission. Pt was clear prior to illness that she would never want PEG. - cont mirtazepine nightly - cont to encourage PO (4) DVT prophylaxis Current Visit: Yes Status: Acute Code(s): [id number] - SNOMED Code(s): 934575821 Comment: Lovenox. (5) DNR (do not resuscitate) Current Visit: Yes Status: Acute Comment: -Continue GOC daily, pt is "a minimalist" prior to this admission Status and Disposition: Inpatient. Pending placement.
[2018-08-12] MEDS: Clopidogrel TAB* 75 MG PO SCH (09:46)
[2018-08-12] MEDS: Aspirin EC TAB* 81 MG TAB.EC PO SCH (09:47)
[2018-08-12] MEDS: Divalproex Sprinkle CAP* 125 MG PO SCH ×2 (09:48→20:49)
[2018-08-12] MEDS ORDERED: Docusate CAP* 100 MG PO PRN (12:58)
[2018-08-12] MEDS: Mirtazapine TAB* 15 MG PO SCH (20:48)
[2018-08-12] MEDS: Enoxaparin(*) 40 MG/0.4 ML SYR SUBCUT SCH (20:49)
[2018-08-13] MEDS: D5W NS 0.9% 20Meq KCL 1000 ML* 1,000 ML IV SCH (01:49)
[2018-08-13 06:14] LABS: Anion Gap 3 mmol/L (2-11); BUN/Creatinine Ratio 22.1 (8-20); Blood Urea Nitrogen 17 mg/dL (6-24); CO2 Carbon Dioxide 32 mmol/L (22-32); Calcium 8.6 mg/dL (8.6-10.3); Chloride 107 mmol/L (101-111); EGFR African American 85.6 (>60); EGFR Non-African American 70.7 (>60); Glucose 104 mg/dL (70-100); Magnesium 1.8 mg/dL (1.9-2.7); Phosphorus 3.3 mg/dL (2.5-5.0); Potassium 3.8 mmol/L (3.5-5.0); Sodium 142 mmol/L (135-145)
--- NOTE | 2018-08-13 07:47 | PN ---
Subjective Date of Service: 08/13/18 Interval History: No overnight events. Vitals stable. Will DC IVF given recently better PO intake. No longer requiring telemetry. Pt sleepy on interview but able to open eyes and focus when asked. Denies SOB, CP, pain, discomfort. Reports no BM in a few days but good UOP and able to walk to bathroom with assistance. Family History: Unchanged from Admission Social History: Unchanged from Admission Past Medical History: Unchanged from Admission Objective Active Medications: Acetaminophen (Tylenol Supp*) 650 mg [place] Q4H PRN PRN Reason: FEVER/HEADACHE Last Admin: 07/29/18 01:02 Dose: 650 mg Aspirin (Aspirin Ec Tab*) 81 mg PO DAILY [facility] Last Admin: 08/13/18 09:37 Dose: 81 mg Bisacodyl (Dulcolax Supp*) 10 mg [place] DAILY PRN PRN Reason: CONSTIPATION Clopidogrel Bisulfate (Plavix Tab*) 75 mg PO DAILY [facility] Last Admin: 08/13/18 09:37 Dose: 75 mg Divalproex Sodium (Depakote Sprinkle Cap*) 250 mg PO BEDTIME [facility] Last Admin: 08/12/18 20:49 Dose: 250 mg Divalproex Sodium (Depakote Sprinkle Cap*) 125 mg PO DAILY [facility] Last Admin: 08/13/18 09:38 Dose: 125 mg Enoxaparin Sodium (Lovenox(*)) 40 mg SUBCUT Q24H [facility] Last Admin: 08/12/18 20:49 Dose: 40 mg Mirtazapine (Remeron Tab*) 7.5 mg PO BEDTIME [facility] Last Admin: 08/12/18 20:48 Dose: 7.5 mg Polyethylene Glycol/Electrolytes (Miralax*) 17 gm PO DAILY PRN PRN Reason: CONSTIPATION Last Admin: 08/10/18 08:57 Dose: 17 gm Vital Signs - 8 hr 08/12/18 08/13/18 23:43 03:05 Temperature 99.3 F 97.4 F Pulse Rate 90 56 Respiratory 18 22 Rate Blood Pressure 129/75 122/55 (mmHg) O2 Sat by Pulse 100 100 Oximetry Oxygen Devices in Use Now: Nasal Cannula Appearance: frail thin elderly woman in NAD Eyes: No Scleral Icterus, PERRLA Ears/Nose/Mouth/Throat: Clear Oropharnyx, Mucous Membranes Moist Neck: NL Appearance and Movements; NL JVP Respiratory: Clear to Auscultation Cardiovascular: NL Sounds; No Murmurs; No JVD, RRR Extremities: No Edema Skin: No Rash or Ulcers Neurological: - - AOx3 (to hospital, self, date); hand squeeze 5/5 b/l; gait not tested - Nutrition: Malnutrition Diagnosis/Plan Malnutrition Assessment by Registered Dietitian: Malnutrition Assessment Clinical Characteristics Chronic,Moderate Malnutrition Assessment: - 16# (14%) to 21# (18%) wt loss x past 7-8 Criteria months - < 75% estimated energy expenditure > 1 month Malnutrition Assessment: Per pt's family, she does drink Ensure at home. Interventions Currently, they are afraid that Ensure will thicken secretions/mucus and make swallowing difficult. They are amenable for her to try Ensure Clear. Will send w/ meals. Ensure Clear: 240 kcals, 8 grams protein per serving. Malnutrition Assessment: Goals 1. Intake will improve to support lean body mass , hydration, and wt repletion - Goal: > 50% of meals as confusion improves Result Diagrams: 08/07/18 05:29 08/13/18 04:59 Additional Lab and Data: 07/27/2018: Ammonia: 33 Lactic acid: 1.0 Creatinine: 1.19 07/26/2018: EEG: mild-moderate encephalopathy MRI Brain with and without contrast: no acute intracranial abnormalities. 07/25/2018: Vitamin B12: 1019 TSH: 1.76 Urinalysis: negative Laboratory Tests 07/28/18 07/28/18 13:15 13:15 Fluid Source Cerebral spinal Fluid Volume 3.0 Fluid Color Colorless Fluid Appearance Clear Fluid WBC 29 H* Fluid RBC 1 Fluid Tot Cell Count 100 Fluid Lymphocytes 87 Fluid Monocytes 13 CSF Glucose 65 CSF Total Protein 183 H Microbiology and Other Data: Microbiology CSF NGTD Blood Cx NGTD UCx NGTD HSV Neg, Lyme negative Flow Neg for oncologic process Assess/Plan/Problems-Billing 88W with history of B Cell lymphoma s/p RCHOP in 2018, presented with acute encephalopathy, seizure, found to have aseptic meningitis, hospital course c/b persistent encephalopathy and malnourished state. - Patient Problems (1) Encephalopathy acute Current Visit: Yes Comment: MRI brain was negative. LP shows high protein and lymphocytic predominance. Flow cytommertry is neg. Waxing and waning course, with refusal to eat possibly from depression vs delirium (from infection, seizure, medication adverse effects). - Off abx. Completed Acyclovir - Seizure precautions; Depakote titration as per Neuro - Neuro and Pall Care following; psych recommending mirtazepine - needs to cont to work with PT for placement (2) Moderate protein-calorie malnutrition Comment: not eating enough; pt clearly refusing NG tube - causes significant pain and distress and pt pulled it out twice this admission. Pt was clear prior to illness that she would never want PEG. - cont mirtazepine nightly - cont to encourage PO (3) CVA (cerebral vascular accident) Comment: 2012 without residual deficit - cont plavix, aspirin 81 mg daily (4) Seizure Comment: - On Depakote per neuro (5) Anemia Comment: Resending iron w/u. Stool neg for occult blood. (6) DVT prophylaxis Comment: Lovenox. (7) DNR (do not resuscitate) Comment: -Continue GOC daily, pt is "a minimalist" prior to this admission Status and Disposition: Inpatient. Pending placement.
[2018-08-13] MEDS ORDERED: Magnesium Sulfate 1 GM IV* 1 GM/100 ML BAG IV ONE (08:00)
[2018-08-13 08:04] LABS: % Iron Saturation 13 % (15-55); Iron 28 ug/dL (50-212); Total Iron Binding Capacity 214 mcg/dL (250-450); Transferrin 153 mg/dL (203-362)
[2018-08-13 08:25] LABS: Ferritin 123.3 ng/mL (11-307)
[2018-08-13] MEDS: Clopidogrel TAB* 75 MG PO SCH (09:37)
[2018-08-13] MEDS: Aspirin EC TAB* 81 MG TAB.EC PO SCH (09:37)
[2018-08-13] MEDS: Divalproex Sprinkle CAP* 125 MG PO SCH ×2 (09:38→20:22)
[2018-08-13] MEDS ORDERED: Senna TAB PO ONE (13:39)
[2018-08-13] MEDS ORDERED: Ascorbic Acid TAB* 500 MG PO ONE (13:46)
[2018-08-13] MEDS ORDERED: Ferric Gluconate IV* 125 MG in NS 0.9% 100 ML* 100 ML IVPB ONE (14:00)
[2018-08-13] MEDS: Enoxaparin(*) 40 MG/0.4 ML SYR SUBCUT SCH (20:22)
[2018-08-13] MEDS: Mirtazapine TAB* 15 MG PO SCH (20:22)
[2018-08-14 06:31] LABS: BUN/Creatinine Ratio 24.3 (8-20); Calcium 8.3 mg/dL (8.6-10.3); EGFR African American 95.6 (>60); Magnesium 1.8 mg/dL (1.9-2.7); Potassium 3.6 mmol/L (3.5-5.0)
[2018-08-14] MEDS ORDERED: Magnesium Sulfate 1 GM IV* 1 GM/100 ML BAG IV ONE (07:52)
[2018-08-14] MEDS ORDERED: KCL 20 MEQ/100 ML IVPREMIX* 20 MEQ/100 ML BAG IV ONE (07:53)
--- NOTE | 2018-08-14 10:01 | PN ---
Subjective Date of Service: 08/14/18 Interval History: Pt sleeping but arousable. Again preferring to keep eyes closed but will open them if asked. Seems irritated on interview today, and when asked what is wrong , pt yells "I'm deaf!" When asked if she can hear me, she nods. Also verbally states she feels fine. Denies pain or discomfort. Knows name and hospital but will not answer questions about date. Received IV iron yesterday. Now off IVF. Family History: Unchanged from Admission Social History: Unchanged from Admission Past Medical History: Unchanged from Admission Objective Active Medications: Acetaminophen (Tylenol Supp*) 650 mg [place] Q4H PRN PRN Reason: FEVER/HEADACHE Last Admin: 07/29/18 01:02 Dose: 650 mg Aspirin (Aspirin Ec Tab*) 81 mg PO DAILY [facility] Last Admin: 08/13/18 09:37 Dose: 81 mg Bisacodyl (Dulcolax Supp*) 10 mg [place] DAILY PRN PRN Reason: CONSTIPATION Clopidogrel Bisulfate (Plavix Tab*) 75 mg PO DAILY [facility] Last Admin: 08/13/18 09:37 Dose: 75 mg Divalproex Sodium (Depakote Sprinkle Cap*) 250 mg PO BEDTIME [facility] Last Admin: 08/13/18 20:22 Dose: 250 mg Divalproex Sodium (Depakote Sprinkle Cap*) 125 mg PO DAILY [facility] Last Admin: 08/13/18 09:38 Dose: 125 mg Enoxaparin Sodium (Lovenox(*)) 40 mg SUBCUT Q24H [facility] Last Admin: 08/13/18 20:22 Dose: 40 mg Ferrous Sulfate (Ferrous Sulfate Tab*) 325 mg PO DAILY [facility] Mirtazapine (Remeron Tab*) 7.5 mg PO BEDTIME [facility] Last Admin: 08/13/18 20:22 Dose: 7.5 mg Polyethylene Glycol/Electrolytes (Miralax*) 17 gm PO DAILY PRN PRN Reason: CONSTIPATION Last Admin: 08/10/18 08:57 Dose: 17 gm Vital Signs - 8 hr 08/14/18 08/14/18 08/14/18 03:28 07:46 08:00 Temperature 98.3 F 97.5 F Pulse Rate 84 85 Respiratory 18 17 18 Rate Blood Pressure 125/63 112/76 (mmHg) O2 Sat by Pulse 100 100 Oximetry Appearance: frail elderly woman in NAD, keeps eyes closed on interview, mildly irritated Ears/Nose/Mouth/Throat: Clear Oropharnyx, Mucous Membranes Moist Neck: NL Appearance and Movements; NL JVP Respiratory: Clear to Auscultation - anteriorly Cardiovascular: RRR Abdominal: NL Sounds; No Tenderness; No Distention Extremities: No Edema Neurological: - - AOx2, no focal weakness, no facial droop - Nutrition: Malnutrition Diagnosis/Plan Malnutrition Assessment by Registered Dietitian: Malnutrition Assessment Clinical Characteristics Chronic,Moderate Malnutrition Assessment: - 16# (14%) to 21# (18%) wt loss x past 7-8 Criteria months - < 75% estimated energy expenditure > 1 month Malnutrition Assessment: Per pt's family, she does drink Ensure at home. Interventions Currently, they are afraid that Ensure will thicken secretions/mucus and make swallowing difficult. They are amenable for her to try Ensure Clear. Will send w/ meals. Ensure Clear: 240 kcals, 8 grams protein per serving. Malnutrition Assessment: Goals 1. Intake will improve to support lean body mass , hydration, and wt repletion - Goal: > 50% of meals as confusion improves Result Diagrams: 08/07/18 05:29 08/14/18 05:33 Additional Lab and Data: 07/27/2018: Ammonia: 33 Lactic acid: 1.0 Creatinine: 1.19 07/26/2018: EEG: mild-moderate encephalopathy MRI Brain with and without contrast: no acute intracranial abnormalities. 07/25/2018: Vitamin B12: 1019 TSH: 1.76 Urinalysis: negative Laboratory Tests 07/28/18 07/28/18 13:15 13:15 Fluid Source Cerebral spinal Fluid Volume 3.0 Fluid Color Colorless Fluid Appearance Clear Fluid WBC 29 H* Fluid RBC 1 Fluid Tot Cell Count 100 Fluid Lymphocytes 87 Fluid Monocytes 13 CSF Glucose 65 CSF Total Protein 183 H Microbiology and Other Data: Microbiology CSF NGTD Blood Cx NGTD UCx NGTD HSV Neg, Lyme negative Flow Neg for oncologic process Assess/Plan/Problems-Billing 88W with history of B Cell lymphoma s/p RCHOP in 2018, presented with acute encephalopathy, seizure, found to have aseptic meningitis, hospital course c/b persistent encephalopathy, delirium, and malnourished state. - Patient Problems (1) Encephalopathy acute Comment: MRI brain was negative. LP shows high protein and lymphocytic predominance. Flow cytommertry is neg. Waxing and waning course, with refusal to eat possibly from depression vs delirium (from infection, seizure, medication adverse effects). - Off abx. Completed Acyclovir - Seizure precautions; Depakote as per Neuro - Neur and Pall Care signed off - needs to cont to work with PT for placement (2) Moderate protein-calorie malnutrition Comment: not eating enough; pt clearly refusing NG tube - causes significant pain and distress and pt pulled it out twice this admission. Pt was clear prior to illness that she would never want PEG. - cont mirtazepine nightly - cont to encourage PO (3) CVA (cerebral vascular accident) Comment: 2011 without residual deficit - cont plavix, aspirin 81 mg daily (4) Seizure Comment: - On Depakote per neuro (5) Anemia Comment: Stool neg for occult blood. S/p IV iron 08/13. - cont to supplement PO (6) DVT prophylaxis Comment: Lovenox. (7) DNR (do not resuscitate) Comment: -Continue GOC daily, pt is "a minimalist" prior to this admission Status and Disposition: Inpatient. Pending placement.
[2018-08-14] MEDS: Clopidogrel TAB* 75 MG PO SCH (10:08)
[2018-08-14] MEDS: Divalproex Sprinkle CAP* 125 MG PO SCH ×2 (10:09→20:37)
[2018-08-14] MEDS: Aspirin EC TAB* 81 MG TAB.EC PO SCH (10:09)
[2018-08-14] MEDS: Ferrous Sulfate TAB* 325 MG PO SCH (10:09)
[2018-08-14] MEDS: Mirtazapine TAB* 15 MG PO SCH (20:36)
[2018-08-14] MEDS: Enoxaparin(*) 40 MG/0.4 ML SYR SUBCUT SCH (20:40)
[2018-08-15 05:49] LABS: Hematocrit 28 % (35-47); Hemoglobin 9.3 g/dL (12.0-16.0); Mean Corpuscular HGB Conc 34 g/dL (31-36); Mean Corpuscular Hemoglobin 29 pg (27-31); Mean Corpuscular Volume 85 fL (80-97); Mean Platelet Volume 8.8 fL (7.4-10.4); Platelet Count 127 10^3/uL (150-450); Red Blood Count 3.24 10^6 /uL (3.70-4.87); Red Cell Distribution Width 17 % (10.5-15); White Blood Count 3.5 10^3/uL (3.5-10.8)
[2018-08-15 06:10] LABS: BUN/Creatinine Ratio 27.8 (8-20); Calcium 8.3 mg/dL (8.6-10.3); EGFR African American 92.5 (>60); EGFR Non-African American 76.4 (>60); Magnesium 2.1 mg/dL (1.9-2.7); Potassium 3.9 mmol/L (3.5-5.0)
[2018-08-15] MEDS: Clopidogrel TAB* 75 MG PO SCH (08:39)
[2018-08-15] MEDS: Ferrous Sulfate TAB* 325 MG PO SCH (08:39)
[2018-08-15] MEDS: Aspirin EC TAB* 81 MG TAB.EC PO SCH (08:39)
[2018-08-15] MEDS: Divalproex Sprinkle CAP* 125 MG PO SCH ×2 (08:49→21:23)
--- NOTE | 2018-08-15 20:07 | PN ---
Subjective Date of Service: 08/15/18 Interval History: Denied by [facility]. Will send more applications. In better spirits today and more interactive. Had BM today and yesterday. Family History: Unchanged from Admission Social History: Unchanged from Admission Past Medical History: Unchanged from Admission Objective Active Medications: Acetaminophen (Tylenol Supp*) 650 mg [place] Q4H PRN PRN Reason: FEVER/HEADACHE Last Admin: 07/29/18 01:02 Dose: 650 mg Aspirin (Aspirin Ec Tab*) 81 mg PO DAILY [facility] Last Admin: 08/15/18 08:39 Dose: 81 mg Bisacodyl (Dulcolax Supp*) 10 mg [place] DAILY PRN PRN Reason: CONSTIPATION Clopidogrel Bisulfate (Plavix Tab*) 75 mg PO DAILY [facility] Last Admin: 08/15/18 08:39 Dose: 75 mg Divalproex Sodium (Depakote Sprinkle Cap*) 250 mg PO BEDTIME [facility] Last Admin: 08/14/18 20:37 Dose: 250 mg Divalproex Sodium (Depakote Sprinkle Cap*) 125 mg PO DAILY [facility] Last Admin: 08/15/18 08:49 Dose: 125 mg Enoxaparin Sodium (Lovenox(*)) 40 mg SUBCUT Q24H [facility] Last Admin: 08/14/18 20:40 Dose: 40 mg Ferrous Sulfate (Ferrous Sulfate Tab*) 325 mg PO DAILY [facility] Last Admin: 08/15/18 08:39 Dose: 325 mg Heparin Sodium (Porcine) (Heparin Flush Port (Ivad)) 5 ml FLUSH DAILY [facility]; Protocol Last Admin: 08/15/18 18:41 Dose: 5 ml Mirtazapine (Remeron Tab*) 7.5 mg PO BEDTIME [facility] Last Admin: 08/14/18 20:36 Dose: 7.5 mg Polyethylene Glycol/Electrolytes (Miralax*) 17 gm PO DAILY PRN PRN Reason: CONSTIPATION Last Admin: 08/10/18 08:57 Dose: 17 gm Vital Signs - 8 hr 08/15/18 08/15/18 14:56 15:06 Temperature 97.7 F 97.7 F Pulse Rate 68 68 Respiratory 15 15 Rate Blood Pressure 134/68 134/68 (mmHg) O2 Sat by Pulse 96 96 Oximetry Oxygen Devices in Use Now: None Appearance: frail eldery woman in NAD, alert and interactive, AOx2-3 (didn't know year, knew rest of date) Eyes: No Scleral Icterus Ears/Nose/Mouth/Throat: Clear Oropharnyx, Mucous Membranes Moist Neck: NL Appearance and Movements; NL JVP Respiratory: Symmetrical Chest Expansion and Respiratory Effort Cardiovascular: RRR Abdominal: NL Sounds; No Tenderness; No Distention Extremities: No Edema Skin: No Rash or Ulcers Neurological: NL Sensation, NL Muscle Strength and Tone - Nutrition: Malnutrition Diagnosis/Plan Malnutrition Assessment by Registered Dietitian: Malnutrition Assessment Clinical Characteristics Chronic,Moderate Malnutrition Assessment: - 16# (14%) to 21# (18%) wt loss x past 7-8 Criteria months - < 75% estimated energy expenditure > 1 month Malnutrition Assessment: Per pt's family, she does drink Ensure at home. Interventions Currently, they are afraid that Ensure will thicken secretions/mucus and make swallowing difficult. They are amenable for her to try Ensure Clear. Will send w/ meals. Ensure Clear: 240 kcals, 8 grams protein per serving. Malnutrition Assessment: Goals 1. Intake will improve to support lean body mass , hydration, and wt repletion - Goal: > 50% of meals as confusion improves Result Diagrams: 08/15/18 05:23 08/15/18 05:23 Additional Lab and Data: 07/27/2018: Ammonia: 33 Lactic acid: 1.0 Creatinine: 1.19 07/26/2018: EEG: mild-moderate encephalopathy MRI Brain with and without contrast: no acute intracranial abnormalities. 07/25/2018: Vitamin B12: 1019 TSH: 1.76 Urinalysis: negative Laboratory Tests 07/28/18 07/28/18 13:15 13:15 Fluid Source Cerebral spinal Fluid Volume 3.0 Fluid Color Colorless Fluid Appearance Clear Fluid WBC 29 H* Fluid RBC 1 Fluid Tot Cell Count 100 Fluid Lymphocytes 87 Fluid Monocytes 13 CSF Glucose 65 CSF Total Protein 183 H Microbiology and Other Data: Microbiology CSF NGTD Blood Cx NGTD UCx NGTD HSV Neg, Lyme negative Flow Neg for oncologic process Assess/Plan/Problems-Billing 88W with history of B Cell lymphoma s/p HOP in 2018, presented with acute encephalopathy, seizure, found to have aseptic meningitis, hospital course c/b persistent encephalopathy, delirium, and malnourished state. - Patient Problems (1) Encephalopathy acute Comment: MRI brain was negative. LP shows high protein and lymphocytic predominance. Flow cytommertry is neg. Waxing and waning course, with refusal to eat possibly from depression vs delirium (from infection, seizure, medication adverse effects). - Off abx. Completed Acyclovir - Seizure precautions; Depakote as per Neuro - Neur and Pall Care signed off - needs to cont to work with PT for placement (2) Moderate protein-calorie malnutrition Comment: not eating enough; pt clearly refusing NG tube - causes significant pain and distress and pt pulled it out twice this admission. Pt was clear prior to illness that she would never want PEG. - cont mirtazepine nightly; oral intake improved and pt is OFF IVF - cont to encourage PO (3) CVA (cerebral vascular accident) Comment: 2011 without residual deficit - cont plavix, aspirin 81 mg daily (4) Seizure Comment: - On Depakote per neuro (5) Anemia Comment: Stool neg for occult blood. S/p IV iron 08/13. - cont to supplement PO (6) DVT prophylaxis Comment: Lovenox. (7) DNR (do not resuscitate) Comment: -Continue GOC daily, pt is "a minimalist" prior to this admission Status and Disposition: Inpatient. Pending placement.
[2018-08-15] MEDS: Enoxaparin(*) 40 MG/0.4 ML SYR SUBCUT SCH (21:23)
[2018-08-15] MEDS: Mirtazapine TAB* 15 MG PO SCH (21:23)
--- NOTE | 2018-08-16 08:11 | PN ---
Subjective Date of Service: 08/16/18 Interval History: HD #23 on 08/16 88 yo F with PMH hx B Cell lymphoma s/p RCHOP in 2018, presented with acute encephalopathy, seizure, LP with high lymphocyte count presumed viral meningitis , hospital course c/b persistent encephalopathy and malnourished state Overnight no acute events VSS Labs:Stable This morning ate whole breakfast, seen with daughter, pleasant and well, eager to be d/c for rehab. Declines any problems. Family History: Unchanged from Admission Social History: Unchanged from Admission Past Medical History: Unchanged from Admission Objective Active Medications: Acetaminophen (Tylenol Supp*) 650 mg KY Q4H PRN PRN Reason: FEVER/HEADACHE Last Admin: 07/29/18 01:02 Dose: 650 mg Aspirin (Aspirin Ec Tab*) 81 mg PO DAILY PENDING SALE TO [facility] Last Admin: 08/15/18 08:39 Dose: 81 mg Bisacodyl (Dulcolax Supp*) 10 mg [place] DAILY PRN PRN Reason: CONSTIPATION Clopidogrel Bisulfate (Plavix Tab*) 75 mg PO DAILY PENDING SALE TO [facility] Last Admin: 08/15/18 08:39 Dose: 75 mg Divalproex Sodium (Depakote Sprinkle Cap*) 250 mg PO BEDTIME PENDING SALE TO [facility] Last Admin: 08/15/18 21:23 Dose: 250 mg Divalproex Sodium (Depakote Sprinkle Cap*) 125 mg PO DAILY [facility]ENDING [facility] TO [facility] Last Admin: 08/15/18 08:49 Dose: 125 mg Enoxaparin Sodium (Lovenox(*)) 40 mg SUBCUT Q24H PENDING SALE TO [facility] Last Admin: 08/15/18 21:23 Dose: 40 mg Ferrous Sulfate (Ferrous Sulfate Tab*) 325 mg PO DAILY PENDING SALE TO [facility] Last Admin: 08/15/18 08:39 Dose: 325 mg Heparin Sodium (Porcine) (Heparin Flush Port (Ivad)) 5 ml FLUSH DAILY PENDING SALE TO [facility]; Protocol Last Admin: 08/15/18 18:41 Dose: 5 ml Mirtazapine (Remeron Tab*) 7.5 mg PO BEDTIME PENDING SALE TO [facility] Last Admin: 08/15/18 21:23 Dose: 7.5 mg Polyethylene Glycol/Electrolytes (Miralax*) 17 gm PO DAILY PRN PRN Reason: CONSTIPATION Last Admin: 08/10/18 08:57 Dose: 17 gm Vital Signs - 8 hr 08/16/18 03:24 Temperature 97.6 F Pulse Rate 64 Respiratory 18 Rate Blood Pressure 108/75 (mmHg) O2 Sat by Pulse 97 Oximetry Oxygen Devices in Use Now: None Appearance: Pleasant frail woman in NAD Eyes: No Scleral Icterus, PERRLA Ears/Nose/Mouth/Throat: NL Teeth, Lips, Gums Neck: NL Appearance and Movements; NL JVP, Trachea Midline Respiratory: Symmetrical Chest Expansion and Respiratory Effort, Clear to Auscultation Cardiovascular: NL Sounds; No Murmurs; No JVD, RRR Abdominal: NL Sounds; No Tenderness; No Distention, No Hepatosplenomegaly Lymphatic: No Cervical Adenopathy Extremities: No Edema Skin: No Rash or Ulcers Neurological: Alert and Oriented x 3 - Nutrition: Malnutrition Diagnosis/Plan Malnutrition Assessment by Registered Dietitian: Malnutrition Assessment Clinical Characteristics Chronic,Moderate Malnutrition Assessment: - 16# (14%) to 21# (18%) wt loss x past 7-8 Criteria months - < 75% estimated energy expenditure > 1 month Malnutrition Assessment: Per pt's family, she does drink Ensure at home. Interventions Currently, they are afraid that Ensure will thicken secretions/mucus and make swallowing difficult. They are amenable for her to try Ensure Clear. Will send w/ meals. Ensure Clear: 240 kcals, 8 grams protein per serving. Malnutrition Assessment: Goals 1. Intake will improve to support lean body mass , hydration, and wt repletion - Goal: > 50% of meals as confusion improves Result Diagrams: 08/15/18 05:23 08/15/18 05:23 Additional Lab and Data: 07/27/2018: Ammonia: 33 Lactic acid: 1.0 Creatinine: 1.19 07/26/2018: EEG: mild-moderate encephalopathy MRI Brain with and without contrast: no acute intracranial abnormalities. 07/25/2018: Vitamin B12: 1019 TSH: 1.76 Urinalysis: negative Laboratory Tests 07/28/18 07/28/18 13:15 13:15 Fluid Source Cerebral spinal Fluid Volume 3.0 Fluid Color Colorless Fluid Appearance Clear Fluid WBC 29 H* Fluid RBC 1 Fluid Tot Cell Count 100 Fluid Lymphocytes 87 Fluid Monocytes 13 CSF Glucose 65 CSF Total Protein 183 H Microbiology and Other Data: Microbiology CSF NGTD Blood Cx NGTD UCx NGTD HSV Neg, Lyme negative Flow Neg for oncologic process Assess/Plan/Problems-Billing 88W with history of B Cell lymphoma s/p RCHOP in 2018, presented with acute encephalopathy, seizure, found to have aseptic meningitis, hospital course c/b persistent encephalopathy, delirium, and malnourished state. - Patient Problems (1) Encephalopathy acute Current Visit: Yes Status: Acute Code(s): G93.40 - ENCEPHALOPATHY, UNSPECIFIED SNOMED Code(s): 89092911 Comment: MRI brain was negative. LP shows high protein and lymphocytic predominance. Flow cytommertry is neg. Waxing and waning course, with refusal to eat possibly from depression vs delirium (from infection, seizure, medication adverse effects). - Off abx. Completed Acyclovir - Seizure precautions; Depakote as per Neuro - Neur and Pall Care signed off - needs to cont to work with PT for placement (2) Anemia Current Visit: Yes Status: Acute Code(s): D64.9 - ANEMIA, UNSPECIFIED SNOMED Code(s): 773483359 Comment: Stool neg for occult blood. S/p IV iron 08/13. - cont to supplement PO (3) Moderate protein-calorie malnutrition Current Visit: Yes Status: Acute Code(s): E44.0 - MODERATE PROTEIN-CALORIE MALNUTRITION SNOMED Code(s): 759945718 Comment: Slowly improving PO - cont mirtazepine nightly; oral intake improved and pt is OFF IVF - cont to encourage PO (4) DVT prophylaxis Current Visit: Yes Status: Acute Code(s): IAS1877 - SNOMED Code(s): 325102018 Comment: Lovenox. (5) DNR (do not resuscitate) Current Visit: Yes Status: Acute Comment: -Continue GOC daily, pt is "a minimalist" prior to this admission Status and Disposition: Inpatient. Pending placement.
[2018-08-16] MEDS: Clopidogrel TAB* 75 MG PO SCH (10:18)
[2018-08-16] MEDS: Ferrous Sulfate TAB* 325 MG PO SCH (10:18)
[2018-08-16] MEDS: Aspirin EC TAB* 81 MG TAB.EC PO SCH (10:18)
[2018-08-16] MEDS: Divalproex Sprinkle CAP* 125 MG PO SCH ×2 (10:18→20:42)
[2018-08-16] MEDS ORDERED: Witch Hazel PAD* JAR TOPICAL SCH (18:00)
[2018-08-16] MEDS: Enoxaparin(*) 40 MG/0.4 ML SYR SUBCUT SCH (20:42)
[2018-08-16] MEDS: Mirtazapine TAB* 15 MG PO SCH (20:42)
--- NOTE | 2018-08-16 23:22 | DS ---
DISCHARGE SUMMARY: DATE OF ADMISSION: 07/26/18 DATE OF DISCHARGE: To be determined. CODE STATUS: DNR/DNI. DISPOSITION AT THE TIME OF DISCHARGE: Stable, discharged to longterm facility. PRIMARY CARE PROVIDER: Dr. Underwood. CLINICAL DOCUMENTATION MANAGER: Michelle Rodriguez, the patient's daughter. PRIMARY DIAGNOSES: Aseptic meningitis and seizure, NOS (in setting of infection ) SECONDARY DIAGNOSES: 1. B-cell lymphoma status post R-CHOP in 2018. 2. Anemia. 3. Malnutrition. 4. Interstitial lung disease, resultant of chemo. 5. History of cerebrovascular accident. MEDICATIONS AT THE TIME OF DISCHARGE: 1. Aspirin 81 mg p.o. daily. 2. Plavix 75 mg p.o. daily. 3. Depakote 250 mg p.o. q.h.s. and 125 mg p.o. q.a.m. 4. Ferrous sulfate 325 mg p.o. daily. 5. Mirtazapine 7.5 mg p.o. q.h.s. 6. MiraLAX 17 g p.o. daily p.r.n. 7. Albuterol 2 puffs inhaled q.i.d. p.r.n. 8. Atorvastatin 10 mg p.o. daily. 9. Vitamin D3 at 1000 units p.o. daily. Changes to medications at the time of discharge include the addition of: 1. Depakote. 2. Mirtazapine. 3. MiraLAX. HISTORY OF PRESENT ILLNESS AND HOSPITAL COURSE BY PROBLEM: An 88-year-old female with past medical history of lymphoma, status post R-CHOP in 2018, but otherwise a functioning woman, independent in IADLs, who lives at [facility], presented to the emergency room on 07/26/18 with acute change in mental status. The patient was febrile and found to be septic and was admitted for presumed infection and concern for encephalopathy with initial differential concerning for aseptic meningitis versus [employer] lymphoma. The patient was admitted to the hospitalist service and her hospital course by problem is as follows: 1. Encephalopathy. The patient remained confused on hospital day 2 and ultimately underwent LP after having seizure on hospital day 2 and LP showed lymphocyte predominance concerning for aseptic meningitis. Flow cytometry was done that eventually ruled out lymphoma and seemed most concerning for a viral meningitis, although her viral studies came back negative. Acyclovir was continued from 07/28/18 until 08/03/18 in accordance with Infectious Disease. The patient's encephalopathy waxed and waned after treatment of her aseptic meningitis and she had slow recovery and her aseptic meningitis course was complicated by delirium, malnourished state secondary to poor p.o. intake requiring briefly NG tube, but eventually she slowly regained some of her baseline neurologic function around 08/11/18 and 08/12/18 and became participating in care in a meaningful way. Numerous conversations with the family regarding palliative care were done and they felt that given that this was viral and that she may recover from it if they wanted to pursue all options , although we offered hospice and palliative care from the beginning given that the patient is a known "minimalist" in her outpatient setting. At the time of discharge, she is tolerating p.o. diet, ambulating with the help of physical therapy and more engaged in care and forward thinking though certainly frailer than her baseline of completing all IADLs and ADLs independently with the exception of driving. 2. Delirium. This is a consequence of her aseptic meningitis and seizure disorder with postictal state. She was placed on mirtazapine for appetite stimulant and responded well to it. She remains on antiepileptic drugs at this time per Neurology and possibly could be discharged in the future with neurology followup, which can be secured as an outpatient. 3. Malnutrition as per above secondary to aseptic meningitis and encephalopathic state. The patient did have malnutrition and briefly required nasogastric feeding tube. The patient declined repeat placement of nasogastric feeding tube for any kind of calorie supplementation and family was in agreement with her decision to be minimalist in this regard. She is tolerating p.o. slowly and remained off her baseline in terms of a nutrition status. Will need to be monitored carefully and encourage the patient to p.o. Ensure and other high-calorie, nutrition-rich food sources. 4. Anemia. The patient had significant anemia to hemoglobin of 9.3, most consistent with anemia of chronic disease in the setting of known history of R- CHOP as well as significant prolonged hospital stay. She received IV iron on to help optimize her status to the best our ability and she was also started on ferrous sulfate 325 mg p.o. daily. 5. History of interstitial lung disease. The patient has known interstitial lung disease from consequences of chemotherapy and uses p.r.n. albuterol, which she will be discharged on. 6. History of lymphoma. Thorough review with Pathology ensures that no component of [employer] lymphoma was part of her presentation. Oncology was consulted. She has no active issues. CONSULTATIONS DURING THIS HOSPITALIZATION: Included Neurology, Infectious Diseases, oncologist, and Palliative Care. FUNCTIONAL STATUS AT THE TIME OF DISCHARGE: The patient is tolerating p.o., voiding freely. She is ambulating with the assistance of PT. ITEMS TO FOLLOW-UP ON STATUS POST DISCHARGE: 1. Encephalopathy. She has returned to her baseline mental status A and O x3 with slow answers, although likely may be a decompensation from her functional baseline. The family is counseled that this may be a permanent decline in her functional baseline given age and frailty and they understand this may be a consequence of her aseptic meningitis moving forward. Per primary care provider 's discussion, can be continued on mirtazapine for appetite stimulation as well as improvement in sleep. 2. Seizure. This was in the setting of aseptic meningitis and Neurology recommended she remain on antiepileptic drugs. They can be discontinued at the shared decision-making discussion with the patient and her family, although Neurology would recommend that they continue to stay on unless the patient has significant side effects. 3. Anemia. The patient has anemia of chronic disease. She is status post IV iron. This can be continued to be monitored as an outpatient. 4. Goals of care. Again, multiple goals of care discussions were held in the setting of this hospitalization with Ms. Rodriguez and her 4 children and while she is clearly DNR/DNI the family did feel it is reasonable to pursue treatment for viral meningitis, even though they understood the consequences that she would have a decline in baseline. If the patient feels it is appropriate, a MOLST form could be completed that ensures she does not return to the hospital as she feels strongly to engage in as minimal medical care as possible moving forward. Vital signs, labs, and physical exam on date of discharge to be recorded by most recent progress note. TIME SPENT: Thirty minutes was spent on the planning of this discharge with a half of that spent directly at the bedside of the patient providing direct patient care. This discharge summary may serve as a transfer discharge summary as hospitalists that both admitted and cared for this patient over numerous days during her hospitalization is going off service on 08/16/18. At the time of this dictation, the patient is awaiting subacute rehab placement with current case management involvement. [id number]/[facility] #: [id number] [facility]
[2018-08-17 06:43] LABS: BUN/Creatinine Ratio 35.1 (8-20); Calcium 8.5 mg/dL (8.6-10.3); EGFR African American 89.6 (>60); EGFR Non-African American 74.1 (>60); Potassium 3.8 mmol/L (3.5-5.0)
[2018-08-17] MEDS: Ferrous Sulfate TAB* 325 MG PO SCH (09:37)
[2018-08-17] MEDS: Clopidogrel TAB* 75 MG PO SCH (09:37)
[2018-08-17] MEDS: Divalproex Sprinkle CAP* 125 MG PO SCH ×2 (09:38→19:56)
[2018-08-17] MEDS: Aspirin EC TAB* 81 MG TAB.EC PO SCH (09:38)
[2018-08-17] MEDS ORDERED: Saline NASAL SPRAY 0.65%* BTL BOTH NARES PRN (10:14)
--- NOTE | 2018-08-17 15:58 | PN ---
Subjective Date of Service: 08/17/18 Interval History: Patient is feeling well today. Patient is somewhat more somnolent than several days ago per daughter. Patient denies CP, SOB, N/V, abdominal pain, diarrhea, dysuria, or other pain. Patient denies ARRIETA. Patient has had no recurrence of nosebleeds. Patient denies dizziness, passing out, F/C. Discussed care with daughter and she is in favor of taking the patient home with her for 24 hour care. Family History: Unchanged from Admission Social History: Unchanged from Admission Past Medical History: Unchanged from Admission Objective Active Medications: Acetaminophen (Tylenol Supp*) 650 mg KY Q4H PRN PRN Reason: FEVER/HEADACHE Last Admin: 07/29/18 01:02 Dose: 650 mg Aspirin (Aspirin Ec Tab*) 81 mg PO DAILY [facility] Last Admin: 08/17/18 09:38 Dose: 81 mg Bisacodyl (Dulcolax Supp*) 10 mg [place] DAILY PRN PRN Reason: CONSTIPATION Clopidogrel Bisulfate (Plavix Tab*) 75 mg PO DAILY [facility] Last Admin: 08/17/18 09:37 Dose: 75 mg Divalproex Sodium (Depakote Sprinkle Cap*) 250 mg PO BEDTIME [facility] Last Admin: 08/16/18 20:42 Dose: 250 mg Divalproex Sodium (Depakote Sprinkle Cap*) 125 mg PO DAILY [facility] Last Admin: 08/17/18 09:38 Dose: 125 mg Enoxaparin Sodium (Lovenox(*)) 40 mg SUBCUT Q24H [facility] Last Admin: 08/16/18 20:42 Dose: 40 mg Ferrous Sulfate (Ferrous Sulfate Tab*) 325 mg PO DAILY [facility] Last Admin: 08/17/18 09:37 Dose: 325 mg Heparin Sodium (Porcine) (Heparin Flush Port (Ivad)) 5 ml FLUSH DAILY [facility]; Protocol Last Admin: 08/17/18 09:38 Dose: 5 ml Mirtazapine (Remeron Tab*) 7.5 mg PO BEDTIME [facility] Last Admin: 08/16/18 20:42 Dose: 7.5 mg Polyethylene Glycol/Electrolytes (Miralax*) 17 gm PO DAILY PRN PRN Reason: CONSTIPATION Last Admin: 08/10/18 08:57 Dose: 17 gm Sodium Chloride (Sodium Chloride 0.65% Nasal Crary*) 1 spray BOTH NARES Q4H PRN PRN Reason: nasal dryness Vital Signs - 8 hr 08/17/18 08/17/18 08/17/18 08:00 08:59 15:31 Temperature 98.2 F 98.3 F Pulse Rate 65 72 Respiratory 17 17 24 Rate Blood Pressure 115/61 121/69 (mmHg) O2 Sat by Pulse 97 98 Oximetry Oxygen Devices in Use Now: None Appearance: Patient is an 88yo female who appears stated age and is sitting in the bed in NAD. Eyes: No Scleral Icterus, PERRLA Ears/Nose/Mouth/Throat: NL Teeth, Lips, Gums, Clear Oropharnyx, Mucous Membranes Moist Neck: NL Appearance and Movements; NL JVP, Trachea Midline Respiratory: Symmetrical Chest Expansion and Respiratory Effort, Clear to Auscultation Cardiovascular: NL Sounds; No Murmurs; No JVD, RRR, No Edema Abdominal: NL Sounds; No Tenderness; No Distention, No Hepatosplenomegaly Lymphatic: No Cervical Adenopathy Extremities: No Edema, No Clubbing, Cyanosis Skin: No Rash or Ulcers, No Nodules or Sclerosis Neurological: NL Sensation, NL Muscle Strength and Tone, - - CN II-XII intact. Alert and oriented to self and place. - Nutrition: Malnutrition Diagnosis/Plan Malnutrition Assessment by Registered Dietitian: Malnutrition Assessment Clinical Characteristics Chronic,Moderate Malnutrition Assessment: - 16# (14%) to 21# (18%) wt loss x past 7-8 Criteria months - < 75% estimated energy expenditure > 1 month Malnutrition Assessment: Per pt's family, she does drink Ensure at home. Interventions Currently, they are afraid that Ensure will thicken secretions/mucus and make swallowing difficult. They are amenable for her to try Ensure Clear. Will send w/ meals. Ensure Clear: 240 kcals, 8 grams protein per serving. Malnutrition Assessment: Goals 1. Intake will improve to support lean body mass , hydration, and wt repletion - Goal: > 50% of meals as confusion improves Result Diagrams: 08/15/18 05:23 08/17/18 06:00 Additional Lab and Data: 07/27/2018: Ammonia: 33 Lactic acid: 1.0 Creatinine: 1.19 07/26/2018: EEG: mild-moderate encephalopathy MRI Brain with and without contrast: no acute intracranial abnormalities. 07/25/2018: Vitamin B12: 1019 TSH: 1.76 Urinalysis: negative Laboratory Tests 07/28/18 07/28/18 13:15 13:15 Fluid Source Cerebral spinal Fluid Volume 3.0 Fluid Color Colorless Fluid Appearance Clear Fluid WBC 29 H* Fluid RBC 1 Fluid Tot Cell Count 100 Fluid Lymphocytes 87 Fluid Monocytes 13 CSF Glucose 65 CSF Total Protein 183 H Microbiology and Other Data: Microbiology CSF NGTD Blood Cx NGTD UCx NGTD HSV Neg, Lyme negative Flow Neg for oncologic process Assess/Plan/Problems-Billing 88W with history of B Cell lymphoma s/p RCHOP in 2018, presented with acute encephalopathy, seizure, found to have aseptic meningitis, hospital course c/b persistent encephalopathy, delirium, and malnourished state who is improving. - Patient Problems (1) Anemia Current Visit: Yes Status: Acute Code(s): D64.9 - ANEMIA, UNSPECIFIED SNOMED Code(s): 785175349 Comment: - Stool neg for occult blood. S/p IV iron 08/13. - Cont to supplement PO daily (2) Aseptic meningitis Current Visit: Yes Status: Acute Code(s): G03.0 - NONPYOGENIC MENINGITIS SNOMED Code(s): 815843648 Comment: - She continue to be waxing and waning in regard to her mentation - Likely viral and resolved, unclear what new baseline will be. - Likely cause of seizures. (3) B-cell lymphoma Current Visit: Yes Status: Acute Code(s): C85.10 - UNSPECIFIED B-CELL LYMPHOMA, UNSPECIFIED SITE SNOMED Code(s): 227160817 Comment: - S/P R-CHOP therapy in full remission completed in September 2017 (4) CVA (cerebral vascular accident) Current Visit: Yes Status: Acute Code(s): I63.9 - CEREBRAL INFARCTION, UNSPECIFIED SNOMED Code(s): 057733564 Comment: - Occured in 2011 without residual deficit - Cont plavix, aspirin 81 mg daily (5) Moderate protein-calorie malnutrition Current Visit: Yes Status: Acute Code(s): E44.0 - MODERATE PROTEIN-CALORIE MALNUTRITION SNOMED Code(s): 895738634 Comment: - Slowly improving PO - cont mirtazepine nightly; oral intake improved and pt is OFF IVF - cont to encourage PO (6) Seizure Current Visit: Yes Status: Acute Code(s): R56.9 - UNSPECIFIED CONVULSIONS SNOMED Code(s): 93978617 Comment: - On Depakote per neuro to be continued at D/C - Will need ongoing follow up for continued appropriateness of treatment. (7) DNR (do not resuscitate) Current Visit: Yes Status: Acute Comment: -Continue GOC daily, pt is "a minimalist" prior to this admission Status and Disposition: Inpatient. Discharge tomorrow when arrangements for home care are finalized.
[2018-08-17] MEDS: Enoxaparin(*) 40 MG/0.4 ML SYR SUBCUT SCH (19:56)
[2018-08-17] MEDS: Mirtazapine TAB* 15 MG PO SCH (20:00)
[2018-08-18] MEDS: Clopidogrel TAB* 75 MG PO SCH (08:44)
[2018-08-18] MEDS: Divalproex Sprinkle CAP* 125 MG PO SCH (08:44)
[2018-08-18] MEDS: Aspirin EC TAB* 81 MG TAB.EC PO SCH (08:44)
[2018-08-18] MEDS: Ferrous Sulfate TAB* 325 MG PO SCH (08:44)
--- NOTE | 2018-08-18 13:20 | DS ---
CC: Dr. Shakira Underwood; Dr. Morales Begum* DISCHARGE SUMMARY: ADDENDUM: DATE OF ADMISSION: 07/26/18. DATE OF DISCHARGE: 08/18/18. PRIMARY CARE PROVIDER: Dr. Shakira Underwood. MY ATTENDING WHILE IN THE HOSPITAL: Dr. Morales Begum* (dictated by TROY Brown). HOSPITAL COURSE: The patient continued to improve. The patient with physical therapy was able to ambulate entirely on the unit with a contact guard assist and oxygen with her until she was able to per her home plan. The patient's family came, was able to arrange 24-hour care for her at home until she was able to regain independence in order to return to [facility] thereby not needing subacute rehab stay. The patient's vital signs were stable. The patient's mentation improved. The patient's laboratory data showed no significant abnormalities. The patient's somnolence also appeared to improve after re- institution of her 2 L of oxygen at night, which she was previously prescribed by Dr. Looney of Pulmonology. The patient's appetite seemed to improve, but she still complained of poor appetite. The patient was stable enough for discharge on 08/18/18 to home with 24-hour care. PHYSICAL EXAMINATION ON THE DAY OF DISCHARGE: General: The patient is an 88- year- old female who appears stated age and sitting comfortably in the bed, in no acute distress. Vital Signs: Temperature 97.7, pulse rate 79, respiratory rate 18, oxygen saturation 96% on room air, blood pressure 131/72. HEENT: Head : Normocephalic, atraumatic. Sclerae anicteric. No conjunctival injection. Nasal mucosa is moist. Oral mucosa is moist. No pharyngeal erythema, discharge , or exudate. Neck: Supple. No lymphadenopathy. No carotid bruits auscultated. No JVD. Cardiac: Regular rate and rhythm. No clicks, murmurs, gallops, or rubs. Pulses 2+ in the dorsalis pedis, posterior tibialis, and radial areas. Respiratory: Clear to auscultation bilaterally. No wheezes, rales, or rhonchi. Good air exchange bilaterally. Abdomen: Soft, nontender, nondistended. Bowel sounds present, normoactive in all 4 quadrants. No hepatosplenomegaly. No abdominal bruits auscultated. No hepatojugular reflux. Genitourinary: No suprapubic or CVA tenderness. Skin: Clean, dry, intact. No rash. Neuro: Cranial nerves II through XII intact. No focal deficits. Alert and oriented x3. Normal gait. DISCHARGE PLAN: The patient will be discharged to home with 24-hour care. The patient would be continued on mirtazapine for appetite stimulation and antidepressant effects. The patient will be continued on divalproex for treatment of seizures. The patient should follow up with Neurology within one month for monitoring, repeat valproic acid level and discussion with the family about continue appropriateness of the patient's Depakote given her age and goals of care as previously outlined in Pooja Prince's Discharge Summary. The patient should follow up with Hematology/Oncology as needed for possible worsening anemia, though her anemia is currently stable and she is asymptomatic. The patient should have a mechanical ground nectar-thickened diet. TIME SPENT: Approximately 60 minutes were spent on this discharge of the patient, 30 of which were spent [id number] with the patient obtaining history and physical and discussing treatment plan. TROY BROWN [id number]/[facility] #: [id number] [facility]
[2018-08-18 13:34] VITALS: BP 116/75
== END 2018-08-18 13:50 | disposition home health service (06) | DRG 98 ==
LOC: ED 16:52 → MEDTELE 07-26 02:35 → OBSVTOIN 07-26 10:35 → MEDTELE 08-04 16:09 → MED 08-15 15:15
PROVIDERS: ADMIT Internal Medicine; ATTEND Internal Medicine
PROC: 0DH67UZ Insertion of Feeding Device into Stomach, Via Natural or Artificial Opening (ICD-10-PCS; principal; 2018-07-26)
PROC: 009U3ZX Drainage of Spinal Canal, Percutaneous Approach, Diagnostic (ICD-10-PCS; 2018-07-28)
PROC: 4A10X4Z Monitoring of Central Nervous Electrical Activity, External Approach (ICD-10-PCS; 2018-08-07)
DX: G03.0 Nonpyogenic meningitis (principal); E44.0 Moderate protein-calorie malnutrition; Z68.1 Body mass index [BMI] 19.9 or less, adult; I31.3 Pericardial effusion (noninflammatory); C85.10 Unspecified B-cell lymphoma, unspecified site; E87.4 Mixed disorder of acid-base balance; G40.89 Other seizures; F05 Delirium due to known physiological condition; G89.29 Other chronic pain; I10 Essential (primary) hypertension; Z66 Do not resuscitate; J84.10 Pulmonary fibrosis, unspecified; M19.91 Primary osteoarthritis, unspecified site; Z90.49 Acquired absence of other specified parts of digestive tract; R40.2362 Coma scale, best motor response, obeys commands, at arrival to emergency department; R40.2142 Coma scale, eyes open, spontaneous, at arrival to emergency department; R40.2252 Coma scale, best verbal response, oriented, at arrival to emergency department; E78.5 Hyperlipidemia, unspecified; M25.551 Pain in right hip; H91.90 Unspecified hearing loss, unspecified ear; R00.0 Tachycardia, unspecified; E87.6 Hypokalemia; I69.322 Dysarthria following cerebral infarction; W19.XXXA Unspecified fall, initial encounter; Y92.239 Unspecified place in hospital as the place of occurrence of the external cause; J43.9 Emphysema, unspecified; E83.51 Hypocalcemia; D50.9 Iron deficiency anemia, unspecified; E88.09 Other disorders of plasma-protein metabolism, not elsewhere classified; R00.1 Bradycardia, unspecified; R63.0 Anorexia; Z53.20 Procedure and treatment not carried out because of patient's decision for unspecified reasons; Z92.21 Personal history of antineoplastic chemotherapy; Z98.42 Cataract extraction status, left eye; Z98.41 Cataract extraction status, right eye; Z96.1 Presence of intraocular lens; Z87.01 Personal history of pneumonia (recurrent); Z80.0 Family history of malignant neoplasm of digestive organs
CPT/HCPCS: 36415; 36600; 70450; 70553; 71045; 71046; 71260; 74177; 80048; 80053; 80076; 80164; 80202; 81003; 82140; 82550; 82607; 82728; 82803; 82945; 83540; 83550; 83605; 83615; 83735; 83880; 84100; 84157; 84443; 84484; 85025; 85027; 85610; 85652; 86140; 86255; 86592; 86618; 87040; 87070; 87205; 87529; 87798; 87899; 88112; 88184; 88185; 88187; 88188; 88189; 89051; 93005; 95819; 99233; 99284; A9270-GY; A9579; G8978-GP-CK; G8979-GP-CI; G8987-GO-CJ; G8987-GO-CL; G8988-GO-CI; J0133; J0696; J1642; J1650; J1953; J2060; J2270; J2916; J3370; J3475; J3480; Q9967

== ENCOUNTER 2018-10-20 16:02 | Inpatient (IN) | payer MEDICARE ==
[2018-10-20] MEDS ORDERED: NS 0.9% 1000 ML** 1,000 ML IV SCH (17:45)
[2018-10-20] MEDS ORDERED: Calcitonin (Salmon) INJ* 200 UNITS/ML 2 ML VIAL SUBCUT SCH (18:00)
--- OUTSIDE RECORDS SUMMARY | 2018-10-20 18:27 | XMS REPORT | Continuity of Care Document ---
:1930 External Reference #:[id number] Author Name Chaz Contreras, OD Address [address] [place] [address] Care Team Providers Name Role Phone Chaz Contreras OD Care Team Information Survey Researcher Unavailable Payers Date Identification Numbers Payment Provider Subscriber Policy Number: [id number] [facility] Marlys Rodriguez Group Number: [id number] PayID: [id number] Family History Date Family Member(s) Observation Comments General Glasses General Cancer Father Glasses Father due to Unknown Causes () Father Unknown Mother Cancer Mother due to Colon Cancer () Mother Glasses Social History Type Date Description Comments Sex Unknown ETOH Use Denies alcohol use Tobacco Use Start: Unknown Patient has never smoked Smoking Status Reviewed: 10/05/18 Patient has never smoked Allergies, Adverse Reactions, Alerts Description No Known Drug Allergies Medications Active Medications SIG Qnty Indications Ordering Provider Date Divalproex Sodium Take One Capsule Unknown 125mg By Mouth Every CSDR Day In The Morning And 2 Caps In The Evening Mirtazapine Take 1 Tablet By Unknown 7.5mg Tablets Mouth Every Day Atorvastatin Calcium MD Flores Charles 10mg Tablets Iron 1 by mouth three Unknown 142(45Fe) mg Tablets times a day, with ER food Vitamin D3 Unknown 1000Unit Capsules Aspirin 81 Low Dose Unknown 81mg Chewtabs Plan of Treatment 10/05/2018 - Chaz Contreras, ODH26.491 Other secondary cataract, right eyeFollow up:YAG OD with dr Hobbs96.1 Presence of intraocular lensFollow up:YAG OD with dr landry
--- OUTSIDE RECORDS SUMMARY | 2018-10-20 18:27 | XMS REPORT | Continuity of Care Document ---
:1930 External Reference #:[id number] Author Name Chaz Contreras, OD Address [address] [place] [address] Care Team Providers Name Role Phone Chaz Contreras OD Care Team Information Cook Manager Unavailable Payers Date Identification Numbers Payment Provider Subscriber Policy Number: [id number] [facility] Marlys Rodriguez Group Number: [id number] PayID: [id number] Family History Date Family Member(s) Observation Comments General Glasses General Cancer Father Glasses Father due to Unknown Causes () Father Unknown Mother Cancer Mother due to Colon Cancer () Mother Glasses Social History Type Date Description Comments Sex Unknown ETOH Use Denies alcohol use Tobacco Use Start: Unknown Patient has never smoked Smoking Status Reviewed: 10/20/18 Patient has never smoked Allergies, Adverse Reactions, Alerts Description No Known Drug Allergies Medications Active Medications SIG Qnty Indications Ordering Provider Date Cyclopentolate HCL one drop tid OD 15ml Chaz Contreras, OD 10/05/2018 1% x 3 weeks Solution Divalproex Sodium Take One Capsule Unknown 125mg CSDR By Mouth Every Day In The Morning And 2 Caps In The Evening Mirtazapine Take 1 Tablet By Unknown 7.5mg Tablets Mouth Every Day Atorvastatin Calcium MD Mark, 10mg Jed Tablets Iron 1 by mouth three Unknown 142(45Fe) mg Tablets ER times a day, with food Vitamin D3 Unknown 1000Unit Capsules Aspirin 81 Low Dose Unknown 81mg Chewtabs History Medications Cyclopentolate HCL one drop tid OD 15ml Chaz Contreras, OD 10/05/2018 - 1% Solution x 3 weeks 10/05/2018 Vital Signs Date Vital Result Comment 10/20/2018 10:10am Intraocular Pressure Right Eye 15 mmHg 10/05/2018 3:56pm Intraocular Pressure Right Eye 12 mmHg Intraocular Pressure Left Eye 12 mmHg Procedures Date Code Description Status 10/20/2018 95866 Eye Exam Est Intermediate Completed 10/05/2018 52109 Eye Exam New Intermediate Completed Plan of Treatment 10/20/2018 - Chaz Contreras, ODH26.491 Other secondary cataract, right eyeFollow up:schedule surgery tuesday with dr landry
--- OUTSIDE RECORDS SUMMARY | 2018-10-20 18:27 | XMS REPORT | Continuity of Care Document ---
:1930 External Reference #:[id number] Author Name Chaz Contreras, OD Address [address] [place] [address] Care Team Providers Name Role Phone Chaz Contreras OD Care Team Information Program Support Assistant Unavailable Payers Date Identification Numbers Payment Provider Subscriber Policy Number: [id number] [facility] Marlys Rodriguez Group Number: [id number] PayID: [id number] Family History Date Family Member(s) Observation Comments [...] 10/05/2018 Vital Signs Date Vital Result Comment 10/05/2018 3:56pm Intraocular Pressure Right Eye 12 mmHg Intraocular Pressure Left Eye 12 mmHg Procedures Date Code Description Status 10/20/2018 16026 Eye Exam Est Intermediate Completed 10/05/2018 82365 Eye Exam New Intermediate Completed
[2018-10-20] MEDS: predniSONE TAB* 20 MG PO SCH (19:50)
[2018-10-20] MEDS: Pantoprazole TAB * 40 MG TAB PO SCH (19:50)
[2018-10-20] MEDS: Enoxaparin(*) 30 MG/0.3 ML SYR SUBCUT SCH (19:50)
[2018-10-20] MEDS: Atorvastatin* 10 MG TAB PO SCH (19:51)
[2018-10-20] MEDS ORDERED: Iodixanol* (CONTRAST) 320 MG/ML 100 ML SDV IV ONE (19:55)
--- NOTE | 2018-10-20 21:12 | HP ---
ADMISSION HISTORY AND PHYSICAL: DATE OF ADMISSION: 10/20/18 REASON FOR ADMISSION: Hypercalcemia. HISTORY OF PRESENT ILLNESS: Marlys Rodriguez is an 88-year-old female whose relative history dates back to February 2017 when she was hospitalized at [facility]. She presented at that time with fatigue, weakness, and weight loss. A CT scan of the chest, abdomen, and pelvis revealed adenopathy in the chest and abdomen. She was found to be hypercalcemic during that admission and was treated with Zometa. She was seen at initial office visit here on 04/18/17 and was treated multiple with Zometa during the first several weeks of her care here. By 05/05/17, her calcium level was back to normal. Lymph node biopsy of the left inguinal region on 03/29/17 revealed diffuse large B-cell lymphoma. At that time, she had weight loss, fevers to 101, and night sweats along with severe fatigue. Given her age, the remainder of the workup with bone marrow biopsy and PET scan were not performed. She was started on R-mini-CHOP on 04/27. She developed an elevated LFTs and renal dysfunction during the first cycle of chemotherapy. Following the second cycle of chemotherapy, she was hospitalized for a prolonged stay from 06/01/17 to 06/28/17 at [facility] in [place], followed by a transfer to [facility] where she was on the thoracic service. She had acute hypoxic respiratory failure with severe interstitial lung disease bilaterally, with fibrosis and honeycombing. She developed persistent right apical pneumothorax, status post chest tube removal, and a recurrent pneumothorax with extensive pneumomediastinum and subcutaneous emphysema. She never required intubation. She was treated with antibiotics for hospital-acquired pneumonia. She slowly improved and a decision was made to resume chemotherapy without the Adriamycin, which she received for another 2 cycles, completing cycle 4 in August 2017. She did well from then until July 2018 when she had a prolonged hospitalization at [facility] with aseptic meningitis and seizure. By the time of discharge she was doing considerably better and was able to go to independent living at [place]. She did not have any long-term significant neurologic deficits, but her memory remained poor. She presented to her primary care physician's office several days ago with increasing weakness and fatigue and was found to have a hypercalcemia, with a calcium level of 13. At the same time, she had an albumin of 3.6. She was brought into the office [facility] and received 1 L of IV hydration along with Zometa 4 mg IV and is brought back today in followup. Her calcium level has only dropped from 13 down to 12.7. Her family reports that she continues to feel extremely weak and fatigued, memory remains poor. They feel that she has had a difficult time with ambulation as well. Her creatinine level was elevated 2 days ago at 1.36 and today is 1.34. Remainder of the chemistry studies besides the creatinine and calcium are essentially normal. She has also developed slight worsening of her anemia with a hematocrit of 30 and a hemoglobin of 10.6 with normal platelets and white count. PAST MEDICAL HISTORY: Otherwise significant for: 1. 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 2. Lung disease and lymphoma, as discussed above. 3. Status post cholecystectomy. 4. Status post cataract. 5. Status post tonsillectomy. MEDICATIONS: At the present time include: 1. Iron. 2. Vitamin D. 3. Lipitor 10 mg daily. 4. Depakote 125 mg daily. 5. Mirtazapine 7.5 mg at bedtime. 6. Aspirin 81 mg daily. ALLERGIES: None. SOCIAL HISTORY: The patient had [place] [facility], prior to initiation of a therapy for her lymphoma and more recently has been living here in town, currently at [place], in an independent living. No smoking or alcohol. REVIEW OF SYSTEMS: Weight has been stable recently. Her appetite is poor. No shortness of breath, chest pain or palpitations. No significant change in bowel or bladder habits. Symptoms of weakness in the legs, but not focal. No other significant issues with review of systems. PHYSICAL EXAMINATION GENERAL: An 88-year-old female who appears somewhat weak and fatigued. VITAL SIGNS: Blood pressure 124/60, pulse 66. Height 5 feet 1 inches, weight 98 pounds. Afebrile. HEENT: PERRL. EOMI. No erythema or exudates. Slightly dry mucous membranes. She has 1 cm bilateral cervical lymph nodes and also 1 cm left axillary lymph nodes. No supraclavicular or right axillary lymph nodes are noted. LUNGS: Clear. HEART: Regular rate and rhythm, without murmurs, rubs or gallops. ABDOMEN: Soft, nontender, without masses or organomegaly. EXTREMITIES: No edema. NEUROLOGIC EXAM: The patient is somewhat lethargic, is only able to give me the date after having been prepped for it. She does know she is in the medical office. Cranial nerves III through XII are intact. Motor is 4+ to 5-/5 in the upper extremities and also the left leg. Right leg is slightly weaker. LABORATORY STUDIES: CBC: White count 4400, H and H of 30/10.6, platelet count 166,000. Chemistry studies: Sodium 138, potassium 3.9, chloride 101, bicarb 30, BUN 32, creatinine 1.34, glucose 142. Calcium, as noted above, is 12.7, with normal LFTs. LDH is pending. IMPRESSION: 1. An 88-year-old female presenting with hypercalcemia and associated symptoms. She had presented at the time of initial lymphoma with a very refractory hypercalcemia that was difficult to control until her lymphoma was treated. I am highly suspicious that she once again has recurrent lymphoma in the setting of these symptoms and also in the setting of having some mild axillary and cervical lymph nodes. The patient has received a dose of Zometa 4 mg again today and also IV hydration. She will continue on IV hydration. Calcitonin will be added at a dose of 4 units/kg q.12 hours and increased if necessary. She has also been given steroids as prednisone at 60 mg per day, which is 1.5 mg/kg. CT scan of the chest, abdomen, and pelvis will be obtained. Situation was discussed at length with her and her daughter. If she truly has recurrent lymphoma, it may be very difficult to treat at her age with her underlying medical issues and with having been treated for lymphoma just 18 months ago, completing just over a year ago. She and her family are well aware that if her lymphoma has recurred, we may be talking a more palliative approach. 2. Lymphoma, as discussed above. 3. DNR status. 4. DVT prophylaxis will be given with Lovenox. [id number]/[facility] #: [id number] [facility]
[2018-10-20] MEDS: Nystatin TOP POWDER* 15 GM BTL TOPICAL SCH (22:43)
[2018-10-20] MEDS: Mirtazapine TAB* 15 MG PO SCH (22:44)
[2018-10-21 06:41] LABS: BUN/Creatinine Ratio 22.7 (8-20); Calcium 10.7 mg/dL (8.6-10.3); EGFR African American 51.8 (>60); EGFR Non-African American 42.8 (>60); Potassium 3.6 mmol/L (3.5-5.0)
[2018-10-21] MEDS: Atorvastatin* 10 MG TAB PO SCH (09:08)
[2018-10-21] MEDS: Pantoprazole TAB * 40 MG TAB PO SCH (09:08)
[2018-10-21] MEDS: Nystatin TOP POWDER* 15 GM BTL TOPICAL SCH ×2 (09:09→21:11)
[2018-10-21] MEDS: Aspirin EC TAB* 81 MG TAB.EC PO SCH (09:09)
[2018-10-21] MEDS: predniSONE TAB* 20 MG PO SCH (09:09)
[2018-10-21] MEDS: Divalproex Sprinkle CAP* 125 MG PO SCH (09:09)
[2018-10-21] MEDS: Calcitonin (Salmon) INJ* 200 UNITS/ML 2 ML VIAL SUBCUT SCH ×2 (13:26→23:00)
[2018-10-21] MEDS: Mirtazapine TAB* 15 MG PO SCH (21:07)
[2018-10-21] MEDS: Enoxaparin(*) 30 MG/0.3 ML SYR SUBCUT SCH (21:08)
[2018-10-22] MEDS: NS 0.9% 1000 ML** 1,000 ML IV SCH ×2 (00:06→21:44)
[2018-10-22 06:23] LABS: BUN/Creatinine Ratio 31.1 (8-20); Calcium 10.5 mg/dL (8.6-10.3); EGFR African American 59.2 (>60); EGFR Non-African American 48.9 (>60); Potassium 3.7 mmol/L (3.5-5.0)
[2018-10-22] MEDS: predniSONE TAB* 20 MG PO SCH (10:03)
[2018-10-22] MEDS: Atorvastatin* 10 MG TAB PO SCH (10:03)
[2018-10-22] MEDS: Divalproex Sprinkle CAP* 125 MG PO SCH (10:03)
[2018-10-22] MEDS: Aspirin EC TAB* 81 MG TAB.EC PO SCH (10:04)
[2018-10-22] MEDS: Pantoprazole TAB * 40 MG TAB PO SCH (10:04)
[2018-10-22] MEDS: Calcitonin (Salmon) INJ* 200 UNITS/ML 2 ML VIAL SUBCUT SCH ×2 (10:05→23:48)
[2018-10-22] MEDS: Nystatin TOP POWDER* 15 GM BTL TOPICAL SCH ×2 (10:05→20:06)
[2018-10-22] MEDS ORDERED: Ondansetron ODT TAB* 4 MG PO PRN (11:44)
[2018-10-22] MEDS: Mirtazapine TAB* 15 MG PO SCH (20:04)
[2018-10-22] MEDS: Enoxaparin(*) 30 MG/0.3 ML SYR SUBCUT SCH (20:06)
[2018-10-23 05:54] LABS: BUN/Creatinine Ratio 32.3 (8-20); Calcium 9.5 mg/dL (8.6-10.3); EGFR African American 64.1 (>60); EGFR Non-African American 52.9 (>60); Potassium 3.6 mmol/L (3.5-5.0)
[2018-10-23] MEDS: predniSONE TAB* 20 MG PO SCH (09:38)
[2018-10-23] MEDS: Divalproex Sprinkle CAP* 125 MG PO SCH (09:38)
[2018-10-23] MEDS: Aspirin EC TAB* 81 MG TAB.EC PO SCH (09:38)
[2018-10-23] MEDS: Pantoprazole TAB * 40 MG TAB PO SCH (09:38)
--- NOTE | 2018-10-23 10:50 | PN ---
Progress Note - Progress Note Date of Service: 10/23/18 SOAP: Subjective: []No complaints today. Feeling well. Denies constipation. Medications: Aspirin (Aspirin Ec Tab*) 81 mg PO DAILY [facility] Last Admin: 10/23/18 09:38 Dose: 81 mg Calcitonin [place] (Miacalcin Inj*) 200 units SUBCUT Q12H [facility] Last Admin: 10/22/18 23:48 Dose: 200 units Divalproex Sodium (Depakote Sprinkle Cap*) 125 mg PO DAILY [facility] Last Admin: 10/23/18 09:38 Dose: 125 mg Enoxaparin Sodium (Lovenox(*)) 30 mg SUBCUT Q24H [facility] Last Admin: 10/22/18 20:06 Dose: 30 mg Mirtazapine (Remeron Tab*) 7.5 mg PO BEDTIME [facility] Last Admin: 10/22/18 20:04 Dose: 7.5 mg Nystatin (Nystatin Top Powder*) 1 applic TOPICAL BID [facility] Last Admin: 10/22/18 20:06 Dose: 1 applic Ondansetron HCl (Zofran Odt Tab*) 4 mg PO Q8H PRN PRN Reason: NAUSEA/VOMITING Pantoprazole Sodium (Protonix Tab*) 40 mg PO DAILY [facility] Last Admin: 10/23/18 09:38 Dose: 40 mg Prednisone (Deltasone Tab*) 60 mg PO DAILY [facility] Last Admin: 10/23/18 09:38 Dose: 60 mg Objective: [] Vital Signs Temp Pulse Resp BP Pulse Ox 97.2 F 52 18 130/57 98 10/23/18 02:54 10/23/18 02:54 10/23/18 07:44 10/23/18 02:54 10/23/18 02:54 Alert and oriented, involved in care HRR LS clear +BS, soft and non-tender Laboratory Results - last 24 hr 10/23/18 05:18 Sodium 140 Potassium 3.6 Chloride 107 Carbon Dioxide 28 Anion Gap 5 BUN 32 H Creatinine 0.99 H Est GFR ( Amer) 64.1 Est GFR (Non-Af Amer) 52.9 BUN/Creatinine Ratio 32.3 H Glucose 108 H Calcium 9.5 Assessment: []88 yo female admitted with hypercalcemia 2/2 progressive DLBCL with plan to transition to hospice. Plan: []d/c IV fluids, calcitonin, and de-access port Dispo: d/c to [place] with hospice once [address]
[2018-10-23] MEDS: Nystatin TOP POWDER* 15 GM BTL TOPICAL SCH ×2 (11:10→20:05)
[2018-10-23] MEDS: Calcitonin (Salmon) INJ* 200 UNITS/ML 2 ML VIAL SUBCUT SCH ×2 (12:19→22:57)
--- NOTE | 2018-10-23 14:26 | CONSULT ---
Palliative / Hospice Consult Ordering Provider: Jed Flores - PC[facility]en[facility] Referal Reason: Goals of care - Subjective Code Status: DNR Advance Directives Location: No Advance Directives MOLST Part A Completed: Yes - on chart MOLST Part E Completed:: Yes - on chart - History or Present Illness History or Present Illness: 88yo female presented to ER after outpatient therapy was unable to bring her calcium level down. PMH is significant for diffuse large B cell lymphoma 03/2017 , hypercalemia treated wit Zometa 02/2017, interstitial lung disease secondary to chemo, aseptic meningitis with seizure, CVA w/o significant residual and hyperlipidemia. 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 Studies show BUN/Cr 33/1.06, egfr 48.9, Ca 10.5, Abd/Chest/pelv CT shows progression of mediastinal bilateral hilar adenopathy, chronic interstitial fibrotic changes to lung, small pleural effusion and pericardial effusion. Pt was found to have a recurrence of her lymphoma which will be difficult to treat given she just started treatment 18months ago and has opted for hospice. All history is from the pt, family and medical record. Lab Values: Abnormal Lab Results 10/23/18 05:18 Sodium 140 Potassium 3.6 Chloride 107 Carbon Dioxide 28 Anion Gap 5 BUN 32 H Creatinine 0.99 H Est GFR ( Amer) 64.1 Est GFR (Non-Af Amer) 52.9 BUN/Creatinine Ratio 32.3 H Glucose 108 H Calcium 9.5 Laboratory Last Values Sodium 140 mmol/L (135-145) 10/23/18 05:18 Potassium 3.6 mmol/L (3.5-5.0) 10/23/18 05:18 Chloride 107 mmol/L (101-111) 10/23/18 05:18 Carbon Dioxide 28 mmol/L (22-32) 10/23/18 05:18 Anion Gap 5 mmol/L (2-11) 10/23/18 05:18 BUN 32 mg/dL (6-24) H 10/23/18 05:18 Creatinine 0.99 mg/dL (0.51-0.95) H 10/23/18 05:18 Est GFR ( Amer) 64.1 (>60) 10/23/18 05:18 Est GFR (Non-Af Amer) 52.9 (>60) 10/23/18 05:18 BUN/Creatinine Ratio 32.3 (8-20) H 10/23/18 05:18 Glucose 108 mg/dL (70-100) H 10/23/18 05:18 Calcium 9.5 mg/dL (8.6-10.3) 10/23/18 05:18 - Objective Active Medications: Aspirin (Aspirin Ec Tab*) 81 mg PO DAILY [facility] Last Admin: 10/23/18 09:38 Dose: 81 mg Calcitonin Model (Miacalcin Inj*) 200 units SUBCUT Q12H [facility] Last Admin: 10/23/18 12:19 Dose: 200 units Divalproex Sodium (Depakote Sprinkle Cap*) 125 mg PO DAILY [facility] Last Admin: 10/23/18 09:38 Dose: 125 mg Enoxaparin Sodium (Lovenox(*)) 30 mg SUBCUT Q24H [facility] Last Admin: 10/22/18 20:06 Dose: 30 mg Mirtazapine (Remeron Tab*) 7.5 mg PO BEDTIME [facility] Last Admin: 10/22/18 20:04 Dose: 7.5 mg Nystatin (Nystatin Top Powder*) 1 applic TOPICAL BID [facility] Last Admin: 10/23/18 11:10 Dose: Not Given Ondansetron HCl (Zofran Odt Tab*) 4 mg PO Q8H PRN PRN Reason: NAUSEA/VOMITING Pantoprazole Sodium (Protonix Tab*) 40 mg PO DAILY [facility] Last Admin: 10/23/18 09:38 Dose: 40 mg Prednisone (Deltasone Tab*) 60 mg PO DAILY [facility] Last Admin: 10/23/18 09:38 Dose: 60 mg Vital Signs: Vital Signs: Temp Pulse Resp BP Pulse Ox 97.2 F 52 18 130/57 98 10/23/18 02:54 10/23/18 02:54 10/23/18 07:44 10/23/18 02:54 10/23/18 02:54 Patient Weight: Weight 46.947 kg Intake and Output: Intake & Output 10/21/18 10/22/18 10/23/18 10/24/18 06:59 06:59 06:59 06:59 Intake Total 7655 9772 4623 Balance 7011 9556 4053 Weight 46.947 kg Intake: IV Fluids 876 5145 4064 NS (0.9%) 876 5145 4064 Oral 789 244 9942 Other: Estimated Void Large # Bowel Movements 0 0 1 Estimated Stool Amount Small # Voids 1 1 1 ADLs: Meal Record Start: 10/20/18 18: 37 Freq: DAILY@0900,1400,1800 Status: Active Protocol: Created 10/20/18 18:37 System (Rec: 10/20/18 18:37 System MED-C25) Document 10/21/18 09:00 [id number] (Rec: 10/21/18 13:41 [id number] MED-C11) Document 10/21/18 14:00 [id number] (Rec: 10/21/18 14:41 [id number] MED-C09) Document 10/21/18 18:00 [id number] (Rec: 10/21/18 20:22 [id number] MED-C07) Document 10/22/18 09:00 [id number] (Rec: 10/22/18 09:58 [id number] MED-C13) Document 10/22/18 14:00 [id number] (Rec: 10/22/18 15:11 [id number] MED-C13) Document 10/22/18 18:00 [id number] (Rec: 10/22/18 19:29 [id number] MED-C13) Intake and Output Start: 10/20/18 18: 37 Freq: DAILY@0600,1400,2200 Status: Active Protocol: Created 10/20/18 18:37 System (Rec: 10/20/18 18:37 System MED-C25) Document 10/20/18 22:00 [id number] (Rec: 10/20/18 22:04 [id number] MED-C11) Document 10/21/18 04:52 [id number] (Rec: 10/21/18 04:53 [id number] MED-C11) Document 10/21/18 14:00 [id number] (Rec: 10/21/18 14:41 [id number] MED-C09) Document 10/21/18 21:56 [id number] (Rec: 10/21/18 21:56 [id number] MED-C07) Document 10/22/18 05:54 [id number] (Rec: 10/22/18 05:54 [id number] MED-C13) Document 10/22/18 14:00 [id number] (Rec: 10/22/18 17:43 [id number] MED-C13) Document 10/22/18 19:29 [id number] (Rec: 10/22/18 19:29 [id number] MED-C13) Document 10/22/18 22:00 [id number] (Rec: 10/22/18 23:23 [id number] MED-C13) Document 10/23/18 05:19 [id number] (Rec: 10/23/18 05:19 [id number] MED-C04) Head: Normal Ears/Nose/Mouth/Throat: NL Teeth, Lips, Gums Neck: NL Appearance and Movements; NL JVP Cardiovascular: NL Sounds; No Murmurs; No JVD Respiratory: Symmetrical Chest Expansion and Respiratory Effort Abdominal: NL Sounds; No Tenderness; No Distention Extremities: No Edema Neurological: Alert and Oriented x 3 - Assessment Assessment: 88 yo female presents with recurrence of her diffuse large B cell lymphoma and hypercalemia electing hospice - Plan Consult Plan (MU): Hospice Plan: Long discussion with pt, daughter and son-in-law about goals of care. Pt has opted for hospice. Information and brochure given. Questions answered, awaiting a hospice sign on time. Family and pt would prefer a residence bed but there are no beds available currently. Pt will go back to [place] with a chaperon. Family is also requesting a hospital bed, commode and wheelchair, pillowcase folder aware. Pt's goal is to be comfortable not seeking active therapy. Pt is a DNR/ DNI. Emotional and practical support given.Pt is eligible for hospice with the diagnosis of recurrent B cell lymphoma not seeking chemotherapy and hypercalcemia. KPS 60%, PPS 40% - Time On Unit Date of Evaluation: 10/23/18 Hospice Consult Time in: 13:30 Hospice Consult Time Out: 15:00 Hospice Consult Time Total: 90 > 50% of Time Spend In Counseling or Coordinating Care: Yes
[2018-10-23] MEDS: Enoxaparin(*) 30 MG/0.3 ML SYR SUBCUT SCH (20:02)
[2018-10-23] MEDS: Mirtazapine TAB* 15 MG PO SCH (20:03)
[2018-10-24] MEDS: Divalproex Sprinkle CAP* 125 MG PO SCH (08:07)
[2018-10-24] MEDS: Aspirin EC TAB* 81 MG TAB.EC PO SCH (08:07)
[2018-10-24] MEDS: predniSONE TAB* 20 MG PO SCH (08:07)
[2018-10-24] MEDS: Pantoprazole TAB * 40 MG TAB PO SCH (08:07)
[2018-10-24] MEDS: Nystatin TOP POWDER* 15 GM BTL TOPICAL SCH ×2 (08:08→21:09)
[2018-10-24] MEDS: Enoxaparin(*) 30 MG/0.3 ML SYR SUBCUT SCH (19:25)
[2018-10-24] MEDS: Mirtazapine TAB* 15 MG PO SCH (21:07)
[2018-10-25] MEDS: Divalproex Sprinkle CAP* 125 MG PO SCH (07:40)
[2018-10-25] MEDS: Nystatin TOP POWDER* 15 GM BTL TOPICAL SCH ×2 (07:40→21:04)
[2018-10-25] MEDS: Pantoprazole TAB * 40 MG TAB PO SCH (07:40)
[2018-10-25] MEDS: Aspirin EC TAB* 81 MG TAB.EC PO SCH (07:40)
[2018-10-25] MEDS: predniSONE TAB* 20 MG PO SCH (07:40)
[2018-10-25] MEDS: Enoxaparin(*) 30 MG/0.3 ML SYR SUBCUT SCH (20:59)
[2018-10-25] MEDS: Mirtazapine TAB* 15 MG PO SCH (20:59)
--- NOTE | 2018-10-26 08:46 | DS ---
- Discharge Summary ADMIT DATE: 10/21/15 DISCHARGE DATE: 10/26/18 DISCHARGE DIAGNOSIS: 1. progressive DLBCL 2. hypercalcemia of malignancy 3. home with hospice DISCHARGE CONDITION: GUARDED DISCHARGE MEDICATIONS: Home Medications Medication Instructions Recorded Confirmed Type Divalproex Sprinkle CAP* [Depakote 125 mg PO DAILY #30 cap 08/18/18 10/20/18 Rx Sprinkle CAP*] Mirtazapine TAB* [Remeron TAB*] 7.5 mg PO BEDTIME #30 tab 08/18/18 10/20/18 Rx Nystatin TOP POWDER* 1 applic TOPICAL BID btl 10/26/18 Rx Ondansetron ODT TAB* [Zofran 4 MG 4 mg PO Q8H PRN #30 tab 10/26/18 Rx Odt TAB*] Pantoprazole TAB * [Protonix TAB*] 40 mg PO DAILY #30 tab 10/26/18 Rx predniSONE TAB* [Deltasone 20 MG 60 mg PO DAILY #90 tab 10/26/18 Rx TAB*] DISCHARGE FOLLOW UP: NONE--HOSPICE HOSPITAL COURSE:88 yo F w PMH of DLBCL most recently in remission until she presented to the hospital with AMS and hypercalcemia. She was given hydration, zometa, prednisone and calcitonin with marked improvement. She is quite frail with no good salvage regimens in her age group and so appropriately opted for comfort measures only. She will be discharged to assisted living today with hospice in place. She will continue on her prednisone for now as this may help palliate symptoms. She understands that her prognosis is quite grave and is at peace with this. >30 mins spent, >50% in face to face counseling
[2018-10-26] MEDS: predniSONE TAB* 20 MG PO SCH (09:45)
[2018-10-26] MEDS: Pantoprazole TAB * 40 MG TAB PO SCH (09:45)
[2018-10-26] MEDS: Divalproex Sprinkle CAP* 125 MG PO SCH (09:45)
[2018-10-26] MEDS: Aspirin EC TAB* 81 MG TAB.EC PO SCH (09:45)
[2018-10-26] MEDS: Nystatin TOP POWDER* 15 GM BTL TOPICAL SCH (09:48)
[2018-10-26 11:45] VITALS: BP 163/75
== END 2018-10-26 10:30 | disposition hospice, home (50) | DRG 641 ==
LOC: MED 18:24
PROVIDERS: ADMIT Internal Medicine Hematology & Oncology; ATTEND Internal Medicine Hematology & Oncology
DX: E83.52 Hypercalcemia (principal); C83.38 Diffuse large B-cell lymphoma, lymph nodes of multiple sites; Z66 Do not resuscitate; Z79.52 Long term (current) use of systemic steroids; Z92.21 Personal history of antineoplastic chemotherapy; Z87.01 Personal history of pneumonia (recurrent); Z86.73 Personal history of transient ischemic attack (TIA), and cerebral infarction without residual deficits; Z90.49 Acquired absence of other specified parts of digestive tract; Z98.49 Cataract extraction status, unspecified eye
CPT/HCPCS: 36415; 71260; 74177; 80048; 99232; 99239; A9270-GY; J0630; J1642; J1650; J7512; Q9967